=== PATIENT | male | born 1945 | race Caucasian/White ===

== ENCOUNTER 2016-12-23 10:55 | Emergency (ER) | payer MEDICARE ==
[2016-12-23 14:57] LABS: APPEARANCE,URINE CLEAR; BILIRUBIN,URINE NEGATIVE (NEGATIVE); GLUCOSE, URINE NEGATIVE (NEGATIVE); KETONES,URINE NEGATIVE (NEGATIVE); LEUKOCYTE ESTERASE,URINE TRACE (NEGATIVE); NITRITE,URINE NEGATIVE (NEGATIVE); PROTEIN,URINE NEGATIVE (NEGATIVE); URINE SPECIFIC GRAVITY 1.012; UROBILINOGEN,URINE NEGATIVE mg/dL (<2.0)
[2016-12-23 15:00] LABS: PARTIAL THROMBOPLASTIN TIME 29.7 SEC (23.5-35.8); PROTHROMBIN TIME 14.1 SEC (11.4-15.4)
--- NOTE | 2016-12-23 15:01 | ER Document Report ---
ED GI/ - General Time seen by provider: 14:55 Mode of Arrival: Medic Information source: Patient TRAVEL OUTSIDE OF THE [place] IN LAST 30 DAYS: No - HPI Patient complains to provider of: Abdominal pain, Diarrhea Onset: Other - see HPI Timing/Duration: Gradual Quality of pain: Burning, Cramping Location: Epigastric Associated symptoms: Diarrhea <DONA SUAREZ - Last Filed: 12/23/16 19:34> <EVANGELISTA ERICKSON - Last Filed: 12/23/16 22:31> - General Chief Complaint: Diarrhea Stated Complaint: ABDOMINAL PAIN Notes: Patient is a 71-year-old male presented to the emergency department with complaints of abdominal pain and diarrhea. Patient had diarrhea for the past 3 days but states he had a bowel movement today. Patient states his abdominal pain is in his upper epigastric region. Patient states that he is belching and burping a lot. Patient states that he was eating some Ramen noodles to try to settle his stomach. Patient also has erythematous lower extremities bilaterally with cellulitis. Patient states that he resides with his and other family members. Triage note states that the patient is noncompliant with his medications and has not taken any for the past month. Patient has a history of triple bypass surgery. Patient has no known allergies. (DONA SUAREZ) - Related Data Allergies/Adverse Reactions: No Known Allergies Allergy (Verified 05/02/13 14:18) Past Medical History - General Information source: Patient, [facility] Records - Social History Smoking Status: Unknown if Ever Smoked Family History: None - Past Medical History Cardiac Medical History: Reports: Hx Hypertension Pulmonary Medical History: Reports: Hx COPD GI Medical History: Reports: Hx Gastroesophageal Reflux Disease Past Surgical History: Reports: Hx Appendectomy, Hx Cardiac Surgery - triple bypass 2011, Hx Orthopedic Surgery - bilat leg surgery. - Immunizations Hx Diphtheria, Pertussis, Tetanus Vaccination: No <DONA SUAREZ - Last Filed: 12/23/16 19:34> Review of Systems - Review of Systems Constitutional: No symptoms reported EENT: No symptoms reported Cardiovascular: No symptoms reported Respiratory: No symptoms reported Gastrointestinal: See HPI, Abdominal pain, Diarrhea Genitourinary: No symptoms reported Male Genitourinary: No symptoms reported Musculoskeletal: No symptoms reported Skin: See HPI Hematologic/Lymphatic: No symptoms reported Neurological/Psychological: No symptoms reported -: Yes All other systems reviewed and negative <DONA SUAREZ - Last Filed: 12/23/16 19:34> Physical Exam - Vital signs Interpretation: Normal - General General appearance: Alert, Other - disheveled appearing In distress: Mild - HEENT Head: Normocephalic, Atraumatic Eyes: Normal Pupils: PERRL - Respiratory Respiratory status: No respiratory distress Chest status: Nontender, Other - scar on his chest consistent with CABG Breath sounds: Normal Chest palpation: Normal - Cardiovascular Rhythm: Regular Heart sounds: Normal auscultation Murmur: No - Abdominal Inspection: Normal Distension: No distension Bowel sounds: Normal Tenderness: Nontender Organomegaly: No organomegaly - Back Back: Normal, Nontender - Extremities General upper extremity: Normal inspection, Normal ROM, Normal strength General lower extremity: Normal ROM, Normal strength, Other - chronic venous stasis - Neurological Neuro grossly intact: Yes Cognition: Normal Orientation: AAOx4 Ayla Coma Scale Eye Opening: Spontaneous [place] Coma Scale Verbal: Oriented [place] Coma Scale Motor: Obeys Commands Ayla Coma Scale Total: 15 Speech: Normal - Psychological Associated symptoms: Normal affect, Normal mood - Skin Skin Temperature: Warm Skin Moisture: Dry <KARI SUAREZINE - Last Filed: 12/23/16 19:34> Course - Laboratory Result Diagrams: 12/23/16 12:20 12/23/16 12:20 <ERICKDONA - Last Filed: 12/23/16 19:34> - Laboratory Result Diagrams: 12/23/16 12:20 12/23/16 12:20 <EVANGELISTA ERICKSON - Last Filed: 12/23/16 22:31> - Re-evaluation Re-evalutation: 12/23/16 Patient is a 71-year-old male who came in for abdominal pain and diarrhea. Patient has had no further bowel movements in the emergency department. He has eaten a full meal and feels better. No abdominal pain. Blood work within normal limits. Vitals are stable. Patient lives with other family members. He 'll be discharged home and is to follow-up with his doctor. Agrees with this plan. (EVANGELISTA ERICKSON) - Vital Signs Vital signs: Temp Pulse Resp BP Pulse Ox 98.2 F 100 16 135/66 H 100 12/23/16 20:10 12/23/16 11:33 12/23/16 19:01 12/23/16 19:01 12/23/16 19:01 (DONA SUAREZ) (EVANGELISTA ERICKSON) - Laboratory Laboratory results interpreted by me: 12/23/16 12/23/16 12/23/16 12:20 12:20 12:20 MCHC 31.5 L RDW 18.6 H ALT 20 L Ur Leukocyte Esterase TRACE H (DONA SUAREZ) (EVANGELISTA ERICKSON) Discharge <DONA SUAREZ - Last Filed: 12/23/16 19:34> <EVANGELISTA ERICKSON - Last Filed: 12/23/16 22:31> - Discharge Clinical Impression: Diarrhea Qualifiers: Diarrhea type: unspecified type Qualified Code(s): R19.7 - Diarrhea, unspecified Condition: Stable Disposition: HOME, SELF-CARE Instructions: Diarrhea, Nonspecific ([facility]) Additional Instructions: Please follow-up with your doctor this week. Forms: Elevated Blood Pressure Scribe Attestation: 12/23/16 22:31 I personally performed the services described in the documentation, reviewed and edited the documentation which was dictated to the scribe in my presence, and it accurately records my words and actions. (EVANGELISTA ERICKSON) Scribe Documentation - Scribe Written by Scribe:: Dona Suarez 12/23/16 15:10 acting as scribe for :: Gamaliel <DONA SUAREZ - Last Filed: 12/23/16 19:34>
[2016-12-23 15:04] LABS: ABSOLUTE EOSINOPHILS # (AUTO) 0.3 10^3/uL (0.0-0.6); ABSOLUTE MONOCYTES (AUTO) 0.6 10^3/uL (0.1-1.4); BASOPHILS % (AUTO) 0.6 % (0-2); EOSINOPHILS % (AUTO) 4.3 % (0-6); HEMATOCRIT 45.1 % (37.9-51.0); HEMOGLOBIN 14.2 g/dL (13.5-17.0); HGB HCT DIFFERENCE -2.5; LYMPHOCYTES % (AUTO) 13.9 % (13-45); MEAN CORPUSCULAR HEMOGLOBIN 28.6 pg (27.0-33.4); MEAN CORPUSCULAR HGB CONC 31.5 g/dL (32.0-36.0); MEAN CORPUSCULAR VOLUME 91 fl (80-97); MONOCYTES % (AUTO) 9.3 % (3-13); RED BLOOD COUNT 4.98 10^6/uL (4.35-5.55); RED CELL DISTRIBUTION WIDTH 18.6 % (11.5-14.0); SEGMENTED NEUTROPHILS % (AUTO) 71.9 % (42-78); WHITE BLOOD COUNT 6.9 10^3/uL (4.0-10.5)
[2016-12-23 15:22] LABS: ALANINE AMINOTRANSFERASE 20 U/L (21-72); ALBUMIN 3.9 g/dL (3.5-5.0); ALKALINE PHOSPHATASE 72 U/L (38-126); ANION GAP 11 (5-19); ASPARTATE AMINO TRANSFERASE 21 U/L (17-59); BILIRUBIN,TOTAL 0.8 mg/dL (0.2-1.3); BLOOD UREA NITROGEN 14 mg/dL (7-20); CALCIUM 8.5 mg/dL (8.4-10.2); CARBON DIOXIDE 26 mmol/L (22-30); CHLORIDE 107 mmol/L (98-107); CREATININE RESULT 0.98 mg/dL (0.52-1.25); GLUCOSE 87 mg/dL (75-110); LIPASE 75.8 U/L (23-300); SODIUM 143.8 mmol/L (137-145)
[2016-12-23] MEDS ORDERED: SUCRALFATE 1 GM TABLET PO ONE (18:16)
[2016-12-23 20:10] VITALS: BP 135/66
== END 2016-12-23 20:11 | disposition home or self-care (01) ==
LOC: ER 10:55
DX: R19.7 Diarrhea, unspecified (principal); R10.13 Epigastric pain; R14.2 Eructation; L03.116 Cellulitis of left lower limb; L03.115 Cellulitis of right lower limb; I87.8 Other specified disorders of veins; I10 Essential (primary) hypertension; J44.9 Chronic obstructive pulmonary disease, unspecified; Z87.19 Personal history of other diseases of the digestive system; Z91.14 Patient's other noncompliance with medication regimen; Z90.49 Acquired absence of other specified parts of digestive tract; Z95.1 Presence of aortocoronary bypass graft
CPT/HCPCS: 99284; 36415; 87040; 87086; 83605; 83690; 85025; 85610; 85730; 82272; 80053; 81001; 84484; A9270

== ENCOUNTER 2017-03-05 14:40 | Emergency (ER) | payer MEDICARE ==
--- NOTE | 2017-03-05 15:46 | ER Document Report ---
ED Medical Screen (RME) - General Mode of Arrival: Ambulatory Information source: Patient TRAVEL OUTSIDE OF THE [place] IN LAST 30 DAYS: No - HPI Patient complains to provider of: Constipation with diarrhea Associated Symptoms: Other - see notes above - General Chief Complaint: Diarrhea Stated Complaint: DIARRHEA Notes: 71 year old male presents to the ED complaining of chronic constipation. Patient reports that he has difficulty having a bowel movement, and only is able to after he eats a meal. Patient explains that when he finally does have a bowel movement, it is loose. (JARAD WHEELER) - Related Data Allergies/Adverse Reactions: No Known Allergies Allergy (Verified 03/05/17 14:54) Past Medical History - General Information source: Patient - Past Medical History Cardiac Medical History: Reports: Hx Hypertension Pulmonary Medical History: Reports: Hx COPD Renal/ Medical History: Denies: Hx Peritoneal Dialysis GI Medical History: Reports: Hx Gastroesophageal Reflux Disease Past Surgical History: Reports: Hx Appendectomy, Hx Cardiac Surgery - triple bypass 2011, Hx Orthopedic Surgery - bilat leg surgery. - Immunizations Hx Diphtheria, Pertussis, Tetanus Vaccination: No Review of Systems - Review of Systems Constitutional: No symptoms reported EENT: No symptoms reported Cardiovascular: No symptoms reported Respiratory: No symptoms reported Gastrointestinal: See HPI, Diarrhea, Constipation Genitourinary: No symptoms reported Male Genitourinary: No symptoms reported Musculoskeletal: No symptoms reported Skin: No symptoms reported Hematologic/Lymphatic: No symptoms reported Neurological/Psychological: No symptoms reported -: Yes All other systems reviewed and negative Physical Exam - Vital signs Interpretation: Normal - General General appearance: Alert, Other - disheveled appearing In distress: None - Abdominal Inspection: Normal Distension: No distension Tenderness: Nontender - Vital signs Vitals: Temp Pulse Resp BP Pulse Ox 97.9 F 94 20 172/83 H 98 03/05/17 14:55 03/05/17 14:55 03/05/17 14:55 03/05/17 14:55 03/05/17 14:55 Course - Re-evaluation Re-evalutation: 03/05/17 Patient with nonsurgical abdomen. Patient is complaining of both diarrhea and chronic constipation. Patient is apparently also out of some of his home medications and recently moved to the area. Social work has been consult. 03/05/17 16:03 I personally performed the services described in the documentation, reviewed and edited the documentation which was dictated to the scribe in my presence, and it accurately records my words and actions. (EVANGELISTA ERICKSON) - Vital Signs Vital signs: Temp Pulse Resp BP Pulse Ox 97.9 F 94 20 172/83 H 98 03/05/17 14:55 03/05/17 14:55 03/05/17 14:55 03/05/17 14:55 03/05/17 14:55 Scribe Documentation - Scribe Written by Krystale:: Maycol Huertas, 03/05/2017 1553 acting as scribe for :: Gamaliel
[2017-03-05 16:17] LABS: ABSOLUTE BASOPHILS # (AUTO) 0.1 10^3/uL (0.0-0.2); ABSOLUTE EOSINOPHILS # (AUTO) 0.4 10^3/uL (0.0-0.6); ABSOLUTE LYMPHOCYTES (AUTO) 1.1 10^3/uL (0.5-4.7); ABSOLUTE MONOCYTES (AUTO) 0.7 10^3/uL (0.1-1.4); ABSOLUTE NEUT (AUTO) 5.7 10^3/uL (1.7-8.2); BASOPHILS % (AUTO) 0.8 % (0-2); EOSINOPHILS % (AUTO) 5.4 % (0-6); HEMATOCRIT 43.3 % (37.9-51.0); HEMOGLOBIN 14.5 g/dL (13.5-17.0); HGB HCT DIFFERENCE 0.2; LYMPHOCYTES % (AUTO) 13.6 % (13-45); MEAN CORPUSCULAR HEMOGLOBIN 29.5 pg (27.0-33.4); MEAN CORPUSCULAR HGB CONC 33.5 g/dL (32.0-36.0); MEAN CORPUSCULAR VOLUME 88 fl (80-97); MONOCYTES % (AUTO) 9.1 % (3-13); RED BLOOD COUNT 4.91 10^6/uL (4.35-5.55); SEGMENTED NEUTROPHILS % (AUTO) 71.1 % (42-78)
[2017-03-05 16:19] LABS: PROTHROMBIN TIME 13.5 SEC (11.4-15.4)
[2017-03-05 16:30] LABS: ALANINE AMINOTRANSFERASE 22 U/L (21-72); ALBUMIN 4.2 g/dL (3.5-5.0); ALKALINE PHOSPHATASE 88 U/L (38-126); ANION GAP 13 (5-19); ASPARTATE AMINO TRANSFERASE 19 U/L (17-59); BILIRUBIN,DIRECT 0.2 mg/dL (0.0-0.4); BILIRUBIN,TOTAL 0.6 mg/dL (0.2-1.3); BLOOD UREA NITROGEN 13 mg/dL (7-20); CALCIUM 9.5 mg/dL (8.4-10.2); CARBON DIOXIDE 27 mmol/L (22-30); CHLORIDE 104 mmol/L (98-107); CREATININE RESULT 0.95 mg/dL (0.52-1.25); GLUCOSE 94 mg/dL (75-110); POTASSIUM 4.5 mmol/L (3.6-5.0); SODIUM 143.7 mmol/L (137-145); TOTAL PROTEIN 7.3 g/dL (6.3-8.2)
--- NOTE | 2017-03-05 17:47 | ER Document Report ---
ED General - General Chief Complaint: Diarrhea Stated Complaint: DIARRHEA Mode of Arrival: Ambulatory Information source: Patient Notes: This is a 71-year-old male with multiple medical problems who presents with multiple vague complaints today. He states that the main reason for his presentation is abdominal cramping and diarrhea. He has a long history of intermittent constipation and diarrhea. He states that he has not seen a primary care physician in several years and is out of many of his medicines. He denies any current abdominal pain. He is tolerating food by mouth. No fevers or chills. No cough or congestion. No chest pain or shortness of breath. No dysuria. No blood in the stool. TRAVEL OUTSIDE OF THE [place] IN LAST 30 DAYS: No - Related Data Allergies/Adverse Reactions: No Known Allergies Allergy (Verified 03/05/17 14:54) Past Medical History - General Information source: Patient, [facility] Records - Social History Smoking Status: Former Smoker Frequency of alcohol use: None Drug Abuse: None Lives with: Family Family History: None Patient has suicidal ideation: No Patient has homicidal ideation: No - Past Medical History Cardiac Medical History: Reports: Hx Hypertension Pulmonary Medical History: Reports: Hx COPD Renal/ Medical History: Denies: Hx Peritoneal Dialysis GI Medical History: Reports: Hx Gastroesophageal Reflux Disease Past Surgical History: Reports: Hx Appendectomy, Hx Cardiac Surgery - triple bypass 2011, Hx Orthopedic Surgery - bilat leg surgery. - Immunizations Hx Diphtheria, Pertussis, Tetanus Vaccination: No Review of Systems - Review of Systems Notes: REVIEW OF SYSTEMS: CONSTITUTIONAL : Denies fever, chills, or sweats. Denies recent illness. EENT: Denies eye, ear, throat, or mouth pain or symptoms. Denies nasal or sinus congestion. CARDIOVASCULAR: Denies chest pain. RESPIRATORY: Denies shortness of breath, difficulty breathing, or wheezing. Chronic cough. GASTROINTESTINAL: As per history of present illness: GENITOURINARY: Denies difficulty urinating, painful urination, burning, frequency, or blood in urine. MUSCULOSKELETAL: Denies neck or back pain or joint pain or swelling. SKIN: Denies rash or skin lesions. HEMATOLOGIC : Denies easy bruising or bleeding. LYMPHATIC: Denies swollen, enlarged glands. NEUROLOGICAL: Denies altered mental status or loss of consciousness. Denies headache. PSYCHIATRIC: Denies anxiety or stress or depression. ALL OTHER SYSTEMS REVIEWED AND NEGATIVE. Physical Exam - Vital signs Vitals: Temp Pulse Resp BP Pulse Ox 97.9 F 94 20 172/83 H 98 03/05/17 14:55 03/05/17 14:55 03/05/17 14:55 03/05/17 14:55 03/05/17 14:55 - Notes Notes: PHYSICAL EXAMINATION: GENERAL: disheveled elderly male, poor hygiene, well-nourished, pleasant and conversant and in no acute distress. HEAD: Atraumatic, normocephalic. EYES: Pupils equal round and reactive to light, extraocular movements intact, sclera anicteric, conjunctiva are normal. ENT: nares patent, oropharynx clear without exudates. Moist mucous membranes. NECK: Normal range of motion, supple without lymphadenopathy LUNGS: Breath sounds clear to auscultation bilaterally and equal. No wheezes rales or rhonchi. HEART: Regular rate and rhythm without murmurs ABDOMEN: Soft, nontender, normoactive bowel sounds. No guarding, no rebound. No masses appreciated. EXTREMITIES: Normal range of motion, no pitting or edema. NEUROLOGICAL: Cranial nerves grossly intact. Normal speech, normal gait. Normal sensory, motor, and reflex exams. PSYCH: Normal mood, normal affect. SKIN: Warm, Dry, normal turgor, no rashes or lesions noted. Course - Re-evaluation Re-evalutation: 03/05/17 20:25 Patient reexamined and we discussed the results of his lab work and acute abdominal series. He is noted to be sitting up in bed and has just completed eating a meal he is smiling and conversant and watching TV and states he feels just fine. He will be discharged tonight. He has been given the number for the social science manager to call tomorrow for assistance with arranging primary medical care and to resume his daily medications. Should return precautions were discussed. He is very comfortable with this plan. - Vital Signs Vital signs: Temp Pulse Resp BP Pulse Ox 97.9 F 94 20 172/83 H 98 03/05/17 14:55 03/05/17 14:55 03/05/17 14:55 03/05/17 14:55 03/05/17 14:55 - Laboratory Result Diagrams: 03/05/17 15:55 03/05/17 15:55 Laboratory results interpreted by me: 03/05/17 03/05/17 15:55 18:30 RDW 18.0 H Ur Leukocyte Esterase TRACE H - Diagnostic Test Radiology reviewed: Reports reviewed - AAS: no acute process, non obstructive bowel gas pattern - EKG Interpretation by Me Additional EKG results interpreted by me: 03/05/17 17:47 EKG at 1548 demonstrates normal sinus rhythm with a rate of 79. There is an incomplete left bundle-branch block. Nonspecific T-wave changes. No ST segment elevation or depression. Discharge - Discharge Clinical Impression: Diarrhea Qualifiers: Diarrhea type: unspecified type Qualified Code(s): R19.7 - Diarrhea, unspecified Condition: Stable Disposition: HOME, SELF-CARE Additional Instructions: Call Data Analysis Intern as instructed tomorrow for assistance with finding PCP and resuming daily medications. Return to the ER for fever, increased pain, any worsening symptoms or concerns. Forms: Elevated Blood Pressure
[2017-03-05 20:06] LABS: APPEARANCE,URINE CLEAR; BILIRUBIN,URINE NEGATIVE (NEGATIVE); GLUCOSE, URINE NEGATIVE (NEGATIVE); KETONES,URINE NEGATIVE (NEGATIVE); LEUKOCYTE ESTERASE,URINE TRACE (NEGATIVE); NITRITE,URINE NEGATIVE (NEGATIVE); PROTEIN,URINE NEGATIVE (NEGATIVE); URINE SPECIFIC GRAVITY 1.013; UROBILINOGEN,URINE NEGATIVE mg/dL (<2.0)
[2017-03-05 20:55] VITALS: BP 160/89
--- NOTE | 2017-03-07 15:44 | EKG REPORT ---
SEVERITY:- ABNORMAL ECG - SINUS RHYTHM INCOMPLETE LEFT BUNDLE BRANCH BLOCK LEFT VENTRICULAR HYPERTROPHY : Confirmed by: Alia Leonard MD 07-Mar-2017 15:42:29
== END 2017-03-05 20:55 | disposition home or self-care (01) ==
LOC: ER 14:40
DX: R19.7 Diarrhea, unspecified (principal); R10.9 Unspecified abdominal pain; K59.00 Constipation, unspecified; Z87.891 Personal history of nicotine dependence
CPT/HCPCS: 36415; 74022; 80053; 81001; 85025; 85610; 87040; 87086; 93005; 93010; 99284

== ENCOUNTER 2018-06-17 00:18 | Emergency (ER) | payer MEDICARE, MEDICAID ==
[2018-06-17] MEDS ORDERED: IPRATROPIUM/ALBUTEROL 0.5-2.5 MG/3 ML AMPUL NEB ONE (01:23)
[2018-06-17] MEDS ORDERED: CEPHALEXIN 500 MG CAPSULE PO ONE (01:23)
[2018-06-17] MEDS ORDERED: ALBUTEROL SULFATE HFA (90 MCG/PUFF) 200 PUFF/8.5 GM MDI IH ONE (01:36)
--- NOTE | 2018-06-17 01:38 | ER Document Report ---
ED General - General Chief Complaint: Leg Pain Stated Complaint: LEG PAIN Time Seen by Provider: 06/17/18 01:00 Notes: Patient is a 73-year-old male with a past medical history of hypertension, COPD , chronic venous stasis, history of noncompliance with medication regimens who presents with 3-4 days of progressively worsening pain to the right lower extremity. Patient reports that initially there was too serous fluid sacs on the anterior surface of the distal right lower extremity just above the level of the ankle. He notes that these opened and drained since that time the area has become increasingly red and painful. He notes a dull, constant, burning pain to the affected area. Touching the area worsens the pain. Nothing improves the pain. He denies a history of similar symptoms in the past. He has not seen his general doctor regarding today's concerns. He denies any associated fever or constitutional. TRAVEL OUTSIDE OF THE [place] IN LAST 30 DAYS: No - Related Data Allergies/Adverse Reactions: No Known Allergies Allergy (Verified 03/05/17 14:54) Past Medical History - General Information source: Patient - Social History Smoking Status: Former Smoker Frequency of alcohol use: None Drug Abuse: None Lives with: Family Family History: Reviewed & Not Pertinent Patient has suicidal ideation: No Patient has homicidal ideation: No - Past Medical History Cardiac Medical History: Reports: Hx Hypertension Pulmonary Medical History: Reports: Hx COPD Renal/ Medical History: Denies: Hx Peritoneal Dialysis GI Medical History: Reports: Hx Gastroesophageal Reflux Disease Past Surgical History: Reports: Hx Appendectomy, Hx Cardiac Surgery - triple bypass 2011, Hx Orthopedic Surgery - bilat leg surgery. - Immunizations Hx Diphtheria, Pertussis, Tetanus Vaccination: No Review of Systems - Review of Systems Notes: Constitutional: Negative for fever. HENT: Negative for sore throat. Eyes: Negative for visual changes. Cardiovascular: Negative for chest pain. Respiratory: Negative for shortness of breath. Gastrointestinal: Negative for abdominal pain, vomiting or diarrhea. Genitourinary: Negative for dysuria. Musculoskeletal: Negative for back pain. Skin: Positive for cellulitis of the right lower extremity Neurological: Negative for headaches, weakness or numbness. 10 point ROS negative except as marked above and in HPI. Physical Exam - Vital signs Vitals: Temp Pulse Resp BP Pulse Ox 98.8 F 94 17 152/81 H 97 06/17/18 00:26 06/17/18 00:26 06/17/18 00:26 06/17/18 00:26 06/17/18 00:26 Interpretation: Hypertensive Notes: PHYSICAL EXAMINATION: GENERAL: Well-appearing, well-nourished and in no acute distress. HEAD: Atraumatic, normocephalic. EYES: Pupils equal round and reactive to light, extraocular movements intact, sclera anicteric, conjunctiva are normal. ENT: nares patent, oropharynx clear without exudates. Moist mucous membranes. NECK: Normal range of motion, supple without lymphadenopathy LUNGS: Breath sounds clear to auscultation bilaterally and equal. Scattered expiratory wheezing in all lung ibrahim HEART: Regular rate and rhythm without murmurs ABDOMEN: Soft, nontender, normoactive bowel sounds. No guarding, no rebound. No masses appreciated. EXTREMITIES: Normal range of motion, no pitting or edema. No cyanosis. NEUROLOGICAL: No focal neurological deficits. Moves all extremities spontaneously and on command. PSYCH: Normal mood, normal affect. SKIN: Warm, Dry, normal turgor, findings consistent with chronic venous stasis in the bilateral lower extremities, there are 2 1 cm x 1 cm open areas on the mid, distal surface of the right lower extremity just above the level of the ankle that appear erythematous and are quite tender to palpation. No induration , fluctuance or purulent expression. Course - Re-evaluation Re-evalutation: 06/17/18 01:35 Patient presents with 2 open wounds to his right lower extremity and has chronic venous stasis to the bilateral lower extremities. No fever or constitutional symptoms. He has had some redness and increased pain to the affected area consistent with a probable superimposed cellulitis. Vitals within normal limits. Patient does not meet sepsis criteria is overall very well in appearance. Exam and history are not consistent with DVT. Patient has been started on cephalexin and the wounds have been dressed. At this time will discharge with return precautions and follow-up recommendations. Verbal discharge instructions given a the bedside and opportunity for questions given. Medication warnings reviewed. Patient is in agreement with this plan and has verbalized understanding of return precautions and the need for primary care follow-up in the next 24-72 hours. - Vital Signs Vital signs: Temp Pulse Resp BP Pulse Ox 98.8 F 88 20 142/87 H 96 06/17/18 00:26 06/17/18 01:36 06/17/18 01:36 06/17/18 01:36 06/17/18 01:36 Discharge - Discharge Clinical Impression: Cellulitis of right lower extremity Stasis dermatitis Qualifiers: Laterality: bilateral Qualified Code(s): I87.2 - Venous insufficiency (chronic ) (peripheral) Condition: Good Disposition: HOME, SELF-CARE Additional Instructions: The rash is likely due to infection of your skin. You need to take the antibiotics as prescribed. Do not stop even if the rash goes away until you have completed all the antibiotics. You should also return if you develop fevers with temperature greater than 101, persistent vomiting, worsening pain, or have any other symptoms that are concerning to you. Prescriptions: Cephalexin Monohydrate [Keflex 500 mg Capsule] 500 mg PO Q6H 7 Days capsule Referrals: JENISE PRIEC DO [Primary Care Provider] - Follow up as needed
[2018-06-17 02:06] VITALS: BP 142/87
== END 2018-06-17 01:55 | disposition home or self-care (01) ==
LOC: ER 00:18
DX: L03.115 Cellulitis of right lower limb (principal); I87.2 Venous insufficiency (chronic) (peripheral); M79.604 Pain in right leg; I10 Essential (primary) hypertension; J44.9 Chronic obstructive pulmonary disease, unspecified; Z87.891 Personal history of nicotine dependence
CPT/HCPCS: 94640; 99283; A9270 ×2; J7620

== ENCOUNTER 2018-08-16 16:09 | Inpatient (IN) | payer MEDICARE, MEDICAID ==
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
[2018-08-16] MEDS ORDERED: NITROGLYCERIN 0.4 MG/TAB 25 TAB/BOTTLE SL ONE (16:52)
[2018-08-16] MEDS ORDERED: AMLODIPINE BESYLATE 5 MG TABLET PO ONE (16:53)
[2018-08-16 17:23] LABS: ABSOLUTE BASOPHILS # (AUTO) 0.1 10^3/uL (0.0-0.2); ABSOLUTE EOSINOPHILS # (AUTO) 0.4 10^3/uL (0.0-0.6); ABSOLUTE LYMPHOCYTES (AUTO) 1.2 10^3/uL (0.5-4.7); ABSOLUTE MONOCYTES (AUTO) 0.9 10^3/uL (0.1-1.4); ABSOLUTE NEUT (AUTO) 8.1 10^3/uL (1.7-8.2); BASOPHILS % (AUTO) 0.8 % (0-2); EOSINOPHILS % (AUTO) 3.6 % (0-6); HEMATOCRIT 43.2 % (37.9-51.0); HEMOGLOBIN 14.2 g/dL (13.5-17.0); LYMPHOCYTES % (AUTO) 10.9 % (13-45); MEAN CORPUSCULAR HGB CONC 32.8 g/dL (32.0-36.0); MEAN CORPUSCULAR VOLUME 85 fl (80-97); MONOCYTES % (AUTO) 8.3 % (3-13); PLATELET COUNT 360 10^3/uL (150-450); RED BLOOD COUNT 5.06 10^6/uL (4.35-5.55); RED CELL DISTRIBUTION WIDTH 18.8 % (11.5-14.0); SEGMENTED NEUTROPHILS % (AUTO) 76.4 % (42-78); TOTAL CELLS COUNTED % (AUTO) 100 %; WHITE BLOOD COUNT 10.6 10^3/uL (4.0-10.5)
[2018-08-16 17:39] LABS: ALANINE AMINOTRANSFERASE 25 U/L (21-72); ALBUMIN 4.3 g/dL (3.5-5.0); ALKALINE PHOSPHATASE 84 U/L (38-126); ANION GAP 8 (5-19); ASPARTATE AMINO TRANSFERASE 23 U/L (17-59); BILIRUBIN,DIRECT 0.6 mg/dL (0.0-0.4); BILIRUBIN,TOTAL 0.8 mg/dL (0.2-1.3); BLOOD UREA NITROGEN 21 mg/dL (7-20); CALCIUM 9.5 mg/dL (8.4-10.2); CARBON DIOXIDE 28 mmol/L (22-30); CHLORIDE 103 mmol/L (98-107); CREATINE KINASE 57 U/L (55-170); GLUCOSE 99 mg/dL (75-110); POTASSIUM 4.5 mmol/L (3.6-5.0); SODIUM 139.2 mmol/L (137-145); TOTAL PROTEIN 8.7 g/dL (6.3-8.2)
[2018-08-16 17:41] LABS: INTERNATIONAL RATION (INR) 1.05; PROTHROMBIN TIME 14.2 SEC (11.4-15.4)
[2018-08-16 17:51] LABS: CREATINE KINASE MB 1.8 ng/mL (<4.55); TROPONIN I 0.029 ng/mL
--- NOTE | 2018-08-16 18:01 | RADIOLOGY REPORT (SQ) ---
EXAM DESCRIPTION: CHEST SINGLE VIEW COMPLETED DATE/TIME: 08/16/2018 5:39 pm REASON FOR STUDY: chest pain COMPARISON: Chest x-ray 02/09/2011. Abdominal series 03/05/2017. EXAM PARAMETERS: NUMBER OF VIEWS: One view. TECHNIQUE: Single frontal radiographic view of the chest acquired. RADIATION DOSE: NA LIMITATIONS: None. FINDINGS: LUNGS AND PLEURA: Mild atelectasis at the bilateral lung bases. No pleural effusion or pn eumothorax. MEDIASTINUM AND HILAR STRUCTURES: No masses. Contour normal. HEART AND VASCULAR STRUCTURES: Heart normal in size. Normal vasculature. BONES: No acute findings. HARDWARE: Sternotomy wires are present. IMPRESSION: Mild bibasilar atelectasis. TECHNICAL DOCUMENTATION: JOB ID: [id number] 2010 [employer]- All Rights Reserved Reading location - IP/workstation name: [email or web address]
[2018-08-16] MEDS ORDERED: FUROSEMIDE INJ/PF 20 MG/2 ML SDV IV ONE (19:44)
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
--- NOTE | 2018-08-16 21:37 | EKG REPORT ---
SEVERITY:- ABNORMAL ECG - SINUS RHYTHM INCOMPLETE LEFT BUNDLE BRANCH BLOCK : Confirmed by: Jim Mayes 16-Aug-2018 21:36:30
[2018-08-18] MEDS ORDERED: IPRATROPIUM/ALBUTEROL 0.5-2.5 MG/3 ML AMPUL NEB PRN ×2 (00:02→11:25)
[2018-08-18] MEDS ORDERED: HYDRALAZINE HCL INJ/PF 20 MG/1 ML SDV IV PRN (00:02)
[2018-08-18] MEDS ORDERED: MAG HYDROX/AL HYDROX/SIMETH SUSP 30 ML UDCUP PO PRN (00:02)
[2018-08-18] MEDS ORDERED: ACETAMINOPHEN 325 MG TABLET PO PRN (00:02)
[2018-08-18] MEDS ORDERED: METOPROLOL TARTRATE 25 MG TABLET PO ONE (00:30)
[2018-08-18] MEDS ORDERED: HYDRALAZINE HCL 10 MG TABLET PO ONE (00:30)
[2018-08-18] MEDS ORDERED: ATORVASTATIN CALCIUM 20 MG TABLET PO ONE (00:30)
[2018-08-18] MEDS ORDERED: DOXYCYCLINE HYCLATE 100 MG TABLET PO ONE (01:00)
[2018-08-18 01:24] LABS: CREATINE KINASE MB 2.7 ng/mL (<4.55); TROPONIN I 0.034 ng/mL
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
[2018-08-18] MEDS: HEPARIN SOD (PORCINE) 5,000 UNIT/ML 1 ML SYRINGE SUBCUT SCH ×3 (06:49→22:46)
[2018-08-18 06:53] LABS: ABSOLUTE BASOPHILS # (AUTO) 0.1 10^3/uL (0.0-0.2); ABSOLUTE EOSINOPHILS # (AUTO) 0.5 10^3/uL (0.0-0.6); ABSOLUTE LYMPHOCYTES (AUTO) 1.3 10^3/uL (0.5-4.7); ABSOLUTE MONOCYTES (AUTO) 0.7 10^3/uL (0.1-1.4); ABSOLUTE NEUT (AUTO) 5.5 10^3/uL (1.7-8.2); BASOPHILS % (AUTO) 0.8 % (0-2); EOSINOPHILS % (AUTO) 6.7 % (0-6); HEMATOCRIT 35.5 % (37.9-51.0); MEAN CORPUSCULAR HEMOGLOBIN 28.2 pg (27.0-33.4); MEAN CORPUSCULAR HGB CONC 33.7 g/dL (32.0-36.0); MEAN CORPUSCULAR VOLUME 84 fl (80-97); MONOCYTES % (AUTO) 9.1 % (3-13); PLATELET COUNT 268 10^3/uL (150-450); RED BLOOD COUNT 4.25 10^6/uL (4.35-5.55); RED CELL DISTRIBUTION WIDTH 18.6 % (11.5-14.0); SEGMENTED NEUTROPHILS % (AUTO) 67.4 % (42-78); TOTAL CELLS COUNTED % (AUTO) 100 %; WHITE BLOOD COUNT 8.2 10^3/uL (4.0-10.5)
[2018-08-18 07:10] LABS: ANION GAP 6 (5-19); BLOOD UREA NITROGEN 23 mg/dL (7-20); CALCIUM 8.3 mg/dL (8.4-10.2); CARBON DIOXIDE 27 mmol/L (22-30); CHLORIDE 105 mmol/L (98-107); CREATINE KINASE 156 U/L (55-170); GLUCOSE 100 mg/dL (75-110); POTASSIUM 3.8 mmol/L (3.6-5.0); SODIUM 138.1 mmol/L (137-145)
[2018-08-18 07:23] LABS: CREATINE KINASE MB 2.46 ng/mL (<4.55); TROPONIN I 0.033 ng/mL
[2018-08-18] MEDS ORDERED: IPRATROPIUM/ALBUTEROL 0.5-2.5 MG/3 ML AMPUL NEB SCH (08:00)
[2018-08-18] MEDS: ASPIRIN 325 MG TABLET PO SCH (09:19)
[2018-08-18] MEDS: DOCUSATE SODIUM 100 MG CAPSULE PO SCH ×2 (09:19→17:24)
[2018-08-18] MEDS: METOPROLOL TARTRATE 25 MG TABLET PO SCH (09:19)
[2018-08-18] MEDS: DOXYCYCLINE HYCLATE 100 MG TABLET PO SCH ×2 (09:20→22:46)
[2018-08-18] MEDS: FLUTICASONE NASAL SPRAY 50 MCG/SPRY 120 SPRAY/16 GM NASL SCH ×2 (09:21→23:19)
[2018-08-18] MEDS ORDERED: BUDESONIDE/FORMOTEROL 80-4.5 MCG 60 PUFF/6.9 GM MDI IH SCH (11:30)
[2018-08-18 13:02] LABS: CREATINE KINASE MB 2.36 ng/mL (<4.55); TROPONIN I 0.026 ng/mL
[2018-08-18] MEDS: GUAIFENESIN 600 MG TABLET.SA PO SCH ×2 (13:21→22:46)
[2018-08-18] MEDS: MINERAL OIL/PETROLATUM,WHITE CREAM 114 GM TP SCH ×2 (13:24→17:23)
[2018-08-18] MEDS: TIOTROPIUM BROMIDE DPI 5 CAP/KIT (18 MCG/CAP) IH SCH ×2 (13:42→17:24)
[2018-08-18] MEDS ORDERED: HYDRALAZINE HCL 10 MG TABLET PO SCH (14:00)
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
[2018-08-18] MEDS: TAMSULOSIN HCL 0.4 MG CAP.SR.24H PO SCH (17:23)
[2018-08-18] MEDS: ATORVASTATIN CALCIUM 20 MG TABLET PO SCH (22:46)
[2018-08-18] MEDS: BUDESONIDE/FORMOTEROL 160-4.5 MCG 60 PUFF/6 GM MDI IH SCH (22:46)
[2018-08-19 04:38] LABS: ABSOLUTE BASOPHILS # (AUTO) 0.1 10^3/uL (0.0-0.2); ABSOLUTE EOSINOPHILS # (AUTO) 0.7 10^3/uL (0.0-0.6); ABSOLUTE LYMPHOCYTES (AUTO) 1.3 10^3/uL (0.5-4.7); ABSOLUTE MONOCYTES (AUTO) 0.8 10^3/uL (0.1-1.4); ABSOLUTE NEUT (AUTO) 4.7 10^3/uL (1.7-8.2); BASOPHILS % (AUTO) 0.9 % (0-2); EOSINOPHILS % (AUTO) 9.2 % (0-6); HEMATOCRIT 35.6 % (37.9-51.0); HEMOGLOBIN 11.6 g/dL (13.5-17.0); LYMPHOCYTES % (AUTO) 17.2 % (13-45); MEAN CORPUSCULAR HEMOGLOBIN 27.6 pg (27.0-33.4); MEAN CORPUSCULAR HGB CONC 32.7 g/dL (32.0-36.0); MEAN CORPUSCULAR VOLUME 84 fl (80-97); MONOCYTES % (AUTO) 10.3 % (3-13); PLATELET COUNT 273 10^3/uL (150-450); RED BLOOD COUNT 4.22 10^6/uL (4.35-5.55); RED CELL DISTRIBUTION WIDTH 18.3 % (11.5-14.0); SEGMENTED NEUTROPHILS % (AUTO) 62.4 % (42-78); TOTAL CELLS COUNTED % (AUTO) 100 %; WHITE BLOOD COUNT 7.5 10^3/uL (4.0-10.5)
[2018-08-19 04:59] LABS: ANION GAP 7 (5-19); BLOOD UREA NITROGEN 28 mg/dL (7-20); CALCIUM 8.2 mg/dL (8.4-10.2); CARBON DIOXIDE 24 mmol/L (22-30); CHLORIDE 107 mmol/L (98-107); GLUCOSE 99 mg/dL (75-110); POTASSIUM 3.9 mmol/L (3.6-5.0); SODIUM 138.3 mmol/L (137-145)
[2018-08-19] MEDS: HEPARIN SOD (PORCINE) 5,000 UNIT/ML 1 ML SYRINGE SUBCUT SCH ×3 (06:34→21:10)
[2018-08-19] MEDS: DOCUSATE SODIUM 100 MG CAPSULE PO SCH ×2 (09:58→18:45)
[2018-08-19] MEDS: GUAIFENESIN 600 MG TABLET.SA PO SCH ×2 (09:58→21:12)
[2018-08-19] MEDS: METOPROLOL TARTRATE 25 MG TABLET PO SCH (09:58)
[2018-08-19] MEDS: ASPIRIN 325 MG TABLET PO SCH (09:58)
[2018-08-19] MEDS: FLUTICASONE NASAL SPRAY 50 MCG/SPRY 120 SPRAY/16 GM NASL SCH ×2 (09:59→21:12)
[2018-08-19] MEDS: TIOTROPIUM BROMIDE DPI 5 CAP/KIT (18 MCG/CAP) IH SCH ×2 (09:59→18:46)
[2018-08-19] MEDS: BUDESONIDE/FORMOTEROL 160-4.5 MCG 60 PUFF/6 GM MDI IH SCH ×2 (09:59→21:12)
[2018-08-19] MEDS: DOXYCYCLINE HYCLATE 100 MG TABLET PO SCH ×2 (10:00→21:11)
[2018-08-19] MEDS: MINERAL OIL/PETROLATUM,WHITE CREAM 114 GM TP SCH ×2 (10:01→18:46)
[2018-08-19] MEDS: SILVER SULFADIAZINE 1% CREAM 25 GM TP SCH (12:47)
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
[2018-08-19] MEDS: TAMSULOSIN HCL 0.4 MG CAP.SR.24H PO SCH (18:45)
[2018-08-19] MEDS: ATORVASTATIN CALCIUM 20 MG TABLET PO SCH (21:11)
[2018-08-20 04:46] LABS: ABSOLUTE BASOPHILS # (AUTO) 0.1 10^3/uL (0.0-0.2); ABSOLUTE EOSINOPHILS # (AUTO) 0.8 10^3/uL (0.0-0.6); ABSOLUTE LYMPHOCYTES (AUTO) 1.3 10^3/uL (0.5-4.7); ABSOLUTE MONOCYTES (AUTO) 0.7 10^3/uL (0.1-1.4); ABSOLUTE NEUT (AUTO) 4.7 10^3/uL (1.7-8.2); BASOPHILS % (AUTO) 0.9 % (0-2); LYMPHOCYTES % (AUTO) 17.1 % (13-45); MEAN CORPUSCULAR HEMOGLOBIN 27.9 pg (27.0-33.4); MEAN CORPUSCULAR HGB CONC 33.3 g/dL (32.0-36.0); MEAN CORPUSCULAR VOLUME 84 fl (80-97); MONOCYTES % (AUTO) 9.5 % (3-13); PLATELET COUNT 278 10^3/uL (150-450); RED BLOOD COUNT 4.28 10^6/uL (4.35-5.55); RED CELL DISTRIBUTION WIDTH 19.3 % (11.5-14.0); SEGMENTED NEUTROPHILS % (AUTO) 62.5 % (42-78); TOTAL CELLS COUNTED % (AUTO) 100 %; WHITE BLOOD COUNT 7.5 10^3/uL (4.0-10.5)
[2018-08-20 05:16] LABS: ALANINE AMINOTRANSFERASE 23 U/L (21-72); ALBUMIN 3.1 g/dL (3.5-5.0); ALKALINE PHOSPHATASE 64 U/L (38-126); ANION GAP 7 (5-19); ASPARTATE AMINO TRANSFERASE 16 U/L (17-59); BILIRUBIN,DIRECT 0.5 mg/dL (0.0-0.4); BILIRUBIN,TOTAL 0.5 mg/dL (0.2-1.3); BLOOD UREA NITROGEN 26 mg/dL (7-20); CALCIUM 8.7 mg/dL (8.4-10.2); CARBON DIOXIDE 23 mmol/L (22-30); CHLORIDE 108 mmol/L (98-107); GLUCOSE 101 mg/dL (75-110); POTASSIUM 3.8 mmol/L (3.6-5.0); SODIUM 138.1 mmol/L (137-145); TOTAL PROTEIN 6.6 g/dL (6.3-8.2)
[2018-08-20] MEDS: HEPARIN SOD (PORCINE) 5,000 UNIT/ML 1 ML SYRINGE SUBCUT SCH ×2 (05:26→15:12)
[2018-08-20] MEDS: ASPIRIN 325 MG TABLET PO SCH (10:31)
[2018-08-20] MEDS: METOPROLOL TARTRATE 25 MG TABLET PO SCH (10:31)
[2018-08-20] MEDS: GUAIFENESIN 600 MG TABLET.SA PO SCH (10:31)
[2018-08-20] MEDS: BUDESONIDE/FORMOTEROL 160-4.5 MCG 60 PUFF/6 GM MDI IH SCH (10:32)
[2018-08-20] MEDS: TIOTROPIUM BROMIDE DPI 5 CAP/KIT (18 MCG/CAP) IH SCH (10:32)
[2018-08-20] MEDS: DOCUSATE SODIUM 100 MG CAPSULE PO SCH (10:32)
[2018-08-20] MEDS: DOXYCYCLINE HYCLATE 100 MG TABLET PO SCH (10:32)
[2018-08-20] MEDS: MINERAL OIL/PETROLATUM,WHITE CREAM 114 GM TP SCH (10:32)
[2018-08-20] MEDS: SILVER SULFADIAZINE 1% CREAM 25 GM TP SCH (10:33)
[2018-08-20] MEDS: FLUTICASONE NASAL SPRAY 50 MCG/SPRY 120 SPRAY/16 GM NASL SCH (10:33)
[2018-08-20 14:36] VITALS: BP 110/52
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
== END 2018-08-20 16:28 | disposition home or self-care (01) | DRG 304 ==
LOC: ER 16:09 → OBSVTOIN 08-17 23:48 → 3N 08-17 23:48
PROVIDERS: ADMIT Internal Medicine; ATTEND Internal Medicine
DX: I16.0 Hypertensive urgency (principal); I50.33 Acute on chronic diastolic (congestive) heart failure; I47.1 Supraventricular tachycardia; J44.1 Chronic obstructive pulmonary disease with (acute) exacerbation; L97.911 Non-pressure chronic ulcer of unspecified part of right lower leg limited to breakdown of skin; I11.0 Hypertensive heart disease with heart failure; R07.9 Chest pain, unspecified; Z65.5 Exposure to disaster, war and other hostilities; I10 Essential (primary) hypertension; I25.10 Atherosclerotic heart disease of native coronary artery without angina pectoris; I73.9 Peripheral vascular disease, unspecified; E78.5 Hyperlipidemia, unspecified; K21.9 Gastro-esophageal reflux disease without esophagitis; Z79.82 Long term (current) use of aspirin; Z79.899 Other long term (current) drug therapy; Z91.14 Patient's other noncompliance with medication regimen; F17.200 Nicotine dependence, unspecified, uncomplicated
CPT/HCPCS: 36415; 71045; 80048; 80053; 82550; 82553; 83735; 83880; 84443; 84484; 85025; 85610; 93005; 93010; 94640; 94667; 94668; 94799; 96374; 99285; J1644; J1940; J3490; J7620

== ENCOUNTER 2018-09-12 14:59 | Inpatient (IN) | payer MEDICARE, MEDICAID ==
[2018-09-12] MEDS ORDERED: METHYLPREDNISOLONE INJ 125 MG/2 ML SDV IV ONE (15:17)
[2018-09-12] MEDS ORDERED: IPRATROPIUM/ALBUTEROL 0.5-2.5 MG/3 ML AMPUL NEB ONE (15:17)
--- NOTE | 2018-09-12 15:17 | ER Document Report ---
ED Respiratory Problem - General Chief Complaint: Breathing Difficulty Stated Complaint: DIFFICULTY BREATHING Time Seen by Provider: 09/12/18 15:04 Notes: 73-year-old male to the emergency department via EMS for evaluation of difficulty breathing. EMS arrived. Patient's blood pressure was 240/120. Nitro was given. Leg is swollen and painful but chronic. History of CHF. History of COPD. 2 duo nebs are given. IV established. Solu-Medrol given. Patient placed on CPAP. Feeling better by the time he gets to the emergency department. TRAVEL OUTSIDE OF THE [place] IN LAST 30 DAYS: No - Related Data Allergies/Adverse Reactions: No Known Allergies Allergy (Verified 08/16/18 16:10) Past Medical History - General Information source: Patient - Social History Smoking Status: Unknown if Ever Smoked Frequency of alcohol use: None Drug Abuse: None Lives with: Family Family History: CAD, COPD, Hypertension - Past Medical History Cardiac Medical History: Reports: Hx Congestive Heart Failure, Hx Coronary Artery Disease, Hx Hypercholesterolemia, Hx Hypertension, Hx Peripheral Vascular Disease Pulmonary Medical History: Reports: Hx Bronchitis, Hx COPD Renal/ Medical History: Denies: Hx Peritoneal Dialysis GI Medical History: Reports: Hx Gastroesophageal Reflux Disease Past Surgical History: Reports: Hx Appendectomy, Hx Cardiac Surgery - triple bypass 2011, Hx Orthopedic Surgery - bilat leg surgery. - Immunizations Hx Diphtheria, Pertussis, Tetanus Vaccination: No Review of Systems - Review of Systems Notes: Constitutional: denies: Chills, Diaphoresis, Fever, Malaise, Weakness EENT: denies: Eye discharge, Blurred vision, Tearing, Double vision, Nose congestion, Nose discharge, Throat swelling, Mouth pain Cardiovascular: denies: Palpitations, Heart racing, Orthopnea, Dyspnea, Chest pain Respiratory: Shortness of breath, cough, wheeze Gastrointestinal: denies: Abdominal pain, Diarrhea, Nausea, Vomiting, Black stools, bright red blood in stool Genitourinary: denies: Burning, Dysuria, Discharge, Frequency, Flank pain, Hematuria Musculoskeletal: Increased pain and swelling of the left lower extremity with chronic cellulitis of the bilateral lower extremities Hematologic/Lymphatic: denies: Anemia, Easy bleeding, Easy bruising, Blood clots Neurological/Psychological: denies: Confusion, Dementia, Depression, Loss of consciousness Skin: No lesions, no masses, no abscesses. Swelling of the bilateral lower extremities with chronic cellulitis and chronic wounds. Physical Exam - Vital signs Vitals: Resp 30 H 09/12/18 15:14 Interpretation: Normal - General General appearance: Appears well, Alert - HEENT Head: Normocephalic, Atraumatic Eyes: Normal Pupils: PERRL - Respiratory Respiratory status: Respiratory distress, Tachypnea Chest status: Nontender Breath sounds: Decreased air movement, Nonproductive cough, Wheezing Chest palpation: Normal - Cardiovascular Rhythm: Regular Heart sounds: Normal auscultation Murmur: No - Abdominal Inspection: Normal Distension: No distension Bowel sounds: Normal Tenderness: Nontender Organomegaly: No organomegaly - Back Back: Normal, Nontender - Extremities General upper extremity: Normal inspection, Nontender, Normal color, Normal ROM , Normal temperature General lower extremity: Other - The bilateral lower extremities demonstrate signs of chronic cellulitis. The left lower extremity is remarkably swollen as compared to the right. Right lower extremity is covered in compression dressing. There is an ulcer present on the top of the left foot. Very poor toenail care.. No: Jacquie's sign - Neurological Neuro grossly intact: Yes Cognition: Normal Orientation: AAOx4 Ayla Coma Scale Eye Opening: Spontaneous [place]ford Coma Scale Verbal: Oriented Ayla Coma Scale Motor: Obeys Commands Sanford Coma Scale Total: 15 Speech: Normal Sensory: Normal - Psychological Associated symptoms: Normal affect, Normal mood - Skin Skin Temperature: Warm Skin Moisture: Dry Skin Color: Normal Course - Re-evaluation Re-evalutation: 09/12/18 17:24 Patient with CHF and COPD. Mildly elevated troponin but however it looks as if he has had mildly elevated troponins on all of his previous blood draws. I am giving him some Lasix. Has had Solu-Medrol. Patient will need to be admitted for further evaluation and treatment. Will consult with hospitalist for admission at this time. - Vital Signs Vital signs: Temp Pulse Resp BP Pulse Ox 17 175/87 H 98 09/12/18 16:01 09/12/18 16:01 09/12/18 16:01 - Laboratory Result Diagrams: 09/12/18 15:24 09/12/18 15:24 Laboratory results interpreted by me: 09/12/18 09/12/18 09/12/18 15:24 15:24 15:24 RBC 4.32 L Hgb 12.2 L Hct 37.2 L RDW 19.5 H Est GFR (Non-Af Amer) 57 L NT-Pro-B Natriuret Pep 2380 H Discharge - Discharge Clinical Impression: COPD exacerbation CHF (congestive heart failure) Qualifiers: Heart failure type: unspecified Heart failure chronicity: unspecified Qualified Code(s): I50.9 - Heart failure, unspecified Condition: Good Disposition: ADMITTED INPATIENT Admitting Provider: Hospitalist - [facility] Admitted: Telemetry Referrals: JENISE PRICE DO [Primary Care Provider] - Follow up as needed
[2018-09-12 15:39] LABS: ABSOLUTE BASOPHILS # (AUTO) 0.1 10^3/uL (0.0-0.2); ABSOLUTE EOSINOPHILS # (AUTO) 0.6 10^3/uL (0.0-0.6); ABSOLUTE LYMPHOCYTES (AUTO) 2.2 10^3/uL (0.5-4.7); ABSOLUTE MONOCYTES (AUTO) 1.2 10^3/uL (0.1-1.4); ABSOLUTE NEUT (AUTO) 6.1 10^3/uL (1.7-8.2); BASOPHILS % (AUTO) 0.6 % (0-2); EOSINOPHILS % (AUTO) 5.5 % (0-6); HEMATOCRIT 37.2 % (37.9-51.0); HEMOGLOBIN 12.2 g/dL (13.5-17.0); LYMPHOCYTES % (AUTO) 21.9 % (13-45); MEAN CORPUSCULAR HEMOGLOBIN 28.3 pg (27.0-33.4); MEAN CORPUSCULAR HGB CONC 32.8 g/dL (32.0-36.0); MEAN CORPUSCULAR VOLUME 86 fl (80-97); MONOCYTES % (AUTO) 12.1 % (3-13); PLATELET COUNT 295 10^3/uL (150-450); RED BLOOD COUNT 4.32 10^6/uL (4.35-5.55); RED CELL DISTRIBUTION WIDTH 19.5 % (11.5-14.0); SEGMENTED NEUTROPHILS % (AUTO) 59.9 % (42-78); TOTAL CELLS COUNTED % (AUTO) 100 %; WHITE BLOOD COUNT 10.1 10^3/uL (4.0-10.5)
[2018-09-12] MEDS ORDERED: KETOROLAC TROMETHAMINE INJ/PF 30 MG/1 ML SDV IV ONE (15:49)
[2018-09-12] MEDS ORDERED: HYDROCODONE/ACETAMINOPHEN 5-325 MG TABLET PO ONE (15:49)
[2018-09-12 16:01] LABS: ALANINE AMINOTRANSFERASE 28 U/L (21-72); ALBUMIN 3.7 g/dL (3.5-5.0); ALKALINE PHOSPHATASE 77 U/L (38-126); ANION GAP 11 (5-19); ASPARTATE AMINO TRANSFERASE 25 U/L (17-59); BILIRUBIN,DIRECT 0.3 mg/dL (0.0-0.4); BILIRUBIN,TOTAL 0.7 mg/dL (0.2-1.3); BLOOD UREA NITROGEN 20 mg/dL (7-20); CALCIUM 8.8 mg/dL (8.4-10.2); CARBON DIOXIDE 26 mmol/L (22-30); CHLORIDE 104 mmol/L (98-107); CREATINE KINASE 78 U/L (55-170); GLUCOSE 110 mg/dL (75-110); POTASSIUM 4.3 mmol/L (3.6-5.0); SODIUM 140.6 mmol/L (137-145); TOTAL PROTEIN 7.2 g/dL (6.3-8.2)
--- NOTE | 2018-09-12 16:11 | RADIOLOGY REPORT (SQ) ---
EXAM DESCRIPTION: CHEST 2 VIEWS COMPLETED DATE/TIME: 09/12/2018 3:51 pm REASON FOR STUDY: difficulty breathing COMPARISON: Chest films 02/09/2011, 01/14/2011, 12/23/2009 CT angio chest 01/14/2011 EXAM PARAMETERS: NUMBER OF VIEWS: two views TECHNIQUE: Digital Frontal and Lateral radiographic views of the chest acquired. RADIATION DOSE: NA LIMITATIONS: none FINDINGS: LUNGS AND PLEURA: Minimal bandlike atelectasis at both bases. No fluffy alveolar infiltra meera worrisome for pulmonary edema or pneumonia. No pleural effusion MEDIASTINUM AND HILAR STRUCTURES: No masses or contour abnormalities. HEART AND VASCULAR STRUCTURES: No cardiomegaly BONES: Old sternotomy for CABG HARDWARE: None in the chest. OTHER: No other significant finding. IMPRESSION: Minimal bibasilar atelectasis TECHNICAL DOCUMENTATION: JOB ID: [id number] [employer]- All Rights Reserved Reading location - IP/workstation name: [facility]
[2018-09-12 16:12] LABS: CREATINE KINASE MB 2.08 ng/mL (<4.55)
[2018-09-12 16:17] LABS: TROPONIN I 0.048 ng/mL
[2018-09-12] MEDS ORDERED: FUROSEMIDE INJ/PF 40 MG/4 ML SDV IV ONE (17:14)
[2018-09-12] MEDS ORDERED: ASPIRIN 81 MG TABLET, CHEWABLE PO ONE (17:22)
[2018-09-12] MEDS ORDERED: AZITHROMYCIN 250 MG TABLET PO ONE (17:25)
[2018-09-12] MEDS ORDERED: CEFTRIAXONE INJ 1000 MG VIAL IV ONE (17:25)
[2018-09-12] MEDS ORDERED: ACETAMINOPHEN 325 MG TABLET PO PRN (18:02)
[2018-09-12] MEDS ORDERED: ONDANSETRON HCL INJ/PF 4 MG/2 ML SDV IV PRN (18:02)
[2018-09-12] MEDS ORDERED: METHYLPREDNISOLONE INJ 40 MG/1 ML SDV IV ONE (18:12)
[2018-09-12] MEDS ORDERED: HYDRALAZINE HCL INJ/PF 20 MG/1 ML SDV IV PRN (18:16)
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
[2018-09-12] MEDS ORDERED: ENOXAPARIN SODIUM INJ 40 MG/0.4 ML DISP.SYRIN SUBCUT ONE (19:00)
[2018-09-12] MEDS ORDERED: CEFTRIAXONE 1 GM/D5W RTU 1 GM/50 ML RTUPB IV ONE (19:00)
--- NOTE | 2018-09-12 20:19 | XCELERA REPORT ---
[address] [address] Lower Extremity Venous Evaluation Procedure: Color flow and duplex imaging bilaterally of the veins of the lower extremities as well as the Common Femoral veins. Right Sided Venous Evaluation Normal vessel filling wall to wall, compression and augmentation as well as Colour flow down to the infrageniculate veins. Left Sided Venous Evaluation Challenging study due to patient contractures, inability to cooperate with study. Normal vessel filling wall to wall, compression and augmentation as well as Colour flow down to the infrageniculate veins. Interpretation Summary No duplex evidence of DVT or obstruction in the bilateral lower extremities. Name: CONCHA GRISSOM Age: 73 yrs Gender: Male : 1945 Patient Status: Emergency Patient Location: ER Study Date: 09/12/2018 04:06 PM Reason For Study: pain and swelling Ordering Physician: WILL NEWMAN Performed By: Maggi Gooden : WILL NEWMAN > Antonino Still
[2018-09-12] MEDS: ATORVASTATIN CALCIUM 20 MG TABLET PO SCH (22:28)
--- NOTE | 2018-09-12 22:41 | EKG REPORT ---
SEVERITY:- ABNORMAL ECG - SINUS RHYTHM INCOMPLETE LEFT BUNDLE BRANCH BLOCK LEFT VENTRICULAR HYPERTROPHY ANTERIOR Q WAVES, POSSIBLY DUE TO LVH : Confirmed by: Alia Leonard MD 12-Sep-2018 22:40:03
[2018-09-12] MEDS: FUROSEMIDE INJ/PF 40 MG/4 ML SDV IV SCH (22:46)
[2018-09-12] MEDS ORDERED: GABAPENTIN 100 MG CAPSULE PO ONE (23:00)
[2018-09-12] MEDS: GUAIFENESIN SYRP 200 MG/10 ML UDC PO PRN (23:29)
[2018-09-13] MEDS: LANSOPRAZOLE 30 MG TAB.RAP.DR PO SCH (05:42)
[2018-09-13 08:11] LABS: HEMATOCRIT 34.5 % (37.9-51.0); HEMOGLOBIN 11.2 g/dL (13.5-17.0); MEAN CORPUSCULAR HEMOGLOBIN 27.9 pg (27.0-33.4); MEAN CORPUSCULAR HGB CONC 32.5 g/dL (32.0-36.0); MEAN CORPUSCULAR VOLUME 86 fl (80-97); PLATELET COUNT 280 10^3/uL (150-450); RED BLOOD COUNT 4.02 10^6/uL (4.35-5.55); RED CELL DISTRIBUTION WIDTH 20.1 % (11.5-14.0); WHITE BLOOD COUNT 14.8 10^3/uL (4.0-10.5)
[2018-09-13 08:31] LABS: ABSOLUTE MONOCYTES # (MANUAL) 0.7 10^3/uL (0.1-1.4); BASOPHILS % (MANUAL) 0 % (0-2); EOSINOPHILS % (MANUAL) 0 % (0-6); LYMPHOCYTES % (MANUAL) 7 % (13-45); MONOCYTES % (MANUAL) 5 % (3-13); SEGMENTED NEUTROPHILS % (MAN) 88 % (42-78); TOTAL CELLS COUNTED 100
[2018-09-13 08:32] LABS: ANISOCYTOSIS 2+; HYPOCHROMASIA SLIGHT; OVALOCYTES 1+; PLATELET COMMENT ADEQUATE; POIKILOCYTOSIS 1+
[2018-09-13 08:34] LABS: ANION GAP 9 (5-19); BLOOD UREA NITROGEN 26 mg/dL (7-20); CALCIUM 8.3 mg/dL (8.4-10.2); CARBON DIOXIDE 28 mmol/L (22-30); CHLORIDE 103 mmol/L (98-107); CHOLESTEROL 178.84 mg/dL (0-200); GLUCOSE 164 mg/dL (75-110); PHOSPHORUS 2.9 mg/dL (2.5-4.5); POTASSIUM 4.3 mmol/L (3.6-5.0); SODIUM 139.5 mmol/L (137-145); TRIGLYCERIDES 46 mg/dL (<150)
[2018-09-13 08:44] LABS: DIRECT LDL 123 mg/dL (<100)
[2018-09-13] MEDS ORDERED: AZITHROMYCIN 500 MG in DEXTROSE 5%-WATER 250 ML IV SCH (10:00)
[2018-09-13] MEDS ORDERED: AZITHROMYCIN INJ 500 MG VIAL IV SCH (10:00)
[2018-09-13] MEDS: GABAPENTIN 100 MG CAPSULE PO SCH ×2 (10:12→17:18)
[2018-09-13] MEDS: ASPIRIN 325 MG TABLET, ENT COATED PO SCH (10:12)
[2018-09-13] MEDS: METOPROLOL TARTRATE 25 MG TABLET PO SCH (10:12)
[2018-09-13] MEDS: ENOXAPARIN SODIUM INJ 40 MG/0.4 ML DISP.SYRIN SUBCUT SCH (10:13)
[2018-09-13] MEDS: FUROSEMIDE INJ/PF 40 MG/4 ML SDV IV SCH (10:13)
[2018-09-13] MEDS: GUAIFENESIN SYRP 200 MG/10 ML UDC PO PRN ×2 (10:13→17:19)
[2018-09-13] MEDS: POTASSIUM CHLORIDE 10 MEQ CAPSULE.ER PO SCH (10:16)
--- NOTE | 2018-09-13 13:33 | PDOC PROGRESS REPORT ---
Subjective Progress Note for:: 09/13/18 Subjective:: Patient is a 73-year-old white male admitted with hypertensive urgency exacerbation of COPD and diastolic congestive heart failure. Patient has numerous presentations with the same constellation raising the concern of compliance. He was given nebulizing treatments in the emergency room and quickly resolve his bronchospasm. He was placed on IV Lasix with improvement of his lower extremity edema. He currently is resting comfortably no specific complaints tolerating meals. Reason For Visit: CHF,HTN URGENCY Physical Exam Vital Signs: Temp Pulse Resp BP Pulse Ox 97.8 F 86 18 125/73 100 09/13/18 11:38 09/13/18 11:38 09/13/18 11:38 09/13/18 11:38 09/13/18 11:38 Intake & Output 09/12/18 09/13/18 09/14/18 06:59 06:59 06:59 Intake Total 1062 250 Output Total 1000 Balance 62 250 Weight 70.4 kg General appearance: PRESENT: no acute distress, well-developed, well-nourished Eye exam: PRESENT: conjunctiva pink, EOMI, PERRLA. ABSENT: scleral icterus Neck exam: ABSENT: carotid bruit, JVD, lymphadenopathy, thyromegaly Respiratory exam: PRESENT: clear to auscultation joyce, decreased breath sounds. ABSENT: rales, rhonchi, wheezes Cardiovascular exam: PRESENT: RRR. ABSENT: diastolic murmur, rubs, systolic murmur GI/Abdominal exam: PRESENT: normal bowel sounds, soft. ABSENT: distended, guarding, mass, organolmegaly, rebound, tenderness Extremities exam: PRESENT: +1 edema - Left lower extremity status post Unna boot which was removed on admission, +2 edema - Right lower extremity with chronic venous stasis dermatitis Neurological exam: PRESENT: alert, awake, oriented to person, oriented to place , oriented to time, oriented to situation, CN II-XII grossly intact. ABSENT: motor sensory deficit Psychiatric exam: PRESENT: appropriate affect, normal mood. ABSENT: homicidal ideation, suicidal ideation Skin exam: PRESENT: abrasion - Small superficial denuded skin on the dorsum of the right foot Results Laboratory Results: 09/13/18 07:59 09/13/18 07:59 09/13/18 09/13/18 07:59 07:59 WBC 14.8 H RBC 4.02 L Hgb 11.2 L Hct 34.5 L MCV 86 MCH 27.9 MCHC 32.5 RDW 20.1 H Plt Count 280 Seg Neutrophils % Not Reportable Lymphocytes % Not Reportable Monocytes % Not Reportable Eosinophils % Not Reportable Basophils % Not Reportable Absolute Neutrophils Not Reportable Absolute Lymphocytes Not Reportable Absolute Monocytes Not Reportable Absolute Eosinophils Not Reportable Absolute Basophils Not Reportable Sodium 139.5 Potassium 4.3 Chloride 103 Carbon Dioxide 28 Anion Gap 9 BUN 26 H Creatinine 1.40 H Est GFR ( Amer) > 60 Est GFR (Non-Af Amer) 50 L Glucose 164 H Calcium 8.3 L Phosphorus 2.9 Magnesium 2.1 Triglycerides 46 Cholesterol 178.84 LDL Cholesterol Direct 123 H VLDL Cholesterol 9.0 L HDL Cholesterol 44 09/12/18 09/13/18 09/13/18 19:42 01:16 07:59 Troponin I 0.052 0.042 0.044 Impressions: Chest X-Ray 09/12/18 00:00 IMPRESSION: Minimal bibasilar atelectasis Assessment & Plan - Diagnosis (1) Acute on chronic diastolic heart failure Is this a current diagnosis for this admission?: Yes (2) Coronary artery disease Is this a current diagnosis for this admission?: Yes (3) Peripheral vascular disease Is this a current diagnosis for this admission?: Yes (4) Ulcer of foot Is this a current diagnosis for this admission?: Yes (5) Venous stasis dermatitis Is this a current diagnosis for this admission?: Yes (7) Hypertensive urgency Is this a current diagnosis for this admission?: Yes (8) Acute hypoxemic respiratory failure Is this a current diagnosis for this admission?: Yes
--- NOTE | 2018-09-13 15:59 | XCELERA REPORT ---
[address] [address] Transthoracic Echocardiogram Report Name: CONCHA GRISSOM Age: 73 yrs Gender: Male : 1945 Patient Status: Inpatient Patient Location: [facility]^A Study Date: 09/13/2018 12:55 PM Height: 66 in Weight: 155 lb BSA: 1.8 m2 Procedure: A complete two-dimensional transthoracic echocardiogram was performed (2D, M-mode, spectral and color flow Doppler). The study was technically difficult with many images being suboptimal in quality. Reason For Study: chf Ordering Physician: SAUMYA SPENCER Performed By: Jewels Matthews Interpretation Summary Study was technically difficult therefore clinical correlation is requested. LVEF is noted to be mildly reduced with best estimate being at around 50%. May consider further evaluation with cardiac CTA, cardiac MRI or MUGA scan if clinically indicated. Grade 2 diastolic dysfunction noted. Valve structures were not well visualized but no significant stenosis or regurgitant lesions noted. Left atrium is mildly dilated other chambers are felt to be relatively within normal limits. No pericardial effusion noted. MMode/2D Measurements & Calculations RVDd: 2.5 cm LVIDd: 5.1 cm FS: 25.6 % LA dimension: 4.3 cm IVSd: 1.1 cm LVIDs: 3.8 cm EDV(Teich): 123.4 ml LVPWd: 1.0 cm ESV(Teich): 61.6 ml EF(Teich): 50.1 % Doppler Measurements & Calculations MV E max shamar: MV P1/2t max shamar: Ao V2 max: LV V1 max P.1 cm/sec 71.8 cm/sec 148.6 cm/sec 4.9 mmHg MV A max shamar: MV P1/2t: 61.9 msec Ao max P.8 mmHgLV V1 max: 132.8 cm/sec MVA(P1/2t): 3.6 cm2 110.6 cm/sec MV E/A: 0.64 MV dec slope: 339.8 cm/sec2 MV dec time: 0.18 sec TV V2 max: PA V2 max: MV P1/2t-pr_phl: 73.8 cm/sec 97.1 cm/sec 61.9 msec TV max P.2 mmHgPA max P.8 mmHg Left Ventricle The left ventricle is grossly normal size. There is mild concentric left ventricular hypertrophy. Left ventricular systolic function is borderline reduced. The Ejection Fraction estimate is 50-55%. Consider additional methods to assess LVEF such as MUGA scan, CTA heart, cardiac MRI, NELSY, etc. if clinically indicated. Doppler measurements suggest pseudonormalized left ventricular relaxation, which is associated with grade II/IV or mild to moderate diastolic dysfunction. Regional wall motion abnormalities cannot be excluded due to limited visualization. Right Ventricle The right ventricle is grossly normal size. There is normal right ventricular wall thickness. The right ventricular systolic function is normal. Atria The right atrium is normal in size. The left atrium is mildly dilated. Interarterial septum not well visualized and not well dopplered. Cannot comment on ASD/PFO presence. Mitral Valve The mitral valve leaflets are sclerotic, but show no functional abnormalities. There is no mitral valve stenosis. There is no mitral regurgitation noted. Aortic Valve The aortic valve is not well visualized secondary to technical limitations. There is no aortic valve stenosis. No aortic regurgitation is present. Tricuspid Valve The tricuspid valve is not well visualized secondary to technical limitations. There is no tricuspid stenosis. There is a trace amount of tricuspid regurgitation. Pulmonic Valve The pulmonic valve is not well visualized. Great Vessels The aortic root is not well visualized but is probably normal size. The inferior vena cava was not well visualized. Effusions There is no pericardial effusion. : SAUMYA SPENCER > Jim Mayes
[2018-09-13] MEDS: TAMSULOSIN HCL 0.4 MG CAP.SR.24H PO SCH (17:18)
[2018-09-13] MEDS: SULFAMETHOXAZOLE/TRIMETHOPRIM 800-160 MG TABLET PO SCH (17:18)
[2018-09-13] MEDS: PREDNISONE 20 MG TABLET PO SCH (17:18)
[2018-09-13] MEDS: ATORVASTATIN CALCIUM 20 MG TABLET PO SCH (21:58)
[2018-09-14] MEDS: GUAIFENESIN SYRP 200 MG/10 ML UDC PO PRN (00:29)
[2018-09-14 05:43] LABS: ABSOLUTE BASOPHILS # (AUTO) 0.1 10^3/uL (0.0-0.2); ABSOLUTE LYMPHOCYTES (AUTO) 1.4 10^3/uL (0.5-4.7); ABSOLUTE MONOCYTES (AUTO) 1.3 10^3/uL (0.1-1.4); BASOPHILS % (AUTO) 0.5 % (0-2); EOSINOPHILS % (AUTO) 0.1 % (0-6); HEMATOCRIT 34.9 % (37.9-51.0); HEMOGLOBIN 11.4 g/dL (13.5-17.0); LYMPHOCYTES % (AUTO) 8.2 % (13-45); MEAN CORPUSCULAR HGB CONC 32.6 g/dL (32.0-36.0); MEAN CORPUSCULAR VOLUME 86 fl (80-97); MONOCYTES % (AUTO) 7.8 % (3-13); PLATELET COUNT 275 10^3/uL (150-450); RED BLOOD COUNT 4.07 10^6/uL (4.35-5.55); RED CELL DISTRIBUTION WIDTH 19.7 % (11.5-14.0); SEGMENTED NEUTROPHILS % (AUTO) 83.4 % (42-78); TOTAL CELLS COUNTED % (AUTO) 100 %; WHITE BLOOD COUNT 16.7 10^3/uL (4.0-10.5)
[2018-09-14] MEDS: LANSOPRAZOLE 30 MG TAB.RAP.DR PO SCH (05:46)
[2018-09-14 06:06] LABS: ANION GAP 7 (5-19); BLOOD UREA NITROGEN 35 mg/dL (7-20); CALCIUM 8.2 mg/dL (8.4-10.2); CARBON DIOXIDE 26 mmol/L (22-30); CHLORIDE 104 mmol/L (98-107); GLUCOSE 111 mg/dL (75-110); POTASSIUM 5.2 mmol/L (3.6-5.0)
[2018-09-14] MEDS: POTASSIUM CHLORIDE 10 MEQ CAPSULE.ER PO SCH (09:05)
[2018-09-14] MEDS: ASPIRIN 325 MG TABLET, ENT COATED PO SCH (09:09)
[2018-09-14] MEDS: SULFAMETHOXAZOLE/TRIMETHOPRIM 800-160 MG TABLET PO SCH ×2 (09:09→17:05)
[2018-09-14] MEDS: FUROSEMIDE 20 MG TABLET PO SCH (09:09)
[2018-09-14] MEDS: GABAPENTIN 100 MG CAPSULE PO SCH ×2 (09:09→17:05)
[2018-09-14] MEDS: METOPROLOL TARTRATE 25 MG TABLET PO SCH (09:09)
[2018-09-14] MEDS: PREDNISONE 20 MG TABLET PO SCH ×2 (09:10→17:05)
[2018-09-14] MEDS: ENOXAPARIN SODIUM INJ 40 MG/0.4 ML DISP.SYRIN SUBCUT SCH (09:10)
--- NOTE | 2018-09-14 12:00 | PDOC PROGRESS REPORT ---
Subjective Progress Note for:: 09/14/18 Subjective:: Patient is a 73-year-old white male admitted with hypertensive urgency exacerbation of COPD and diastolic congestive heart failure. Patient has numerous presentations with the same constellation raising the concern of compliance. He was given nebulizing treatments in the emergency room and quickly resolve his bronchospasm. Edema has improved. Patient's BUN and creatinine starting to rise. He is now on p.o. Lasix potassium his saturations are 99% on room air. He is at his baseline. Reason For Visit: CHF,HTN URGENCY Physical Exam Vital Signs: Temp Pulse Resp BP Pulse Ox 97.2 F 78 18 167/90 H 100 09/14/18 11:05 09/14/18 11:05 09/14/18 11:05 09/14/18 11:05 09/14/18 11:05 Intake & Output 09/13/18 09/14/18 09/15/18 06:59 06:59 06:59 Intake Total 1062 1082 Output Total 1000 1150 Balance 62 -68 Weight 70.4 kg 70.4 kg General appearance: PRESENT: no acute distress, well-developed, well-nourished Neck exam: ABSENT: carotid bruit, JVD, lymphadenopathy, thyromegaly Respiratory exam: PRESENT: clear to auscultation joyce, decreased breath sounds. ABSENT: rales, rhonchi, wheezes Cardiovascular exam: PRESENT: RRR. ABSENT: diastolic murmur, rubs, systolic murmur GI/Abdominal exam: PRESENT: normal bowel sounds, soft. ABSENT: distended, guarding, mass, organolmegaly, rebound, tenderness Extremities exam: PRESENT: full ROM, pedal edema, +1 edema - Edema improved erythema improved. ABSENT: calf tenderness, clubbing Results Laboratory Results: 09/14/18 05:05 09/14/18 05:05 09/14/18 09/14/18 05:05 05:05 WBC 16.7 H RBC 4.07 L Hgb 11.4 L Hct 34.9 L MCV 86 MCH 28.0 MCHC 32.6 RDW 19.7 H Plt Count 275 Seg Neutrophils % 83.4 H Lymphocytes % 8.2 L Monocytes % 7.8 Eosinophils % 0.1 Basophils % 0.5 Absolute Neutrophils 14.0 H Absolute Lymphocytes 1.4 Absolute Monocytes 1.3 Absolute Eosinophils 0.0 Absolute Basophils 0.1 Sodium 137.0 Potassium 5.2 H Chloride 104 Carbon Dioxide 26 Anion Gap 7 BUN 35 H Creatinine 1.57 H Est GFR ( Amer) 53 L Est GFR (Non-Af Amer) 44 L Glucose 111 H Calcium 8.2 L 09/12/18 09/13/18 09/13/18 19:42 01:16 07:59 Troponin I 0.052 0.042 0.044 Impressions: Chest X-Ray 09/12/18 00:00 IMPRESSION: Minimal bibasilar atelectasis Assessment & Plan - Diagnosis (1) Acute on chronic diastolic heart failure Is this a current diagnosis for this admission?: Yes Plan: Patient approaching dry weight on p.o. Lasix. Check BMP in a.m. off oxygen. Obtain physical therapy assessment and plan discharge in 24 hours (2) Coronary artery disease Is this a current diagnosis for this admission?: Yes Plan: No anginal complaints. Continue present medications (3) Peripheral vascular disease Is this a current diagnosis for this admission?: Yes (4) Ulcer of foot Is this a current diagnosis for this admission?: Yes Plan: Superficial healing well no change in therapy (5) Venous stasis dermatitis Is this a current diagnosis for this admission?: Yes Plan: Legs improving continue Bactrim and wound care patient to have Unna boot applied by home health on discharge. (6) COPD exacerbation Is this a current diagnosis for this admission?: Yes Plan: No active bronchospasm pulmonary toilet on p.o. prednisone will taper quickly (7) Hypertensive urgency Is this a current diagnosis for this admission?: Yes Plan: Continue metoprolol add amlodipine. Monitor blood pressure discharge in 24 hours suspect patient is not taking his medications. Discharge planning involved (8) Acute hypoxemic respiratory failure Is this a current diagnosis for this admission?: Yes Plan: Patient's hypoxia is from his heart failure as well as his COPD. Currently no bronchospasm heart failure bonding well to diuresis. - Time Time Spent with patient: 15-24 minutes Anticipated discharge: Home Within: within 24 hours
[2018-09-14] MEDS: AMLODIPINE BESYLATE 5 MG TABLET PO SCH (12:08)
[2018-09-14] MEDS: TAMSULOSIN HCL 0.4 MG CAP.SR.24H PO SCH (17:05)
[2018-09-14] MEDS: ATORVASTATIN CALCIUM 20 MG TABLET PO SCH (21:46)
[2018-09-15 04:58] LABS: HEMOGLOBIN 11.5 g/dL (13.5-17.0); MEAN CORPUSCULAR HEMOGLOBIN 28.2 pg (27.0-33.4); MEAN CORPUSCULAR VOLUME 86 fl (80-97); PLATELET COUNT 291 10^3/uL (150-450); RED BLOOD COUNT 4.09 10^6/uL (4.35-5.55); WHITE BLOOD COUNT 13.9 10^3/uL (4.0-10.5)
[2018-09-15] MEDS: LANSOPRAZOLE 30 MG TAB.RAP.DR PO SCH (05:15)
[2018-09-15 05:23] LABS: ANION GAP 10 (5-19); BLOOD UREA NITROGEN 36 mg/dL (7-20); CALCIUM 8.6 mg/dL (8.4-10.2); CARBON DIOXIDE 24 mmol/L (22-30); CHLORIDE 103 mmol/L (98-107); GLUCOSE 130 mg/dL (75-110); POTASSIUM 4.9 mmol/L (3.6-5.0)
[2018-09-15 05:43] LABS: ABSOLUTE LYMPHOCYTES# (MANUAL) 1.9 10^3/uL (0.5-4.7); ABSOLUTE MONOCYTES # (MANUAL) 0.8 10^3/uL (0.1-1.4); ABSOLUTE NEUTROPHILS# (MANUAL) 11.1 10^3/uL (1.7-8.2); BASOPHILS % (MANUAL) 0 % (0-2); EOSINOPHILS % (MANUAL) 0 % (0-6); LYMPHOCYTES % (MANUAL) 14 % (13-45); MONOCYTES % (MANUAL) 6 % (3-13); SEGMENTED NEUTROPHILS % (MAN) 80 % (42-78); TOTAL CELLS COUNTED 100
[2018-09-15 05:44] LABS: ANISOCYTOSIS 2+; POLYCHROMASIA 1+
[2018-09-15 05:45] LABS: PLATELET COMMENT ADEQUATE
[2018-09-15] MEDS: ASPIRIN 325 MG TABLET, ENT COATED PO SCH (09:17)
[2018-09-15] MEDS: ENOXAPARIN SODIUM INJ 40 MG/0.4 ML DISP.SYRIN SUBCUT SCH (09:18)
[2018-09-15] MEDS: PREDNISONE 20 MG TABLET PO SCH (09:18)
[2018-09-15] MEDS: METOPROLOL TARTRATE 25 MG TABLET PO SCH (09:18)
[2018-09-15] MEDS: AMLODIPINE BESYLATE 5 MG TABLET PO SCH (09:18)
[2018-09-15] MEDS: GABAPENTIN 100 MG CAPSULE PO SCH (09:18)
[2018-09-15] MEDS: SULFAMETHOXAZOLE/TRIMETHOPRIM 800-160 MG TABLET PO SCH (09:18)
[2018-09-15] MEDS: FUROSEMIDE 20 MG TABLET PO SCH (09:18)
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
[2018-09-15 11:55] VITALS: BP 142/77
== END 2018-09-15 13:05 | disposition home health service (06) | DRG 682 ==
LOC: ER 14:59 → EH 17:24 → 4S 20:20
PROVIDERS: ADMIT Internal Medicine; ATTEND Internal Medicine
PROC: 5A09457 Assistance with Respiratory Ventilation, 24-96 Consecutive Hours, Continuous Positive Airway Pressure (ICD-10-PCS; principal; 2018-09-12)
DX: I12.9 Hypertensive chronic kidney disease with stage 1 through stage 4 chronic kidney disease, or unspecified chronic kidney disease (principal); I50.33 Acute on chronic diastolic (congestive) heart failure; J44.1 Chronic obstructive pulmonary disease with (acute) exacerbation; J44.0 Chronic obstructive pulmonary disease with (acute) lower respiratory infection; I16.0 Hypertensive urgency; I87.8 Other specified disorders of veins; L97.519 Non-pressure chronic ulcer of other part of right foot with unspecified severity; I25.10 Atherosclerotic heart disease of native coronary artery without angina pectoris; I73.9 Peripheral vascular disease, unspecified; N18.3 Chronic kidney disease, stage 3 (moderate); K21.9 Gastro-esophageal reflux disease without esophagitis; J20.9 Acute bronchitis, unspecified; R09.02 Hypoxemia; Z79.899 Other long term (current) drug therapy; Z79.82 Long term (current) use of aspirin; Z91.14 Patient's other noncompliance with medication regimen; Z82.49 Family history of ischemic heart disease and other diseases of the circulatory system; Z83.6 Family history of other diseases of the respiratory system
CPT/HCPCS: 36415; 71046; 80048; 80053; 80061; 82550; 82553; 83735; 83880; 84100; 84484; 85025; 85379; 87040; 87077; 93005; 93010; 93306; 93970; 94660; 96374; 99285; J0456; J0696; J1650; J1885; J1940; J2920; J7060; J7512

== ENCOUNTER 2018-10-05 18:12 | Emergency (ER) | payer MEDICARE, MEDICAID ==
--- NOTE | 2018-10-05 18:54 | RADIOLOGY REPORT (SQ) ---
EXAM DESCRIPTION: CHEST SINGLE VIEW COMPLETED DATE/TIME: 10/05/2018 6:44 pm REASON FOR STUDY: cp COMPARISON: 09/12/2018 TECHNIQUE: Single frontal radiographic view of the chest acquired. NUMBER OF VIEWS: One view. LIMITATIONS: None. FINDINGS: LUNGS AND PLEURA: No pneumothorax. Similar chronic interstitial changes -basilar scarring . No consolidation or pleural effusion. MEDIASTINUM AND HILAR STRUCTURES: Stable. HEART AND VASCULAR STRUCTURES: Stable. BONES: No acute findings. HARDWARE: CABG. OTHER: No other significant finding. IMPRESSION: NO ACUTE FINDINGS. TECHNICAL DOCUMENTATION: JOB ID: [id number] [place]-72 2010 [employer]- All Rights Reserved Reading location - IP/workstation name: [email or web address]
[2018-10-05 19:13] LABS: HEMATOCRIT 38.5 % (37.9-51.0); MEAN CORPUSCULAR HEMOGLOBIN 28.6 pg (27.0-33.4); MEAN CORPUSCULAR HGB CONC 33.7 g/dL (32.0-36.0); MEAN CORPUSCULAR VOLUME 85 fl (80-97); PLATELET COUNT 282 10^3/uL (150-450); RED BLOOD COUNT 4.54 10^6/uL (4.35-5.55); RED CELL DISTRIBUTION WIDTH 19.7 % (11.5-14.0); WHITE BLOOD COUNT 6.6 10^3/uL (4.0-10.5)
--- NOTE | 2018-10-05 19:28 | ER Document Report ---
ED General - General Chief Complaint: Chest Pain Stated Complaint: LEFT ARM PAIN Time Seen by Provider: 10/05/18 18:24 Notes: Patient is a 73-year-old male with a past medical history of COPD, hypertension , hyperlipidemia, active smoker, who presents with complaints of 1 week of left arm pain as well as intermittent chest discomfort. He states he also feels more short of breath than normal. Patient states the symptoms have been progressing since onset. Nothing improves or worsens his symptoms. No history of similar symptoms in the past. Denies any history of aortic pathology or pulmonary embolus. He has not seen his primary care doctor regarding today's concerns. Denies any syncope. No headache. No neck pain. No focal weakness or numbness. He does describe the pain in his chest as being a pressure, heavy- like sensation. He describes the pain in his left upper extremity as being a shooting, aching, constant pain. TRAVEL OUTSIDE OF THE [place] IN LAST 30 DAYS: No - Related Data Allergies/Adverse Reactions: No Known Allergies Allergy (Verified 08/16/18 16:10) Past Medical History - General Information source: Patient - Social History Smoking Status: Current Every Day Smoker Frequency of alcohol use: None Drug Abuse: None Lives with: Family Family History: CAD, COPD, Hypertension Patient has suicidal ideation: No Patient has homicidal ideation: No - Past Medical History Cardiac Medical History: Reports: Hx Congestive Heart Failure, Hx Coronary Artery Disease, Hx Hypercholesterolemia, Hx Hypertension, Hx Peripheral Vascular Disease Pulmonary Medical History: Reports: Hx Bronchitis, Hx COPD Renal/ Medical History: Denies: Hx Peritoneal Dialysis GI Medical History: Reports: Hx Gastroesophageal Reflux Disease Psychiatric Medical History: Denies: Hx Depression Past Surgical History: Reports: Hx Appendectomy, Hx Cardiac Catheterization, Hx Cardiac Surgery - triple bypass 2011, Hx Orthopedic Surgery - bilat leg surgery. - Immunizations Hx Diphtheria, Pertussis, Tetanus Vaccination: No Review of Systems - Review of Systems Notes: Constitutional: Negative for fever. HENT: Negative for sore throat. Eyes: Negative for visual changes. Cardiovascular: Positive for chest pain. Respiratory: Negative for shortness of breath. Gastrointestinal: Negative for abdominal pain, vomiting or diarrhea. Genitourinary: Negative for dysuria. Musculoskeletal: Positive for left arm pain. Skin: Negative for rash. Neurological: Negative for headaches, weakness or numbness. 10 point ROS negative except as marked above and in HPI. Physical Exam - Vital signs Vitals: Resp Pulse Ox 25 H 98 10/05/18 18:23 10/05/18 18:23 Interpretation: Normal Notes: PHYSICAL EXAMINATION: GENERAL: Appears moderately uncomfortable but in no acute distress HEAD: Atraumatic, normocephalic. EYES: Pupils equal round and reactive to light, extraocular movements intact, sclera anicteric, conjunctiva are normal. ENT: nares patent, oropharynx clear without exudates. Moist mucous membranes. NECK: Normal range of motion, supple without lymphadenopathy LUNGS: Breath sounds clear to auscultation bilaterally and equal. Faint wheezing in all lung ibrahim HEART: Regular tachycardia without murmurs ABDOMEN: Soft, nontender, normoactive bowel sounds. No guarding, no rebound. No masses appreciated. EXTREMITIES: Normal range of motion, no pitting or edema. No cyanosis. NEUROLOGICAL: Face symmetric. Tongue protrudes midline. Extraocular motions intact. Pupils are 2 mm and equally reactive. Normal speech, normal gait. 5 out of 5 strength in both the distal and proximal upper and lower extremities bilaterally. Sensation is grossly intact throughout. Finger to nose testing normal. Pronator drift normal. PSYCH: Normal mood, normal affect. SKIN: Warm, Dry, normal turgor, no rashes or lesions noted. Course - Re-evaluation Re-evalutation: 10/05/18 19:26 The patient presents with left arm pain that has been intermittent and ongoing for the past 1 week but also states he feels somewhat more short of breath than normal. Of note on initial examination the patient is noted to be tachycardic into the 115-120 range apparently not his baseline. There are no ST changes on his EKG. patient has also had chest pain. He is notably hypertensive on examination into the 170s systolic on 120s diastolic. Primary concern at this point would be for possible aortic dissection given his degree of hypertension, tachycardia, atypical nature of his symptoms and multiple risk factors. Pulmonary embolus seems unlikely given the absence of dyspnea although tachycardia certainly places this on the differential as well. ACS seems less likely given normal EKG, troponin assay testing pending. Will obtain CTA of the chest to further clarify the above diagnoses. Alternative consideration with the be that the patient could be having radicular symptoms to the left upper extremity from either an impingement of the cervical nerve root or the shoulder itself. This benign diagnosis however will be a diagnosis of exclusion. 10/05/18 21:33 CT of the chest does show a possible descending thoracic aorta penetrating ulcer. I am uncertain of the clinical significance of this diagnosis although patient does remain hypertensive and tachycardic. I have given him a dose of labetalol to reduce the tachycardia and hypertension in light of the finding. I did contact [facility] to discuss these findings with the vascular surgeon on-call have requested that the radiology department push the images so that they can be viewed at [facility]. 10/05/18 21:56 [facility] has contacted me and stated that her vascular surgeon will not be available for consultation for at least 2 hours. I have therefore contacted [facility]. The patient has also received 20 mg of IV labetalol and his heart rate has not improved to 101, blood pressure down to 173 and 80. 10/05/18 22:[address] Varela the vascular surgeon at [place] who is excepted the patient in transfer. The patient has been placed on a nicardipine infusion as his blood pressure does remain elevated although heart rate is now controlled. Will continue to monitor and reassess at regular intervals. The patient continues to be overall well in appearance. Agreeable to management plan. 10/06/18 01:14 Patient remains on nicardipine. Blood pressures have stabilized currently 5 mg/ h. Current blood pressure 148 on 72, heart rate 89. Patient states that his arm pain and chest discomfort have improved. Will continue to monitor closely. 10/06/18 02:49 Patient continues to feel improved. Vitals remain within acceptable limits. Awaiting transport. Dr. Monsalve will monitor the patient until transport. - Vital Signs Vital signs: Temp Pulse Resp BP Pulse Ox 98.3 F 113 H 21 H 144/79 H 96 10/06/18 00:06 10/05/18 18:40 10/06/18 02:16 10/06/18 02:16 10/06/18 02:16 - Laboratory Result Diagrams: 10/05/18 18:57 10/05/18 18:57 Laboratory results interpreted by me: 10/05/18 10/05/18 10/05/18 18:57 18:57 18:57 Hgb 13.0 L RDW 19.7 H Lymphocytes % (Manual) 7 L Monocytes % (Manual) 14 H Creatinine 1.50 H Est GFR ( Amer) 56 L Est GFR (Non-Af Amer) 46 L Glucose 112 H ALT 17 L NT-Pro-B Natriuret Pep 2530 H Urine Protein Urine Urobilinogen Urine Ascorbic Acid 10/05/18 19:43 Hgb RDW Lymphocytes % (Manual) Monocytes % (Manual) Creatinine Est GFR ( Amer) Est GFR (Non-Af Amer) Glucose ALT NT-Pro-B Natriuret Pep Urine Protein 30 H Urine Urobilinogen 2.0 H Urine Ascorbic Acid 40 H - Diagnostic Test Radiology reviewed: Reports reviewed Critical Care Note - Critical Care Note Total time excluding time spent on procedures (mins): 36 Comments: Critical care time spent obtaining history from patient or surrogate, discussions with consultants, development of treatment plan with patient or surrogate, evaluation of patient's response to treatment, examination of patient , ordering and performing treatments and interventions, ordering and review of laboratory studies, re-evaluation of patient's condition, ordering and review of radiographic studies and review of old charts Discharge - Discharge Clinical Impression: Hypertensive urgency, Chronic kidney disease, stage III (moderate), Left arm pain, Thoracic aortic ulcer Chest pain Qualifiers: Chest pain type: unspecified Qualified Code(s): R07.9 - Chest pain, unspecified Condition: Fair Disposition: [place] Referrals: JENISE PRICE DO [Primary Care Provider] - Follow up as needed
[2018-10-05 19:34] LABS: ALANINE AMINOTRANSFERASE 17 U/L (21-72); ALKALINE PHOSPHATASE 86 U/L (38-126); ANION GAP 11 (5-19); ASPARTATE AMINO TRANSFERASE 24 U/L (17-59); BILIRUBIN,DIRECT 0.3 mg/dL (0.0-0.4); BILIRUBIN,TOTAL 0.8 mg/dL (0.2-1.3); BLOOD UREA NITROGEN 15 mg/dL (7-20); CALCIUM 8.7 mg/dL (8.4-10.2); CARBON DIOXIDE 29 mmol/L (22-30); CHLORIDE 100 mmol/L (98-107); GLUCOSE 112 mg/dL (75-110); POTASSIUM 3.8 mmol/L (3.6-5.0); SODIUM 139.6 mmol/L (137-145); TOTAL PROTEIN 7.8 g/dL (6.3-8.2)
[2018-10-05 19:36] LABS: TROPONIN I 0.045 ng/mL
[2018-10-05 20:22] LABS: ABSOLUTE LYMPHOCYTES# (MANUAL) 0.5 10^3/uL (0.5-4.7); ABSOLUTE MONOCYTES # (MANUAL) 0.9 10^3/uL (0.1-1.4); ABSOLUTE NEUTROPHILS# (MANUAL) 5.1 10^3/uL (1.7-8.2); BASOPHILS % (MANUAL) 0 % (0-2); EOSINOPHILS % (MANUAL) 1 % (0-6); LYMPHOCYTES % (MANUAL) 7 % (13-45); MONOCYTES % (MANUAL) 14 % (3-13); SEGMENTED NEUTROPHILS % (MAN) 78 % (42-78); TOTAL CELLS COUNTED 100
[2018-10-05 20:24] LABS: POIKILOCYTOSIS 2+; TOXIC GRANULATION 1+; TOXIC VACUOLATION PRESENT
[2018-10-05 20:25] LABS: ANISOCYTOSIS 2+; OVALOCYTES 1+; PLATELET COMMENT ADEQUATE; TEAR DROP CELLS 1+
[2018-10-05 20:25] LABS: APPEARANCE,URINE CLOUDY; BILIRUBIN,URINE NEGATIVE (NEGATIVE); COLOR,URINE YELLOW; GLUCOSE, URINE NEGATIVE (NEGATIVE); KETONES,URINE NEGATIVE (NEGATIVE); LEUKOCYTE ESTERASE,URINE NEGATIVE (NEGATIVE); NITRITE,URINE NEGATIVE (NEGATIVE); PROTEIN,URINE 30 mg/dL (NEGATIVE); URINE SPECIFIC GRAVITY 1.016
--- NOTE | 2018-10-05 21:12 | RADIOLOGY REPORT (SQ) ---
EXAM DESCRIPTION: CT CHEST ANGIOGRAPHY WITHOUT THEN WITH IV CONTRAST COMPLETED DATE/TME: 10/05/2018 19:25 CLINICAL HISTORY: 73 years, Male, Chest Pain, Arm Pain, eval dissection COMPARISON: None. TECHNIQUE: 602 Images stored on PACS. All CT scanners at this facility use dose modulation, iterative reconstruction, and/or weight based dosing when appropriate to reduce radiation dose to as low as reasonably achievable (ALARA).. Axial images were obtained with coronal and sagittal MIPS reconstructions [facility]: Dose Right [facility]: CareDose [facility]: Dose Right [facility]: Teradose 4D [facility]: [employer] LIMITATIONS: None. FINDINGS: The mediastinal vasculature enhances normally. There is a moderate degree of artifact from a large portion of the contrast bolus within the superior vena cava. However, no intraluminal filling defect to suggest pulmonary embolus. Moderate atheromatous change and ectasia of the thoracic aorta without dissection. What is likely a focal area of penetrating ulcer formation with luminal irregularity involving the descending thoracic aorta, best seen on image #68 of 137. Limited evaluation of the upper abdomen is unremarkable. Severe emphysematous changes are present, particularly in the upper lobes and apices. No effusion. No pneumothorax. Scarring in the lung bases and lingula. The visualized airways are patent. No mediastinal or hilar adenopathy. Postsurgical changes of the mediastinum with median sternotomy wires. Osseous structures are otherwise grossly intact. Degenerative changes of the thoracic spine are noted.. IMPRESSION: Negative for pulmonary embolus. Atheromatous change with ectasia of the thoracic aorta. 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 Severe emphysematous changes. TECHNICAL DOCUMENTATION: Quality ID # [id number]: Final reports with documentation of one or more dose reduction techniques (e.g., Automated exposure control, adjustment of the mA and/or kV according to patient size, use of iterative reconstruction technique) 2010 [email or web address]- All Rights Reserved
--- NOTE | 2018-10-05 21:13 | RADIOLOGY REPORT (SQ) ---
EXAM DESCRIPTION: XR HUMERUS COMPLETED DATE/TME: 10/05/2018 19:25 CLINICAL HISTORY: 73 years, Male, pain Findings: Left humerus is intact. No evidence for acute fracture or dislocation. Soft tissues are unremarkable. IMPRESSION: No fracture.
--- NOTE | 2018-10-05 21:21 | RADIOLOGY REPORT (SQ) ---
EXAM DESCRIPTION: XR SHOULDER 2 OR MORE VIEWS COMPLETED DATE/TME: 10/05/2018 19:25 CLINICAL HISTORY: 73 years, Male, pain Findings: Mild acromioclavicular degenerative changes. No evidence for acute fracture. Soft tissues are unremarkable. IMPRESSION: No evidence for acute fracture.
[2018-10-05] MEDS ORDERED: LABETALOL HCL INJ 20 MG/4 ML DISP.SYRIN IV ONE (21:30)
--- NOTE | 2018-10-05 22:20 | EKG REPORT ---
SEVERITY:- ABNORMAL ECG - SINUS TACHYCARDIA INCOMPLETE LEFT BUNDLE BRANCH BLOCK LEFT VENTRICULAR HYPERTROPHY : Confirmed by: Alia Leonard MD 05-Oct-2018 22:20:01
[2018-10-05] MEDS ORDERED: NICARDIPINE HCL RTU, ISO-OS 20 MG/200 ML RTUINJ IV PRN (22:34)
[2018-10-06 03:29] VITALS: BP 140/79
--- NOTE | 2018-10-06 03:42 | ER Document Report ---
Doctor's Note Notes: 10/06/18 03:41 Patient reevaluated upon transfer team arrival. He is alert, awake and complaining of hip pain but declining pain medication. Vital signs reviewed and stable prior to discharge. Patient is stable for discharge.
== END 2018-10-06 03:37 | disposition short-term general hospital (02) ==
LOC: ER 18:12
DX: I16.0 Hypertensive urgency (principal); R07.9 Chest pain, unspecified; I71.2 Thoracic aortic aneurysm, without rupture; I13.0 Hypertensive heart and chronic kidney disease with heart failure and stage 1 through stage 4 chronic kidney disease, or unspecified chronic kidney disease; N18.3 Chronic kidney disease, stage 3 (moderate); I50.9 Heart failure, unspecified; J44.9 Chronic obstructive pulmonary disease, unspecified; F17.200 Nicotine dependence, unspecified, uncomplicated; E78.5 Hyperlipidemia, unspecified; Z95.1 Presence of aortocoronary bypass graft
CPT/HCPCS: 93005; 99291; 96365; 96366; 36415; 85025; 80053; 81001; 84484; 83880; 71045; 73060; 73030; 71275; 93010; J3490 ×2

== ENCOUNTER 2019-02-24 09:32 | Inpatient (IN) | payer MEDICARE, MEDICAID ==
[2019-02-24 10:00] LABS: ABSOLUTE BASOPHILS # (AUTO) 0.1 10^3/uL (0.0-0.2); ABSOLUTE EOSINOPHILS # (AUTO) 0.6 10^3/uL (0.0-0.6); ABSOLUTE LYMPHOCYTES (AUTO) 1.8 10^3/uL (0.5-4.7); ABSOLUTE MONOCYTES (AUTO) 1.3 10^3/uL (0.1-1.4); ABSOLUTE NEUT (AUTO) 7.7 10^3/uL (1.7-8.2); BASOPHILS % (AUTO) 1.1 % (0-2); HEMATOCRIT 34.5 % (37.9-51.0); LYMPHOCYTES % (AUTO) 15.8 % (13-45); MEAN CORPUSCULAR HEMOGLOBIN 25.2 pg (27.0-33.4); MEAN CORPUSCULAR HGB CONC 31.9 g/dL (32.0-36.0); MEAN CORPUSCULAR VOLUME 79 fl (80-97); MONOCYTES % (AUTO) 11.3 % (3-13); PLATELET COUNT 361 10^3/uL (150-450); RED BLOOD COUNT 4.37 10^6/uL (4.35-5.55); RED CELL DISTRIBUTION WIDTH 20.4 % (11.5-14.0); SEGMENTED NEUTROPHILS % (AUTO) 66.8 % (42-78); TOTAL CELLS COUNTED % (AUTO) 100 %; WHITE BLOOD COUNT 11.5 10^3/uL (4.0-10.5)
[2019-02-24] MEDS ORDERED: FUROSEMIDE INJ/PF 40 MG/4 ML SDV IV ONE (10:08)
[2019-02-24] MEDS ORDERED: MAGNESIUM SULFATE/D5W 1 GM/100 ML RTUPB IV ONE (10:09)
[2019-02-24] MEDS ORDERED: NITROGLYCERIN 2% OINTMENT 1 GM PACKET TP ONE (10:09)
[2019-02-24 10:23] LABS: ALANINE AMINOTRANSFERASE 23 U/L (21-72); ALBUMIN 3.5 g/dL (3.5-5.0); ALKALINE PHOSPHATASE 93 U/L (38-126); ANION GAP 12 (5-19); ASPARTATE AMINO TRANSFERASE 23 U/L (17-59); BILIRUBIN,DIRECT 0.4 mg/dL (0.0-0.4); BILIRUBIN,TOTAL 0.9 mg/dL (0.2-1.3); BLOOD UREA NITROGEN 30 mg/dL (7-20); CALCIUM 8.9 mg/dL (8.4-10.2); CARBON DIOXIDE 23 mmol/L (22-30); CHLORIDE 105 mmol/L (98-107); CREATINE KINASE 38 U/L (55-170); GLUCOSE 117 mg/dL (75-110); POTASSIUM 3.9 mmol/L (3.6-5.0); SODIUM 140.4 mmol/L (137-145); TOTAL PROTEIN 7.1 g/dL (6.3-8.2)
[2019-02-24 10:34] LABS: CREATINE KINASE MB 1.57 ng/mL (<4.55)
[2019-02-24 10:37] LABS: TROPONIN I 0.055 ng/mL
--- NOTE | 2019-02-24 10:37 | RADIOLOGY REPORT (SQ) ---
EXAM DESCRIPTION: CHEST SINGLE VIEW COMPLETED DATE/TIME: 02/24/2019 10:20 am REASON FOR STUDY: SOB COMPARISON: 10/05/2018 EXAM PARAMETERS: NUMBER OF VIEWS: One view. TECHNIQUE: Single frontal radiographic view of the chest acquired. RADIATION DOSE: NA LIMITATIONS: None. FINDINGS: LUNGS AND PLEURA: There is bibasilar infiltrate most consistent with pneumonia. Small eff usions. MEDIASTINUM AND HILAR STRUCTURES: No masses. Contour normal. HEART AND VASCULAR STRUCTURES: Heart size is stable. No overt failure. BONES: No acute findings. HARDWARE: Sternotomy wires are in place. OTHER: No other significant finding. IMPRESSION: Bibasilar infiltrates most consistent with pneumonia. TECHNICAL DOCUMENTATION: JOB ID: [id number] [employer]- All Rights Reserved Reading location - IP/workstation name: [email or web address]
[2019-02-24] MEDS ORDERED: LEVOFLOXACIN 500 MG/D5W RTU 500 MG/100 ML RTUPB IV ONE (11:28)
[2019-02-24 12:13] LABS: APPEARANCE,URINE CLEAR; BILIRUBIN,URINE NEGATIVE (NEGATIVE); COLOR,URINE LIGHT YELLOW; GLUCOSE, URINE NEGATIVE (NEGATIVE); KETONES,URINE NEGATIVE (NEGATIVE); URINE SPECIFIC GRAVITY 1.006
[2019-02-24 12:14] LABS: ADD MANUAL MICROSCOPIC YES; LEUKOCYTE ESTERASE,URINE LARGE (NEGATIVE); NITRITE,URINE NEGATIVE (NEGATIVE); PROTEIN,URINE NEGATIVE (NEGATIVE); UROBILINOGEN,URINE NEGATIVE mg/dL (<2.0); WBC,URINE 20-30 /HPF
[2019-02-24 12:15] LABS: BACTERIA,URINE 1+ /HPF
--- NOTE | 2019-02-24 13:36 | PDOC H&P ---
History of Present Illness Admission Date/PCP: JENISE PRICE DO History of Present Illness: CONCHA GRISSOM is a 73 year old male whose past medical history hypertension, hyperlipidemia, COPD, CHF, peripheral vascular disease, bilateral lymphedema and venous stasis, coronary artery disease status post triple bypass and history of cerebral palsy presents with chief complaint of shortness of breath and cough. Reports this is a he has been at his usual baseline state of health up until this morning when he woke up with shortness of present cough productive of whitish sputum. Patient denies chills, fever or chest pain. Patient brought in by EMS. When EMS arrived at his home patient was tachypneic and tachycardic he sought saturation was 89% on room air. He was given albuterol, Atrovent and a single dose of Solu-Medrol 125 mg. His chest x-ray reported as bibasilar infiltrates most consistent with pneumonia. His blood works unremarkable except for mild leukocytosis of 11,000 and BNP of 4700. His urinalysis reported as large leukocyte esterase and the WBC is 20-30. Past Medical History Cardiac Medical History: Reports: Congestive Heart Failure, Coronary Artery Disease, Hyperlipidema, Hypertension, Peripheral Vascular Disease Pulmonary Medical History: Reports: Bronchitis, Chronic Obstructive Pulmonary Disease (COPD) GI Medical History: Reports: Gastroesophageal Reflux Disease Psychiatric Medical History: Denies: Depression Past Surgical History Past Surgical History: Reports: Appendectomy, Cardiac Catheterization, Orthopedic Surgery - bilat leg surgery. Social History Smoking Status: Former Smoker Frequency of Alcohol Use: None Hx Recreational Drug Use: No Drugs: None Hx Prescription Drug Abuse: No - Advance Directive Resuscitation Status: Full Code Family History Family History: CAD, COPD, Hypertension Parental Family History Reviewed: Yes Children Family History Reviewed: Yes Sibling(s) Family History Reviewed.: Yes Medication/Allergy Allergies/Adverse Reactions: No Known Allergies Allergy (Verified 08/16/18 16:10) Review of Systems Constitutional: PRESENT: as per HPI Eyes: PRESENT: as per HPI Ears: PRESENT: as per HPI Nose, Mouth, and Throat: PRESENT: as per HPI Cardiovascular: PRESENT: as per HPI Gastrointestinal: PRESENT: as per HPI Neurological: PRESENT: as per HPI Psychiatric: PRESENT: as per HPI Physical Exam Vital Signs: Temp Pulse Resp BP Pulse Ox 98.0 F 108 H 25 H 187/109 H 93 02/24/19 09:42 02/24/19 09:42 02/24/19 10:01 02/24/19 10:01 02/24/19 10:01 Intake & Output 02/23/19 02/24/19 02/25/19 06:59 06:59 06:59 Intake Total 100 Balance 100 Weight 68.2 kg General appearance: PRESENT: mild distress Head exam: PRESENT: atraumatic, normocephalic Eye exam: PRESENT: conjunctiva pink Neck exam: ABSENT: carotid bruit, JVD, lymphadenopathy, thyromegaly Respiratory exam: PRESENT: crackles, decreased breath sounds, wheezes Cardiovascular exam: PRESENT: RRR. ABSENT: diastolic murmur, rubs, systolic murmur GI/Abdominal exam: PRESENT: normal bowel sounds, soft. ABSENT: distended, guarding, mass, organolmegaly, rebound, tenderness Extremities exam: PRESENT: other - Both legs has stigmata of chronic venous stasis and lymphedema. Neurological exam: PRESENT: alert, awake, oriented to time, oriented to situation Results Laboratory Results: 02/24/19 09:40 02/24/19 09:40 02/24/19 02/24/19 02/24/19 09:40 09:40 09:40 WBC 11.5 H RBC 4.37 Hgb 11.0 L Hct 34.5 L MCV 79 L MCH 25.2 L MCHC 31.9 L RDW 20.4 H Plt Count 361 Seg Neutrophils % 66.8 Lymphocytes % 15.8 Monocytes % 11.3 Eosinophils % 5.0 Basophils % 1.1 Absolute Neutrophils 7.7 Absolute Lymphocytes 1.8 Absolute Monocytes 1.3 Absolute Eosinophils 0.6 Absolute Basophils 0.1 Sodium 140.4 Potassium 3.9 Chloride 105 Carbon Dioxide 23 Anion Gap 12 BUN 30 H Creatinine 1.52 H Est GFR ( Amer) 55 L Est GFR (Non-Af Amer) 45 L Glucose 117 H Calcium 8.9 Total Bilirubin 0.9 AST 23 ALT 23 Alkaline Phosphatase 93 Total Protein 7.1 Albumin 3.5 Lipase 87.7 Urine Color Urine Appearance Urine pH Ur Specific [place] Urine Protein Urine Glucose (UA) Urine Ketones Urine Blood Urine Nitrite Ur Leukocyte Esterase 02/24/19 11:18 WBC RBC Hgb Hct MCV MCH MCHC RDW Plt Count Seg Neutrophils % Lymphocytes % Monocytes % Eosinophils % Basophils % Absolute Neutrophils Absolute Lymphocytes Absolute Monocytes Absolute Eosinophils Absolute Basophils Sodium Potassium Chloride Carbon Dioxide Anion Gap BUN Creatinine Est GFR ( Amer) Est GFR (Non-Af Amer) Glucose Calcium Total Bilirubin AST ALT Alkaline Phosphatase Total Protein Albumin Lipase Urine Color LIGHT YELLOW Urine Appearance CLEAR Urine pH 7.0 Ur Specific [place] 1.006 Urine Protein NEGATIVE Urine Glucose (UA) NEGATIVE Urine Ketones NEGATIVE Urine Blood SMALL H Urine Nitrite NEGATIVE Ur Leukocyte Esterase LARGE H 02/24/19 02/24/19 02/24/19 09:40 09:40 09:40 Creatine Kinase 38 L CK-MB (CK-2) 1.57 Troponin I 0.055 NT-Pro-B Natriuret Pep 4790 H Impressions: Chest X-Ray 02/24/19 09:47 IMPRESSION: Bibasilar infiltrates most consistent with pneumonia. Assessment and Plan - Diagnosis (1) Bilateral pneumonia Is this a current diagnosis for this admission?: Yes Plan: Patient has been started on Levaquin. The pneumonia is evidence advised bilateral basilar infiltrates and also has some tachypnea and mild leukocytosis. (2) UTI (urinary tract infection) Is this a current diagnosis for this admission?: Yes Plan: Patient has evidence of pyuria and large leukocyte esterase. The (3) Hypertension Qualifiers: Hypertension type: essential hypertension Qualified Code(s): I10 - Essential (primary) hypertension Is this a current diagnosis for this admission?: Yes Plan: Continue his home medication (4) Hyperlipidemia Qualifiers: Hyperlipidemia type: unspecified Qualified Code(s): E78.5 - Hyperlipidemia, unspecified Is this a current diagnosis for this admission?: Yes Plan: Continue his home medication (5) CAD SP coronary artery bypass graft Is this a current diagnosis for this admission?: Yes Plan: No anginal symptoms we will continue his home medication. (6) Diastolic congestive heart failure Is this a current diagnosis for this admission?: Yes Plan: His ejection fraction is 50%. His BNP is elevated slightly from his baseline value. We will start him on IV Lasix. Continue the rest of his home medication. (7) Bilateral lymphedema and venous stasis Is this a current diagnosis for this admission?: Yes Plan: Follow-up with his primary care physician. (8) COPD (chronic obstructive pulmonary disease) Qualifiers: Emphysema type: unspecified Is this a current diagnosis for this admission?: Yes Plan: Continue supplemental oxygen and as needed bronchodilator. - Inpatient Certification Medical Necessity: Need Close Monitoring Due to Risk of Patient Decompensation, Need for IV Antibiotics
--- NOTE | 2019-02-24 13:46 | ER Document Report ---
ED General - General Chief Complaint: Shortness Of Breath Stated Complaint: DIFFICULTY BREATHING Time Seen by Provider: 02/24/19 10:00 Primary Care Provider: JENISE PRICE DO [Primary Care Provider] - Follow up as needed TRAVEL OUTSIDE OF THE [place] IN LAST 30 DAYS: No - HPI Patient complains to provider of: Shortness of breath Notes: Patient coming in for evaluation of shortness of breath. Patient states ongoing for the last few days. Does have a history of COPD CHF hypertension was recently placed on antibiotics for bilateral cellulitis. Upon EMS arrival found the patient hypoxic and lower 80s patient was trying to use his 's oxygen. Patient states he does not have is on oxygen at home. Breathing treatments were given to the patient patient was transported for further evaluation. Patient states he has been compliant with his medications no weight gain no swelling. Patient denies any fevers chills states productive sputum. Other than Bactrim denies any other antibiotics or recent hospitalizations. Patient states minimal improvement with breathing treatments given here by EMS. Patient upon arrival had SPO2 in the lower mid 80s therefore was placed on nasal cannula oxygen. Denies chest pain denies abdominal pain nausea vomiting - Related Data Allergies/Adverse Reactions: No Known Allergies Allergy (Verified 08/16/18 16:10) Past Medical History - Social History Smoking Status: Former Smoker Frequency of alcohol use: None Drug Abuse: None Family History: CAD, COPD, Hypertension Patient has suicidal ideation: No Patient has homicidal ideation: No - Past Medical History Cardiac Medical History: Reports: Hx Congestive Heart Failure, Hx Coronary Artery Disease, Hx Hypercholesterolemia, Hx Hypertension, Hx Peripheral Vascular Disease Pulmonary Medical History: Reports: Hx Bronchitis, Hx COPD Renal/ Medical History: Denies: Hx Peritoneal Dialysis GI Medical History: Reports: Hx Gastroesophageal Reflux Disease Psychiatric Medical History: Denies: Hx Depression Past Surgical History: Reports: Hx Appendectomy, Hx Cardiac Catheterization, Hx Cardiac Surgery - triple bypass 2011, Hx Orthopedic Surgery - bilat leg surgery. - Immunizations Hx Diphtheria, Pertussis, Tetanus Vaccination: No Review of Systems - Review of Systems Constitutional: No symptoms reported EENT: No symptoms reported Cardiovascular: No symptoms reported Respiratory: Short of breath Gastrointestinal: No symptoms reported Genitourinary: No symptoms reported Male Genitourinary: No symptoms reported Musculoskeletal: No symptoms reported Skin: No symptoms reported Hematologic/Lymphatic: No symptoms reported Neurological/Psychological: No symptoms reported Physical Exam - Vital signs Vitals: Resp BP Pulse Ox 32 H 195/102 H 97 02/24/19 09:39 02/24/19 09:39 02/24/19 09:39 Interpretation: Hypoxic - General General appearance: Appears well, Alert - HEENT Head: Normocephalic, Atraumatic Eyes: Normal Pupils: PERRL - Respiratory Respiratory status: No respiratory distress, Tachypnea Chest status: Nontender Breath sounds: Rhonchi, Wheezing Chest palpation: Normal - Cardiovascular Rhythm: Regular Heart sounds: Normal auscultation Murmur: No - Abdominal Inspection: Normal Distension: No distension Bowel sounds: Normal Tenderness: Nontender Organomegaly: No organomegaly - Back Back: Normal, Nontender - Extremities General upper extremity: Normal inspection, Nontender, Normal color, Normal ROM, Normal temperature General lower extremity: Nontender, Normal color, Normal ROM, Normal temperature , Normal weight bearing. No: Normal inspection - Lower extremities show chronic venous stasis changes with edema patient does have some bilateral deformities of the toes more likely due to underlying arthritic, Jacquie's sign - Neurological Neuro grossly intact: Yes Cognition: Normal Orientation: AAOx4 Ayla Coma Scale Eye Opening: Spontaneous [place]yla Coma Scale Verbal: Oriented [place] Coma Scale Motor: Obeys Commands Ayla Coma Scale Total: 15 Speech: Normal Motor strength normal: LUE, RUE, LLE, RLE Sensory: Normal - Psychological Associated symptoms: Normal affect, Normal mood - Skin Skin Temperature: Warm Skin Moisture: Dry Skin Color: Normal Course - Re-evaluation Re-evalutation: 02/24/19 13:45 Chest x-ray shows possible bilateral lobe pneumonia. Patient's physical examination is more consistent with possible CHF. Patient was given Lasix initially once the x-ray was performed Levaquin was added. Will admit the patie nt because of his continue oxygen use - Vital Signs Vital signs: Temp Pulse Resp BP Pulse Ox 98.0 F 108 H 25 H 159/90 H 92 02/24/19 09:42 02/24/19 09:42 02/24/19 13:31 02/24/19 13:31 02/24/19 13:31 - Laboratory Result Diagrams: 02/24/19 09:40 02/24/19 09:40 Laboratory results interpreted by me: 02/24/19 02/24/19 02/24/19 09:40 09:40 09:40 WBC 11.5 H Hgb 11.0 L Hct 34.5 L MCV 79 L MCH 25.2 L MCHC 31.9 L RDW 20.4 H BUN 30 H Creatinine 1.52 H Est GFR ( Amer) 55 L Est GFR (Non-Af Amer) 45 L Glucose 117 H Creatine Kinase 38 L NT-Pro-B Natriuret Pep 4790 H Urine Blood Ur Leukocyte Esterase 02/24/19 11:18 WBC Hgb Hct MCV MCH MCHC RDW BUN Creatinine Est GFR ( Amer) Est GFR (Non-Af Amer) Glucose Creatine Kinase NT-Pro-B Natriuret Pep Urine Blood SMALL H Ur Leukocyte Esterase LARGE H Critical Care Note - Critical Care Note Total time excluding time spent on procedures (mins): 35 Comments: Multiple evaluations due to patient hypoxia requiring oxygen. Respiratory distress Discharge - Discharge Clinical Impression: COPD exacerbation, Ulcer of foot, Coronary artery disease, Acute hypoxemic respiratory failure CHF (congestive heart failure) Qualifiers: Heart failure type: unspecified Heart failure chronicity: unspecified Qualified Code(s): I50.9 - Heart failure, unspecified Condition: Good Disposition: ADMITTED INPATIENT Admitting Provider: Hospitalist - [facility] Unit Admitted: IMCU Referrals: JENISE PRICE DO [Primary Care Provider] - Follow up as needed
[2019-02-24] MEDS: IPRATROPIUM/ALBUTEROL 0.5-2.5 MG/3 ML AMPUL NEB SCH ×3 (14:21→20:13)
[2019-02-24] MEDS: ENOXAPARIN SODIUM INJ 40 MG/0.4 ML DISP.SYRIN SUBCUT SCH (14:22)
[2019-02-24] MEDS: KETOROLAC TROMETHAMINE INJ/PF 30 MG/1 ML SDV IV PRN (21:40)
[2019-02-24] MEDS: ATORVASTATIN CALCIUM 20 MG TABLET PO SCH (21:41)
[2019-02-24] MEDS: FUROSEMIDE INJ/PF 20 MG/2 ML SDV IV SCH (21:41)
[2019-02-24] MEDS: ACETAMINOPHEN 325 MG TABLET PO PRN (21:41)
--- NOTE | 2019-02-24 21:54 | EKG REPORT ---
SEVERITY:- ABNORMAL ECG - SINUS TACHYCARDIA LVH WITH IVCD, LAD AND SECONDARY REPOL ABNRM : Confirmed by: Alia Leonard MD 24-Feb-2019 21:52:42
[2019-02-25] MEDS: IPRATROPIUM/ALBUTEROL 0.5-2.5 MG/3 ML AMPUL NEB SCH ×7 (00:12→23:08)
[2019-02-25] MEDS ORDERED: METOPROLOL TARTRATE PF/INJ 5 MG/5 ML SDV IV ONE (03:00)
[2019-02-25] MEDS ORDERED: METOPROLOL TARTRATE 25 MG TABLET PO ONE (03:00)
[2019-02-25 05:34] LABS: ABSOLUTE BASOPHILS # (AUTO) 0.1 10^3/uL (0.0-0.2); ABSOLUTE LYMPHOCYTES (AUTO) 0.7 10^3/uL (0.5-4.7); ABSOLUTE MONOCYTES (AUTO) 1.3 10^3/uL (0.1-1.4); ABSOLUTE NEUT (AUTO) 8.3 10^3/uL (1.7-8.2); BASOPHILS % (AUTO) 0.5 % (0-2); HEMATOCRIT 28.5 % (37.9-51.0); HEMOGLOBIN 9.4 g/dL (13.5-17.0); LYMPHOCYTES % (AUTO) 6.9 % (13-45); MEAN CORPUSCULAR HEMOGLOBIN 25.7 pg (27.0-33.4); MEAN CORPUSCULAR VOLUME 78 fl (80-97); MONOCYTES % (AUTO) 12.2 % (3-13); PLATELET COUNT 289 10^3/uL (150-450); RED BLOOD COUNT 3.66 10^6/uL (4.35-5.55); RED CELL DISTRIBUTION WIDTH 20.9 % (11.5-14.0); SEGMENTED NEUTROPHILS % (AUTO) 80.4 % (42-78); TOTAL CELLS COUNTED % (AUTO) 100 %; WHITE BLOOD COUNT 10.4 10^3/uL (4.0-10.5)
[2019-02-25 06:07] LABS: ANION GAP 12 (5-19); BLOOD UREA NITROGEN 43 mg/dL (7-20); CALCIUM 8.7 mg/dL (8.4-10.2); CARBON DIOXIDE 24 mmol/L (22-30); CHLORIDE 100 mmol/L (98-107); GLUCOSE 117 mg/dL (75-110); POTASSIUM 4.6 mmol/L (3.6-5.0); SODIUM 136.1 mmol/L (137-145)
[2019-02-25] MEDS ORDERED: (PENDING PHARMACY ID) (Lisinopril [Zestril] 20 MG) PO SCH (10:00)
[2019-02-25] MEDS ORDERED: LEVOFLOXACIN 750 MG/D5W RTU 750 MG/150 ML RTUPB IV SCH (10:00)
[2019-02-25] MEDS: METOPROLOL TARTRATE 25 MG TABLET PO SCH ×2 (11:36→21:51)
[2019-02-25] MEDS: AMLODIPINE BESYLATE 5 MG TABLET PO SCH (11:36)
[2019-02-25] MEDS: LISINOPRIL 10 MG TABLET PO SCH (11:37)
[2019-02-25] MEDS: ENOXAPARIN SODIUM INJ 40 MG/0.4 ML DISP.SYRIN SUBCUT SCH (11:37)
[2019-02-25] MEDS: ASPIRIN 81 MG TABLET, ENT COATED PO SCH (11:37)
[2019-02-25] MEDS: FUROSEMIDE INJ/PF 20 MG/2 ML SDV IV SCH (11:43)
[2019-02-25] MEDS: NORMAL SALINE 1000 ML 1,000 ML IV PRN (13:45)
[2019-02-25] MEDS ORDERED: PREDNISONE 20 MG TABLET PO ONE (14:35)
[2019-02-25] MEDS ORDERED: PREDNISONE 20 MG TABLET ONE (17:14)
[2019-02-25] MEDS: TAMSULOSIN HCL 0.4 MG CAP.SR.24H PO SCH (17:16)
--- NOTE | 2019-02-25 18:11 | PDOC PROGRESS REPORT ---
Subjective Progress Note for:: 02/25/19 Subjective:: No adverse events overnight. His chief complaint is his cough, which he says has given him some muscle soreness because of all the coughing is done. No fevers. His oral intake has been fair. He says he does not have prescribed oxygen at home, but his has oxygen he uses it sometimes. Reason For Visit: BILATERAL PNEUMONIA Physical Exam Vital Signs: Temp Pulse Resp BP Pulse Ox 97.6 F 100 20 125/62 91 L 02/25/19 16:00 02/25/19 16:00 02/25/19 16:00 02/25/19 16:00 02/25/19 16:00 Pulse Oximeter Continuous Start: 02/24/19 13:37 Freq: RTQ4 Status: Hold Protocol: Document 02/25/19 00:14 CMI (Rec: 02/25/19 00:17 CMI [id number]) Pulse Oximetry Assessment Equipment Usage Equipment Standby Continuous SpO2 Machine # x Intake & Output 02/24/19 02/25/19 02/26/19 06:59 06:59 06:59 Intake Total 842 672 Output Total 970 320 Balance -128 352 Weight 64.5 kg General appearance: PRESENT: no acute distress, cooperative, disheveled Respiratory exam: PRESENT: rhonchi, symmetrical, unlabored, wheezes - Faint end expiratory wheezes in all ibrahim bilaterally. ABSENT: accessory muscle use, chest wall tenderness, crackles, prolonged expiratory phas, tachypnea Cardiovascular exam: PRESENT: RRR, +S1, +S2 Pulses: PRESENT: normal carotid pulses Vascular exam: PRESENT: normal capillary refill GI/Abdominal exam: PRESENT: normal bowel sounds, soft. ABSENT: distended, guarding, rebound, tenderness Extremities exam: ABSENT: clubbing, pedal edema Musculoskeletal exam: PRESENT: normal inspection. ABSENT: deformity Neurological exam: PRESENT: alert, awake, oriented to person, oriented to place, oriented to time, oriented to situation Psychiatric exam: PRESENT: appropriate affect, normal mood Skin exam: PRESENT: dry, warm, other - He had severe onychomycosis bilaterally, he had a hammertoe of the left foot, and he had cool erythema with elephantiasis of the skin consistent with long-standing chronic venous insufficiency of the lower extremities Results Laboratory Results: 02/25/19 04:50 02/25/19 04:50 02/25/19 02/25/19 04:50 04:50 WBC 10.4 RBC 3.66 L Hgb 9.4 L Hct 28.5 L MCV 78 L MCH 25.7 L MCHC 33.0 RDW 20.9 H Plt Count 289 Seg Neutrophils % 80.4 H Lymphocytes % 6.9 L Monocytes % 12.2 Eosinophils % 0.0 Basophils % 0.5 Absolute Neutrophils 8.3 H Absolute Lymphocytes 0.7 Absolute Monocytes 1.3 Absolute Eosinophils 0.0 Absolute Basophils 0.1 Sodium 136.1 L Potassium 4.6 Chloride 100 Carbon Dioxide 24 Anion Gap 12 BUN 43 H Creatinine 2.03 H Est GFR ( Amer) 39 L Est GFR (Non-Af Amer) 32 L Glucose 117 H Calcium 8.7 02/24/19 02/24/19 02/24/19 09:40 09:40 09:40 Creatine Kinase 38 L CK-MB (CK-2) 1.57 Troponin I 0.055 NT-Pro-B Natriuret Pep 4790 H Impressions: Chest X-Ray 02/24/19 09:47 IMPRESSION: Bibasilar infiltrates most consistent with pneumonia. Assessment and Plan - Diagnosis (1) Acute hypoxemic respiratory failure Is this a current diagnosis for this admission?: Yes Plan: Stable on the nasal cannula, will wean as tolerated. (2) Bilateral pneumonia Qualifiers: Pneumonia type: due to unspecified organism Lung location: lower lobe of lung Qualified Code(s): J18.1 - Lobar pneumonia, unspecified organism Is this a current diagnosis for this admission?: Yes Plan: Continue current antibiotic therapy, slowly improving, cultures are pending. (3) [id number] kidney injury Qualifiers: Acute renal failure type: unspecified Chronic kidney disease stage: stage 3 (moderate) Qualified Code(s): N17.9 - Acute kidney failure, unspecified; N18.3 - Chronic kidney disease, stage 3 (moderate) Is this a current diagnosis for this admission?: Yes Plan: Most likely prerenal azotemia from dehydration. He had been given some Lasix when he came in, and now he looks a little too dry. I have stopped his Lasix a nd have started him on some gentle IV fluids. (4) COPD exacerbation Is this a current diagnosis for this admission?: Yes Plan: He sounded like he was wheezing today, so I started some prednisone. We will continue nebulizer treatments and antibiotics as well. - Time Time Spent with patient: 25-34 minutes
[2019-02-25] MEDS: ATORVASTATIN CALCIUM 20 MG TABLET PO SCH (21:51)
[2019-02-25] MEDS: ACETAMINOPHEN 325 MG TABLET PO PRN (21:54)
[2019-02-26] MEDS: NORMAL SALINE 1000 ML 1,000 ML IV PRN ×3 (00:39→21:30)
[2019-02-26] MEDS: IPRATROPIUM/ALBUTEROL 0.5-2.5 MG/3 ML AMPUL NEB SCH ×5 (04:31→22:20)
[2019-02-26] MEDS: ASPIRIN 81 MG TABLET, ENT COATED PO SCH (10:36)
[2019-02-26] MEDS: AMLODIPINE BESYLATE 5 MG TABLET PO SCH (10:36)
[2019-02-26] MEDS: PREDNISONE 20 MG TABLET PO SCH (10:37)
[2019-02-26] MEDS: LISINOPRIL 10 MG TABLET PO SCH (10:37)
[2019-02-26] MEDS: ENOXAPARIN SODIUM INJ 40 MG/0.4 ML DISP.SYRIN SUBCUT SCH (10:37)
[2019-02-26] MEDS: METOPROLOL TARTRATE 25 MG TABLET PO SCH ×2 (10:37→21:30)
[2019-02-26] MEDS: ACETAMINOPHEN 325 MG TABLET PO PRN (10:42)
[2019-02-26] MEDS: KETOROLAC TROMETHAMINE INJ/PF 30 MG/1 ML SDV IV PRN (13:29)
[2019-02-26] MEDS: TAMSULOSIN HCL 0.4 MG CAP.SR.24H PO SCH (17:07)
--- NOTE | 2019-02-26 17:40 | PDOC PROGRESS REPORT ---
Subjective Progress Note for:: 02/26/19 Subjective:: No adverse events overnight. No new complaints. He was fast asleep whenever came into the room but when I woke him up he told me immediately that he was still coughing very hard. When I pointed out to him that he was able to take a pretty good nap, he told me that he coughed so hard that he passed out. His nurse said that she does not think that he coughed so hard that he passed out, but she has noted that he has had a pretty hard cough. Reason For Visit: BILATERAL PNEUMONIA Physical Exam Vital Signs: Temp Pulse Resp BP Pulse Ox 98.3 F 116 H 20 143/75 H 92 02/26/19 16:00 02/26/19 16:10 02/26/19 16:10 02/26/19 16:00 02/26/19 16:10 Pulse Oximeter Continuous Start: 02/24/19 13:37 Freq: RTQ4 Status: Hold Protocol: Document 02/25/19 00:14 CMI (Rec: 02/25/19 00:17 CMI [id number]) Pulse Oximetry Assessment Equipment Usage Equipment Standby Continuous SpO2 Machine # x Intake & Output 02/25/19 02/26/19 02/27/19 06:59 06:59 06:59 Intake Total 842 1822 1355 Output Total 970 320 725 Balance -128 1502 630 Weight 64.5 kg 64.2 kg General appearance: PRESENT: no acute distress, cooperative, disheveled Respiratory exam: PRESENT: rhonchi, symmetrical, unlabored. ABSENT: accessory muscle use, chest wall tenderness, crackles, prolonged expiratory phase, tachypnea, wheezes Cardiovascular exam: PRESENT: RRR, +S1, +S2 Pulses: PRESENT: normal carotid pulses Vascular exam: PRESENT: normal capillary refill GI/Abdominal exam: PRESENT: normal bowel sounds, soft. ABSENT: distended, guarding, rebound, tenderness Extremities exam: ABSENT: clubbing, pedal edema Musculoskeletal exam: PRESENT: normal inspection. ABSENT: deformity Neurological exam: PRESENT: alert, awake, oriented to person, oriented to place, oriented to time, oriented to situation Psychiatric exam: PRESENT: appropriate affect, normal mood Skin exam: PRESENT: dry, warm, other - He had severe onychomycosis bilaterally, he had a hammertoe of the left foot, and he had cool erythema with elephantiasis of the skin consistent with long-standing chronic venous insufficiency of the lower extremities Results Laboratory Results: 02/25/19 04:50 02/25/19 04:50 02/24/19 02/24/19 02/24/19 09:40 09:40 09:40 Creatine Kinase 38 L CK-MB (CK-2) 1.57 Troponin I 0.055 NT-Pro-B Natriuret Pep 4790 H Impressions: Chest X-Ray 02/24/19 09:47 IMPRESSION: Bibasilar infiltrates most consistent with pneumonia. Assessment and Plan - Diagnosis (1) Acute hypoxemic respiratory failure Is this a current diagnosis for this admission?: Yes Plan: Stable on the nasal cannula, will wean as tolerated. Says he does not have oxygen at home but he sometimes uses his 's oxygen. (2) Bilateral pneumonia Qualifiers: Pneumonia type: due to unspecified organism Lung location: lower lobe of lung Qualified Code(s): J18.1 - Lobar pneumonia, unspecified organism Is this a current diagnosis for this admission?: Yes Plan: Continue current antibiotic therapy, slowly improving, cultures are pending. (3) Ppbmf-ca-[id number] kidney injury Qualifiers: Acute renal failure type: unspecified Chronic kidney disease stage: stage 3 (moderate) Qualified Code(s): N17.9 - Acute kidney failure, unspecified; N18.3 - Chronic kidney disease, stage 3 (moderate) Is this a current diagnosis for this admission?: Yes Plan: Lasix was discontinued. Repeat metabolic panel is pending. (4) COPD exacerbation Is this a current diagnosis for this admission?: Yes Plan: He starting to improve on prednisone. He is not wheezing anymore. He still has a pretty hard cough so I ordered some cough syrup with codeine. - Time Time Spent with patient: 25-34 minutes - Inpatient Certification Medical Necessity: Significant Comorbidiites Make Outpatient Treatment Too Risky, Need Close Monitoring Due to Risk of Patient Decompensation, Need for Nebulizer Therapy and Monitoring of Response
[2019-02-26] MEDS: GUAIFENESIN/CODEINE PHOS 100-10 MG/ 5 ML UDC PO PRN (18:35)
[2019-02-26] MEDS: ATORVASTATIN CALCIUM 20 MG TABLET PO SCH (21:29)
[2019-02-27] MEDS: IPRATROPIUM/ALBUTEROL 0.5-2.5 MG/3 ML AMPUL NEB SCH ×7 (00:48→23:58)
[2019-02-27] MEDS: GUAIFENESIN/CODEINE PHOS 100-10 MG/ 5 ML UDC PO PRN (01:04)
[2019-02-27] MEDS: NORMAL SALINE 1000 ML 1,000 ML IV PRN (07:37)
[2019-02-27] MEDS: KETOROLAC TROMETHAMINE INJ/PF 30 MG/1 ML SDV IV PRN (08:50)
[2019-02-27] MEDS ORDERED: LEVOFLOXACIN 750 MG/D5W RTU 750 MG/150 ML RTUPB IV SCH (10:00)
[2019-02-27] MEDS: ENOXAPARIN SODIUM INJ 30 MG/0.3 ML DISP.SYRIN SUBCUT SCH (10:12)
[2019-02-27] MEDS: PREDNISONE 20 MG TABLET PO SCH (10:12)
[2019-02-27] MEDS: AMLODIPINE BESYLATE 5 MG TABLET PO SCH (10:12)
[2019-02-27] MEDS: METOPROLOL TARTRATE 25 MG TABLET PO SCH ×2 (10:13→22:53)
[2019-02-27] MEDS: ASPIRIN 81 MG TABLET, ENT COATED PO SCH (10:14)
[2019-02-27] MEDS: LISINOPRIL 10 MG TABLET PO SCH (10:14)
--- NOTE | 2019-02-27 12:42 | RADIOLOGY REPORT (SQ) ---
EXAM DESCRIPTION: CHEST SINGLE VIEW COMPLETED DATE/TIME: 02/27/2019 12:38 pm REASON FOR STUDY: Pneumonia, increased Shortness of Breath COMPARISON: 02/24/2019 NUMBER OF VIEWS: One view. TECHNIQUE: Single frontal radiographic image of the chest acquired. LIMITATIONS: None. FINDINGS: LUNGS AND PLEURA: Stable appearance. MEDIASTINUM AND HILAR STRUCTURES: Stable heart size and mediastinal structures. HEART AND VASCULAR STRUCTURES: Stable appearance. BONES: No acute findings. HARDWARE: None in the chest. OTHER: No other significant finding. IMPRESSION: STABLE APPEARANCE OF THE CHEST. TECHNICAL DOCUMENTATION: JOB ID: [id number] [employer]- All Rights Reserved Reading location - IP/workstation name: [email or web address]
[2019-02-27] MEDS: TAMSULOSIN HCL 0.4 MG CAP.SR.24H PO SCH (17:00)
--- NOTE | 2019-02-27 20:03 | PDOC PROGRESS REPORT ---
Subjective Progress Note for:: 02/27/19 Subjective:: CONCHA GRISSOM is a 73 year old male whose past medical history hypertension, hyperlipidemia, COPD, CHF, peripheral vascular disease, bilateral lymphedema and venous stasis, coronary artery disease status post triple bypass and history of cerebral palsy presents with chief complaint of shortness of breath and cough. Reports this is a he has been at his usual baseline state of health up until this morning when he woke up with shortness of present cough productive of whitish sputum. Patient denies chills, fever or chest pain. Patient brought in by EMS. When EMS arrived at his home patient was tachypneic and tachycardic he sought saturation was 89% on room air. He was given albuterol, Atrovent and a single dose of Solu-Medrol 125 mg. His chest x-ray reported as bibasilar infiltrates most consistent with pneumonia. His blood works unremarkable except for mild leukocytosis of 11,000 and BNP of 4700. His urinalysis reported as large leukocyte esterase and the WBC is 20-30. 02/27/2019. Mild improvement of his symptoms. Patient still feels congested and gets short of breath on exertion. Denies any fever, chest pain, nausea, vomiting, diarrhea, constipation or any urinary symptoms. Reason For Visit: BILAT PNA Physical Exam Vital Signs: Temp Pulse Resp BP Pulse Ox 97.3 F 98 22 H 149/75 H 90 L 02/27/19 15:10 02/27/19 19:23 02/27/19 19:23 02/27/19 15:10 02/27/19 19:23 Pulse Oximeter Continuous Start: 02/24/19 13:37 Freq: RTQ4 Status: Hold Protocol: Document 02/25/19 00:14 CMI (Rec: 02/25/19 00:17 CMI [email or web address]) Pulse Oximetry Assessment Equipment Usage Equipment Standby Continuous SpO2 Machine # x Intake & Output 02/26/19 02/27/19 02/28/19 06:59 06:59 06:59 Intake Total 1822 2355 1999 Output Total 320 1810 Balance 0118 237 3577 Weight 64.2 kg 67.4 kg General appearance: PRESENT: no acute distress Head exam: PRESENT: atraumatic, normocephalic Respiratory exam: PRESENT: clear to auscultation joyce, decreased breath sounds, prolonged expiratory phas. ABSENT: rales, rhonchi, wheezes GI/Abdominal exam: PRESENT: normal bowel sounds, soft. ABSENT: distended, guarding, mass, organolmegaly, rebound, tenderness Extremities exam: PRESENT: full ROM. ABSENT: calf tenderness, clubbing, pedal edema Neurological exam: PRESENT: alert, awake, oriented to person, oriented to place, oriented to time, oriented to situation, CN II-XII grossly intact. ABSENT: motor sensory deficit Results Laboratory Results: 02/25/19 04:50 02/25/19 04:50 02/24/19 02/24/19 02/24/19 09:40 09:40 09:40 Creatine Kinase 38 L CK-MB (CK-2) 1.57 Troponin I 0.055 NT-Pro-B Natriuret Pep 4790 H Impressions: Chest X-Ray 02/27/19 00:00 IMPRESSION: STABLE APPEARANCE OF THE CHEST. Assessment and Plan - Diagnosis (1) Acute hypoxemic respiratory failure Is this a current diagnosis for this admission?: Yes Plan: Likely due to acute CHF/COPD exacerbation Mild improvement. Does not use oxygen at home. Continue empiric antibiotics, follow-up sputum blood cultures. Continue nebs, supplemental oxygen, as needed BiPAP and IV steroids. (2) Rcizl-ed-nsfdpjk kidney injury Qualifiers: Acute renal failure type: unspecified Chronic kidney disease stage: stage 3 (moderate) Qualified Code(s): N17.9 - Acute kidney failure, unspecified; N18.3 - Chronic kidney disease, stage 3 (moderate) Is this a current diagnosis for this admission?: Yes Plan: Creatinine stable. Monitor electrolytes and volume status. Replace electrolytes as needed. Will order renal ultrasound. (3) Bilateral lymphedema and venous stasis Is this a current diagnosis for this admission?: Yes Plan: Chronic. Complicated by stasis dermatitis. Follow-up with his primary care physician. (4) Bilateral pneumonia Qualifiers: Pneumonia type: due to unspecified organism Lung location: unspecified part of lung Qualified Code(s): J18.9 - Pneumonia, unspecified organism Is this a current diagnosis for this admission?: Yes Plan: Likely community-acquired strep pneumo. 02/24/2019. Bibasilar infiltrates consistent with pneumonia. Day 5 of empiric IV antibiotics. Blood culture from admission negative. Repeat blood and sputum culture. (5) CAD SP coronary artery bypass graft Is this a current diagnosis for this admission?: Yes Plan: Denies any active chest pain. Resume home meds. Adjust meds as needed. (6) CHF (congestive heart failure) Qualifiers: Heart failure type: systolic Heart failure chronicity: unspecified Qualified Code(s): I50.20 - Unspecified systolic (congestive) heart failure Is this a current diagnosis for this admission?: No Plan: Systolic dysfunction. BNP 4790 on 02/24/2019 up from 2530 from 10/05/2018. 2D echo on 09/30/2018. Suboptimal. Ejection fraction 50%. Will repeat 2D echo. Continue cardiac diet volume restriction and diuretics guided by kidney function. (7) COPD (chronic obstructive pulmonary disease) Qualifiers: Emphysema type: unspecified Is this a current diagnosis for this admission?: Yes Plan: Continue nebs, supplemental oxygen, as needed BiPAP, IV steroids. Outpatient PCP pulmonary follow-up.
[2019-02-27] MEDS: ATORVASTATIN CALCIUM 20 MG TABLET PO SCH (22:53)
[2019-02-28] MEDS: NORMAL SALINE 1000 ML 1,000 ML IV PRN (02:28)
[2019-02-28] MEDS: IPRATROPIUM/ALBUTEROL 0.5-2.5 MG/3 ML AMPUL NEB SCH ×6 (04:15→23:51)
[2019-02-28] MEDS: LISINOPRIL 10 MG TABLET PO SCH (09:22)
[2019-02-28] MEDS: AMLODIPINE BESYLATE 5 MG TABLET PO SCH (09:22)
[2019-02-28] MEDS: ENOXAPARIN SODIUM INJ 30 MG/0.3 ML DISP.SYRIN SUBCUT SCH (09:23)
[2019-02-28] MEDS: ASPIRIN 81 MG TABLET, ENT COATED PO SCH (09:23)
[2019-02-28] MEDS: METOPROLOL TARTRATE 25 MG TABLET PO SCH ×2 (09:23→21:11)
[2019-02-28] MEDS ORDERED: CEFTRIAXONE 1 GM/D5W RTU 1 GM/50 ML RTUPB IV SCH (10:00)
[2019-02-28] MEDS: METHYLPREDNISOLONE INJ 125 MG/2 ML SDV IV SCH ×3 (10:45→19:00)
[2019-02-28 12:58] LABS: HEMATOCRIT 33.3 % (37.9-51.0); HEMOGLOBIN 10.7 g/dL (13.5-17.0); MEAN CORPUSCULAR HEMOGLOBIN 25.3 pg (27.0-33.4); MEAN CORPUSCULAR HGB CONC 32.2 g/dL (32.0-36.0); MEAN CORPUSCULAR VOLUME 78 fl (80-97); PLATELET COUNT 403 10^3/uL (150-450); RED BLOOD COUNT 4.25 10^6/uL (4.35-5.55); RED CELL DISTRIBUTION WIDTH 21.3 % (11.5-14.0)
[2019-02-28 13:09] LABS: ALANINE AMINOTRANSFERASE 23 U/L (21-72); ALBUMIN 2.9 g/dL (3.5-5.0); ALKALINE PHOSPHATASE 68 U/L (38-126); ANION GAP 8 (5-19); ASPARTATE AMINO TRANSFERASE 20 U/L (17-59); BILIRUBIN,DIRECT 0.2 mg/dL (0.0-0.4); BILIRUBIN,TOTAL 0.4 mg/dL (0.2-1.3); BLOOD UREA NITROGEN 35 mg/dL (7-20); CALCIUM 8.4 mg/dL (8.4-10.2); CARBON DIOXIDE 20 mmol/L (22-30); CHLORIDE 111 mmol/L (98-107); GLUCOSE 130 mg/dL (75-110); POTASSIUM 4.2 mmol/L (3.6-5.0); SODIUM 139.1 mmol/L (137-145); TOTAL PROTEIN 5.4 g/dL (6.3-8.2)
[2019-02-28 13:18] LABS: ARTERIAL BLOOD BASE EXCESS -0.5 mmol/L; ARTERIAL BLOOD H2CO3 0.91 mmol/L (1.05-1.35); ARTERIAL BLOOD HCO3 22.2 mmol/L (20-24); ARTERIAL BLOOD O2 SATURATION 90.2 % (94-98); ARTERIAL BLOOD PCO2 30.3 mmHg (35-45); ARTERIAL BLOOD PH 7.48 (7.35-7.45); ARTERIAL BLOOD PO2 52.8 mmHg (80-100); ARTERIAL BLOOD TOTAL CO2 23.1 mmol/L (23-27)
[2019-02-28 13:20] LABS: ABSOLUTE LYMPHOCYTES# (MANUAL) 0.1 10^3/uL (0.5-4.7); ABSOLUTE MONOCYTES # (MANUAL) 0.7 10^3/uL (0.1-1.4); ABSOLUTE NEUTROPHILS# (MANUAL) 11.2 10^3/uL (1.7-8.2); BASOPHILS % (MANUAL) 0 % (0-2); EOSINOPHILS % (MANUAL) 0 % (0-6); LYMPHOCYTES % (MANUAL) 1 % (13-45); MONOCYTES % (MANUAL) 6 % (3-13); SEGMENTED NEUTROPHILS % (MAN) 93 % (42-78); TOTAL CELLS COUNTED 100
[2019-02-28 13:21] LABS: ARTERIAL BLOOD FIO2 5L
[2019-02-28 13:21] LABS: ANISOCYTOSIS 3+; HYPOCHROMASIA SLIGHT; OVALOCYTES 1+; PLATELET COMMENT ADEQUATE; POIKILOCYTOSIS 1+
[2019-02-28 13:22] LABS: PLATELET CLUMPS PRESENT
--- NOTE | 2019-02-28 13:58 | PDOC PROGRESS REPORT ---
Subjective Progress Note for:: 02/28/19 Subjective:: CONCHA GRISSOM is a 73 year old male whose past medical history hypertension, hyperlipidemia, COPD, CHF, peripheral vascular disease, bilateral lymphedema and venous stasis, coronary artery disease status post triple bypass and history of cerebral palsy presents with chief complaint of shortness of breath and cough. Reports this is a he has been at his usual baseline state of health up until this morning when he woke up with shortness of present cough productive of whitish sputum. Patient denies chills, fever or chest pain. Patient brought in by EMS. When EMS arrived at his home patient was tachypneic and tachycardic he sought saturation was 89% on room air. He was given albuterol, Atrovent and a single dose of Solu-Medrol 125 mg. His chest x-ray reported as bibasilar infiltrates most consistent with pneumonia. His blood works unremarkable except for mild leukocytosis of 11,000 and BNP of 4700. His urinalysis reported as large leukocyte esterase and the WBC is 20-30. 02/27/2019. Mild improvement of his symptoms. Patient still feels congested and gets short of breath on exertion. Denies any fever, chest pain, nausea, vomiting, diarrhea, constipation or any urinary symptoms. 07/31/2019. No acute events overnight. Patient is stating that he is feeling better than yesterday chest congestion and shortness of breath has improved mildly. On my encounter patient is comfortably resting in bed with supplemental oxygen not in apparent respiratory distress cooperative with physical examination. He is denying any chest pain, fever, chills, nausea, vomiting, diarrhea, constipation or any urinary symptoms. ABG: PH 7.48, PCO2 30.3, PO2 52.8 on 5 L/min Reason For Visit: BILAT PNA Physical Exam Vital Signs: Temp Pulse Resp BP Pulse Ox 98.2 F 98 18 143/74 H 90 L 02/28/19 12:00 02/28/19 12:36 02/28/19 12:36 02/28/19 12:00 02/28/19 12:36 Pulse Oximeter Continuous Start: 02/24/19 13:37 Freq: RTQ4 Status: Hold Protocol: Document 02/25/19 00:14 CMI (Rec: 02/25/19 00:17 CMI [id number]) Pulse Oximetry Assessment Equipment Usage Equipment Standby Continuous SpO2 Machine # x Pulse Oximeter Continuous Start: 02/28/19 08:24 Freq: RTQ4 Status: Active Protocol: Document 02/28/19 12:36 [facility] (Rec: 02/28/19 12:45 [facility] [email or web address]) Pulse Oximetry Assessment Oxygen Saturation (92-100) 90 Oxygen Flow Rate (L/min) 5 Oxygen Delivery Method Nasal Cannula Equipment Usage Equipment in Use Continuous SpO2 Machine # N1 Intake & Output 02/27/19 02/28/19 03/01/19 06:59 06:59 06:59 Intake Total 2355 2876 630 Output Total 1810 950 650 Balance 545 1926 -20 Weight 67.4 kg 67.4 kg General appearance: PRESENT: no acute distress, well-developed, well-nourished Head exam: PRESENT: atraumatic, normocephalic Respiratory exam: PRESENT: clear to auscultation joyce, decreased breath sounds, prolonged expiratory phas. ABSENT: rales, rhonchi, wheezes Cardiovascular exam: PRESENT: RRR. ABSENT: diastolic murmur, rubs, systolic murmur GI/Abdominal exam: PRESENT: normal bowel sounds, soft. ABSENT: distended, guarding, mass, organolmegaly, rebound, tenderness Neurological exam: PRESENT: alert, awake, oriented to person, oriented to place, oriented to time, oriented to situation, CN II-XII grossly intact. ABSENT: mo tor sensory deficit Results Laboratory Results: 02/28/19 12:45 02/28/19 12:45 02/28/19 02/28/19 02/28/19 12:45 12:45 13:00 WBC 12.0 H RBC 4.25 L Hgb 10.7 L Hct 33.3 L MCV 78 L MCH 25.3 L MCHC 32.2 RDW 21.3 H Plt Count 403 Seg Neutrophils % Not Reportable Lymphocytes % Not Reportable Monocytes % Not Reportable Eosinophils % Not Reportable Basophils % Not Reportable Absolute Neutrophils Not Reportable Absolute Lymphocytes Not Reportable Absolute Monocytes Not Reportable Absolute Eosinophils Not Reportable Absolute Basophils Not Reportable Carbonic Acid 0.91 L HCO3/H2CO3 Ratio 24:1 ABG pH 7.48 H ABG pCO2 30.3 L ABG pO2 52.8 L ABG HCO3 22.2 ABG O2 Saturation 90.2 L ABG Base Excess -0.5 FiO2 5L Sodium 139.1 Potassium 4.2 Chloride 111 H Carbon Dioxide 20 L Anion Gap 8 BUN 35 H Creatinine 1.47 H Est GFR ( Amer) 57 L Est GFR (Non-Af Amer) 47 L Glucose 130 H Calcium 8.4 Total Bilirubin 0.4 AST 20 ALT 23 Alkaline Phosphatase 68 Total Protein 5.4 L Albumin 2.9 L 02/24/19 02/24/19 02/24/19 09:40 09:40 09:40 Creatine Kinase 38 L CK-MB (CK-2) 1.57 Troponin I 0.055 NT-Pro-B Natriuret Pep 4790 H Impressions: Chest X-Ray 02/27/19 00:00 IMPRESSION: STABLE APPEARANCE OF THE CHEST. Assessment and Plan - Diagnosis (1) Acute hypoxemic respiratory failure Is this a current diagnosis for this admission?: Yes Plan: Likely due to acute CHF/COPD exacerbation ABG: PH 7.48, PCO2 30.3, PO2 52.8 on 5 L/min Mild improvement. Does not use oxygen at home. Continue empiric antibiotics, follow-up sputum blood cultures. Continue nebs, supplemental oxygen, as needed BiPAP and IV steroids. (2) COPD (chronic obstructive pulmonary disease) Qualifiers: Emphysema type: unspecified Is this a current diagnosis for this admission?: Yes Plan: Continue nebs, supplemental oxygen, as needed BiPAP, IV steroids. Outpatient PCP pulmonary follow-up. (3) Bilateral pneumonia Qualifiers: Pneumonia type: due to unspecified organism Lung location: unspecified part of lung Qualified Code(s): J18.9 - Pneumonia, unspecified organism Is this a current diagnosis for this admission?: Yes Plan: Likely community-acquired strep pneumo. 02/24/2019. Bibasilar infiltrates consistent with pneumonia. Day 6 of empiric IV antibiotics. Blood culture from admission negative. Repeat blood and sputum culture. (4) CHF (congestive heart failure) Qualifiers: Heart failure type: systolic Heart failure chronicity: unspecified Qualified Code(s): I50.20 - Unspecified systolic (congestive) heart failure Is this a current diagnosis for this admission?: No Plan: Systolic dysfunction. BNP 4790 on 02/24/2019 up from 2530 from 10/05/2018. 2D echo on 09/30/2018. Suboptimal. Ejection fraction 50%. Will repeat 2D echo. Continue cardiac diet volume restriction and diuretics guided by kidney function. (5) Lurou-yc-hlzalxu kidney injury Qualifiers: Acute renal failure type: unspecified Chronic kidney disease stage: stage 3 (moderate) Qualified Code(s): N17.9 - Acute kidney failure, unspecified; N18.3 - Chronic kidney disease, stage 3 (moderate) Is this a current diagnosis for this admission?: Yes Plan: Creatinine stable. Monitor electrolytes and volume status. Replace electro lytes as needed. Will order renal ultrasound. (6) CAD SP coronary artery bypass graft Is this a current diagnosis for this admission?: Yes Plan: Denies any active chest pain. Resume home meds. Adjust meds as needed. (7) Bilateral lymphedema and venous stasis Is this a current diagnosis for this admission?: Yes Plan: Chronic. Complicated by stasis dermatitis. Follow-up with his primary care physician. (8) BPH (benign prostatic hyperplasia) Is this a current diagnosis for this admission?: Yes Plan: Continue tamsulosin. Patient neurology and PCP follow-up.
[2019-02-28] MEDS ORDERED: POTASSIUM CHLORIDE 10 MEQ CAPSULE.ER PO ONE (15:24)
[2019-02-28] MEDS: FUROSEMIDE INJ/PF 40 MG/4 ML SDV IV SCH ×2 (16:08→21:11)
--- NOTE | 2019-02-28 17:58 | RADIOLOGY REPORT (SQ) ---
EXAM DESCRIPTION: U/S RETROPERITON (RENAL/AORTA) COMPLETED DATE/TIME: 02/28/2019 5:05 pm REASON FOR STUDY: CKD COMPARISON: None. TECHNIQUE: Dynamic and static grayscale images acquired of the kidneys and bladder and recorded on P ACS. Additional selected color Doppler and spectral images recorded. LIMITATIONS: None. FINDINGS: RIGHT KIDNEY: 8.1 cm. Normal echogenicity. 2.4 cm cyst. No solid or suspicious masses. N o hydronephrosis. No calcifications. LEFT KIDNEY: 8.3 cm. Normal echogenicity. No solid or suspicious masses. No hydronephrosis. No calci fications. BLADDER: No masses. OTHER FINDINGS: No other significant finding. IMPRESSION: RELATIVELY SMALL KIDNEYS. CYST IN THE RIGHT KIDNEY. NO HYDRONEPHROSIS OR OTHER SIGNIFI CANT FINDINGS. TECHNICAL DOCUMENTATION: JOB ID: [id number] [email or web address]- All Rights Reserved Reading location - IP/workstation name: [email or web address]
[2019-02-28] MEDS: TAMSULOSIN HCL 0.4 MG CAP.SR.24H PO SCH (19:01)
[2019-02-28] MEDS: PIPERACILLIN SODIUM/TAZOBACTAM 3.375 GM in NORMAL SALINE 100 ML IV SCH ×2 (19:01→23:45)
[2019-02-28] MEDS: ATORVASTATIN CALCIUM 20 MG TABLET PO SCH (21:11)
[2019-03-01] MEDS: IPRATROPIUM/ALBUTEROL 0.5-2.5 MG/3 ML AMPUL NEB SCH ×5 (04:25→20:12)
[2019-03-01] MEDS: PIPERACILLIN SODIUM/TAZOBACTAM 3.375 GM in NORMAL SALINE 100 ML IV SCH ×3 (05:40→17:40)
[2019-03-01 06:27] LABS: ABSOLUTE LYMPHOCYTES (AUTO) 0.6 10^3/uL (0.5-4.7); ABSOLUTE MONOCYTES (AUTO) 0.4 10^3/uL (0.1-1.4); ABSOLUTE NEUT (AUTO) 6.9 10^3/uL (1.7-8.2); HEMATOCRIT 29.8 % (37.9-51.0); HEMOGLOBIN 9.9 g/dL (13.5-17.0); LYMPHOCYTES % (AUTO) 7.7 % (13-45); MEAN CORPUSCULAR HEMOGLOBIN 25.8 pg (27.0-33.4); MEAN CORPUSCULAR HGB CONC 33.1 g/dL (32.0-36.0); MEAN CORPUSCULAR VOLUME 78 fl (80-97); MONOCYTES % (AUTO) 4.8 % (3-13); PLATELET COUNT 354 10^3/uL (150-450); RED BLOOD COUNT 3.82 10^6/uL (4.35-5.55); RED CELL DISTRIBUTION WIDTH 21.4 % (11.5-14.0); SEGMENTED NEUTROPHILS % (AUTO) 87.5 % (42-78); TOTAL CELLS COUNTED % (AUTO) 100 %; WHITE BLOOD COUNT 7.9 10^3/uL (4.0-10.5)
[2019-03-01 06:43] LABS: ALANINE AMINOTRANSFERASE 27 U/L (21-72); ALBUMIN 2.7 g/dL (3.5-5.0); ALKALINE PHOSPHATASE 58 U/L (38-126); ANION GAP 8 (5-19); ASPARTATE AMINO TRANSFERASE 16 U/L (17-59); BILIRUBIN,DIRECT 0.2 mg/dL (0.0-0.4); BILIRUBIN,TOTAL 0.6 mg/dL (0.2-1.3); BLOOD UREA NITROGEN 42 mg/dL (7-20); CALCIUM 8.5 mg/dL (8.4-10.2); CARBON DIOXIDE 22 mmol/L (22-30); CHLORIDE 108 mmol/L (98-107); GLUCOSE 142 mg/dL (75-110); POTASSIUM 3.9 mmol/L (3.6-5.0); SODIUM 138.2 mmol/L (137-145); TOTAL PROTEIN 5.6 g/dL (6.3-8.2)
[2019-03-01 06:44] LABS: ARTERIAL BLOOD BASE EXCESS -1.1 mmol/L; ARTERIAL BLOOD FIO2 36%; ARTERIAL BLOOD H2CO3 0.98 mmol/L (1.05-1.35); ARTERIAL BLOOD HCO3 22.3 mmol/L (20-24); ARTERIAL BLOOD O2 SATURATION 92.2 % (94-98); ARTERIAL BLOOD PCO2 32.5 mmHg (35-45); ARTERIAL BLOOD PH 7.45 (7.35-7.45); ARTERIAL BLOOD PO2 59.4 mmHg (80-100); ARTERIAL BLOOD TOTAL CO2 23.3 mmol/L (23-27)
[2019-03-01] MEDS: LISINOPRIL 10 MG TABLET PO SCH (09:33)
[2019-03-01] MEDS: ASPIRIN 81 MG TABLET, ENT COATED PO SCH (09:33)
[2019-03-01] MEDS: AMLODIPINE BESYLATE 5 MG TABLET PO SCH (09:33)
[2019-03-01] MEDS: METOPROLOL TARTRATE 25 MG TABLET PO SCH ×2 (09:34→21:41)
[2019-03-01] MEDS: FUROSEMIDE INJ/PF 40 MG/4 ML SDV IV SCH ×2 (09:34→21:40)
[2019-03-01] MEDS: METHYLPREDNISOLONE INJ 125 MG/2 ML SDV IV SCH ×3 (09:35→17:40)
--- NOTE | 2019-03-01 16:11 | RADIOLOGY REPORT (SQ) ---
EXAM DESCRIPTION: CTA CHEST COMPLETED DATE/TIME: 03/01/2019 3:40 pm REASON FOR STUDY: r/o PE, hypoxia, sob COMPARISON: CT angio chest 10/05/2018 Chest films 02/27/2019, 02/24/2019, 10/05/2018, 08/16/2018 TECHNIQUE: CT scan of the chest performed using helical scanning technique with dynamic intravenous contrast injection. Images reviewed with lung, soft tissue and bone windows. Reconstructed coronal and sagittal MPR images reviewed. Additional 3 dimensional post-processing performed to develop Maximal Intensity Projection images (OK P). All images stored on PACS. All CT scanners at this facility use dose modulation, iterative reconstruction, and/or weight based d osing when appropriate to reduce radiation dose to as low as reasonably achievable (ALARA). [facility]: Dose Right [facility]: CareDose [facility]: Dose Right [facility]: Teradose 4D [facility]: Ziptr CONTRAST TYPE AND DOSE: contrast/concentration: Isovue 300.00 mg/ml; Total Contrast Delivered: 68.0 ml; Total Saline Delivered: 80.0 ml Contrast bolus optimized for the pulmonary arteries and aorta. RENAL FUNCTION: Creatinine 1.7 RADIATION DOSE: CT Rad equipment meets quality standard of care and radiation dose reduction techniq ues were employed. CTDIvol: 17.8 - 41.3 mGy. DLP: 645 mGy-cm. . LIMITATIONS: None. FINDINGS: LUNGS AND PLEURA: End-stage appearance of obstructive lung disease, with massively enlarge d airspaces over the bilateral upper lobes. In the mid and lower lungs, there is patchy bilateral airspace disease edema versus pneumonia. Patient has small bilateral pleural effusions. No pneumothorax. AORTA AND GREAT VESSELS: No thoracic aortic aneurysm or thoracic aortic dissection. Heavily calcifie d origin of the left subclavian artery without flow significant stenosis HEART: No pericardial effusion. Old sternotomy for CABG PULMONARY ARTERIES: No emboli visualized in the main pulmonary arteries or the segmental branches. HILAR AND MEDIASTINAL STRUCTURES: No identified masses or abnormal nodes. HARDWARE: None in the chest. UPPER ABDOMEN: Hiatal hernia. Radiology data through the listen THYROID AND OTHER SOFT TISSUES: No masses. No adenopathy. BONES: No acute or significant finding. 3D MIPS: Confirm above findings. OTHER: No other significant finding. IMPRESSION: Fluid overload superimposed on end-stage obstructive lung disease. Early or developing basilar pneumonia could not be excluded. No CT angio evidence of acute pulmonary emboli COMMENT: Quality ID # [id number]: Final reports with documentation of one or more dose reduction techniques (e.g., Automated exposure control, adjustment of the mA and/or kV according to patient size, use of iterative reconstruction technique) TECHNICAL DOCUMENTATION: JOB ID: [id number] [facility]- All Rights Reserved Reading location - IP/workstation name: [email or web address]
--- NOTE | 2019-03-01 16:46 | PDOC PROGRESS REPORT ---
Subjective Progress Note for:: 03/01/19 Subjective:: CONCHA GRISSOM is a 73 year old male whose past medical history hypertension, hyperlipidemia, COPD, CHF, peripheral vascular disease, bilateral lymphedema and venous stasis, coronary artery disease status post triple bypass and history of cerebral palsy presents with chief complaint of shortness of breath and cough. Reports this is a he has been at his usual baseline state of health up until this morning when he woke up with shortness of present cough productive of whitish sputum. Patient denies chills, fever or chest pain. Patient brought in by EMS. When EMS arrived at his home patient was tachypneic and tachycardic he sought saturation was 89% on room air. He was given albuterol, Atrovent and a single dose of Solu-Medrol 125 mg. His chest x-ray reported as bibasilar infiltrates most consistent with pneumonia. His blood works unremarkable except for mild leukocytosis of 11,000 and BNP of 4700. His urinalysis reported as large leukocyte esterase and the WBC is 20-30. 02/27/2019. Mild improvement of his symptoms. Patient still feels congested and gets short of breath on exertion. Denies any fever, chest pain, nausea, vomiting, diarrhea, constipation or any urinary symptoms. 02/28/2019. No acute events overnight. Patient is stating that he is feeling better than yesterday chest congestion and shortness of breath has improved mildly. On my encounter patient is comfortably resting in bed with supplemental oxygen not in apparent respiratory distress cooperative with physical examination. He is denying any chest pain, fever, chills, nausea, vomiting, diarrhea, constipation or any urinary symptoms. ABG: PH 7.48, PCO2 30.3, PO2 52.8 on 5 L/min Reason For Visit: BILAT PNA Physical Exam Vital Signs: Temp Pulse Resp BP Pulse Ox 97.4 F 98 26 H 150/78 H 95 03/01/19 12:10 03/01/19 14:00 03/01/19 13:23 03/01/19 12:10 03/01/19 13:23 Pulse Oximeter Continuous Start: 02/24/19 13:37 Freq: RTQ4 Status: Hold Protocol: Document 02/25/19 00:14 CMI (Rec: 02/25/19 00:17 CMI [id number]) Pulse Oximetry Assessment Equipment Usage Equipment Standby Continuous SpO2 Machine # x Pulse Oximeter Continuous Start: 02/28/19 08:24 Freq: RTQ4 Status: Active Protocol: Document 03/01/19 12:57 [facility] (Rec: 03/01/19 13:22 [facility] [id number]) Pulse Oximetry Assessment Oxygen Saturation (92-100) 89 Oxygen Flow Rate (L/min) 2.5 Oxygen Delivery Method Nasal Cannula Equipment Usage Equipment in Use Continuous SpO2 Machine # N1 Intake & Output 02/28/19 03/01/19 03/02/19 06:59 06:59 06:59 Intake Total 2876 2973 910 Output Total 950 3900 650 Balance 1926 -927 260 Weight 67.4 kg 67.8 kg Results Laboratory Results: 03/01/19 05:29 03/01/19 05:29 03/01/19 03/01/19 03/01/19 05:29 05:29 06:30 WBC 7.9 RBC 3.82 L Hgb 9.9 L Hct 29.8 L MCV 78 L MCH 25.8 L MCHC 33.1 RDW 21.4 H Plt Count 354 Seg Neutrophils % 87.5 H Lymphocytes % 7.7 L Monocytes % 4.8 Eosinophils % 0.0 Basophils % 0.0 Absolute Neutrophils 6.9 Absolute Lymphocytes 0.6 Absolute Monocytes 0.4 Absolute Eosinophils 0.0 Absolute Basophils 0.0 Carbonic Acid 0.98 L HCO3/H2CO3 Ratio 22:1 ABG pH 7.45 ABG pCO2 32.5 L ABG pO2 59.4 L ABG HCO3 22.3 ABG O2 Saturation 92.2 L ABG Base Excess -1.1 FiO2 36% Sodium 138.2 Potassium 3.9 Chloride 108 H Carbon Dioxide 22 Anion Gap 8 BUN 42 H Creatinine 1.67 H Est GFR ( Amer) 49 L Est GFR (Non-Af Amer) 41 L Glucose 142 H Calcium 8.5 Magnesium 2.2 Total Bilirubin 0.6 AST 16 L ALT 27 Alkaline Phosphatase 58 Total Protein 5.6 L Albumin 2.7 L 02/24/19 13:46 Blood Blood Culture - Final NO GROWTH IN 5 DAYS 02/24/19 09:40 Blood Blood Culture - Final NO GROWTH IN 5 DAYS 02/24/19 02/24/19 02/24/19 09:40 09:40 09:40 Creatine Kinase 38 L CK-MB (CK-2) 1.57 Troponin I 0.055 NT-Pro-B Natriuret Pep 4790 H 03/01/19 13:32 Creatine Kinase CK-MB (CK-2) Troponin I 0.090 NT-Pro-B Natriuret Pep Impressions: Chest X-Ray 02/27/19 00:00 IMPRESSION: STABLE APPEARANCE OF THE CHEST. Renal Ultrasound 02/28/19 00:00 IMPRESSION: RELATIVELY SMALL KIDNEYS. CYST IN THE RIGHT KIDNEY. NO HYDRONEPHROSIS OR OTHER SIGNIFICANT FINDINGS. Chest/Abdomen CTA 03/01/19 00:00 IMPRESSION: Fluid overload superimposed on end-stage obstructive lung disease. Early or developing basilar pneumonia could not be excluded. No CT angio evidence of acute pulmonary emboli Assessment and Plan - Diagnosis (1) Acute hypoxemic respiratory failure Is this a current diagnosis for this admission?: Yes (2) COPD (chronic obstructive pulmonary disease) Qualifiers: Emphysema type: unspecified Is this a current diagnosis for this admission?: Yes (3) Bilateral pneumonia Qualifiers: Pneumonia type: due to unspecified organism Lung location: unspecified part of lung Qualified Code(s): J18.9 - Pneumonia, unspecified organism Is this a current diagnosis for this admission?: Yes (4) CHF (congestive heart failure) Qualifiers: Heart failure type: systolic Heart failure chronicity: unspecified Qualified Code(s): I50.20 - Unspecified systolic (congestive) heart failure Is this a current diagnosis for this admission?: No (5) Dvvze-hk-nnqhyct kidney injury Qualifiers: Acute renal failure type: unspecified Chronic kidney disease stage: stage 3 (moderate) Qualified Code(s): N17.9 - Acute kidney failure, unspecified; N18.3 - Chronic kidney disease, stage 3 (moderate) Is this a current diagnosis for this admission?: Yes (6) CAD SP coronary artery bypass graft Is this a current diagnosis for this admission?: Yes (7) Bilateral lymphedema and venous stasis Is this a current diagnosis for this admission?: Yes (8) BPH (benign prostatic hyperplasia) Is this a current diagnosis for this admission?: Yes
--- NOTE | 2019-03-01 17:00 | PDOC PROGRESS REPORT ---
Subjective Progress Note for:: 03/01/19 Subjective:: CONCHA GRISSOM is a 73 year old male whose past medical history hypertension, hyperlipidemia, COPD, CHF, peripheral vascular disease, bilateral lymphedema and venous stasis, coronary artery disease status post triple bypass and history of cerebral palsy presents with chief complaint of shortness of breath and cough. Reports this is a he has been at his usual baseline state of health up until this morning when he woke up with shortness of present cough productive of whitish sputum. Patient denies chills, fever or chest pain. Patient brought in by EMS. When EMS arrived at his home patient was tachypneic and tachycardic he sought saturation was 89% on room air. He was given albuterol, Atrovent and a single dose of Solu-Medrol 125 mg. His chest x-ray reported as bibasilar infiltrates most consistent with pneumonia. His blood works unremarkable except for mild leukocytosis of 11,000 and BNP of 4700. His urinalysis reported as large leukocyte esterase and the WBC is 20-30. 02/27/2019. Mild improvement of his symptoms. Patient still feels congested and gets short of breath on exertion. Denies any fever, chest pain, nausea, vomiting, diarrhea, constipation or any urinary symptoms. 02/28/2019. No acute events overnight. Patient is stating that he is feeling better than yesterday chest congestion and shortness of breath has improved mildly. On my encounter patient is comfortably resting in bed with supplemental oxygen not in apparent respiratory distress cooperative with physical examination. He is denying any chest pain, fever, chills, nausea, vomiting, diarrhea, constipation or any urinary symptoms. ABG: PH 7.48, PCO2 30.3, PO2 52.8 on 5 L/min 03/01/2019. Patient was becoming hypoxic in the morning saturating in the 90s. Repeat ABG showed ABG: PH 7.45, PCO2 32.5, PO2 59.4 FiO2 of 36%. Troponin 0 0.090 from 0.055 on admission. Denies any active chest pain. He is also been complaining of productive cough with bloody sputum and he was transferred to IMCU for TB isolation. IMCU started on BiPAP improvement of his hypoxia and shortness of breath. CTA was done which was negative for PE positive for volume overload. Denies any active chest pain, nausea, vomiting, fever, chills, nausea, diarrhea, constipation or any urinary symptoms. Reason For Visit: BILAT PNA Physical Exam Vital Signs: Temp Pulse Resp BP Pulse Ox 97.7 F 100 22 H 152/67 H 93 03/01/19 15:39 03/01/19 15:39 03/01/19 15:39 03/01/19 15:39 03/01/19 15:39 Pulse Oximeter Continuous Start: 02/24/19 13:37 Freq: RTQ4 Status: Hold Protocol: Document 02/25/19 00:14 CMI (Rec: 02/25/19 00:17 CMI [id number]) Pulse Oximetry Assessment Equipment Usage Equipment Standby Continuous SpO2 Machine # x Pulse Oximeter Continuous Start: 02/28/19 08:24 Freq: RTQ4 Status: Active Protocol: Document 03/01/19 12:57 DSH (Rec: 03/01/19 13:22 DSH [email or web address]) Pulse Oximetry Assessment Oxygen Saturation (92-100) 89 Oxygen Flow Rate (L/min) 2.5 Oxygen Delivery Method Nasal Cannula Equipment Usage Equipment in Use Continuous SpO2 Machine # N1 Intake & Output 02/28/19 03/01/19 03/02/19 06:59 06:59 06:59 Intake Total 2876 2973 1147 Output Total 950 3900 900 Balance 1926 -927 247 Weight 67.4 kg 67.8 kg General appearance: PRESENT: mild distress, well-developed, well-nourished Head exam: PRESENT: atraumatic, normocephalic Respiratory exam: PRESENT: accessory muscle use, clear to auscultation joyce, decreased breath sounds. ABSENT: rales, rhonchi, wheezes Cardiovascular exam: PRESENT: RRR. ABSENT: diastolic murmur, rubs, systolic murmur GI/Abdominal exam: PRESENT: normal bowel sounds, soft. ABSENT: distended, guarding, mass, organolmegaly, rebound, tenderness Neurological exam: PRESENT: alert, awake, oriented to person, oriented to place, oriented to time, oriented to situation, CN II-XII grossly intact. ABSENT: motor sensory deficit Results Laboratory Results: 03/01/19 05:29 03/01/19 05:29 03/01/19 03/01/19 03/01/19 05:29 05:29 06:30 WBC 7.9 RBC 3.82 L Hgb 9.9 L Hct 29.8 L MCV 78 L MCH 25.8 L MCHC 33.1 RDW 21.4 H Plt Count 354 Seg Neutrophils % 87.5 H Lymphocytes % 7.7 L Monocytes % 4.8 Eosinophils % 0.0 Basophils % 0.0 Absolute Neutrophils 6.9 Absolute Lymphocytes 0.6 Absolute Monocytes 0.4 Absolute Eosinophils 0.0 Absolute Basophils 0.0 Carbonic Acid 0.98 L HCO3/H2CO3 Ratio 22:1 ABG pH 7.45 ABG pCO2 32.5 L ABG pO2 59.4 L ABG HCO3 22.3 ABG O2 Saturation 92.2 L ABG Base Excess -1.1 FiO2 36% Sodium 138.2 Potassium 3.9 Chloride 108 H Carbon Dioxide 22 Anion Gap 8 BUN 42 H Creatinine 1.67 H Est GFR ( Amer) 49 L Est GFR (Non-Af Amer) 41 L Glucose 142 H Calcium 8.5 Magnesium 2.2 Total Bilirubin 0.6 AST 16 L ALT 27 Alkaline Phosphatase 58 Total Protein 5.6 L Albumin 2.7 L 02/24/19 13:46 Blood Blood Culture - Final NO GROWTH IN 5 DAYS 02/24/19 09:40 Blood Blood Culture - Final NO GROWTH IN 5 DAYS 02/24/19 02/24/19 02/24/19 09:40 09:40 09:40 Creatine Kinase 38 L CK-MB (CK-2) 1.57 Troponin I 0.055 NT-Pro-B Natriuret Pep 4790 H 03/01/19 13:32 Creatine Kinase CK-MB (CK-2) Troponin I 0.090 NT-Pro-B Natriuret Pep Impressions: Chest X-Ray 02/27/19 00:00 IMPRESSION: STABLE APPEARANCE OF THE CHEST. Renal Ultrasound 02/28/19 00:00 IMPRESSION: RELATIVELY SMALL KIDNEYS. CYST IN THE RIGHT KIDNEY. NO HYDRONEPHROSIS OR OTHER SIGNIFICANT FINDINGS. Chest/Abdomen CTA 03/01/19 00:00 IMPRESSION: Fluid overload superimposed on end-stage obstructive lung disease. Early or developing basilar pneumonia could not be excluded. No CT angio evidence of acute pulmonary emboli Assessment and Plan - Diagnosis (1) Cough with hemoptysis Is this a current diagnosis for this admission?: Yes Plan: Likely due to excessive coughing. Need to rule out TB is high risk for TB due to underlying multiple comorbidities. Follow-up [facility]. Continue TB isolation. Hold Lovenox for now. Evaluate and resume once appropriate. Encourage ambulation. Continue SCD. CTA chest positive for volume overload on end-stage obstructive lung disease early developing pneumonia. No PE. (2) Acute hypoxemic respiratory failure Is this a current diagnosis for this admission?: Yes Plan: Likely due to acute CHF/COPD exacerbation and pneumonia. Repeat PH 7.45, PCO2 32.5, PO2 59.4 FiO2 of 36%. From ABG: PH 7.48, PCO2 30.3, PO2 52.8 on 5 L/min Transferred to [facility]. Started on BiPAP with significant improvement of his hypoxia. Day 6 of empiric antibiotics. Continue empiric antibiotics, follow-up sputum blood cultures. Continue nebs, supplemental oxygen, BiPAP and IV steroids. (3) Elevated troponin Is this a current diagnosis for this admission?: Yes Plan: Denies any active chest pain. Likely due to demand ischemia caused by hypoxia due to COPD and CHF patient in the setting of CKD. Repeat troponin 0 0.090 from 0.055. Continue aspirin, statins. Follow troponin level. Continue telemetry. (4) COPD (chronic obstructive pulmonary disease) Qualifiers: Emphysema type: unspecified Is this a current diagnosis for this admission?: Yes Plan: Continue nebs, supplemental oxygen, BiPAP, IV steroids. Outpatient PCP pulmonary follow-up. (5) Bilateral pneumonia Qualifiers: Pneumonia type: due to unspecified organism Lung location: unspecified part of lung Qualified Code(s): J18.9 - Pneumonia, unspecified organism Is this a current diagnosis for this admission?: Yes Plan: Likely community-acquired strep pneumo. 02/24/2019. Bibasilar infiltrates consistent with pneumonia. Day 6 of empiric IV antibiotics. Blood culture from admission negative. Repeat a sputum and blood culture no growth times 24 hours. (6) CHF (congestive heart failure) Qualifiers: Heart failure type: systolic Heart failure chronicity: unspecified Qualified Code(s): I50.20 - Unspecified systolic (congestive) heart failure Is this a current diagnosis for this admission?: No Plan: Systolic dysfunction. BNP 4790 on 02/24/2019 up from 2530 from 10/05/2018. 2D echo on 09/30/2018. Suboptimal. Ejection fraction 50%. Negative fluid balance. Continue Lasix guided by kidney function, volume restriction, cardiac diet. (7) Jeflt-yp-hsusjek kidney injury Qualifiers: Acute renal failure type: unspecified Chronic kidney disease stage: stage 3 (moderate) Qualified Code(s): N17.9 - Acute kidney failure, unspecified; N18.3 - Chronic kidney disease, stage 3 (moderate) Is this a current diagnosis for this admission?: Yes Plan: Creatinine stable. Monitor electrolytes and volume status. Replace electrolytes as needed. Renal ultrasound positive for bilateral small kidneys. No hydronephrosis. (8) CAD SP coronary artery bypass graft Is this a current diagnosis for this admission?: Yes Plan: Denies any active chest pain. Resume home meds. Adjust meds as needed. (9) Bilateral lymphedema and venous stasis Is this a current diagnosis for this admission?: Yes Plan: Chronic. Complicated by stasis dermatitis. Follow-up with his primary care physician. (10) BPH (benign prostatic hyperplasia) Is this a current diagnosis for this admission?: Yes Plan: Continue tamsulosin. Patient neurology and PCP follow-up.
[2019-03-01] MEDS: TAMSULOSIN HCL 0.4 MG CAP.SR.24H PO SCH (17:40)
--- NOTE | 2019-03-01 20:14 | EKG REPORT ---
SEVERITY:- ABNORMAL ECG - SINUS TACHYCARDIA VENTRICULAR PREMATURE COMPLEX NONSPECIFIC INTRAVENTRICULAR CONDUCTION DELAY MINIMAL ST DEPRESSION, INFERIOR LEADS : Confirmed by: Alia Leonard MD 01-Mar-2019 20:13:04
[2019-03-01] MEDS: ATORVASTATIN CALCIUM 20 MG TABLET PO SCH (21:41)
[2019-03-02] MEDS: IPRATROPIUM/ALBUTEROL 0.5-2.5 MG/3 ML AMPUL NEB SCH ×6 (00:09→20:01)
[2019-03-02] MEDS: PIPERACILLIN SODIUM/TAZOBACTAM 3.375 GM in NORMAL SALINE 100 ML IV SCH ×4 (00:37→17:39)
[2019-03-02] MEDS: FUROSEMIDE INJ/PF 40 MG/4 ML SDV IV SCH (09:31)
[2019-03-02] MEDS: LISINOPRIL 10 MG TABLET PO SCH (09:31)
[2019-03-02] MEDS: AMLODIPINE BESYLATE 5 MG TABLET PO SCH (09:32)
[2019-03-02] MEDS: METHYLPREDNISOLONE INJ 125 MG/2 ML SDV IV SCH (09:32)
[2019-03-02] MEDS: ASPIRIN 81 MG TABLET, ENT COATED PO SCH (09:32)
[2019-03-02] MEDS: METOPROLOL TARTRATE 25 MG TABLET PO SCH (09:32)
--- NOTE | 2019-03-02 11:25 | PDOC CONSULTATION ---
Consultation Consult Date: 03/02/19 Attending physician:: GARY CLINTON Consult reason:: pna/hemoptysis History of Present Illness Admission Date/PCP: 02/24/19 14:23 JENISE PRICE DO History of Present Illness: CONCHA GRISSOM is a 73 year old male complains of increasing shortness of breath history of COPD [id number] history radiographically he had pneumonia at the time of admission he denies nausea vomiting diarrhea fevers chills rhinorrhea sore throat chest pain is chronic lymphedema hypertension and congestive heart failure. He was noted to be hypoxic at the time of admission and was subsequently started on O2 therapy Past Medical History Cardiac Medical History: Reports: Congestive Heart Failure, Coronary Artery Disease, Hyperlipidema, Hypertension, Peripheral Vascular Disease Pulmonary Medical History: Reports: Bronchitis, Chronic Obstructive Pulmonary Disease (COPD) GI Medical History: Reports: Gastroesophageal Reflux Disease Psychiatric Medical History: Denies: Depression Traumatic Medical History: Denies: Traumatic Brain Injury Hematology: Denies: Sickle Cell Disease Infectious Medical History: Denies: Vancomycin-Resistant Enterococci Past Surgical History Past Surgical History: Reports: Appendectomy, Cardiac Catheterization, Orthopedic Surgery - bilat leg surgery. Social History Smoking Status: Former Smoker Passive smoke exposure as: Both Frequency of Alcohol Use: None Hx Recreational Drug Use: No Drugs: None Hx Prescription Drug Abuse: No Do you have pets?: No Have you had any respiratory illnesses as a child?: No Have you been exposed to any sick contacts recently?: No Have you had any recent respiratory illnesses?: No Have you travelled outside of [place] in the past 12 months?: No - Advance Directive Resuscitation Status: Full Code Family History Family History: CAD, COPD, Hypertension Parental Family History Reviewed: Yes Children Family History Reviewed: Yes Sibling(s) Family History Reviewed.: Yes Medication/Allergy Home Medications: Acetaminophen [Tylenol 325 mg Tablet] 650 mg PO Q6HP PRN 02/24/19 Amlodipine Besylate [Norvasc 5 mg Tablet] 5 mg PO DAILY 02/24/19 Aspirin [Ecotrin 81 mg EC Tablet] 81 mg PO DAILY 02/24/19 Atorvastatin Calcium [Lipitor 20 mg Tablet] 20 mg PO QHS 02/24/19 Lisinopril [Zestril] 20 mg PO DAILY 02/24/19 Metoprolol Tartrate [Lopressor 25 mg Tablet] 25 mg PO DAILY 02/24/19 Tamsulosin HCl [Flomax 0.4 mg Cap.sr] 0.4 mg PO PCSUPPER 02/24/19 Allergies/Adverse Reactions: No Known Allergies Allergy (Verified 08/16/18 16:10) Review of Systems Constitutional: PRESENT: anorexia, fatigue. ABSENT: night sweats Eyes: ABSENT: visual disturbances Ears: ABSENT: hearing changes Nose, Mouth, and Throat: ABSENT: sore throat Cardiovascular: PRESENT: dyspnea on exertion, orthropnea. ABSENT: palpitations Respiratory: PRESENT: cough, dyspnea, sputum. ABSENT: hemoptysis Gastrointestinal: ABSENT: abdominal pain, bloating, coffee ground emesis, hematemesis, hematochezia, nausea Genitourinary: ABSENT: dysuria, hematuria Musculoskeletal: ABSENT: deformity, joint swelling Integumentary: ABSENT: pruritus, rash Neurological: ABSENT: abnormal gait, abnormal movements, abnormal speech, frequent falls, lack of coordination, memory loss Psychiatric: ABSENT: hallucinations, homidical ideation, suicidal ideation Endocrine: ABSENT: cold intolerance, heat intolerance, polydipsia, polyuria Hematologic/Lymphatic: ABSENT: easy bruising, lymphadenopathy Allergic/Immunologic: ABSENT: seasonal rhinorrhea Physical Exam Vital Signs: Temp Pulse Resp BP Pulse Ox 97.6 F 101 H 21 H 122/52 L 93 03/02/19 09:28 03/02/19 09:28 03/02/19 09:28 03/02/19 09:28 03/02/19 09:28 Pulse Oximeter Continuous Start: 02/24/19 13:37 Freq: RTQ4 Status: Hold Protocol: Document 03/02/19 07:53 CW (Rec: 03/02/19 09:32 CW [email or web address]) Pulse Oximetry Assessment Oxygen Saturation (92-100) 96 Oxygen Flow Rate (L/min) 3 Oxygen Delivery Method Nasal Cannula Fraction of Inspired Oxygen (FIO2) 32 Equipment Usage Equipment in Use Continuous SpO2 Machine # 1 Pulse Oximeter Continuous Start: 02/28/19 08:24 Freq: RTQ4 Status: Complete Protocol: Document 03/02/19 04:05 LRO (Rec: 03/02/19 04:45 LRO [id number]) Pulse Oximetry Assessment Oxygen Saturation (92-100) 98 Oxygen Flow Rate (L/min) 4 Oxygen Delivery Method Nasal Cannula Equipment Usage Equipment in Use Continuous SpO2 Machine # 1 Intake & Output 03/01/19 03/02/19 03/03/19 06:59 06:59 06:59 Intake Total 2973 1467 100 Output Total 3900 1950 Balance -927 -960 100 Weight 67.8 kg 66.7 kg General appearance: PRESENT: no acute distress, cooperative, disheveled, thin Head exam: PRESENT: atraumatic, normocephalic Eye exam: PRESENT: conjunctiva pale, EOMI. ABSENT: nystagmus, periorbital swelling, scleral icterus Mouth exam: PRESENT: dry mucosa, neck supple, tongue midline Respiratory exam: PRESENT: crackles, rhonchi, symmetrical, wheezes. ABSENT: decreased breath sounds, prolonged expiratory phas, stridor, unlabored Cardiovascular exam: PRESENT: RRR, +S1, +S2 Pulses: PRESENT: normal radial pulses GI/Abdominal exam: PRESENT: soft. ABSENT: tenderness Extremities exam: ABSENT: calf tenderness, clubbing, joint swelling Musculoskeletal exam: ABSENT: deformity, dislocation Neurological exam: PRESENT: alert, awake Psychiatric exam: PRESENT: appropriate affect Skin exam: PRESENT: dry, warm Results Laboratory Results: 03/01/19 05:29 03/01/19 05:29 02/24/19 13:46 Blood Blood Culture - Final NO GROWTH IN 5 DAYS 02/24/19 09:40 Blood Blood Culture - Final NO GROWTH IN 5 DAYS 02/24/19 02/24/19 02/24/19 09:40 09:40 09:40 Creatine Kinase 38 L CK-MB (CK-2) 1.57 Troponin I 0.055 NT-Pro-B Natriuret Pep 4790 H 03/01/19 03/01/19 03/02/19 13:32 20:10 01:57 Creatine Kinase CK-MB (CK-2) Troponin I 0.090 0.078 0.086 NT-Pro-B Natriuret Pep Impressions: Chest X-Ray 02/27/19 00:00 IMPRESSION: STABLE APPEARANCE OF THE CHEST. Renal Ultrasound 02/28/19 00:00 IMPRESSION: RELATIVELY SMALL KIDNEYS. CYST IN THE RIGHT KIDNEY. NO HYDRONEPHROSIS OR OTHER SIGNIFICANT FINDINGS. Chest/Abdomen CTA 03/01/19 00:00 IMPRESSION: Fluid overload superimposed on end-stage obstructive lung disease. Early or developing basilar pneumonia could not be excluded. No CT angio evidence of acute pulmonary emboli Assessment & Plan - Diagnosis (1) Acute hypoxemic respiratory failure Is this a current diagnosis for this admission?: Yes (2) COPD (chronic obstructive pulmonary disease) Qualifiers: Emphysema type: panlobular Is this a current diagnosis for this admission?: Yes Plan: Diffuse bilateral bullous lung disease apical to basal continue current antibiotic therapy he would not be a Candidate for lung volume reduction or lung transplant
--- NOTE | 2019-03-02 14:53 | PDOC PROGRESS REPORT ---
Subjective Progress Note for:: 03/02/19 Subjective:: No adverse events overnight. No new complaints. He was put in isolation because he had a little bit of blood-tinged sputum and the provider wanted to rule him out for TB. He has had a hard cough for the past few weeks, but he says is actually gotten better. No fevers. No night sweats. He says overall he actually feels a lot better. Reason For Visit: BILAT PNA Physical Exam Vital Signs: Temp Pulse Resp BP Pulse Ox 98.0 F 78 19 138/67 H 94 03/02/19 11:47 03/02/19 11:47 03/02/19 11:47 03/02/19 11:47 03/02/19 11:47 Pulse Oximeter Continuous Start: 02/24/19 13:37 Freq: RTQ4 Status: Hold Protocol: Document 03/02/19 07:53 CWH (Rec: 03/02/19 09:32 CWH [email or web address]) Pulse Oximetry Assessment Oxygen Saturation (92-100) 96 Oxygen Flow Rate (L/min) 3 Oxygen Delivery Method Nasal Cannula Fraction of Inspired Oxygen (FIO2) 32 Equipment Usage Equipment in Use Continuous SpO2 Machine # 1 Pulse Oximeter Continuous Start: 02/28/19 08:24 Freq: RTQ4 Status: Complete Protocol: Document 03/02/19 04:05 LRO (Rec: 03/02/19 04:45 LRO [id number]) Pulse Oximetry Assessment Oxygen Saturation (92-100) 98 Oxygen Flow Rate (L/min) 4 Oxygen Delivery Method Nasal Cannula Equipment Usage Equipment in Use Continuous SpO2 Machine # 1 Intake & Output 03/01/19 03/02/19 03/03/19 06:59 06:59 06:59 Intake Total 2973 1467 200 Output Total 3900 1950 Balance -927 -483 200 Weight 67.8 kg 66.7 kg General appearance: PRESENT: no acute distress, cooperative, disheveled Respiratory exam: PRESENT: rhonchi, symmetrical, unlabored. ABSENT: accessory muscle use, chest wall tenderness, crackles, prolonged expiratory phase, tachypnea, wheezes Cardiovascular exam: PRESENT: RRR, +S1, +S2 Pulses: PRESENT: normal carotid pulses Vascular exam: PRESENT: normal capillary refill GI/Abdominal exam: PRESENT: normal bowel sounds, soft. ABSENT: distended, guarding, rebound, tenderness Extremities exam: ABSENT: clubbing, pedal edema Musculoskeletal exam: PRESENT: normal inspection. ABSENT: deformity Neurological exam: PRESENT: alert, awake, oriented to person, oriented to place, oriented to time, oriented to situation Psychiatric exam: PRESENT: appropriate affect, normal mood Skin exam: PRESENT: dry, warm, other - He had severe onychomycosis bilaterally, he had a hammertoe of the left foot, and he had cool erythema with elephantiasis of the skin consistent with long-standing chronic venous insufficiency of the lower extremities Results Laboratory Results: 03/01/19 05:29 03/01/19 05:29 02/24/19 13:46 Blood Blood Culture - Final NO GROWTH IN 5 DAYS 02/24/19 09:40 Blood Blood Culture - Final NO GROWTH IN 5 DAYS 02/24/19 02/24/19 02/24/19 09:40 09:40 09:40 Creatine Kinase 38 L CK-MB (CK-2) 1.57 Troponin I 0.055 NT-Pro-B Natriuret Pep 4790 H 03/01/19 03/01/19 03/02/19 13:32 20:10 01:57 Creatine Kinase CK-MB (CK-2) Troponin I 0.090 0.078 0.086 NT-Pro-B Natriuret Pep Impressions: Chest X-Ray 02/27/19 00:00 IMPRESSION: STABLE APPEARANCE OF THE CHEST. Renal Ultrasound 02/28/19 00:00 IMPRESSION: RELATIVELY SMALL KIDNEYS. CYST IN THE RIGHT KIDNEY. NO HYDRONEPHROSIS OR OTHER SIGNIFICANT FINDINGS. Chest/Abdomen CTA 03/01/19 00:00 IMPRESSION: Fluid overload superimposed on end-stage obstructive lung disease. Early or developing basilar pneumonia could not be excluded. No CT angio evidence of acute pulmonary emboli Assessment and Plan - Diagnosis (1) Acute hypoxemic respiratory failure Is this a current diagnosis for this admission?: Yes Plan: This is actually probably chronic. He has panlobular bullous emphysema. He is no doubt going to need oxygen whenever he goes home. (2) Bilateral pneumonia Qualifiers: Pneumonia type: due to unspecified organism Lung location: unspecified part of lung Qualified Code(s): J18.9 - Pneumonia, unspecified organism Is this a current diagnosis for this admission?: Yes Plan: We will treat him with a 10-day course of antibiotics total. Today is day 7 of 10. (3) [id number]-[id number] kidney injury Qualifiers: Acute renal failure type: unspecified Chronic kidney disease stage: stage 3 (moderate) Qualified Code(s): N17.9 - Acute kidney failure, unspecified; N18.3 - Chronic kidney disease, stage 3 (moderate) Is this a current diagnosis for this admission?: Yes Plan: Resolved. (4) COPD exacerbation Is this a current diagnosis for this admission?: Yes Plan: Resolving. I am going to de-escalate his steroids today. He is had about 5 days so far. He is been seen by pulmonology. - Time Time Spent with patient: 25-34 minutes
[2019-03-02] MEDS: METHYLPREDNISOLONE INJ 40 MG/1 ML SDV IV SCH (17:39)
[2019-03-02] MEDS: TAMSULOSIN HCL 0.4 MG CAP.SR.24H PO SCH (17:39)
[2019-03-02] MEDS: METOPROLOL TARTRATE 50 MG TABLET PO SCH (21:30)
[2019-03-02] MEDS: ATORVASTATIN CALCIUM 20 MG TABLET PO SCH (21:30)
[2019-03-03] MEDS: IPRATROPIUM/ALBUTEROL 0.5-2.5 MG/3 ML AMPUL NEB SCH ×7 (00:13→23:46)
[2019-03-03] MEDS: PIPERACILLIN SODIUM/TAZOBACTAM 3.375 GM in NORMAL SALINE 100 ML IV SCH ×4 (00:55→17:55)
[2019-03-03] MEDS: METHYLPREDNISOLONE INJ 40 MG/1 ML SDV IV SCH ×3 (02:31→17:55)
[2019-03-03] MEDS: AMLODIPINE BESYLATE 5 MG TABLET PO SCH (10:16)
[2019-03-03] MEDS: METOPROLOL TARTRATE 50 MG TABLET PO SCH ×2 (10:16→22:09)
[2019-03-03] MEDS: ASPIRIN 81 MG TABLET, ENT COATED PO SCH (10:16)
[2019-03-03] MEDS: ONDANSETRON HCL INJ/PF 4 MG/2 ML SDV IV PRN (10:17)
[2019-03-03] MEDS: FUROSEMIDE 20 MG TABLET PO SCH (10:17)
[2019-03-03] MEDS: LISINOPRIL 10 MG TABLET PO SCH (10:17)
[2019-03-03] MEDS: TAMSULOSIN HCL 0.4 MG CAP.SR.24H PO SCH (17:55)
--- NOTE | 2019-03-03 19:48 | PDOC PROGRESS REPORT ---
Subjective Progress Note for:: 03/03/19 Subjective:: CONCHA GRISSOM is a 73 year old male whose past medical history hypertension, hyperlipidemia, COPD, CHF, peripheral vascular disease, bilateral lymphedema and venous stasis, coronary artery disease status post triple bypass and history of cerebral palsy presents with chief complaint of shortness of breath and cough. The patient is currently being treated for bilateral PNA. Due to a persistent dry cough with mild hemoptasis, the patient is currently being tested for TB. He remains on airborne precautions awaiting completion of his 2nd AFB smear. The patient was seen this morning on rounds. He is resting in bed on nasal cannula. The patient reports feeling nauseated this morning. Nursing staff states he had an episode of diarrhea last night and again this morning. Plan to send stool culture and c.diff PCR. Add PRN zofran to medication regimen. Reason For Visit: BILAT PNA Physical Exam Vital Signs: Temp Pulse Resp BP Pulse Ox 98.0 F 89 20 122/67 95 03/03/19 16:20 03/03/19 16:20 03/03/19 16:20 03/03/19 16:20 03/03/19 16:20 Pulse Oximeter Continuous Start: 02/24/19 13:37 Freq: RTQ4 Status: Hold Protocol: Document 03/03/19 15:57 [facility] (Rec: 03/03/19 17:08 [facility] [email or web address]) Pulse Oximetry Assessment Oxygen Saturation (92-100) 95 Oxygen Flow Rate (L/min) 4 Oxygen Delivery Method Nasal Cannula Equipment Usage Equipment in Use Continuous SpO2 Machine # 1 Pulse Oximeter Continuous Start: 02/28/19 08:24 Freq: RTQ4 Status: Complete Protocol: Document 03/02/19 04:05 [facility] (Rec: 03/02/19 04:45 [facility] [id number]) Pulse Oximetry Assessment Oxygen Saturation (92-100) 98 Oxygen Flow Rate (L/min) 4 Oxygen Delivery Method Nasal Cannula Equipment Usage Equipment in Use Continuous SpO2 Machine # 1 Intake & Output 03/02/19 03/03/19 03/04/19 06:59 06:59 06:59 Intake Total 1467 986 792 Output Total 2295 6893 1700 Wtponbf -545 -363 -890 Weight 66.7 kg General appearance: PRESENT: well-developed, well-nourished Head exam: PRESENT: atraumatic Eye exam: PRESENT: conjunctiva pink, PERRLA Mouth exam: PRESENT: moist, tongue midline Respiratory exam: PRESENT: decreased breath sounds - B/L BASES, symmetrical, unlabored, other - REQUIRES SUPPLEMENTAL O2 Cardiovascular exam: PRESENT: RRR Pulses: PRESENT: normal radial pulses Vascular exam: PRESENT: normal capillary refill GI/Abdominal exam: PRESENT: soft. ABSENT: distended, tenderness Rectal exam: PRESENT: deferred Neurological exam: PRESENT: alert, awake, oriented to person, oriented to place, oriented to time, oriented to situation Skin exam: PRESENT: dry, intact, normal color Results Laboratory Results: 03/01/19 05:29 03/01/19 05:29 03/02/19 00:41 Sputum AFB Smear Concentration - Final 03/02/19 00:41 Sputum Acid Fast Bacilli Smear - Final 02/28/19 23:00 Sputum Gram Stain - Final 02/28/19 23:00 Sputum Sputum Culture - Final C.albicans/C.dubliniensis Greatly Reduced Normal Bella 02/24/19 02/24/19 02/24/19 09:40 09:40 09:40 Creatine Kinase 38 L CK-MB (CK-2) 1.57 Troponin I 0.055 NT-Pro-B Natriuret Pep 4790 H 03/01/19 03/01/19 03/02/19 13:32 20:10 01:57 Creatine Kinase CK-MB (CK-2) Troponin I 0.090 0.078 0.086 NT-Pro-B Natriuret Pep Impressions: Chest X-Ray 02/27/19 00:00 IMPRESSION: STABLE APPEARANCE OF THE CHEST. Renal Ultrasound 02/28/19 00:00 IMPRESSION: RELATIVELY SMALL KIDNEYS. CYST IN THE RIGHT KIDNEY. NO HYDRONEPHROSIS OR OTHER SIGNIFICANT FINDINGS. Chest/Abdomen CTA 03/01/19 00:00 IMPRESSION: Fluid overload superimposed on end-stage obstructive lung disease. Early or developing basilar pneumonia could not be excluded. No CT angio evidence of acute pulmonary emboli Status: Imported from PACS Assessment and Plan - Diagnosis (1) Acute hypoxemic respiratory failure Is this a current diagnosis for this admission?: Yes Plan: Secondary to COPD exacerbation stemming from PNA Supplemental O2 for SPO2>88% IV Zosyn to treat PNA Scheduled nebulizer treatments Scheduled IV steroids, patient is no longer wheezing can transition to PO and taper Guaifenesin and antitussive PRN (2) Bilateral pneumonia Qualifiers: Pneumonia type: due to unspecified organism Lung location: unspecified part of lung Qualified Code(s): J18.9 - Pneumonia, unspecified organism Is this a current diagnosis for this admission?: Yes Plan: 10 day course of IV Zosyn Last day 03/07/19 (3) Eorpf-jw-[id number] kidney injury Qualifiers: Acute renal failure type: unspecified Chronic kidney disease stage: stage 3 (moderate) Qualified Code(s): N17.9 - Acute kidney failure, unspecified; N18.3 - Chronic kidney disease, stage 3 (moderate) Is this a current diagnosis for this admission?: Yes Plan: Improving Peak creatinine 2.0 now down to 1.67 Renal ultrasound positive for bilateral small kidneys. No hydronephrosis. (4) COPD (chronic obstructive pulmonary disease) Qualifiers: Emphysema type: panlobular Is this a current diagnosis for this admission?: Yes - Time Time Spent with patient: 15-24 minutes Medications reviewed and adjusted accordingly: Yes Anticipated discharge: Home - Inpatient Certification Based on my medical assessment, after consideration of the patient's comorbidities, presenting symptoms, or acuity I expect that the services needed warrant INPATIENT care.: Yes I certify that my determination is in accordance with my understanding of Medicare's requirements for reasonable and necessary INPATIENT services [42 CFR 412.3e].: Yes Medical Necessity: Need for IV Antibiotics
[2019-03-03] MEDS: ATORVASTATIN CALCIUM 20 MG TABLET PO SCH (22:09)
[2019-03-04] MEDS: PIPERACILLIN SODIUM/TAZOBACTAM 3.375 GM in NORMAL SALINE 100 ML IV SCH ×4 (00:28→17:11)
[2019-03-04] MEDS: METHYLPREDNISOLONE INJ 40 MG/1 ML SDV IV SCH ×3 (01:29→22:14)
[2019-03-04] MEDS: IPRATROPIUM/ALBUTEROL 0.5-2.5 MG/3 ML AMPUL NEB SCH ×5 (03:57→20:29)
[2019-03-04] MEDS: FUROSEMIDE 20 MG TABLET PO SCH (09:46)
[2019-03-04] MEDS: AMLODIPINE BESYLATE 5 MG TABLET PO SCH (09:46)
[2019-03-04] MEDS: ASPIRIN 81 MG TABLET, ENT COATED PO SCH (09:46)
[2019-03-04] MEDS: METOPROLOL TARTRATE 50 MG TABLET PO SCH ×2 (09:47→22:14)
[2019-03-04] MEDS: LISINOPRIL 10 MG TABLET PO SCH (09:47)
[2019-03-04] MEDS ORDERED: LEVALBUTEROL HCL NEB 1.25 MG/3 ML AMPUL NEB PRN (14:44)
--- NOTE | 2019-03-04 14:53 | PDOC PROGRESS REPORT ---
Subjective Progress Note for:: 03/04/19 Subjective:: CONCHA GRISSOM is a 73 year old male whose past medical history hypertension, hyperlipidemia, COPD, CHF, peripheral vascular disease, bilateral lymphedema and venous stasis, coronary artery disease status post triple bypass and history of cerebral palsy presents with chief complaint of shortness of breath and cough. The patient is currently being treated for bilateral PNA. Due to a persistent dry cough with mild hemoptasis, the patient is currently being tested for TB. He remains on airborne precautions awaiting completion of his 3nd AFB smear. If third AFB smear is negative, can rule out TB. The patient was seen this morning on rounds. He is resting in bed on nasal cannula. Lengthy discussion this morning with patient about his home life. Patient reports he lives with his son and son's girlfriend. Patient states that his recently (December 2018) and he is still grappling with the loss of his for 40 years. The patient is very tearful. He states "if I lose anybody else or if anything else happens to me I am going to kill myself." The patient stated that he was not actively suicidal, but that he is struggling with grief and sadness and loneliness. The patient reports he attempted suicide when he was a teenager because he felt lonely. Plan to consult PSYCH regarding patient's emotional state, suicidality and possible medication recommendations. Reason For Visit: BILAT PNA Physical Exam Vital Signs: Temp Pulse Resp BP Pulse Ox 97.6 F 75 16 139/85 H 98 03/04/19 11:42 03/04/19 14:00 03/04/19 12:32 03/04/19 11:42 03/04/19 11:42 Pulse Oximeter Continuous Start: 02/24/19 13:37 Freq: RTQ4 Status: Hold Protocol: Document 03/04/19 07:37 [facility] (Rec: 03/04/19 07:46 [facility] [id number]) Pulse Oximetry Assessment Oxygen Saturation (92-100) 97 Oxygen Flow Rate (L/min) 5 Oxygen Delivery Method Nasal Cannula Equipment Usage Equipment in Use Continuous SpO2 Machine # 1 Pulse Oximeter Continuous Start: 02/28/19 08:24 Freq: RTQ4 Status: Complete Protocol: Document 03/02/19 04:05 [facility] (Rec: 03/02/19 04:45 [facility] [id number]) Pulse Oximetry Assessment Oxygen Saturation (92-100) 98 Oxygen Flow Rate (L/min) 4 Oxygen Delivery Method Nasal Cannula Equipment Usage Equipment in Use Continuous SpO2 Machine # 1 Intake & Output 03/03/19 03/04/19 03/05/19 06:59 06:59 06:59 Intake Total 986 992 100 Output Total 1200 2400 Balance -214 -1408 100 Weight 66.1 kg General appearance: PRESENT: well-developed, well-nourished Head exam: PRESENT: atraumatic Eye exam: PRESENT: PERRLA Mouth exam: PRESENT: moist, tongue midline Neck exam: PRESENT: full ROM Respiratory exam: PRESENT: clear to auscultation joyce, decreased breath sounds, symmetrical Cardiovascular exam: PRESENT: RRR Pulses: PRESENT: normal radial pulses, normal dorsalis pedis pul Vascular exam: PRESENT: normal capillary refill GI/Abdominal exam: PRESENT: soft. ABSENT: distended, tenderness Rectal exam: PRESENT: deferred Extremities exam: PRESENT: full ROM - UPPER EXTREMITIES. ABSENT: pedal edema Musculoskeletal exam: ABSENT: ambulatory - WITH ASSISTANCE Neurological exam: PRESENT: alert, awake, oriented to person, oriented to place, oriented to time, oriented to situation Psychiatric exam: PRESENT: other - DEPRESSED. TEARFUL Skin exam: PRESENT: dry, intact, normal color Results Laboratory Results: 03/01/19 05:29 03/01/19 05:29 03/03/19 06:30 Sputum AFB Smear Concentration - Final 03/03/19 06:30 Sputum Acid Fast Bacilli Smear - Final 03/02/19 00:41 Sputum AFB Smear Concentration - Final 03/02/19 00:41 Sputum Acid Fast Bacilli Smear - Final 02/24/19 02/24/19 02/24/19 09:40 09:40 09:40 Creatine Kinase 38 L CK-MB (CK-2) 1.57 Troponin I 0.055 NT-Pro-B Natriuret Pep 4790 H 03/01/19 03/01/19 03/02/19 13:32 20:10 01:57 Creatine Kinase CK-MB (CK-2) Troponin I 0.090 0.078 0.086 NT-Pro-B Natriuret Pep Impressions: Chest X-Ray 02/27/19 00:00 IMPRESSION: STABLE APPEARANCE OF THE CHEST. Renal Ultrasound 02/28/19 00:00 IMPRESSION: RELATIVELY SMALL KIDNEYS. CYST IN THE RIGHT KIDNEY. NO HYDRONEPHROSIS OR OTHER SIGNIFICANT FINDINGS. Chest/Abdomen CTA 03/01/19 00:00 IMPRESSION: Fluid overload superimposed on end-stage obstructive lung disease. Early or developing basilar pneumonia could not be excluded. No CT angio evidence of acute pulmonary emboli Status: Imported from PACS Assessment and Plan - Diagnosis (1) Acute hypoxemic respiratory failure Is this a current diagnosis for this admission?: Yes Plan: Secondary to COPD exacerbation stemming from PNA Supplemental O2 for SPO2>88% IV Zosyn to treat PNA Scheduled and PRN nebulizer treatments Scheduled IV steroids, patient is no longer wheezing can transition to PO and taper Guaifenesin and antitussive PRN (2) Bilateral pneumonia Qualifiers: Pneumonia type: due to unspecified organism Lung location: unspecified part of lung Qualified Code(s): J18.9 - Pneumonia, unspecified organism Is this a current diagnosis for this admission?: Yes Plan: 10 day course of IV Zosyn Last day 03/07/19 (3) Ddgoz-[id number] kidney injury Qualifiers: Acute renal failure type: unspecified Chronic kidney disease stage: stage 3 (moderate) Qualified Code(s): N17.9 - Acute kidney failure, unspecified; N18.3 - Chronic kidney disease, stage 3 (moderate) Is this a current diagnosis for this admission?: Yes Plan: Improving Peak creatinine 2.0 now down to 1.67 Patient able to urinate without difficulty Renal ultrasound positive for bilateral small kidneys. No hydronephrosis. (4) COPD (chronic obstructive pulmonary disease) Qualifiers: Emphysema type: panlobular Is this a current diagnosis for this admission?: Yes Plan: Continue scheduled and PRN nebs, mucinex, supplemental oxygen & BiPAP Will need outpatient pulmonary follow-up. Likely need home O2, discharge planning aware (5) Depression Qualifiers: Depression Type: unspecified Qualified Code(s): F32.9 - Major depressive disorder, single episode, unspecified Is this a current diagnosis for this admission?: Yes Plan: Episodic, stemming from recent of patient's (December 2018) Patient is very tearful, states that he now has no one to keep him company during the day "If I lose anyone else close to me or if anything else happens to me, I will kill myself" Patient denies suicidal ideation, does not appear to be a harm to himself at this time Consulted psych regarding the patient's current emotional state, appreciate their recommendations - Time Time Spent with patient: 15-24 minutes Medications reviewed and adjusted accordingly: Yes Anticipated discharge: Home - Inpatient Certification Based on my medical assessment, after consideration of the patient's comorbidities, presenting symptoms, or acuity I expect that the services needed warrant INPATIENT care.: Yes I certify that my determination is in accordance with my understanding of Medicare's requirements for reasonable and necessary INPATIENT services [42 CFR 412.3e].: Yes Medical Necessity: Need for IV Antibiotics, Risk of Complication if Not Cared For in Hospital
[2019-03-04] MEDS: TAMSULOSIN HCL 0.4 MG CAP.SR.24H PO SCH (17:11)
[2019-03-04] MEDS: ATORVASTATIN CALCIUM 20 MG TABLET PO SCH (22:14)
[2019-03-05] MEDS: IPRATROPIUM/ALBUTEROL 0.5-2.5 MG/3 ML AMPUL NEB SCH ×7 (00:01→23:58)
[2019-03-05] MEDS: PIPERACILLIN SODIUM/TAZOBACTAM 3.375 GM in NORMAL SALINE 100 ML IV SCH ×4 (00:42→17:23)
[2019-03-05 05:18] LABS: HEMATOCRIT 33.3 % (37.9-51.0); HEMOGLOBIN 10.7 g/dL (13.5-17.0); MEAN CORPUSCULAR HEMOGLOBIN 25.3 pg (27.0-33.4); MEAN CORPUSCULAR HGB CONC 32.2 g/dL (32.0-36.0); MEAN CORPUSCULAR VOLUME 78 fl (80-97); PLATELET COUNT 355 10^3/uL (150-450); RED BLOOD COUNT 4.25 10^6/uL (4.35-5.55); RED CELL DISTRIBUTION WIDTH 21.1 % (11.5-14.0); WHITE BLOOD COUNT 14.9 10^3/uL (4.0-10.5)
[2019-03-05 05:44] LABS: ANION GAP 6 (5-19); BLOOD UREA NITROGEN 50 mg/dL (7-20); CALCIUM 8.2 mg/dL (8.4-10.2); CARBON DIOXIDE 26 mmol/L (22-30); CHLORIDE 104 mmol/L (98-107); GLUCOSE 122 mg/dL (75-110); POTASSIUM 4.5 mmol/L (3.6-5.0); SODIUM 136.2 mmol/L (137-145)
[2019-03-05] MEDS: AMLODIPINE BESYLATE 5 MG TABLET PO SCH (09:35)
[2019-03-05] MEDS: LISINOPRIL 10 MG TABLET PO SCH (09:35)
[2019-03-05] MEDS: METOPROLOL TARTRATE 50 MG TABLET PO SCH ×2 (09:35→21:27)
[2019-03-05] MEDS: ASPIRIN 81 MG TABLET, ENT COATED PO SCH (09:35)
[2019-03-05] MEDS: FUROSEMIDE 20 MG TABLET PO SCH (09:35)
[2019-03-05] MEDS: METHYLPREDNISOLONE INJ 40 MG/1 ML SDV IV SCH ×2 (09:36→21:27)
--- NOTE | 2019-03-05 16:01 | PSYCHOLOGICAL NOTE ---
Psych Note - Psych Note Date seen by psych provider: 03/04/19 Time seen by psych provider: 10:30 Psych Note: Reason for Consult: Suicidal ideation CONCHA GRISSOM is a 73 year old male whose past medical history hypertension, hyperlipidemia, COPD, CHF, peripheral vascular disease, bilateral lymphedema and venous stasis, coronary artery disease status post triple bypass and history of cerebral palsy presents with chief complaint of shortness of breath and cough. Patient is very pleasant gentleman that discloses that he lives in his home with his son, his son's girl friend, 4 dogs and his cat. He reports he is originally from [place] and came to [place] many years ago. He disclosed increase in depression since losing his in December. He states that prior to her his sister, who lives in [place], had tried to convince them to move down there because there is more to do for senior citizens; however, his did not want to move down there. He is currently unsure if he wants to move to [place] to be with his sister. He reports that he does want more mobility and disclosed that they are currently working on trying to get him a smaller portable oxygen so he can have maneuverability. He reports that he does take his dogs and walks with his motorized wheelchair. He discloses an increase in depression because he spends so much time alone. While his son does live in the home with his girlfriend they are rarely home. 'If I could have someone that just comes to the home for a little bit each day to at least check on me, I would feel better." He reports he enjoys being with people and talking with griffin ham, identifying a significant trigger for depression when he is alone. He continued to report that he misses driving and feeling independent, stating that he "used to be able to go fishing and do things when I want to do them and how I want to do them...now I have to wait on my son when he wants to do things." He reports he does not want to move into a long-term and states that he would "k ill myself" if put in one; "I seen to many of my relatives put into nursing homes...it ends up killing them..I am not going to do it." Patient is alert and orientated to person, place, time and circumstance. Mood is overall euthymic with congruent affect. Patient reports passive suicidal ideation i.e. no plans means or intent. Denies homicidal ideation. Delusions are absent behaviors congruent with an intact reality based presentation i.e. organized and linear thought process. Eye contact was well-maintained. Conversational speech is within normal rate, tone and prosody. Intellectual a bilities appear to be within the average range. Attention and concentration are fair. Insight, judgment, impulse control are fair. Medication recommendations per [facility]'s contracted psychiatrist Dr. Lai PINA are as follows Because of medical complexity; medication recommendations are currently pending Diagnosis Bereavement; uncomplicated Phase of life Impression\\plan: Patient is cleared from acute psychiatric services. Patient discloses passive suicidal ideation i.e. no plans means or intent. Patient is demonstrating difficulty of adjusting to phase of life and is suffering from bereavement from the loss of his . Patient openly discusses his depression and surrounding his lack of mobility and freedom to get out to do the things he wants to do "when I want to do them." He discloses missing fishing and driving himself and feeling independent. He identifies his significant stressor is that he spends so much time alone. While he does live with his son he reports his son is rarely home. He discloses he enjoys being around people and tends to feel an increase in depression when alone. Patient reports he does not want to go into a long-term. Dr. Boyce was consulted to care management of this patient; attending physicians in agreement with recommendations and disposition. If patient is interested in going to the [facility] for day time activities, he call [facility] or [facility] to set up transportation through the transit (it is free). The number is [phone]
[2019-03-05] MEDS: TAMSULOSIN HCL 0.4 MG CAP.SR.24H PO SCH (17:23)
--- NOTE | 2019-03-05 19:54 | PDOC PROGRESS REPORT ---
Subjective Progress Note for:: 03/05/19 Subjective:: CONCHA GRISSOM is a 73 year old male whose past medical history hypertension, hyperlipidemia, COPD, CHF, peripheral vascular disease, bilateral lymphedema and venous stasis, coronary artery disease status post triple bypass and history of cerebral palsy presents with chief complaint of shortness of breath and cough. The patient is currently being treated for bilateral PNA. Due to a persistent dry cough with mild hemoptasis, the patient is currently being tested for TB. He remains on airborne precautions awaiting completion of his 3nd AFB smear. If third AFB smear is negative, can rule out TB. The patient was seen this morning on rounds. He is resting in bed on nasal cannula. The patient has no complaints today. Nursing staff has no concerns. Patient's leukocytosis is worse today 7.9-->14.9. He remains afebrile and nontoxic. Reason For Visit: BILAT PNA Physical Exam Vital Signs: Temp Pulse Resp BP Pulse Ox 97.2 F 87 18 125/57 L 98 03/05/19 14:55 03/05/19 16:29 03/05/19 16:29 03/05/19 14:55 03/05/19 16:29 Pulse Oximeter Continuous Start: 02/24/19 13:37 Freq: RTQ4 Status: Hold Protocol: Document 03/05/19 16:29 [facility] (Rec: 03/05/19 16:40 [facility] [id number]) Pulse Oximetry Assessment Oxygen Saturation (92-100) 98 Oxygen Flow Rate (L/min) 4 Oxygen Delivery Method Nasal Cannula Fraction of Inspired Oxygen (FIO2) 36 Equipment Usage Equipment in Use Continuous SpO2 Machine # 1 Pulse Oximeter Continuous Start: 02/28/19 08:24 Freq: RTQ4 Status: Complete Protocol: Document 03/02/19 04:05 [facility] (Rec: 03/02/19 04:45 [facility] [id number]) Pulse Oximetry Assessment Oxygen Saturation (92-100) 98 Oxygen Flow Rate (L/min) 4 Oxygen Delivery Method Nasal Cannula Equipment Usage Equipment in Use Continuous SpO2 Machine # 1 Intake & Output 03/04/19 03/05/19 03/06/19 06:59 06:59 06:59 Intake Total 992 1310 1299 Output Total 2400 1150 700 Balance -1408 160 599 Weight 66.1 kg General appearance: PRESENT: well-developed, well-nourished Head exam: PRESENT: atraumatic Eye exam: PRESENT: conjunctiva pink, PERRLA Teeth exam: PRESENT: poor dentation Neck exam: PRESENT: full ROM Respiratory exam: PRESENT: clear to auscultation joyce, decreased breath sounds, symmetrical, unlabored - uses supplemental o2 Cardiovascular exam: PRESENT: RRR Pulses: PRESENT: normal radial pulses Vascular exam: PRESENT: normal capillary refill GI/Abdominal exam: PRESENT: normal bowel sounds, soft. ABSENT: distended, tenderness Rectal exam: PRESENT: deferred Extremities exam: ABSENT: full ROM Musculoskeletal exam: ABSENT: ambulatory - with assistance Neurological exam: PRESENT: alert, awake, oriented to person, oriented to place, oriented to time, oriented to situation Psychiatric exam: PRESENT: depressed - admits to depression. dec 2018 Skin exam: PRESENT: dry, intact, normal color Results Laboratory Results: 03/05/19 04:17 03/05/19 04:17 03/05/19 03/05/19 04:17 04:17 WBC 14.9 H RBC 4.25 L Hgb 10.7 L Hct 33.3 L MCV 78 L MCH 25.3 L MCHC 32.2 RDW 21.1 H Plt Count 355 Sodium 136.2 L Potassium 4.5 Chloride 104 Carbon Dioxide 26 Anion Gap 6 BUN 50 H Creatinine 1.51 H Est GFR ( Amer) 55 L Est GFR (Non-Af Amer) 46 L Glucose 122 H Calcium 8.2 L Magnesium 2.3 02/24/19 02/24/19 02/24/19 09:40 09:40 09:40 Creatine Kinase 38 L CK-MB (CK-2) 1.57 Troponin I 0.055 NT-Pro-B Natriuret Pep 4790 H 03/01/19 03/01/19 03/02/19 13:32 20:10 01:57 Creatine Kinase CK-MB (CK-2) Troponin I 0.090 0.078 0.086 NT-Pro-B Natriuret Pep Impressions: Chest X-Ray 02/27/19 00:00 IMPRESSION: STABLE APPEARANCE OF THE CHEST. Renal Ultrasound 02/28/19 00:00 IMPRESSION: RELATIVELY SMALL KIDNEYS. CYST IN THE RIGHT KIDNEY. NO HYDRONEPHR OSIS OR OTHER SIGNIFICANT FINDINGS. Chest/Abdomen CTA 03/01/19 00:00 IMPRESSION: Fluid overload superimposed on end-stage obstructive lung disease. Early or developing basilar pneumonia could not be excluded. No CT angio evidence of acute pulmonary emboli Status: Imported from PACS Assessment and Plan - Diagnosis (1) Acute hypoxemic respiratory failure Is this a current diagnosis for this admission?: Yes Plan: Secondary to COPD exacerbation stemming from PNA Supplemental O2 for SPO2>88% IV Zosyn to treat PNA Scheduled and PRN nebulizer treatments Scheduled IV steroids, patient is no longer wheezing can transition to PO and taper Guaifenesin and antitussive PRN (2) Bilateral pneumonia Qualifiers: Pneumonia type: due to unspecified organism Lung location: unspecified part of lung Qualified Code(s): J18.9 - Pneumonia, unspecified organism Is this a current diagnosis for this admission?: Yes Plan: 10 day course of IV Zosyn Last day 03/07/19 (3) Llgvm-vh-zzwaste kidney injury Qualifiers: Acute renal failure type: unspecified Chronic kidney disease stage: stage 3 (moderate) Qualified Code(s): N17.9 - Acute kidney failure, unspecified; N18.3 - Chronic kidney disease, stage 3 (moderate) Is this a current diagnosis for this admission?: Yes Plan: Improving Peak creatinine 2.0 now down to 1.51 Patient able to urinate without difficulty Renal ultrasound positive for bilateral small kidneys. No hydronephrosis. (4) COPD (chronic obstructive pulmonary disease) Qualifiers: Emphysema type: panlobular Is this a current diagnosis for this admission?: Yes Plan: Continue scheduled and PRN nebs, mucinex, supplemental oxygen & BiPAP Will need outpatient pulmonary follow-up. Likely need home O2, discharge planning aware (5) Depression Qualifiers: Depression Type: unspecified Qualified Code(s): F32.9 - Major depressive disorder, single episode, unspecified Is this a current diagnosis for this admission?: Yes Plan: Episodic, stemming from recent of patient's (December 2018) Patient is very tearful, states that he now has no one to keep him company during the day "If I lose anyone else close to me or if anything else happens to me, I will kill myself" Patient denies suicidal ideation, does not appear to be a harm to himself at this time Consulted psych regarding the patient's current emotional state, awaiting medication recommendations Will provide information to patient regarding local senior centers (for social support/interaction) - Time Time Spent with patient: 15-24 minutes Medications reviewed and adjusted accordingly: Yes Anticipated discharge: Home Within: within 48 hours - Inpatient Certification Based on my medical assessment, after consideration of the patient's comorbidities, presenting symptoms, or acuity I expect that the services needed warrant INPATIENT care.: Yes I certify that my determination is in accordance with my understanding of Medicare's requirements for reasonable and necessary INPATIENT services [42 CFR 412.3e].: Yes Medical Necessity: Need For Continuous Telemetry Monitoring, Need for Nebulizer Therapy and Monitoring of Response
[2019-03-05] MEDS: FAMOTIDINE 20 MG TABLET PO SCH (20:08)
[2019-03-05] MEDS: ATORVASTATIN CALCIUM 20 MG TABLET PO SCH (21:27)
[2019-03-05] MEDS: ONDANSETRON HCL INJ/PF 4 MG/2 ML SDV IV PRN (21:27)
[2019-03-06] MEDS: PIPERACILLIN SODIUM/TAZOBACTAM 3.375 GM in NORMAL SALINE 100 ML IV SCH ×3 (00:36→14:26)
[2019-03-06] MEDS: IPRATROPIUM/ALBUTEROL 0.5-2.5 MG/3 ML AMPUL NEB SCH ×5 (04:07→20:02)
[2019-03-06] MEDS: FAMOTIDINE 20 MG TABLET PO SCH ×2 (05:11→17:25)
[2019-03-06] MEDS: AMLODIPINE BESYLATE 5 MG TABLET PO SCH (10:06)
[2019-03-06] MEDS: ASPIRIN 81 MG TABLET, ENT COATED PO SCH (10:06)
[2019-03-06] MEDS: METHYLPREDNISOLONE INJ 40 MG/1 ML SDV IV SCH ×3 (10:06→21:33)
[2019-03-06] MEDS: LISINOPRIL 10 MG TABLET PO SCH (10:06)
[2019-03-06] MEDS: FUROSEMIDE 20 MG TABLET PO SCH (10:07)
[2019-03-06] MEDS: METOPROLOL TARTRATE 50 MG TABLET PO SCH ×2 (10:07→21:33)
[2019-03-06] MEDS ORDERED: BENZONATATE 100 MG CAPSULE PO PRN (10:47)
--- NOTE | 2019-03-06 11:20 | RADIOLOGY REPORT (SQ) ---
EXAM DESCRIPTION: CHEST SINGLE VIEW COMPLETED DATE/TIME: 03/06/2019 11:05 am REASON FOR STUDY: Hypoxia. Dyspnea COMPARISON: Chest films 02/27/2019, 02/24/2019, 10/05/2018 CT chest 03/01/2019, 10/05/2018 EXAM PARAMETERS: NUMBER OF VIEWS: One view. TECHNIQUE: Single frontal radiographic view of the chest acquired. RADIATION DOSE: NA LIMITATIONS: None. FINDINGS: LUNGS AND PLEURA: This persistent consolidation in the periphery of the right and left kennedy g bases, partially cleared compared to 02/27/2019 and 02/24/2019 compatible with improving pneumonia. Upper lobes are hyperlucent from obstructive disease. No pneumothorax. No pleural effusions. MEDIASTINUM AND HILAR STRUCTURES: No masses. Contour normal. HEART AND VASCULAR STRUCTURES: Old sternotomy for CABG without cardiomegaly. BONES: No acute findings. HARDWARE: None in the chest. OTHER: No other significant finding. IMPRESSION: Partial clearing of bilateral lower lobe pneumonia compared to prior films TECHNICAL DOCUMENTATION: JOB ID: [id number] [employer]- All Rights Reserved Reading location - IP/workstation name: [email or web address]
[2019-03-06] MEDS ORDERED: METHYLPREDNISOLONE INJ 125 MG/2 ML SDV IV ONE (14:20)
[2019-03-06] MEDS: SALMETEROL XINAFOATE DISKUS 50 MCG/1 DOSE 28 DOSE IH SCH ×2 (14:39→21:36)
[2019-03-06] MEDS: TIOTROPIUM BROMIDE DPI 5 CAP/KIT (18 MCG/CAP) IH SCH (14:40)
[2019-03-06] MEDS: TAMSULOSIN HCL 0.4 MG CAP.SR.24H PO SCH (17:25)
[2019-03-06] MEDS: ATORVASTATIN CALCIUM 20 MG TABLET PO SCH (21:33)
--- NOTE | 2019-03-06 21:50 | PDOC PROGRESS REPORT ---
Subjective Progress Note for:: 03/06/19 Subjective:: CONCHA GRISSOM is a 73 year old male whose past medical history hypertension, hyperlipidemia, COPD, CHF, peripheral vascular disease, bilateral lymphedema and venous stasis, coronary artery disease status post triple bypass and history of cerebral palsy presents with chief complaint of shortness of breath and cough. The patient is currently being treated for bilateral PNA. Due to a persistent dry cough with mild hemoptasis, the patient was being tested for possible TB. Today airborne precautions are d/c'd. The patient was seen this morning on rounds. He had a brief episode of coughing and his SPO2 dropped to 75% but it eventually came back to 99%. CXR relatively unchanged. Initiated long acting inhalers for his emphysema, Spiriva and Sereve nt. Plan for d/c home tomorrow with home O2 & home health. Reason For Visit: BILAT PNA Physical Exam Vital Signs: Temp Pulse Resp BP Pulse Ox 97.9 F 97 22 H 130/67 H 93 03/06/19 19:52 03/06/19 20:02 03/06/19 20:02 03/06/19 19:52 03/06/19 20:02 Pulse Oximeter Continuous Start: 02/24/19 13:37 Freq: RTQ4 Status: Hold Protocol: Document 03/06/19 20:02 DW (Rec: 03/06/19 20:07 [facility] [email or web address]) Pulse Oximetry Assessment Oxygen Saturation (92-100) 93 Oxygen Flow Rate (L/min) 4 Oxygen Delivery Method Nasal Cannula Fraction of Inspired Oxygen (FIO2) 36 Equipment Usage Equipment in Use Continuous SpO2 Machine # 1 Pulse Oximeter Continuous Start: 02/28/19 08:24 Freq: RTQ4 Status: Complete Protocol: Document 03/02/19 04:05 LRO (Rec: 03/02/19 04:45 [facility] [id number]) Pulse Oximetry Assessment Oxygen Saturation (92-100) 98 Oxygen Flow Rate (L/min) 4 Oxygen Delivery Method Nasal Cannula Equipment Usage Equipment in Use Continuous SpO2 Machine # 1 Intake & Output 03/05/19 03/06/19 03/07/19 06:59 06:59 06:59 Intake Total 1310 1699 1375 Output Total 1150 1000 2225 Balance 160 699 -850 General appearance: PRESENT: well-developed, well-nourished Eye exam: PRESENT: conjunctiva pink, PERRLA Mouth exam: PRESENT: moist Teeth exam: PRESENT: poor dentation Neck exam: PRESENT: full ROM Respiratory exam: PRESENT: clear to auscultation joyce, decreased breath sounds - b/l lower lobes, symmetrical, unlabored Cardiovascular exam: PRESENT: RRR Pulses: PRESENT: normal radial pulses, normal dorsalis pedis pul Vascular exam: PRESENT: normal capillary refill GI/Abdominal exam: PRESENT: soft. ABSENT: distended, tenderness Rectal exam: PRESENT: deferred Extremities exam: ABSENT: full ROM - lower extremities limited ROM Musculoskeletal exam: PRESENT: ambulatory - with 2 person assistance. Normally uses motorized wheelchair Neurological exam: PRESENT: alert, awake, oriented to person, oriented to place, oriented to time, oriented to situation Psychiatric exam: PRESENT: appropriate affect, depressed - gets very tearful talking about his who recently () Skin exam: PRESENT: dry, intact, normal color Results Laboratory Results: 03/05/19 04:17 03/05/19 04:17 02/24/19 02/24/19 02/24/19 09:40 09:40 09:40 Creatine Kinase 38 L CK-MB (CK-2) 1.57 Troponin I 0.055 NT-Pro-B Natriuret Pep 4790 H 03/01/19 03/01/19 03/02/19 13:32 20:10 01:57 Creatine Kinase CK-MB (CK-2) Troponin I 0.090 0.078 0.086 NT-Pro-B Natriuret Pep Impressions: Renal Ultrasound 02/28/19 00:00 IMPRESSION: RELATIVELY SMALL KIDNEYS. CYST IN THE RIGHT KIDNEY. NO HYDRONEPHROSIS OR OTHER SIGNIFICANT FINDINGS. Chest/Abdomen CTA 03/01/19 00:00 IMPRESSION: Fluid overload superimposed on end-stage obstructive lung disease. Early or developing basilar pneumonia could not be excluded. No CT angio evidence of acute pulmonary emboli Chest X-Ray 03/06/19 00:00 IMPRESSION: Partial clearing of bilateral lower lobe pneumonia compared to prior films Status: Imported from PACS Assessment and Plan - Diagnosis (1) Acute hypoxemic respiratory failure Is this a current diagnosis for this admission?: Yes Plan: Secondary to COPD exacerbation stemming from PNA Supplemental O2 for SPO2>88% Completed 10 day course of IV Zosyn to treat PNA Scheduled and PRN nebulizer treatments Scheduled IV steroids, patient is no longer wheezing can transition to PO and taper Long acting inhalers - Spiriva and Serevent. Will transition to Advair and Spiriva once steroids are tapered Guaifenesin and antitussive PRN (2) Bilateral pneumonia Qualifiers: Pneumonia type: due to unspecified organism Lung location: unspecified part of lung Qualified Code(s): J18.9 - Pneumonia, unspecified organism Is this a current diagnosis for this admission?: Yes Plan: Completed 10 day course of IV Zosyn Last day 03/07/19 (3) Fykad-wf-nhmacfj kidney injury Qualifiers: Acute renal failure type: unspecified Chronic kidney disease stage: stage 3 (moderate) Qualified Code(s): N17.9 - Acute kidney failure, unspecified; N18.3 - Chronic kidney disease, stage 3 (moderate) Is this a current diagnosis for this admission?: Yes Plan: Improving Peak creatinine 2.0 now down to 1.51 Patient able to urinate without difficulty Renal ultrasound positive for bilateral small kidneys. No hydronephrosis. (4) COPD (chronic obstructive pulmonary disease) Qualifiers: Emphysema type: panlobular Is this a current diagnosis for this admission?: Yes Plan: Continue scheduled and PRN nebs, mucinex, supplemental oxygen & BiPAP Will need outpatient pulmonary follow-up. Will need home O2. Patient is refusing the portable tank because he has a $90 copay. States he can use his 's O2 concentrator that he still has at home. (5) Depression Qualifiers: Depression Type: unspecified Qualified Code(s): F32.9 - Major depressive disorder, single episode, unspecified Is this a current diagnosis for this admission?: Yes Plan: Episodic, stemming from recent of patient's (December 2018) Patient denies suicidal ideation, does not appear to be a harm to himself at this time Consulted psych regarding the patient's current emotional state, no medication recommendations at this time Will provide information to patient regarding local senior centers (for social support/interaction) at discharge - Time Time Spent with patient: 15-24 minutes Medications reviewed and adjusted accordingly: Yes Anticipated discharge: Home with Homehealth Within: within 24 hours - Inpatient Certification Based on my medical assessment, after consideration of the patient's comorbidities, presenting symptoms, or acuity I expect that the services needed warrant INPATIENT care.: Yes I certify that my determination is in accordance with my understanding of Medicare's requirements for reasonable and necessary INPATIENT services [42 CFR 412.3e].: Yes Medical Necessity: Need for Nebulizer Therapy and Monitoring of Response, Risk of Complication if Not Cared For in Hospital - Plan Summary Plan Summary: plan for d/c home tomorrow
[2019-03-07] MEDS: IPRATROPIUM/ALBUTEROL 0.5-2.5 MG/3 ML AMPUL NEB SCH ×4 (00:01→12:08)
[2019-03-07] MEDS: FAMOTIDINE 20 MG TABLET PO SCH (05:42)
[2019-03-07 06:04] LABS: HEMATOCRIT 33.4 % (37.9-51.0); HEMOGLOBIN 10.7 g/dL (13.5-17.0); MEAN CORPUSCULAR HGB CONC 32.2 g/dL (32.0-36.0); MEAN CORPUSCULAR VOLUME 78 fl (80-97); PLATELET COUNT 327 10^3/uL (150-450); RED BLOOD COUNT 4.29 10^6/uL (4.35-5.55); RED CELL DISTRIBUTION WIDTH 20.8 % (11.5-14.0); WHITE BLOOD COUNT 18.2 10^3/uL (4.0-10.5)
[2019-03-07 06:23] LABS: ALANINE AMINOTRANSFERASE 28 U/L (21-72); ALBUMIN 2.8 g/dL (3.5-5.0); ALKALINE PHOSPHATASE 51 U/L (38-126); ANION GAP 6 (5-19); ASPARTATE AMINO TRANSFERASE 15 U/L (17-59); BILIRUBIN,DIRECT 0.2 mg/dL (0.0-0.4); BILIRUBIN,TOTAL 0.4 mg/dL (0.2-1.3); BLOOD UREA NITROGEN 46 mg/dL (7-20); CALCIUM 8.4 mg/dL (8.4-10.2); CARBON DIOXIDE 26 mmol/L (22-30); CHLORIDE 104 mmol/L (98-107); GLUCOSE 130 mg/dL (75-110); POTASSIUM 4.4 mmol/L (3.6-5.0); SODIUM 135.5 mmol/L (137-145); TOTAL PROTEIN 5.6 g/dL (6.3-8.2)
[2019-03-07 06:24] LABS: ABSOLUTE LYMPHOCYTES# (MANUAL) 0.5 10^3/uL (0.5-4.7); ABSOLUTE MONOCYTES # (MANUAL) 0.7 10^3/uL (0.1-1.4); ABSOLUTE NEUTROPHILS# (MANUAL) 16.9 10^3/uL (1.7-8.2); BASOPHILS % (MANUAL) 0 % (0-2); EOSINOPHILS % (MANUAL) 0 % (0-6); LYMPHOCYTES % (MANUAL) 3 % (13-45); MONOCYTES % (MANUAL) 4 % (3-13); SEGMENTED NEUTROPHILS % (MAN) 93 % (42-78); TOTAL CELLS COUNTED 100
[2019-03-07 06:25] LABS: ANISOCYTOSIS 2+; HYPOCHROMASIA 1+; POLYCHROMASIA 2+
[2019-03-07 06:26] LABS: PLATELET COMMENT ADEQUATE
[2019-03-07] MEDS: METOPROLOL TARTRATE 50 MG TABLET PO SCH (09:07)
[2019-03-07] MEDS: ASPIRIN 81 MG TABLET, ENT COATED PO SCH (09:07)
[2019-03-07] MEDS: FUROSEMIDE 20 MG TABLET PO SCH (09:07)
[2019-03-07] MEDS: AMLODIPINE BESYLATE 5 MG TABLET PO SCH (09:07)
[2019-03-07] MEDS: TIOTROPIUM BROMIDE DPI 5 CAP/KIT (18 MCG/CAP) IH SCH (09:08)
[2019-03-07] MEDS: LISINOPRIL 10 MG TABLET PO SCH (09:08)
[2019-03-07] MEDS: SALMETEROL XINAFOATE DISKUS 50 MCG/1 DOSE 28 DOSE IH SCH (09:08)
[2019-03-07] MEDS ORDERED: METHYLPREDNISOLONE INJ 40 MG/1 ML SDV IV SCH (10:00)
[2019-03-07 13:23] VITALS: BP 125/65
--- NOTE | 2019-03-07 14:55 | PSYCHOLOGICAL NOTE ---
Psych Note - Psych Note Date seen by psych provider: 03/07/19 Time seen by psych provider: 12:45 Psych Note: Medication recommendations as per psychiatric provider, Dr. Hoyt are as follows: Start Zoloft 25mg daily for two weeks and increase to 50mg daily Geriatric placement recommended if patient lives alone.
--- NOTE | 2019-03-12 14:40 | PDOC DISCHARGE SUMMARY ---
General - Admit/Disc Date/PCP Admission Date/Primary Care Provider: 02/24/19 14:23 JENISE PRICE, DO Discharge Date: 03/07/19 - Discharge Diagnosis (1) Acute hypoxemic respiratory failure Is this a current diagnosis for this admission?: Yes Summary: Secondary to COPD exacerbation stemming from PNA, seen on CT End stage obstructive lung disease seen on CT chest Completed 10 day course of IV Zosyn to treat PNA Unfortunately, unable to wean from supplemental O2 to maintain SPO2>88%, patient was discharged home with O2 (portable tank and home concentrator) While inpatient, the patient received scheduled and PRN nebulizer treatments, Guaifenesin and antitussive PRN, scheduled IV steroids Once the patient was no longer wheezing, IV steroids were weaned. Sent home with prescription for PO prednisone taper Despite end stage COPD, the patient was not taking long acting inhalers at home. Started on Spiriva and Serevent while inpatient. Transitioned to Advair and Spiriva for home use once steroids were tapered. (2) Bilateral pneumonia Is this a current diagnosis for this admission?: Yes Summary: Seen on CT chest Completed 10 day course of IV Zosyn Last day 03/07/19 (3) Hlpjt-aw-bapdlie kidney injury Is this a current diagnosis for this admission?: Yes Summary: Based on previous records, cratinine has been slowly increasing since 2018 Peak creatinine this hospitalization was 2.0, down to 1.51 prior to discharge Patient able to urinate without difficulty Renal ultrasound positive for bilateral small kidneys. No hydronephrosis. Instructed to follow up with PCP for monitoring (4) COPD (chronic obstructive pulmonary disease) Is this a current diagnosis for this admission?: Yes Summary: End stage obstructive lung disease seen on CT Initially required BIPAP, able to wean to nasal cannula. Received scheduled and PRN nebs, mucinex, antibiotics Unable to wean from O2 due to progression of COPD. Patient states he does not smoke but he lives with son who does smoke in the home. Patient was discharged home with portable O2 tank and home concentrator (5) Depression Is this a current diagnosis for this admission?: Yes Summary: Episodic, stemming from recent of patient's (December 2018) Made statements during hospitalization that "if anything else bad happens to me I will kill myself." Patient denies active suicidal ideation, does not appear to be a harm to himself at this time Consulted psych regarding the patient's current emotional state, recommended PO Zoloft. No need for IVC. Patient was sent home with a prescription for this medication. Additionally, provided information to patient regarding local senior centers (for social support/interaction) and who to call for transportation to/from senior centers (6) CHF (congestive heart failure) Is this a current diagnosis for this admission?: Yes Summary: Diastolic failure seen on ECHOcardiogram from SEP 2018, also revealed LVEF 50% Lisinopril dose was decreased in light of poor renal function Metoprolol was increased for better BP control Amlodipine was continued Lasix was added to the patient's regimen for evidence of volume overload - peripheral edema and small n/l effusions seen on CT - Additional Information Resuscitation Status: Full Code Discharge Diet: Cardiac Discharge Activity: Activity As Tolerated, Balance Activity w/Rest, Energy Conservation, Weigh Daily Prescriptions: Fluticasone/Salmeterol [Advair 250-50 Diskus 14 Dose/Diskus] 1 inh IH Q12H #1 inhaler Furosemide [Lasix 20 mg Tablet] 20 mg PO DAILY #30 tablet Lisinopril [Prinivil 10 mg Tablet] 10 mg PO DAILY #30 tablet Metoprolol Tartrate [Lopressor 50 mg Tablet] 50 mg PO Q12 #60 tablet Tiotropium Concord [Spiriva Handihaler 5 Cap/Kit (18 Mcg/Cap)] 1 cap IH DAILY #1 kit Home Medications: Acetaminophen [Tylenol 325 mg Tablet] 650 mg PO Q6HP PRN 02/24/19 Amlodipine Besylate [Norvasc 5 mg Tablet] 5 mg PO DAILY 02/24/19 Aspirin [Ecotrin 81 mg EC Tablet] 81 mg PO DAILY 02/24/19 Atorvastatin Calcium [Lipitor 20 mg Tablet] 20 mg PO QHS 02/24/19 Tamsulosin HCl [Flomax 0.4 mg Cap.sr] 0.4 mg PO PCSUPPER 02/24/19 Fluticasone/Salmeterol [Advair 250-50 Diskus 14 Dose/Diskus] 1 inh IH Q12H #1 inhaler 03/07/19 Furosemide [Lasix 20 mg Tablet] 20 mg PO DAILY #30 tablet 03/07/19 Lisinopril [Prinivil 10 mg Tablet] 10 mg PO DAILY #30 tablet 03/07/19 Metoprolol Tartrate [Lopressor 50 mg Tablet] 50 mg PO Q12 #60 tablet 03/07/19 Tiotropium Concord [Spiriva Handihaler 5 Cap/Kit (18 Mcg/Cap)] 1 cap IH DAILY #1 kit 03/07/19 History of Present Illness History of Present Illness: CONCHA GRISSOM is a 73 year old male whose past medical history hypertension, hyperlipidemia, COPD, CHF, peripheral vascular disease, bilateral lymphedema and venous stasis, coronary artery disease status post triple bypass and history of cerebral palsy presents with chief complaint of shortness of breath and cough. Reports this is a he has been at his usual baseline state of health up until this morning when he woke up with shortness of present cough productive of whitish sputum. Patient denies chills, fever or chest pain. Patient brought in by EMS. When EMS arrived at his home patient was tachypneic and tachycardic he sought saturation was 89% on room air. He was given albuterol, Atrovent and a single dose of Solu-Medrol 125 mg. His chest x-ray reported as bibasilar infiltrates most consistent with pneumonia. His blood works unremarkable except for mild leukocytosis of 11,000 and BNP of 4700. His urinalysis reported as large leukocyte esterase and the WBC is 20-30. Hospital Course Hospital Course: CONCHA GRISSOM is a 73 year old male whose past medical history hypertension, hyperlipidemia, COPD, CHF, peripheral vascular disease, bilateral lymphedema and venous stasis, coronary artery disease status post triple bypass and history of cerebral palsy presents with chief complaint of shortness of br eath and cough. Remaining hospital course detailed above. Physical Exam Vital Signs: Temp Pulse Resp BP Pulse Ox 97.3 F 104 H 16 125/65 92 03/07/19 13:22 03/07/19 13:22 03/07/19 13:22 03/07/19 13:22 03/07/19 13:22 Pulse Oximeter Continuous Start: 02/24/19 13:37 Freq: RTQ4 Status: Discharge Protocol: Document 03/07/19 12:08 [facility] (Rec: 03/07/19 12:29 [facility] [email or web address]) Pulse Oximetry Assessment Oxygen Saturation (92-100) 92 Oxygen Flow Rate (L/min) 4 Oxygen Delivery Method Nasal Cannula Fraction of Inspired Oxygen (FIO2) 36 Equipment Usage Equipment in Use Continuous SpO2 Machine # 1 Pulse Oximeter Continuous Start: 02/28/19 08:24 Freq: RTQ4 Status: Complete Protocol: Document 03/02/19 04:05 [facility] (Rec: 03/02/19 04:45 [facility] [id number]) Pulse Oximetry Assessment Oxygen Saturation (92-100) 98 Oxygen Flow Rate (L/min) 4 Oxygen Delivery Method Nasal Cannula Equipment Usage Equipment in Use Continuous SpO2 Machine # 1 General appearance: PRESENT: thin Eye exam: PRESENT: conjunctiva pink, PERRLA Mouth exam: PRESENT: moist Teeth exam: PRESENT: poor dentation Neck exam: PRESENT: full ROM Respiratory exam: PRESENT: clear to auscultation joyce, decreased breath sounds - b/l lower lobes, symmetrical, other - requiring supplemental O2. ABSENT: unlabored - mildly labored with exertion Cardiovascular exam: PRESENT: RRR Pulses: PRESENT: normal radial pulses, +1 pedal pulses bilateral Vascular exam: PRESENT: normal capillary refill GI/Abdominal exam: PRESENT: soft. ABSENT: distended, tenderness Rectal exam: PRESENT: deferred Extremities exam: ABSENT: full ROM - history of musculoskeletal disease, patient uses motorized wheelchair for mobility Musculoskeletal exam: ABSENT: ambulatory - history of musculoskeletal disease, patient uses motorized wheelchair for mobility, full ROM - history of musculoskeletal disease, patient uses motorized wheelchair for mobility Neurological exam: PRESENT: alert, awake, oriented to person, oriented to place, oriented to time, oriented to situation Psychiatric exam: PRESENT: depressed - tearful Skin exam: PRESENT: dry, intact, normal color Results Laboratory Results: 03/07/19 05:50 03/07/19 05:50 02/24/19 02/24/19 02/24/19 09:40 09:40 09:40 Creatine Kinase 38 L CK-MB (CK-2) 1.57 Troponin I 0.055 NT-Pro-B Natriuret Pep 4790 H 03/01/19 03/01/19 03/02/19 13:32 20:10 01:57 Creatine Kinase CK-MB (CK-2) Troponin I 0.090 0.078 0.086 NT-Pro-B Natriuret Pep Impressions: Renal Ultrasound 02/28/19 00:00 IMPRESSION: RELATIVELY SMALL KIDNEYS. CYST IN THE RIGHT KIDNEY. NO HYDRONEPHROSIS OR OTHER SIGNIFICANT FINDINGS. Chest/Abdomen CTA 03/01/19 00:00 IMPRESSION: Fluid overload superimposed on end-stage obstructive lung disease. Early or developing basilar pneumonia could not be excluded. No CT angio evidence of acute pulmonary emboli Chest X-Ray 03/06/19 00:00 IMPRESSION: Partial clearing of bilateral lower lobe pneumonia compared to prior films Status: Imported from PACS Qualifiers - * PATIENT BEING DISCHARGED WITH ANY OF THE FOLLOWING DIAGNOSIS: No
== END 2019-03-07 14:30 | disposition home health service (06) | DRG 193 ==
LOC: ER 09:32 → INTOOBSV 14:23 → OBSVTOIN 14:23 → EH 14:23 → 4W 19:38 → 4N 02-27 18:00 → 3N 03-01 11:28
PROVIDERS: ADMIT Internal Medicine; ATTEND Internal Medicine
PROC: 3E0F73Z Introduction of Anti-inflammatory into Respiratory Tract, Via Natural or Artificial Opening (ICD-10-PCS; 2019-02-24)
PROC: 5A09457 Assistance with Respiratory Ventilation, 24-96 Consecutive Hours, Continuous Positive Airway Pressure (ICD-10-PCS; principal; 2019-03-01)
DX: J18.9 Pneumonia, unspecified organism (principal); J96.21 Acute and chronic respiratory failure with hypoxia; J44.1 Chronic obstructive pulmonary disease with (acute) exacerbation; I13.0 Hypertensive heart and chronic kidney disease with heart failure and stage 1 through stage 4 chronic kidney disease, or unspecified chronic kidney disease; N17.9 Acute kidney failure, unspecified; I50.22 Chronic systolic (congestive) heart failure; R04.2 Hemoptysis; J44.0 Chronic obstructive pulmonary disease with (acute) lower respiratory infection; E78.5 Hyperlipidemia, unspecified; I25.10 Atherosclerotic heart disease of native coronary artery without angina pectoris; N18.3 Chronic kidney disease, stage 3 (moderate); I89.0 Lymphedema, not elsewhere classified; K21.9 Gastro-esophageal reflux disease without esophagitis; I87.8 Other specified disorders of veins; I73.9 Peripheral vascular disease, unspecified; G80.9 Cerebral palsy, unspecified; N40.0 Benign prostatic hyperplasia without lower urinary tract symptoms; F32.9 Major depressive disorder, single episode, unspecified; Z95.1 Presence of aortocoronary bypass graft; Z90.49 Acquired absence of other specified parts of digestive tract; Z99.81 Dependence on supplemental oxygen
CPT/HCPCS: 36415; 36600; 71045; 71275; 76770; 80048; 80053; 81001; 82550; 82553; 82803; 83690; 83735; 83880; 84484; 85025; 85027; 87015; 87040; 87070; 87116; 87205; 87206; 87493; 93005; 93010; 94660; 94667; 94668; 94762; 94799; 96361; 96365; 96366; 96375; 99291; J0696; J1650; J1885; J1940; J1956; J2405; J2543; J2920; J2930; J3475; J3490; J7030; J7512; J7620

== ENCOUNTER 2019-03-13 16:29 | Inpatient (IN) | payer MEDICARE, MEDICAID ==
--- NOTE | 2019-03-13 17:15 | ER Document Report ---
ED Cardiac - General Stated Complaint: CHEST PAIN Time Seen by Provider: 03/13/19 16:52 Primary Care Provider: JENISE PRICE DO [Primary Care Provider] - Follow up as needed Mode of Arrival: Medic Information source: Patient, Emergency Med Personnel Notes: Patient is a 74-year-old male presenting to the emergency department from home with complaints of chest pain. According to EMS, the Department of Anthropologist Physical was on scene for a home check when they called EMS stating that they did not feel the patient was doing well. Upon EMS arrival patient found to have an oxygen saturation of 83% and was complaining of chest pain or shortness of breath. Patient reports pain is located on the right side of his chest, states pain is worse with a deep breath. Patient denies any nausea, vomiting or diarrhea. EMS further reports that on their arrival the home was very dirty and not in satisfactory living conditions. The patient had insects (cockroaches) crawling on him. TRAVEL OUTSIDE OF THE [place] IN LAST 30 DAYS: No - Related Data Allergies/Adverse Reactions: No Known Allergies Allergy (Verified 08/16/18 16:10) Past Medical History - General Information source: [facility] Records - Social History Smoking Status: Former Smoker - Quit approximately 20 years ago Frequency of alcohol use: None Drug Abuse: None Family History: CAD, COPD, Hypertension - Past Medical History Cardiac Medical History: Reports: Hx Congestive Heart Failure, Hx Coronary Artery Disease, Hx Hypercholesterolemia, Hx Hypertension, Hx Peripheral Vascular Disease Pulmonary Medical History: Reports: Hx Bronchitis, Hx COPD Renal/ Medical History: Denies: Hx Peritoneal Dialysis GI Medical History: Reports: Hx Gastroesophageal Reflux Disease Psychiatric Medical History: Denies: Hx Depression Traumatic Medical History: Denies: Hx Traumatic Brain Injury Infectious Medical History: Denies: Hx VRE Past Surgical History: Reports: Hx Appendectomy, Hx Cardiac Catheterization, Hx Cardiac Surgery - triple bypass 2011, Hx Orthopedic Surgery - bilat leg surgery. - Immunizations Hx Diphtheria, Pertussis, Tetanus Vaccination: No Review of Systems - Review of Systems Constitutional: Malaise, Weakness. denies: Chills, Fever EENT: No symptoms reported Cardiovascular: Chest pain, Dyspnea Respiratory: Cough, Hurts to breathe, Short of breath, Sputum Gastrointestinal: No symptoms reported. denies: Abdomen distended, Abdominal pain, Diarrhea, Nausea, Vomiting Genitourinary: No symptoms reported Male Genitourinary: Other - Excoriation and pain in scrotum Musculoskeletal: Other - Bilateral lower extremity pain Skin: Other - Bilateral lower extremity rash Hematologic/Lymphatic: No symptoms reported Neurological/Psychological: No symptoms reported Physical Exam - Vital signs Vitals: Resp 22 H 03/13/19 17:46 - Notes Notes: PHYSICAL EXAMINATION: GENERAL: Ill appearing, disheveled. HEAD: Atraumatic, normocephalic. EYES: Pupils equal round and reactive to light, extraocular movements intact, sclera anicteric, conjunctiva are normal. ENT: Nares patent, oropharynx clear without exudates. Moist mucous membranes. NECK: Normal range of motion, supple without lymphadenopathy LUNGS: Breath sounds clear to auscultation bilaterally and equal. No wheezes rales or rhonchi. HEART: Regular rate and rhythm without murmurs ABDOMEN: Soft, nontender, nondistended abdomen. No guarding, no rebound. No masses appreciated. Musculoskeletal: Normal range of motion, no pitting or edema. No cyanosis. NEUROLOGICAL: Cranial nerves grossly intact. Normal speech, normal gait. Normal sensory, motor exams PSYCH: Normal mood, normal affect. SKIN: Excoriation noted to scrotal sac, skin breakdown noted from coccyx to anus. Bilateral skin breakdown with venous stasis ulcers to bilateral lower extremities, large skin tear to left gonzáles. Course - Re-evaluation Re-evalutation: 03/13/19 18:[address] Whitley to discuss patient's 4 cm pneumothorax. He states he will come evaluate the patient. 03/13/19 18:57 volunteer services supervisor worker at bedside to evaluate patient. She states that they were at the house assessing the patient's living conditions and they are the ones that called EMS to transport the patient to the emergency department as they stated that he had medical needs and patient was reporting chest pain. Lactic acid is 1.7. Patient has a leukocytosis of 18,000. Patient has elevated liver enzymes that he has not had in the past. We will add on a right upper quadrant ultrasound. 03/13/19 19:55 Dr. Whitley is at bedside requesting set up for chest tube insertion. Christen cox is also at bedside for ultrasound of the gallbladder. Nursing staff will prepare for chest tube insertion. 03/13/19 20:01 Patient was accepted for admission by hospitalist, Dr. Courtney. Patient will be placed in IMCU. - Vital Signs Vital signs: Temp Pulse Resp BP Pulse Ox 20 91 L 03/13/19 18:00 03/13/19 18:55 - Laboratory Result Diagrams: 03/13/19 16:35 03/13/19 16:35 Laboratory results interpreted by me: 03/13/19 03/13/19 03/13/19 16:35 16:35 18:15 WBC 18.1 H Hgb 11.5 L Hct 35.5 L MCV 79 L MCH 25.4 L RDW 21.9 H Band Neutrophils % 2 L Lymphocytes % (Manual) 7 L Metamyelocytes % 3 H Abs Neuts (Manual) 14.5 H Absolute Eos (Manual) 0.9 H Sodium 136.8 L BUN 48 H Creatinine 1.40 H Est GFR (Non-Af Amer) 50 L AST 103 H ALT 180 H Alkaline Phosphatase 163 H Creatine Kinase 21 L Albumin 3.4 L Urine Blood MODERATE H Ur Leukocyte Esterase LARGE H Discharge - Discharge Clinical Impression: Pneumothorax on right, Elevated liver enzymes Urinary tract infection Qualifiers: Urinary tract infection type: site unspecified Hematuria presence: with hematuria Qualified Code(s): N39.0 - Urinary tract infection, site not specified Venous stasis ulcer Qualifiers: Venous stasis ulcer site: unspecified site Varicose vein presence: unspecified whether present Non-pressure ulcer stage: unspecified non-pressure ulcer stage Qualified Code(s): I83.009 - Varicose veins of unspecified lower extremity with ulcer of unspecified site Condition: Fair Disposition: ADMITTED INPATIENT Admitting Provider: Sherwin (Hospitalist) Unit Admitted: IMCU Referrals: JENISE PRICE DO [Primary Care Provider] - Follow up as needed
[2019-03-13 17:36] LABS: HEMATOCRIT 35.5 % (37.9-51.0); HEMOGLOBIN 11.5 g/dL (13.5-17.0); MEAN CORPUSCULAR HEMOGLOBIN 25.4 pg (27.0-33.4); MEAN CORPUSCULAR HGB CONC 32.3 g/dL (32.0-36.0); MEAN CORPUSCULAR VOLUME 79 fl (80-97); PLATELET COUNT 303 10^3/uL (150-450); RED BLOOD COUNT 4.52 10^6/uL (4.35-5.55); RED CELL DISTRIBUTION WIDTH 21.9 % (11.5-14.0); WHITE BLOOD COUNT 18.1 10^3/uL (4.0-10.5)
[2019-03-13 17:44] LABS: ALANINE AMINOTRANSFERASE 180 U/L (21-72); ALBUMIN 3.4 g/dL (3.5-5.0); ALKALINE PHOSPHATASE 163 U/L (38-126); ANION GAP 8 (5-19); ASPARTATE AMINO TRANSFERASE 103 U/L (17-59); BILIRUBIN,DIRECT 0.4 mg/dL (0.0-0.4); BILIRUBIN,TOTAL 0.8 mg/dL (0.2-1.3); BLOOD UREA NITROGEN 48 mg/dL (7-20); CALCIUM 9.1 mg/dL (8.4-10.2); CARBON DIOXIDE 27 mmol/L (22-30); CHLORIDE 102 mmol/L (98-107); CREATINE KINASE 21 U/L (55-170); GLUCOSE 100 mg/dL (75-110); POTASSIUM 4.1 mmol/L (3.6-5.0); SODIUM 136.8 mmol/L (137-145); TOTAL PROTEIN 7.2 g/dL (6.3-8.2)
[2019-03-13 17:56] LABS: CREATINE KINASE MB 1.53 ng/mL (<4.55)
--- NOTE | 2019-03-13 18:01 | RADIOLOGY REPORT (SQ) ---
EXAM DESCRIPTION: CHEST SINGLE VIEW COMPLETED DATE/TIME: 03/13/2019 5:50 pm REASON FOR STUDY: chest pain/shortness of breath COMPARISON: 03/06/2019 EXAM PARAMETERS: NUMBER OF VIEWS: One view. TECHNIQUE: Single frontal radiographic view of the chest acquired. RADIATION DOSE: NA LIMITATIONS: None. FINDINGS: LUNGS AND PLEURA: Right basilar and lateral pneumothorax measuring 4 cm. Atelectasis at t he lung bases. MEDIASTINUM AND HILAR STRUCTURES: No masses. Contour normal. HEART AND VASCULAR STRUCTURES: Heart normal in size. Normal vasculature. BONES: Sternal wires. HARDWARE: None in the chest. OTHER: No other significant finding. IMPRESSION: Interval development of right basilar pneumothorax. No midline shift. COMMENT: Pertinent findings on the imaging study reported as a CRITICAL RESULT to RADHA gastelum t17:54 on 03/13/2019. Category of Critical Result: Pneumothorax TECHNICAL DOCUMENTATION: JOB ID: [id number] [employer]- All Rights Reserved Reading location - IP/workstation name: [email or web address]
[2019-03-13 18:02] LABS: TROPONIN I 0.04 ng/mL
[2019-03-13 18:03] LABS: ABSOLUTE LYMPHOCYTES# (MANUAL) 1.3 10^3/uL (0.5-4.7); ABSOLUTE MONOCYTES # (MANUAL) 1.4 10^3/uL (0.1-1.4); ABSOLUTE NEUTROPHILS# (MANUAL) 14.5 10^3/uL (1.7-8.2); BAND NEUTROPHILS % (MANUAL) 2 % (3-5); BASOPHILS % (MANUAL) 0 % (0-2); EOSINOPHILS % (MANUAL) 5 % (0-6); LYMPHOCYTES % (MANUAL) 7 % (13-45); MONOCYTES % (MANUAL) 8 % (3-13); SEGMENTED NEUTROPHILS % (MAN) 75 % (42-78); TOTAL CELLS COUNTED 100
[2019-03-13 18:04] LABS: ANISOCYTOSIS 3+
[2019-03-13 18:08] LABS: HYPOCHROMASIA SLIGHT; OVALOCYTES 1+; PLATELET COMMENT ADEQUATE; POIKILOCYTOSIS SLIGHT
[2019-03-13 18:10] LABS: METAMYELOCYTES % (MANUAL) 3 % (0)
[2019-03-13 18:24] LABS: PARTIAL THROMBOPLASTIN TIME 32.1 SEC (23.5-35.8); PROTHROMBIN TIME 14.8 SEC (11.4-15.4)
[2019-03-13] MEDS ORDERED: MORPHINE SULFATE 10 MG/ML INJ IV ONE ×2 (19:12→21:19)
[2019-03-13 19:25] LABS: APPEARANCE,URINE SLIGHTLY-CLOUDY; BILIRUBIN,URINE NEGATIVE (NEGATIVE); COLOR,URINE YELLOW; GLUCOSE, URINE NEGATIVE (NEGATIVE); KETONES,URINE NEGATIVE (NEGATIVE); LEUKOCYTE ESTERASE,URINE LARGE (NEGATIVE); NITRITE,URINE NEGATIVE (NEGATIVE); PROTEIN,URINE NEGATIVE (NEGATIVE); URINE SPECIFIC GRAVITY 1.013; UROBILINOGEN,URINE NEGATIVE mg/dL (<2.0)
[2019-03-13] MEDS ORDERED: CEFTRIAXONE 1 GM/D5W RTU 1 GM/50 ML RTUPB IV ONE (19:31)
[2019-03-13 19:40] LABS: VENOUS BLOOD BASE EXCESS 0.3 mmol/L; VENOUS BLOOD HCO3 24.9 mmol/L (20-32); VENOUS BLOOD PH 7.41 (7.30-7.42)
[2019-03-13] MEDS ORDERED: LIDOCAINE 1% INJ-PF (10 MG/ML) 30 ML SDV INJ ONE (19:54)
[2019-03-13] MEDS ORDERED: NORMAL SALINE 1000 ML 1,000 ML IV ONE (19:56)
[2019-03-13] MEDS ORDERED: IPRATROPIUM/ALBUTEROL 0.5-2.5 MG/3 ML AMPUL NEB PRN (20:02)
[2019-03-13] MEDS ORDERED: GUAIFENESIN SYRP 200 MG/10 ML UDC PO PRN (20:02)
[2019-03-13] MEDS ORDERED: (PENDING PHARMACY ID) (Fluticasone/Salmeterol 1 INH) IH SCH (20:15)
[2019-03-13] MEDS ORDERED: NORMAL SALINE 1000 ML 1,000 ML IV SCH (20:15)
--- NOTE | 2019-03-13 20:37 | RADIOLOGY REPORT (SQ) ---
EXAM DESCRIPTION: [facility]: US ABDOMEN LIMITED CLINICAL HISTORY: 74 years Male; elevated liver enzymes, RUQ pain TECHNIQUE: Right upper quadrant ultrasound was performed. COMPARISON: None. FINDINGS: Pancreas: Not visualized Aorta and IVC are not well visualized Liver: 14.2 cm long Portal venous flow is hepatopedal, normal. Gallbladder: Somewhat contracted. No shadowing calculi or Portillo's sign. Common bile duct: 3 mm. Right kidney: 7.6 x 4.4 x 4.2 cm with 10 mm cortical thickness. No hydronephrosis. IMPRESSION: 1. No acute findings 2. Gallbladder is contracted, although patient ate prior to the exam. No gallstones 3. No ductal distention.
[2019-03-13] MEDS ORDERED: CHLORPHENIRAMINE MALEATE 4 MG TABLET PO SCH (21:00)
--- NOTE | 2019-03-13 21:38 | RADIOLOGY REPORT (SQ) ---
EXAM DESCRIPTION: XR CHEST 1 VIEW COMPLETED DATE/TME: 03/13/2019 00:00 CLINICAL HISTORY: 74 years, Male, CHEST TUBE PLACEMENT COMPARISON: Multiple priors, most recent from earlier the same day NUMBER OF VIEWS: One TECHNIQUE: Single frontal view of the chest was obtained portably LIMITATIONS: None. FINDINGS: Interval placement of right-sided chest tube with its tip located about the lateral aspect of the right hemithorax. Pre-existing right-sided pneumothorax has diminished in size in the antrum with reexpansion of the right lung. Patchy opacity is evident about the periphery of the right lung base. Similar patchy left basilar opacity is noted, somewhat increased from the prior. There may be a small right pleural effusion. There is gaseous distention of the stomach within the left upper quadrant. A mild amount of subcutaneous emphysema is noted about the inferolateral right chest wall. IMPRESSION: Interval decrease in right-sided pneumothorax, status post chest tube placement. Bibasilar airspace disease with suspected small right pleural effusion. Consider atelectasis or pneumonia to include aspiration. Nonspecific gaseous distention of the stomach. copyright 2010 [employer]- All Rights Reserved
--- NOTE | 2019-03-13 23:09 | OPERATIVE REPORT E ---
Operative Report NAME: CONCHA GRISSOM : 1945 AGE: 74Y DATE OF SURGERY: 03/13/2019 ROOM: 303 PREOPERATIVE DIAGNOSIS: SPONTANEOUS PNEUMOTHORAX RIGHT SIDE. POSTOPERATIVE DIAGNOSIS: SPONTANEOUS PNEUMOTHORAX RIGHT SIDE. PROCEDURE: Placement of right chest tube. SURGEON: GLADYS PERDOMO M.D. ANESTHESIA: Local INDICATION: This is a 74-year-old male complaining of right chest pains and he went to the ED and chest x-ray showed a pneumothorax on the right side. DESCRIPTION OF PROCEDURE: The patient was placed in the slight erect sitting position and the right lower chest was then prepped and draped in the usual sterile fashion. Local anesthesia was then infiltrated around the fifth intercostal space anterior axillary line. About a 2 cm incision was then made. Further local anesthesia infiltrated towards the area of the pleura. With blunt dissection the pleura was then entered and a 28 Sudanese chest tube was then inserted into the chest cavity, inserting the chest tube up to the 11 cm level. The chest tube was then anchored to the skin with 0 Silk. The chest tube that has a clamp distally was then unclamped and connected to a pleurovac. The insertion site was then covered with Vaseline gauze, 4 x 4, adhesive tape. The connection between chest tube and pleurovac connector was then taped well to prevent separation. A chest x-ray was then obtained and noted the chest tube was in good position with the pneumothorax appears to be somewhat resolved. The chest tube was then functioning well with minimal air leak. The patient tolerated the procedure well. DICTATING PHYSICIAN: GLADYS PERDOMO M.D. [id number] PHY#: [id number] ID: [id number] JOB#: [id number] ACCT: [id number] cc:GLADYS PERDOMO M.D. >
[2019-03-13] MEDS: ACETAMINOPHEN 325 MG TABLET PO PRN (23:12)
[2019-03-13] MEDS: AZITHROMYCIN 500 MG in DEXTROSE 5%-WATER 250 ML IV SCH (23:12)
[2019-03-13] MEDS: ATORVASTATIN CALCIUM 20 MG TABLET PO SCH (23:13)
[2019-03-13] MEDS: FLUTICASONE NASAL SPRAY 50 MCG/SPRY 120 SPRAY/16 GM NASL SCH (23:14)
[2019-03-13] MEDS: METOPROLOL TARTRATE 50 MG TABLET PO SCH (23:14)
[2019-03-13] MEDS: FLUTICASONE/VILANTEROL 200-25 MCG/DOSE IH SCH (23:15)
[2019-03-13] MEDS: HEPARIN SOD (PORCINE) 5,000 UNIT/ML 1 ML SYRINGE SUBCUT SCH (23:23)
[2019-03-13] MEDS: IPRATROPIUM/ALBUTEROL 0.5-2.5 MG/3 ML AMPUL NEB SCH (23:59)
[2019-03-14] MEDS ORDERED: LISINOPRIL 10 MG TABLET PO ONE (00:30)
[2019-03-14] MEDS ORDERED: AMLODIPINE BESYLATE 5 MG TABLET PO ONE (00:30)
[2019-03-14] MEDS ORDERED: TAMSULOSIN HCL 0.4 MG CAP.SR.24H PO ONE (01:00)
[2019-03-14] MEDS ORDERED: CHLORPHENIRAMINE MALEATE 4 MG TABLET ONE ×2 (01:02→01:09)
[2019-03-14] MEDS: CHLORPHENIRAMINE MALEATE 4 MG TABLET PO SCH ×4 (01:11→17:07)
[2019-03-14] MEDS: LISINOPRIL 10 MG TABLET PO SCH ×2 (01:22→09:25)
[2019-03-14] MEDS: AMLODIPINE BESYLATE 5 MG TABLET PO SCH ×2 (01:22→09:25)
[2019-03-14] MEDS: TAMSULOSIN HCL 0.4 MG CAP.SR.24H PO SCH ×2 (01:22→17:07)
--- NOTE | 2019-03-14 03:43 | PDOC H&P ---
History of Present Illness Admission Date/PCP: 03/13/19 20:22 JENISE PRICE DO Patient complains of: Chest pain History of Present Illness: CONCHA GRISSOM is a 74 year old male with a past medical history of coronary artery disease status post coronary artery bypass graft, COPD, chronic bronchitis and tobacco Dependence. Discharged from [facility] for COPD exacerbation secondary to pneumonia 7 days ago. He presents following a [employer] evaluation at home when he reveals 3 days of chest pain. EMS finds him with persistent right-sided chest pain, tachycardia, hypoxia and respiratory distress. He is brought to the emergency room for evaluation where he is found to have a moderate right-sided pneumothorax and leukocytosis in addition to the above. Surgery is consulted for chest tube placement and is referred to the hospitalist for admission. Patient admits to previous spontaneous pneumothorax, denies fall or trauma. Past Medical History Cardiac Medical History: Reports: Congestive Heart Failure, Coronary Artery Disease, Hyperlipidema, Hypertension, Peripheral Vascular Disease Pulmonary Medical History: Reports: Bronchitis, Chronic Obstructive Pulmonary Disease (COPD) GI Medical History: Reports: Gastroesophageal Reflux Disease Psychiatric Medical History: Denies: Depression Traumatic Medical History: Denies: Traumatic Brain Injury Hematology: Denies: Sickle Cell Disease Infectious Medical History: Denies: Vancomycin-Resistant Enterococci Past Surgical History Past Surgical History: Reports: Appendectomy, Cardiac Catheterization, Coronary Artery Bypass Graft, Orthopedic Surgery - bilat leg surgery. Social History Information Source: Patient Lives with: Family Smoking Status: Current Every Day Smoker Number of Years Smokin Frequency of Alcohol Use: None Hx Recreational Drug Use: No Drugs: None Hx Prescription Drug Abuse: No - Advance Directive Resuscitation Status: Full Code Family History Family History: CAD, COPD, Hypertension Parental Family History Reviewed: Yes Children Family History Reviewed: Yes Sibling(s) Family History Reviewed.: Yes Medication/Allergy Allergies/Adverse Reactions: No Known Allergies Allergy (Verified 08/16/18 16:10) Review of Systems Constitutional: PRESENT: as per HPI, fatigue. ABSENT: chills, fever(s), headache(s), weight gain, weight loss Eyes: ABSENT: visual disturbances Ears: ABSENT: hearing changes Cardiovascular: PRESENT: as per HPI, dyspnea on exertion. ABSENT: chest pain, edema, orthropnea, palpitations Respiratory: PRESENT: as per HPI, cough, dyspnea. ABSENT: hemoptysis, sputum Gastrointestinal: ABSENT: abdominal pain, constipation, diarrhea, hematemesis, hematochezia, nausea, vomiting Genitourinary: ABSENT: dysuria, hematuria Musculoskeletal: ABSENT: joint swelling Integumentary: ABSENT: rash, wounds Neurological: ABSENT: abnormal gait, abnormal speech, confusion, dizziness, focal weakness, syncope Psychiatric: ABSENT: anxiety, depression, homidical ideation, suicidal ideation Endocrine: ABSENT: cold intolerance, heat intolerance, polydipsia, polyuria Hematologic/Lymphatic: ABSENT: easy bleeding, easy bruising Physical Exam Vital Signs: Temp Pulse Resp BP Pulse Ox 97.4 F 99 16 134/71 H 100 03/13/19 22:26 03/14/19 00:15 03/14/19 00:15 03/13/19 22:26 03/14/19 00:15 Intake & Output 03/12/19 03/13/19 03/14/19 11:59 11:59 11:59 Intake Total 250 Balance 250 Weight 64.1 kg General appearance: PRESENT: cooperative, disheveled, mild distress, thin Head exam: PRESENT: atraumatic, normocephalic Eye exam: PRESENT: conjunctiva pink, EOMI, PERRLA. ABSENT: scleral icterus Ear exam: PRESENT: normal external ear exam Mouth exam: PRESENT: moist, tongue midline Teeth exam: PRESENT: dental caries, poor dentation Neck exam: ABSENT: carotid bruit, JVD, lymphadenopathy, thyromegaly Respiratory exam: PRESENT: accessory muscle use, crackles, decreased breath sounds, prolonged expiratory phas, tachypnea. ABSENT: rhonchi, stridor, symmetrical Cardiovascular exam: PRESENT: RRR. ABSENT: diastolic murmur, rubs, systolic murmur Pulses: PRESENT: normal dorsalis pedis pul Vascular exam: PRESENT: normal capillary refill GI/Abdominal exam: PRESENT: normal bowel sounds, soft. ABSENT: distended, guarding, mass, organolmegaly, rebound, tenderness Rectal exam: PRESENT: deferred Extremities exam: PRESENT: full ROM. ABSENT: calf tenderness, clubbing, pedal edema Neurological exam: PRESENT: alert, awake, oriented to person, oriented to place, oriented to time, oriented to situation, CN II-XII grossly intact. ABSENT: motor sensory deficit Psychiatric exam: PRESENT: appropriate affect, normal mood. ABSENT: homicidal ideation, suicidal ideation Skin exam: PRESENT: dry, intact, warm. ABSENT: cyanosis, rash Results Laboratory Results: 03/13/19 16:35 03/13/19 16:35 03/13/19 03/13/19 03/13/19 16:35 16:35 18:15 WBC 18.1 H RBC 4.52 Hgb 11.5 L Hct 35.5 L MCV 79 L MCH 25.4 L MCHC 32.3 RDW 21.9 H Plt Count 303 Seg Neutrophils % Not Reportable Lymphocytes % Not Reportable Monocytes % Not Reportable Eosinophils % Not Reportable Basophils % Not Reportable Absolute Neutrophils Not Reportable Absolute Lymphocytes Not Reportable Absolute Monocytes Not Reportable Absolute Eosinophils Not Reportable Absolute Basophils Not Reportable VBG pH VBG pCO2 VBG HCO3 VBG Base Excess Sodium 136.8 L Potassium 4.1 Chloride 102 Carbon Dioxide 27 Anion Gap 8 BUN 48 H Creatinine 1.40 H Est GFR ( Amer) > 60 Est GFR (Non-Af Amer) 50 L Glucose 100 Lactic Acid Calcium 9.1 Total Bilirubin 0.8 AST 103 H ALT 180 H Alkaline Phosphatase 163 H Total Protein 7.2 Albumin 3.4 L Urine Color YELLOW Urine Appearance SLIGHTLY-CLOUDY Urine pH 6.0 Ur Specific [place] 1.013 Urine Protein NEGATIVE Urine Glucose (UA) NEGATIVE Urine Ketones NEGATIVE Urine Blood MODERATE H Urine Nitrite NEGATIVE Ur Leukocyte Esterase LARGE H Urine WBC (Auto) 47 Urine RBC (Auto) 03/13/19 03/13/19 19:25 19:25 WBC RBC Hgb Hct MCV MCH MCHC RDW Plt Count Seg Neutrophils % Lymphocytes % Monocytes % Eosinophils % Basophils % Absolute Neutrophils Absolute Lymphocytes Absolute Monocytes Absolute Eosinophils Absolute Basophils VBG pH 7.41 VBG pCO2 40.0 VBG HCO3 24.9 VBG Base Excess 0.3 Sodium Potassium Chloride Carbon Dioxide Anion Gap BUN Creatinine Est GFR ( Amer) Est GFR (Non-Af Amer) Glucose Lactic Acid 1.7 Calcium Total Bilirubin AST ALT Alkaline Phosphatase Total Protein Albumin Urine Color Urine Appearance Urine pH Ur Specific [place] Urine Protein Urine Glucose (UA) Urine Ketones Urine Blood Urine Nitrite Ur Leukocyte Esterase Urine WBC (Auto) Urine RBC (Auto) 03/13/19 03/13/19 03/13/19 16:35 16:35 21:22 Creatine Kinase 21 L CK-MB (CK-2) 1.53 Troponin I 0.040 0.037 Impressions: Chest X-Ray 03/13/19 17:09 IMPRESSION: Interval development of right basilar pneumothorax. No midline shift. Abdomen Ultrasound 03/13/19 19:08 IMPRESSION: 1. No acute findings 2. Gallbladder is contracted, although patient ate prior to the exam. No gallstones 3. No ductal distention. Assessment and Plan - Diagnosis (1) Pneumothorax on right Is this a current diagnosis for this admission?: Yes Plan: Chest tube placed, bilateral breath sounds, supplemental oxygen, pulse oximetry, follow-up chest x-ray. (2) Acute hypoxemic respiratory failure Is this a current diagnosis for this admission?: Yes Plan: Secondary to #1, COPD exacerbation, albuterol, Atrovent, flutter valve, incentive spirometry ordered. (3) Elevated liver enzymes Is this a current diagnosis for this admission?: Yes Plan: Ultrasound unremarkable, follow-up LFTs - Time Time Spent with patient: 35 or more minutes - Inpatient Certification Medical Necessity: Need Close Monitoring Due to Risk of Patient Decompensation
[2019-03-14] MEDS: HEPARIN SOD (PORCINE) 5,000 UNIT/ML 1 ML SYRINGE SUBCUT SCH ×3 (06:03→21:51)
[2019-03-14 06:37] LABS: HEMATOCRIT 29.4 % (37.9-51.0); MEAN CORPUSCULAR HEMOGLOBIN 25.1 pg (27.0-33.4); MEAN CORPUSCULAR HGB CONC 31.8 g/dL (32.0-36.0); MEAN CORPUSCULAR VOLUME 79 fl (80-97); PLATELET COUNT 216 10^3/uL (150-450); RED BLOOD COUNT 3.73 10^6/uL (4.35-5.55); RED CELL DISTRIBUTION WIDTH 21.4 % (11.5-14.0); WHITE BLOOD COUNT 12.3 10^3/uL (4.0-10.5)
[2019-03-14 06:48] LABS: HEMOGLOBIN 9.4 g/dL (13.5-17.0)
[2019-03-14 07:01] LABS: BLOOD UREA NITROGEN 40 mg/dL (7-20); CALCIUM 7.8 mg/dL (8.4-10.2); CREATINE KINASE 34 U/L (55-170); GLUCOSE 84 mg/dL (75-110); POTASSIUM 4.5 mmol/L (3.6-5.0)
[2019-03-14 07:07] LABS: CREATINE KINASE MB 2.12 ng/mL (<4.55); TROPONIN I 0.039 ng/mL
[2019-03-14 07:11] LABS: ANION GAP 6 (5-19); CARBON DIOXIDE 26 mmol/L (22-30); CHLORIDE 104 mmol/L (98-107); SODIUM 135.6 mmol/L (137-145)
[2019-03-14 07:39] LABS: ABSOLUTE LYMPHOCYTES# (MANUAL) 1.1 10^3/uL (0.5-4.7); ABSOLUTE MONOCYTES # (MANUAL) 0.4 10^3/uL (0.1-1.4); ABSOLUTE NEUTROPHILS# (MANUAL) 9.8 10^3/uL (1.7-8.2); BAND NEUTROPHILS % (MANUAL) 3 % (3-5); BASOPHILS % (MANUAL) 0 % (0-2); EOSINOPHILS % (MANUAL) 8 % (0-6); LYMPHOCYTES % (MANUAL) 9 % (13-45); METAMYELOCYTES % (MANUAL) 1 % (0); MONOCYTES % (MANUAL) 3 % (3-13); SEGMENTED NEUTROPHILS % (MAN) 76 % (42-78); TOTAL CELLS COUNTED 100
[2019-03-14 07:42] LABS: ANISOCYTOSIS 3+; HYPOCHROMASIA SLIGHT; OVALOCYTES 1+; PLATELET COMMENT ADEQUATE; POIKILOCYTOSIS 1+
[2019-03-14] MEDS: IPRATROPIUM/ALBUTEROL 0.5-2.5 MG/3 ML AMPUL NEB SCH ×2 (08:09→16:19)
--- NOTE | 2019-03-14 08:14 | RADIOLOGY REPORT (SQ) ---
EXAM DESCRIPTION: CHEST SINGLE VIEW COMPLETED DATE/TIME: 03/14/2019 7:57 am REASON FOR STUDY: pneumothorax follow up COMPARISON: 03/13/2019. FINDINGS: Single-view chest AP portable upright. Low lung volumes. Right chest tube remains in place. No pneumothorax appreciated on today's radiograph. Persistent patchy bibasilar subsegmental volume loss, as before. TECHNICAL DOCUMENTATION: JOB ID: [id number] Reading location - IP/workstation name: [email or web address]
--- NOTE | 2019-03-14 08:16 | PDOC PROGRESS REPORT ---
Subjective Progress Note for:: 03/14/19 Subjective:: no c/o pain Reason For Visit: PNEUMOTHORAX PNEUMONIA Physical Exam Vital Signs: Temp Pulse Resp BP Pulse Ox 97.3 F 91 15 108/70 93 03/14/19 03:44 03/14/19 03:44 03/14/19 03:44 03/14/19 03:44 03/14/19 03:44 Intake & Output 03/13/19 03/14/19 03/15/19 06:59 06:59 06:59 Intake Total 250 1050 Balance 250 1050 Weight 64.1 kg General appearance: PRESENT: disheveled Head exam: PRESENT: normocephalic Eye exam: PRESENT: EOMI Mouth exam: PRESENT: dry mucosa Neck exam: PRESENT: full ROM Respiratory exam: PRESENT: accessory muscle use, decreased breath sounds, other - chest tube with 200cc serous op since 7am (2hrs) non bloody Cardiovascular exam: PRESENT: RRR GI/Abdominal exam: PRESENT: soft Rectal exam: PRESENT: deferred Extremities exam: PRESENT: pedal edema, +2 edema Psychiatric exam: PRESENT: appropriate affect Skin exam: PRESENT: dry Results Laboratory Results: 03/14/19 05:27 03/14/19 05:27 03/13/19 03/13/19 03/13/19 16:35 16:35 18:15 WBC 18.1 H RBC 4.52 Hgb 11.5 L Hct 35.5 L MCV 79 L MCH 25.4 L MCHC 32.3 RDW 21.9 H Plt Count 303 Seg Neutrophils % Not Reportable Lymphocytes % Not Reportable Monocytes % Not Reportable Eosinophils % Not Reportable Basophils % Not Reportable Absolute Neutrophils Not Reportable Absolute Lymphocytes Not Reportable Absolute Monocytes Not Reportable Absolute Eosinophils Not Reportable Absolute Basophils Not Reportable VBG pH VBG pCO2 VBG HCO3 VBG Base Excess Sodium 136.8 L Potassium 4.1 Chloride 102 Carbon Dioxide 27 Anion Gap 8 BUN 48 H Creatinine 1.40 H Est GFR ( Amer) > 60 Est GFR (Non-Af Amer) 50 L Glucose 100 Lactic Acid Calcium 9.1 Total Bilirubin 0.8 AST 103 H ALT 180 H Alkaline Phosphatase 163 H Total Protein 7.2 Albumin 3.4 L Urine Color YELLOW Urine Appearance SLIGHTLY-CLOUDY Urine pH 6.0 Ur Specific [place] 1.013 Urine Protein NEGATIVE Urine Glucose (UA) NEGATIVE Urine Ketones NEGATIVE Urine Blood MODERATE H Urine Nitrite NEGATIVE Ur Leukocyte Esterase LARGE H Urine WBC (Auto) 47 Urine RBC (Auto) 19 03/13/19 03/13/19 03/14/19 19:25 19:25 05:27 WBC 12.3 H RBC 3.73 L Hgb 9.4 L D Hct 29.4 L MCV 79 L MCH 25.1 L MCHC 31.8 L RDW 21.4 H Plt Count 216 Seg Neutrophils % Not Reportable Lymphocytes % Not Reportable Monocytes % Not Reportable Eosinophils % Not Reportable Basophils % Not Reportable Absolute Neutrophils Not Reportable Absolute Lymphocytes Not Reportable Absolute Monocytes Not Reportable Absolute Eosinophils Not Reportable Absolute Basophils Not Reportable VBG pH 7.41 VBG pCO2 40.0 VBG HCO3 24.9 VBG Base Excess 0.3 Sodium Potassium Chloride Carbon Dioxide Anion Gap BUN Creatinine Est GFR ( Amer) Est GFR (Non-Af Amer) Glucose Lactic Acid 1.7 Calcium Total Bilirubin AST ALT Alkaline Phosphatase Total Protein Albumin Urine Color Urine Appearance Urine pH Ur Specific [place] Urine Protein Urine Glucose (UA) Urine Ketones Urine Blood Urine Nitrite Ur Leukocyte Esterase Urine WBC (Auto) Urine RBC (Auto) 03/14/19 05:27 WBC RBC Hgb Hct MCV MCH MCHC RDW Plt Count Seg Neutrophils % Lymphocytes % Monocytes % Eosinophils % Basophils % Absolute Neutrophils Absolute Lymphocytes Absolute Monocytes Absolute Eosinophils Absolute Basophils VBG pH VBG pCO2 VBG HCO3 VBG Base Excess Sodium 135.6 L Potassium 4.5 Chloride 104 Carbon Dioxide 26 Anion Gap 6 BUN 40 H Creatinine 1.36 H Est GFR ( Amer) > 60 Est GFR (Non-Af Amer) 51 L Glucose 84 Lactic Acid Calcium 7.8 L Total Bilirubin AST ALT Alkaline Phosphatase Total Protein Albumin Urine Color Urine Appearance Urine pH Ur Specific [place] Urine Protein Urine Glucose (UA) Urine Ketones Urine Blood Urine Nitrite Ur Leukocyte Esterase Urine WBC (Auto) Urine RBC (Auto) 03/13/19 03/13/19 03/13/19 16:35 16:35 21:22 Creatine Kinase 21 L CK-MB (CK-2) 1.53 Troponin I 0.040 0.037 03/14/19 03/14/19 05:27 05:27 Creatine Kinase 34 L CK-MB (CK-2) 2.12 Troponin I 0.039 Impressions: Abdomen Ultrasound 03/13/19 19:08 IMPRESSION: 1. No acute findings 2. Gallbladder is contracted, although patient ate prior to the exam. No gallstones 3. No ductal distention. Assessment & Plan - Plan Summary Plan Summary: s/p rt chest tube for ptx this am cxr show resolution however 200cc serous op since 7am no evidence of leak will leave on suction today recheck cxr in am.
[2019-03-14] MEDS: METOPROLOL TARTRATE 50 MG TABLET PO SCH ×2 (09:24→21:52)
[2019-03-14] MEDS: FLUTICASONE/VILANTEROL 200-25 MCG/DOSE IH SCH (09:25)
[2019-03-14] MEDS: ASPIRIN 81 MG TABLET, ENT COATED PO SCH (09:25)
[2019-03-14] MEDS: FLUTICASONE NASAL SPRAY 50 MCG/SPRY 120 SPRAY/16 GM NASL SCH ×2 (09:25→21:51)
[2019-03-14] MEDS ORDERED: CEFTRIAXONE 1 GM/D5W RTU 50 ML IV SCH (10:00)
[2019-03-14] MEDS: ACETAMINOPHEN 325 MG TABLET PO PRN (10:58)
[2019-03-14] MEDS ORDERED: ISOSORBIDE DINITRATE 20 MG TABLET PO ONE (13:00)
--- NOTE | 2019-03-14 13:14 | EKG REPORT ---
SEVERITY:- ABNORMAL ECG - SINUS TACHYCARDIA LVH WITH IVCD, LAD AND SECONDARY REPOL ABNRM : Confirmed by: Jim Mayse 14-Mar-2019 13:13:36
[2019-03-14] MEDS ORDERED: KETOROLAC TROMETHAMINE INJ/PF 30 MG/1 ML SDV IV PRN (13:27)
[2019-03-14] MEDS: OXYCODONE HCL IR 5 MG TABLET PO PRN ×2 (14:01→21:53)
--- NOTE | 2019-03-14 16:29 | PDOC PROGRESS REPORT ---
Subjective Progress Note for:: 03/14/19 Subjective:: CONCHA GRISSOM is a 74 year old male with a past medical history of coronary artery disease status post coronary artery bypass graft, COPD, chronic bronchitis and tobacco Dependence who was admitted 03/13/19 for acute hypoxemic respiratory failure and right-sided pneumothorax. The patient was seen on morning rounds. He is found resting in bed on supplemental oxygen via nasal cannula at 3 L/min. Patient's primary complaint is right-sided chest wall pain associated with cough, sneeze, movements, and deep breathing. He reports continued shortness of breath, though improved from the time of his admission. He is noted to be somewhat tearful this morning. He denies any other further complaints; no fever, chills, palpitations, orthopnea, abdominal pain, nausea vomiting or diarrhea. He requests increased pain medication and antitussive; he has no other questions or concerns at this time. No concerns per nursing. Reason For Visit: PNEUMOTHORAX PNEUMONIA Physical Exam Vital Signs: Temp Pulse Resp BP Pulse Ox 97.7 F 88 16 110/44 L 96 03/14/19 11:40 03/14/19 14:00 03/14/19 11:40 03/14/19 11:42 03/14/19 11:40 Intake & Output 03/13/19 03/14/19 03/15/19 06:59 06:59 06:59 Intake Total 250 1168 Output Total 600 300 Balance -350 868 Weight 64.1 kg General appearance: PRESENT: no acute distress, cooperative, thin, well- developed, other - Chronically ill-appearing Head exam: PRESENT: atraumatic, normocephalic Eye exam: PRESENT: conjunctiva pink, EOMI, PERRLA. ABSENT: scleral icterus Mouth exam: PRESENT: moist, tongue midline Respiratory exam: PRESENT: crackles, decreased breath sounds - Bibasilar, prolonged expiratory phas, rhonchi, symmetrical, unlabored, other - Supplemental oxygen via nasal cannula; chest tube right chest wall. ABSENT: rales, wheezes Cardiovascular exam: PRESENT: RRR. ABSENT: diastolic murmur, rubs, systolic murmur Pulses: PRESENT: +1 pedal pulses bilateral Vascular exam: PRESENT: normal capillary refill GI/Abdominal exam: PRESENT: normal bowel sounds, soft. ABSENT: distended, guarding, mass, organolmegaly, rebound, tenderness Rectal exam: PRESENT: deferred Extremities exam: PRESENT: full ROM, +1 edema - BLE. ABSENT: calf tenderness, clubbing, pedal edema Neurological exam: PRESENT: alert, awake, oriented to person, oriented to place, oriented to time, oriented to situation, CN II-XII grossly intact. ABSENT: motor sensory deficit Psychiatric exam: PRESENT: appropriate affect, normal mood. ABSENT: homicidal ideation, suicidal ideation Skin exam: PRESENT: dry, intact, warm, other - Chronic venous stasis changes BLE. ABSENT: cyanosis, rash Results Laboratory Results: 03/14/19 05:27 03/14/19 05:27 03/13/19 03/13/19 03/13/19 16:35 16:35 18:15 WBC 18.1 H RBC 4.52 Hgb 11.5 L Hct 35.5 L MCV 79 L MCH 25.4 L MCHC 32.3 RDW 21.9 H Plt Count 303 Seg Neutrophils % Not Reportable Lymphocytes % Not Reportable Monocytes % Not Reportable Eosinophils % Not Reportable Basophils % Not Reportable Absolute Neutrophils Not Reportable Absolute Lymphocytes Not Reportable Absolute Monocytes Not Reportable Absolute Eosinophils Not Reportable Absolute Basophils Not Reportable VBG pH VBG pCO2 VBG HCO3 VBG Base Excess Sodium 136.8 L Potassium 4.1 Chloride 102 Carbon Dioxide 27 Anion Gap 8 BUN 48 H Creatinine 1.40 H Est GFR ( Amer) > 60 Est GFR (Non-Af Amer) 50 L Glucose 100 Lactic Acid Calcium 9.1 Total Bilirubin 0.8 AST 103 H ALT 180 H Alkaline Phosphatase 163 H Total Protein 7.2 Albumin 3.4 L Urine Color YELLOW Urine Appearance SLIGHTLY-CLOUDY Urine pH 6.0 Ur Specific [place] 1.013 Urine Protein NEGATIVE Urine Glucose (UA) NEGATIVE Urine Ketones NEGATIVE Urine Blood MODERATE H Urine Nitrite NEGATIVE Ur Leukocyte Esterase LARGE H Urine WBC (Auto) 47 Urine RBC (Auto) 19 03/13/19 03/13/19 03/14/19 19:25 19:25 05:27 WBC 12.3 H RBC 3.73 L Hgb 9.4 L D Hct 29.4 L MCV 79 L MCH 25.1 L MCHC 31.8 L RDW 21.4 H Plt Count 216 Seg Neutrophils % Not Reportable Lymphocytes % Not Reportable Monocytes % Not Reportable Eosinophils % Not Reportable Basophils % Not Reportable Absolute Neutrophils Not Reportable Absolute Lymphocytes Not Reportable Absolute Monocytes Not Reportable Absolute Eosinophils Not Reportable Absolute Basophils Not Reportable VBG pH 7.41 VBG pCO2 40.0 VBG HCO3 24.9 VBG Base Excess 0.3 Sodium Potassium Chloride Carbon Dioxide Anion Gap BUN Creatinine Est GFR ( Amer) Est GFR (Non-Af Amer) Glucose Lactic Acid 1.7 Calcium Total Bilirubin AST ALT Alkaline Phosphatase Total Protein Albumin Urine Color Urine Appearance Urine pH Ur Specific [place] Urine Protein Urine Glucose (UA) Urine Ketones Urine Blood Urine Nitrite Ur Leukocyte Esterase Urine WBC (Auto) Urine RBC (Auto) 03/14/19 05:27 WBC RBC Hgb Hct MCV MCH MCHC RDW Plt Count Seg Neutrophils % Lymphocytes % Monocytes % Eosinophils % Basophils % Absolute Neutrophils Absolute Lymphocytes Absolute Monocytes Absolute Eosinophils Absolute Basophils VBG pH VBG pCO2 VBG HCO3 VBG Base Excess Sodium 135.6 L Potassium 4.5 Chloride 104 Carbon Dioxide 26 Anion Gap 6 BUN 40 H Creatinine 1.36 H Est GFR ( Amer) > 60 Est GFR (Non-Af Amer) 51 L Glucose 84 Lactic Acid Calcium 7.8 L Total Bilirubin AST ALT Alkaline Phosphatase Total Protein Albumin Urine Color Urine Appearance Urine pH Ur Specific [place] Urine Protein Urine Glucose (UA) Urine Ketones Urine Blood Urine Nitrite Ur Leukocyte Esterase Urine WBC (Auto) Urine RBC (Auto) 03/13/19 03/13/19 03/13/19 16:35 16:35 21:22 Creatine Kinase 21 L CK-MB (CK-2) 1.53 Troponin I 0.040 0.037 03/14/19 03/14/19 05:27 05:27 Creatine Kinase 34 L CK-MB (CK-2) 2.12 Troponin I 0.039 Impressions: Abdomen Ultrasound 03/13/19 19:08 IMPRESSION: 1. No acute findings 2. Gallbladder is contracted, although patient ate prior to the exam. No gallstones 3. No ductal distention. Assessment and Plan - Diagnosis (1) Pneumothorax on right Is this a current diagnosis for this admission?: Yes Plan: Likely secondary to COPD/bleb; hx of Spontaneous pnx in the past. Chest tube placed; management per surgery's expertise. Repeat CXR in am. Continue supplemental oxygen as needed to maintain saturations >89% Analgesics as needed. Incentive spirometer (2) Acute hypoxemic respiratory failure Is this a current diagnosis for this admission?: Yes Plan: Secondary to COPD exacerbation and Rt side pneumothorax. Now s/p chest tube placement. Continue supportive care with supplemental oxygen, scheduled and as needed nebulizer treatments, flutter valve, and incentive spirometry. (3) COPD (chronic obstructive pulmonary disease) Qualifiers: Emphysema type: panlobular Is this a current diagnosis for this admission?: Yes Plan: COPD exacerbation. Patient is placed on supplemental oxygen to maintain sats >89% He is provided scheduled and as needed nebulizer treatments. Prednisone 60 mg daily. Robitussin as needed. Continue home dose Brio. Flonase and chlorpheniramine. Incentive spirometer and flutter valve to bedside. (4) Chest wall pain Is this a current diagnosis for this admission?: Yes Plan: Right-sided chest wall pain secondary to right pneumothorax and chest tube placement. Trial Lidoderm patches with as needed Tylenol, Toradol, oxycodone. (5) Hypertension Qualifiers: Hypertension type: essential hypertension Qualified Code(s): I10 - Essential (primary) hypertension Is this a current diagnosis for this admission?: Yes Plan: Blood pressures are acceptable for age. Continue home dose amlodipine. (6) Venous stasis dermatitis Qualifiers: Laterality: bilateral Qualified Code(s): I87.2 - Venous insufficiency (chronic) (peripheral) Is this a current diagnosis for this admission?: Yes Plan: IAN hose, elevation, and Eucerin cream daily. (7) Elevated liver enzymes Is this a current diagnosis for this admission?: Yes Plan: Ultrasound unremarkable, follow-up LFTs - Time Time Spent with patient: 15-24 minutes Medications reviewed and adjusted accordingly: Yes
[2019-03-14] MEDS: PREDNISONE 20 MG TABLET PO SCH (16:44)
[2019-03-14] MEDS: LIDOCAINE 5% (700 MG) TRANSDERMAL ADH..PATCH TP SCH (16:45)
[2019-03-14] MEDS: CEFTRIAXONE SODIUM 1,000 MG in DEXTROSE 5%-WATER 50 ML IV SCH (17:07)
[2019-03-14] MEDS: ISOSORBIDE DINITRATE 20 MG TABLET PO SCH (21:52)
[2019-03-14] MEDS: ATORVASTATIN CALCIUM 20 MG TABLET PO SCH (21:52)
[2019-03-14] MEDS: AZITHROMYCIN 500 MG in DEXTROSE 5%-WATER 250 ML IV SCH (21:52)
[2019-03-15] MEDS: IPRATROPIUM/ALBUTEROL 0.5-2.5 MG/3 ML AMPUL NEB SCH ×3 (00:33→15:47)
[2019-03-15] MEDS: OXYCODONE HCL IR 5 MG TABLET PO PRN ×2 (05:47→23:48)
[2019-03-15] MEDS: HEPARIN SOD (PORCINE) 5,000 UNIT/ML 1 ML SYRINGE SUBCUT SCH ×3 (05:52→21:17)
--- NOTE | 2019-03-15 08:29 | RADIOLOGY REPORT (SQ) ---
EXAM DESCRIPTION: CHEST SINGLE VIEW COMPLETED DATE/TIME: 03/15/2019 7:43 am REASON FOR STUDY: check pneumothorax COMPARISON: 03/14/2019. FINDINGS: Single-view chest AP portable upright. Stable examination without significant change. Chest tube remains in place on the right. No pneumothorax. Bibasilar patchy airspace disease and volume loss in the setting of generally low lung volumes. TECHNICAL DOCUMENTATION: JOB ID: [id number] Reading location - IP/workstation name: [email or web address]
[2019-03-15 08:32] LABS: HEMATOCRIT 29.5 % (37.9-51.0); HEMOGLOBIN 9.4 g/dL (13.5-17.0); MEAN CORPUSCULAR HEMOGLOBIN 25.4 pg (27.0-33.4); MEAN CORPUSCULAR HGB CONC 32.1 g/dL (32.0-36.0); MEAN CORPUSCULAR VOLUME 79 fl (80-97); PLATELET COUNT 245 10^3/uL (150-450); RED BLOOD COUNT 3.72 10^6/uL (4.35-5.55); RED CELL DISTRIBUTION WIDTH 21.3 % (11.5-14.0); WHITE BLOOD COUNT 15.3 10^3/uL (4.0-10.5)
[2019-03-15 08:36] LABS: ALANINE AMINOTRANSFERASE 101 U/L (21-72); ALBUMIN 2.4 g/dL (3.5-5.0); ALKALINE PHOSPHATASE 108 U/L (38-126); ASPARTATE AMINO TRANSFERASE 40 U/L (17-59); BILIRUBIN,DIRECT 0.3 mg/dL (0.0-0.4); BILIRUBIN,TOTAL 0.3 mg/dL (0.2-1.3); BLOOD UREA NITROGEN 32 mg/dL (7-20); CALCIUM 8.4 mg/dL (8.4-10.2); CARBON DIOXIDE 26 mmol/L (22-30); GLUCOSE 144 mg/dL (75-110); POTASSIUM 5.1 mmol/L (3.6-5.0); SODIUM 134.7 mmol/L (137-145); TOTAL PROTEIN 5.3 g/dL (6.3-8.2)
[2019-03-15 08:37] LABS: ANION GAP 7 (5-19); CHLORIDE 102 mmol/L (98-107)
[2019-03-15] MEDS: LIDOCAINE 5% (700 MG) TRANSDERMAL ADH..PATCH TP SCH (09:18)
[2019-03-15] MEDS: METOPROLOL TARTRATE 50 MG TABLET PO SCH ×2 (09:18→21:21)
[2019-03-15] MEDS: LISINOPRIL 10 MG TABLET PO SCH (09:18)
[2019-03-15] MEDS: PREDNISONE 20 MG TABLET PO SCH (09:18)
[2019-03-15] MEDS: FLUTICASONE/VILANTEROL 200-25 MCG/DOSE IH SCH (09:19)
[2019-03-15] MEDS: ASPIRIN 81 MG TABLET, ENT COATED PO SCH (09:19)
[2019-03-15] MEDS: AMLODIPINE BESYLATE 5 MG TABLET PO SCH (09:19)
[2019-03-15] MEDS: FLUTICASONE NASAL SPRAY 50 MCG/SPRY 120 SPRAY/16 GM NASL SCH ×2 (09:19→21:17)
[2019-03-15] MEDS: ISOSORBIDE DINITRATE 20 MG TABLET PO SCH ×2 (09:19→21:20)
[2019-03-15] MEDS ORDERED: AMLODIPINE BESYLATE 5 MG TABLET PO SCH (10:00)
[2019-03-15] MEDS: MINERAL OIL/PETROLATUM,WHITE CREAM 114 GM TP SCH (10:02)
--- NOTE | 2019-03-15 12:29 | PDOC PROGRESS REPORT ---
Subjective Progress Note for:: 03/15/19 Subjective:: CONCHA GRISSOM is a 74 year old male with a past medical history of coronary artery disease status post coronary artery bypass graft, COPD, chronic bronchitis and tobacco Dependence who was admitted 03/13/19 for acute hypoxemic respiratory failure and right-sided pneumothorax. The patient was seen on morning rounds. He is found resting in bed on supplemental oxygen via nasal cannula at 4 L/min. Patient reports that he is feeling much better today. Pain is significantly reduced and frequency/severity of cough is improved. He states that otherwise he is feeling well. He denies fever, chills, chest pain, palpitations, orthopnea, abdominal pain, nausea vomiting or diarrhea. He has no other questions or concerns at this time. No concerns per nursing. Reason For Visit: PNEUMOTHORAX PNEUMONIA Physical Exam Vital Signs: Temp Pulse Resp BP Pulse Ox 97.4 F 71 18 102/50 L 97 03/15/19 11:38 03/15/19 11:38 03/15/19 11:38 03/15/19 11:38 03/15/19 11:38 Intake & Output 03/14/19 03/15/19 03/16/19 06:59 06:59 06:59 Intake Total 250 1468 Output Total 600 2082 Balance -350 -614 Weight 64.1 kg 64.5 kg General appearance: PRESENT: no acute distress, cooperative, thin, well- developed, other - chronically ill appearing Head exam: PRESENT: atraumatic, normocephalic Eye exam: PRESENT: conjunctiva pink, EOMI, PERRLA. ABSENT: scleral icterus Mouth exam: PRESENT: moist, tongue midline Respiratory exam: PRESENT: decreased breath sounds - Improved, prolonged expiratory phas, rhonchi, symmetrical, unlabored, other - supplemental oxygen via NC (uses 3 lpm at baseline). ABSENT: rales, wheezes Cardiovascular exam: PRESENT: RRR. ABSENT: diastolic murmur, rubs, systolic murmur Pulses: PRESENT: +1 pedal pulses bilateral Vascular exam: PRESENT: normal capillary refill GI/Abdominal exam: PRESENT: normal bowel sounds, soft. ABSENT: distended, guarding, mass, organolmegaly, rebound, tenderness Rectal exam: PRESENT: deferred Extremities exam: PRESENT: full ROM, +1 edema - BLE. ABSENT: calf tenderness, clubbing Neurological exam: PRESENT: alert, awake, oriented to person, oriented to place, oriented to time, oriented to situation, CN II-XII grossly intact. ABSENT: motor sensory deficit Psychiatric exam: PRESENT: appropriate affect, normal mood. ABSENT: homicidal ideation, suicidal ideation Skin exam: PRESENT: dry, warm, other - Chronic venous stasis changes BLE. A BSENT: cyanosis, rash Results Laboratory Results: 03/15/19 07:38 03/15/19 07:38 03/15/19 03/15/19 07:38 07:38 WBC 15.3 H RBC 3.72 L Hgb 9.4 L Hct 29.5 L MCV 79 L MCH 25.4 L MCHC 32.1 RDW 21.3 H Plt Count 245 Sodium 134.7 L Potassium 5.1 H Chloride 102 Carbon Dioxide 26 Anion Gap 7 BUN 32 H Creatinine 1.27 H Est GFR ( Amer) > 60 Est GFR (Non-Af Amer) 55 L Glucose 144 H Calcium 8.4 Total Bilirubin 0.3 AST 40 ALT 101 H Alkaline Phosphatase 108 Total Protein 5.3 L Albumin 2.4 L 03/13/19 03/13/19 03/13/19 16:35 16:35 21:22 Creatine Kinase 21 L CK-MB (CK-2) 1.53 Troponin I 0.040 0.037 03/14/19 03/14/19 05:27 05:27 Creatine Kinase 34 L CK-MB (CK-2) 2.12 Troponin I 0.039 Impressions: Abdomen Ultrasound 03/13/19 19:08 IMPRESSION: 1. No acute findings 2. Gallbladder is contracted, although patient ate prior to the exam. No gallstones 3. No ductal distention. Assessment and Plan - Diagnosis (1) Pneumothorax on right Is this a current diagnosis for this admission?: Yes Plan: Likely secondary to COPD/bleb; hx of Spontaneous pnx in the past. Chest tube placed; management per surgery's expertise. Repeat CXR is improved. Now on water seal only. Continue supplemental oxygen as needed to maintain saturations >89% Analgesics as needed. Incentive spirometer (2) Acute hypoxemic respiratory failure Is this a current diagnosis for this admission?: Yes Plan: Secondary to COPD exacerbation and Rt side pneumothorax. Now s/p chest tube placement. Continue supportive care with supplemental oxygen, scheduled and as needed nebulizer treatments, flutter valve, and incentive spirometry. (3) COPD (chronic obstructive pulmonary disease) Qualifiers: Emphysema type: panlobular Is this a current diagnosis for this admission?: Yes Plan: Improved; COPD exacerbation. Patient is placed on supplemental oxygen to maintain sats >89% (uses 3 lpm at baseline) He is provided scheduled and as needed nebulizer treatments. Prednisone 60 mg daily. Robitussin as needed. Continue home dose Brio. Flonase and chlorpheniramine. Incentive spirometer and flutter valve to bedside. (4) Chest wall pain Is this a current diagnosis for this admission?: Yes Plan: Improved. Right-sided chest wall pain secondary to right pneumothorax and chest tube placement. Trial Lidoderm patches with as needed Tylenol, Toradol, oxycodone. (5) Hypertension Qualifiers: Hypertension type: essential hypertension Qualified Code(s): I10 - Essential (primary) hypertension Is this a current diagnosis for this admission?: Yes Plan: Blood pressures are acceptable for age. Continue home dose amlodipine. (6) Venous stasis dermatitis Qualifiers: Laterality: bilateral Qualified Code(s): I87.2 - Venous insufficiency (chronic) (peripheral) Is this a current diagnosis for this admission?: Yes Plan: IAN hose, elevation, and Eucerin cream daily. (7) Elevated liver enzymes Is this a current diagnosis for this admission?: Yes Plan: Ultrasound unremarkable LFTs today are improved - Time Time Spent with patient: 15-24 minutes Medications reviewed and adjusted accordingly: Yes Anticipated discharge: SNF - Home with HH vs LTC; APS and discharge planning invovled.
[2019-03-15] MEDS: CEFTRIAXONE SODIUM 1,000 MG in DEXTROSE 5%-WATER 50 ML IV SCH (17:10)
[2019-03-15] MEDS: TAMSULOSIN HCL 0.4 MG CAP.SR.24H PO SCH (17:10)
--- NOTE | 2019-03-15 20:08 | PDOC PROGRESS REPORT ---
Subjective Progress Note for:: 03/15/19 Subjective:: some pains at chest tube site Reason For Visit: PNEUMOTHORAX PNEUMONIA Physical Exam Vital Signs: Temp Pulse Resp BP Pulse Ox 97.2 F 82 20 93/42 L 97 03/15/19 15:55 03/15/19 15:55 03/15/19 15:55 03/15/19 15:55 03/15/19 15:55 Intake & Output 03/14/19 03/15/19 03/16/19 06:59 06:59 06:59 Intake Total 250 1468 744 Output Total 600 2082 540 Balance -350 -614 204 Weight 64.1 kg 64.5 kg Exam: Chest tube no air leak CXR today showed no air leak. Results Laboratory Results: 03/15/19 07:38 03/15/19 07:38 03/15/19 03/15/19 07:38 07:38 WBC 15.3 H RBC 3.72 L Hgb 9.4 L Hct 29.5 L MCV 79 L MCH 25.4 L MCHC 32.1 RDW 21.3 H Plt Count 245 Sodium 134.7 L Potassium 5.1 H Chloride 102 Carbon Dioxide 26 Anion Gap 7 BUN 32 H Creatinine 1.27 H Est GFR ( Amer) > 60 Est GFR (Non-Af Amer) 55 L Glucose 144 H Calcium 8.4 Total Bilirubin 0.3 AST 40 ALT 101 H Alkaline Phosphatase 108 Total Protein 5.3 L Albumin 2.4 L 03/13/19 18:15 Dooley Catheter Urine Culture - Final Yeast, Not Christianne Albicans 03/13/19 03/13/19 03/13/19 16:35 16:35 21:22 Creatine Kinase 21 L CK-MB (CK-2) 1.53 Troponin I 0.040 0.037 03/14/19 03/14/19 05:27 05:27 Creatine Kinase 34 L CK-MB (CK-2) 2.12 Troponin I 0.039 Impressions: Abdomen Ultrasound 03/13/19 19:08 IMPRESSION: 1. No acute findings 2. Gallbladder is contracted, although patient ate prior to the exam. No gallstones 3. No ductal distention. Assessment & Plan - Time Time Spent with patient: 15-24 minutes - Plan Summary Plan Summary: Chest tube to water seal. Possible removal of chest tube if cxr in am still shows no pneumothorax.
[2019-03-15] MEDS: ATORVASTATIN CALCIUM 20 MG TABLET PO SCH (21:21)
[2019-03-15] MEDS: AZITHROMYCIN 500 MG in DEXTROSE 5%-WATER 250 ML IV SCH (21:21)
[2019-03-16] MEDS: IPRATROPIUM/ALBUTEROL 0.5-2.5 MG/3 ML AMPUL NEB SCH ×3 (00:46→15:40)
[2019-03-16 05:02] LABS: HEMATOCRIT 26.5 % (37.9-51.0); HEMOGLOBIN 8.4 g/dL (13.5-17.0); MEAN CORPUSCULAR HEMOGLOBIN 25.2 pg (27.0-33.4); MEAN CORPUSCULAR HGB CONC 31.7 g/dL (32.0-36.0); MEAN CORPUSCULAR VOLUME 80 fl (80-97); PLATELET COUNT 191 10^3/uL (150-450); RED BLOOD COUNT 3.32 10^6/uL (4.35-5.55); RED CELL DISTRIBUTION WIDTH 21.4 % (11.5-14.0); WHITE BLOOD COUNT 15.8 10^3/uL (4.0-10.5)
[2019-03-16 05:30] LABS: ANION GAP 6 (5-19); BLOOD UREA NITROGEN 35 mg/dL (7-20); CALCIUM 8.1 mg/dL (8.4-10.2); CARBON DIOXIDE 24 mmol/L (22-30); CHLORIDE 106 mmol/L (98-107); GLUCOSE 141 mg/dL (75-110); POTASSIUM 4.4 mmol/L (3.6-5.0); SODIUM 135.8 mmol/L (137-145)
[2019-03-16] MEDS: HEPARIN SOD (PORCINE) 5,000 UNIT/ML 1 ML SYRINGE SUBCUT SCH ×3 (05:48→21:13)
[2019-03-16] MEDS: OXYCODONE HCL IR 5 MG TABLET PO PRN ×2 (05:48→12:11)
--- NOTE | 2019-03-16 08:27 | RADIOLOGY REPORT (SQ) ---
EXAM DESCRIPTION: CHEST SINGLE VIEW COMPLETED DATE/TIME: 03/16/2019 7:55 am REASON FOR STUDY: follow-up chest tube COMPARISON: 03/15/2019 EXAM PARAMETERS: NUMBER OF VIEWS: One view. TECHNIQUE: Single frontal radiographic view of the chest acquired. RADIATION DOSE: NA LIMITATIONS: None. FINDINGS: LUNGS AND PLEURA: Low lung volumes. Bilateral mid-lower lung airspace disease, unchanged finding since examination performed earlier on the same date. No pneumothorax. MEDIASTINUM AND HILAR STRUCTURES: No masses. Contour normal. HEART AND VASCULAR STRUCTURES: Heart normal in size. Normal vasculature. BONES: No acute findings. HARDWARE: Right sided chest tube, unchanged finding. Prior anterior median sternotomy. OTHER: No other significant finding. IMPRESSION: . 1. No significant interval changes since the examination performed earlier on the same date, 03/15/20 19. Right sided chest tube is again noted. No pneumothorax. 2. Low lung volumes and bilateral mid-lower lung airspace disease. TECHNICAL DOCUMENTATION: JOB ID: [id number] [employer]- All Rights Reserved Reading location - IP/workstation name: [email or web address]
--- NOTE | 2019-03-16 08:46 | PDOC PROGRESS REPORT ---
Subjective Progress Note for:: 03/16/19 Subjective:: some pains at right chest tube site Reason For Visit: PNEUMOTHORAX PNEUMONIA Physical Exam Vital Signs: Temp Pulse Resp BP Pulse Ox 97.6 F 86 20 127/66 H 96 03/16/19 07:24 03/16/19 07:24 03/16/19 08:06 03/16/19 07:24 03/16/19 08:06 Intake & Output 03/15/19 03/16/19 03/17/19 06:59 06:59 06:59 Intake Total 1468 1074 Output Total 2089 1240 Balance -614 -166 Weight 64.5 kg 64.2 kg Exam: Chest tube with no air leak CXR this am showed no pneumothorax Results Laboratory Results: 03/16/19 03:55 03/16/19 03:55 03/16/19 03/16/19 03:55 03:55 WBC 15.8 H RBC 3.32 L Hgb 8.4 L Hct 26.5 L MCV 80 MCH 25.2 L MCHC 31.7 L RDW 21.4 H Plt Count 191 Sodium 135.8 L Potassium 4.4 Chloride 106 Carbon Dioxide 24 Anion Gap 6 BUN 35 H Creatinine 1.28 H Est GFR ( Amer) > 60 Est GFR (Non-Af Amer) 55 L Glucose 141 H Calcium 8.1 L 03/13/19 18:15 Dooley Catheter Urine Culture - Final Yeast, Not Christianne Albicans 03/13/19 03/13/19 03/13/19 16:35 16:35 21:22 Creatine Kinase 21 L CK-MB (CK-2) 1.53 Troponin I 0.040 0.037 03/14/19 03/14/19 05:27 05:27 Creatine Kinase 34 L CK-MB (CK-2) 2.12 Troponin I 0.039 Impressions: Abdomen Ultrasound 03/13/19 19:08 IMPRESSION: 1. No acute findings 2. Gallbladder is contracted, although patient ate prior to the exam. No gallstones 3. No ductal distention. Chest X-Ray 03/16/19 06:00 IMPRESSION: . 1. No significant interval changes since the examination performed earlier on the same date, 03/15/2019. Right sided chest tube is again noted. No pneumothorax. 2. Low lung volumes and bilateral mid-lower lung airspace disease. Assessment & Plan - Time Time Spent with patient: 15-24 minutes - Plan Summary Plan Summary: Right chest tube pulled out Repeat CXR post chest tube removal
[2019-03-16] MEDS: LIDOCAINE 5% (700 MG) TRANSDERMAL ADH..PATCH TP SCH (09:30)
[2019-03-16] MEDS: MINERAL OIL/PETROLATUM,WHITE CREAM 114 GM TP SCH (09:30)
[2019-03-16] MEDS: AMLODIPINE BESYLATE 5 MG TABLET PO SCH (09:31)
[2019-03-16] MEDS: LISINOPRIL 10 MG TABLET PO SCH (09:31)
[2019-03-16] MEDS: METOPROLOL TARTRATE 50 MG TABLET PO SCH ×2 (09:31→21:12)
[2019-03-16] MEDS: ASPIRIN 81 MG TABLET, ENT COATED PO SCH (09:31)
[2019-03-16] MEDS: PREDNISONE 20 MG TABLET PO SCH (09:31)
[2019-03-16] MEDS: FLUTICASONE/VILANTEROL 200-25 MCG/DOSE IH SCH (09:32)
[2019-03-16] MEDS: FLUTICASONE NASAL SPRAY 50 MCG/SPRY 120 SPRAY/16 GM NASL SCH ×2 (09:32→21:12)
[2019-03-16] MEDS: ISOSORBIDE DINITRATE 20 MG TABLET PO SCH ×2 (09:33→21:12)
--- NOTE | 2019-03-16 10:06 | RADIOLOGY REPORT (SQ) ---
EXAM DESCRIPTION: CHEST SINGLE VIEW COMPLETED DATE/TIME: 03/16/2019 9:54 am REASON FOR STUDY: chest tube removal COMPARISON: 03/16/2019 EXAM PARAMETERS: NUMBER OF VIEWS: One view. TECHNIQUE: Single frontal radiographic view of the chest acquired. RADIATION DOSE: NA LIMITATIONS: None. FINDINGS: LUNGS AND PLEURA: Low lung volumes. Stable atelectasis/infiltrates in the mid-lower lung zones. Findings of emphysematous changes in the lungs suggested. Small bilateral pleural effusions . MEDIASTINUM AND HILAR STRUCTURES: No masses. Contour normal. HEART AND VASCULAR STRUCTURES: Heart normal in size. Normal vasculature. BONES: No acute findings. HARDWARE: Interval removal of right chest tube since the previous examination performed earlier on t he same date. Prior anterior median sternotomy. OTHER: No other significant finding. IMPRESSION: 1. Interval removal of right chest tube since examination performed earlier on the same date, 03/16/2019. 2. No other significant interval changes. TECHNICAL DOCUMENTATION: JOB ID: [id number] [employer]- All Rights Reserved Reading location - IP/workstation name: [email or web address]
--- NOTE | 2019-03-16 10:18 | PDOC PROGRESS REPORT ---
Subjective Progress Note for:: 03/16/19 Subjective:: Patient no acute distress. Had chest x-ray approximately an hour ago which shows the chest tube removed, and bilateral airspace disease but no evidence of pneumothorax. Reason For Visit: PNEUMOTHORAX PNEUMONIA Physical Exam Vital Signs: Temp Pulse Resp BP Pulse Ox 97.6 F 86 20 127/66 H 96 03/16/19 07:24 03/16/19 07:24 03/16/19 08:06 03/16/19 07:24 03/16/19 08:06 Intake & Output 03/15/19 03/16/19 03/17/19 06:59 06:59 06:59 Intake Total 1468 1074 Output Total 2082 1240 Balance -614 -166 Weight 64.5 kg 64.2 kg Results Laboratory Results: 03/16/19 03:55 03/16/19 03:55 03/16/19 03/16/19 03:55 03:55 WBC 15.8 H RBC 3.32 L Hgb 8.4 L Hct 26.5 L MCV 80 MCH 25.2 L MCHC 31.7 L RDW 21.4 H Plt Count 191 Sodium 135.8 L Potassium 4.4 Chloride 106 Carbon Dioxide 24 Anion Gap 6 BUN 35 H Creatinine 1.28 H Est GFR ( Amer) > 60 Est GFR (Non-Af Amer) 55 L Glucose 141 H Calcium 8.1 L 03/13/19 18:15 Dooley Catheter Urine Culture - Final Yeast, Not Christianne Albicans 03/13/19 03/13/19 03/13/19 16:35 16:35 21:22 Creatine Kinase 21 L CK-MB (CK-2) 1.53 Troponin I 0.040 0.037 03/14/19 03/14/19 05:27 05:27 Creatine Kinase 34 L CK-MB (CK-2) 2.12 Troponin I 0.039 Impressions: Abdomen Ultrasound 03/13/19 19:08 IMPRESSION: 1. No acute findings 2. Gallbladder is contracted, although patient ate prior to the exam. No gallstones 3. No ductal distention. Chest X-Ray 03/16/19 06:00 IMPRESSION: . 1. No significant interval changes since the examination performed earlier on the same date, 03/15/2019. Right sided chest tube is again noted. No pneumothorax. 2. Low lung volumes and bilateral mid-lower lung airspace disease. Assessment & Plan - Diagnosis (1) Pneumothorax on right Is this a current diagnosis for this admission?: Yes Plan: Impression: Status post right thoracostomy tube removal with maintain expansion of right lung Recommendations: 1. Patient may follow-up with PA at [facility] in approximately 1 week for suture removal 2. Please recontact surgery if needed.
[2019-03-16 14:26] LABS: PATH REVIEW PATHOLOGIST REVIEWED
--- NOTE | 2019-03-16 15:48 | PDOC PROGRESS REPORT ---
Subjective Progress Note for:: 03/16/19 Subjective:: CONCHA GRISSOM is a 74 year old male with a past medical history of coronary artery disease status post coronary artery bypass graft, COPD, chronic bronchitis and tobacco Dependence who was admitted 03/13/19 for acute hypoxemic respiratory failure and right-sided pneumothorax. The patient was seen on morning rounds. He is found resting in bed on supplemental oxygen via nasal cannula at 4 L/min. Patient reports frequent nonproductive cough with associated right chest wall pain; cough is worse but pain improved since removal of chest tube this morning. Overall, he is feeling improved and has no new complaints today. He asks for additional help at home; desires to d/c to home with nursing, PT/OT, and aide services. Agreeable to [facility] product demonstrator and [facility]'s transitions program. He denies fever, chills, chest pain, palpitations, orthopnea, abdominal pain, nausea vomiting or diarrhea. He has no other questions or concerns at this time. No concerns per nursing. Reason For Visit: PNEUMOTHORAX PNEUMONIA Physical Exam Vital Signs: Temp Pulse Resp BP Pulse Ox 97.2 F 94 18 98/47 L 100 03/16/19 11:17 03/16/19 14:00 03/16/19 11:17 03/16/19 11:19 03/16/19 11:19 Intake & Output 03/15/19 03/16/19 03/17/19 06:59 06:59 06:59 Intake Total 1468 1074 Output Total 2082 1240 625 Balance -118 -250 -492 Weight 64.5 kg 64.2 kg General appearance: PRESENT: no acute distress, cooperative, thin, well- developed, other - chronically ill appearing Head exam: PRESENT: atraumatic, normocephalic Eye exam: PRESENT: conjunctiva pink, EOMI, PERRLA. ABSENT: scleral icterus Mouth exam: PRESENT: moist, tongue midline Respiratory exam: PRESENT: decreased breath sounds - bibasilar, prolonged expiratory phas, rhonchi, symmetrical, wheezes, other - supplemental oxygen via NC. ABSENT: rales Cardiovascular exam: PRESENT: RRR. ABSENT: diastolic murmur, rubs, systolic murmur Pulses: PRESENT: normal dorsalis pedis pul Vascular exam: PRESENT: normal capillary refill GI/Abdominal exam: PRESENT: normal bowel sounds, soft. ABSENT: distended, guarding, mass, organolmegaly, rebound, tenderness Rectal exam: PRESENT: deferred Extremities exam: PRESENT: full ROM. ABSENT: calf tenderness, clubbing, pedal edema Neurological exam: PRESENT: alert, awake, oriented to person, oriented to place, oriented to time, oriented to situation, CN II-XII grossly intact. ABSENT: motor sensory deficit Psychiatric exam: PRESENT: appropriate affect, normal mood. ABSENT: homicidal ideation, suicidal ideation Skin exam: PRESENT: dry, warm, other - Chronic venous stasis changes BLE. ABSENT: cyanosis, rash Results Laboratory Results: 03/16/19 03:55 03/16/19 03:55 03/16/19 03/16/19 03:55 03:55 WBC 15.8 H RBC 3.32 L Hgb 8.4 L Hct 26.5 L MCV 80 MCH 25.2 L MCHC 31.7 L RDW 21.4 H Plt Count 191 Sodium 135.8 L Potassium 4.4 Chloride 106 Carbon Dioxide 24 Anion Gap 6 BUN 35 H Creatinine 1.28 H Est GFR ( Amer) > 60 Est GFR (Non-Af Amer) 55 L Glucose 141 H Calcium 8.1 L 03/13/19 18:15 Dooley Catheter Urine Culture - Final Yeast, Not Christianne Albicans 03/13/19 03/13/19 03/13/19 16:35 16:35 21:22 Creatine Kinase 21 L CK-MB (CK-2) 1.53 Troponin I 0.040 0.037 03/14/19 03/14/19 05:27 05:27 Creatine Kinase 34 L CK-MB (CK-2) 2.12 Troponin I 0.039 Impressions: Abdomen Ultrasound 03/13/19 19:08 IMPRESSION: 1. No acute findings 2. Gallbladder is contracted, although patient ate prior to the exam. No gallstones 3. No ductal distention. Chest X-Ray 03/16/19 06:00 IMPRESSION: . 1. No significant interval changes since the examination performed earlier on the same date, 03/15/2019. Right sided chest tube is again noted. No pneumothorax. 2. Low lung volumes and bilateral mid-lower lung airspace disease. Assessment and Plan - Diagnosis (1) Pneumothorax on right Is this a current diagnosis for this admission?: Yes Plan: Likely secondary to COPD/bleb; hx of Spontaneous pnx in the past. Chest tube placed; large amount of serosanguineous fluid was drained. Unfortunately if cell counts and cytology was not obtained prior to chest tube being discontinued and lower extreme being disposed of. If recurs; strongly recommend cytology to rule out malignancy and patient with prolonged tobacco use history. Will obtain contrasted CT of the chest today. Continue supplemental oxygen as needed to maintain saturations >89% Analgesics as needed. Incentive spirometer (2) Acute hypoxemic respiratory failure Is this a current diagnosis for this admission?: Yes Plan: Secondary to COPD exacerbation and Rt side pneumothorax. Now s/p chest tube placement and removal this morning. Continue supportive care with supplemental oxygen, scheduled and as needed nebulizer treatments, flutter valve, and incentive spirometry. (3) COPD (chronic obstructive pulmonary disease) Qualifiers: Emphysema type: panlobular Is this a current diagnosis for this admission?: Yes Plan: Improved; COPD exacerbation. Patient is placed on supplemental oxygen to maintain sats >89% (uses 3 lpm at baseline) He is provided scheduled and as needed nebulizer treatments. Prednisone 60 mg daily. Mucinex twice daily. Robitussin as needed. Continue home dose Brio. Flonase and chlorpheniramine. Incentive spirometer and flutter valve to bedside. (4) Chest wall pain Is this a current diagnosis for this admission?: Yes Plan: Improved. Right-sided chest wall pain secondary to right pneumothorax and chest tube placement. Trial Lidoderm patches with as needed Tylenol, Toradol, oxycodone. (5) Hypertension Qualifiers: Hypertension type: essential hypertension Qualified Code(s): I10 - Essential (primary) hypertension Is this a current diagnosis for this admission?: Yes Plan: Normotensive today. Continue home dose amlodipine. (6) Venous stasis dermatitis Qualifiers: Laterality: bilateral Qualified Code(s): I87.2 - Venous insufficiency (chronic) (peripheral) Is this a current diagnosis for this admission?: Yes Plan: IAN hose, elevation, and Eucerin cream daily. (7) Elevated liver enzymes Is this a current diagnosis for this admission?: Yes Plan: Ultrasound unremarkable LFTs today are improved - Time Time Spent with patient: 15-24 minutes Medications reviewed and adjusted accordingly: Yes Anticipated discharge: Home with Homehealth Within: within 48 hours - Plan Summary Plan Summary: Chest tube removed today; continue to monitor and manage COPD exacerbation. If pleural effusion reoccurs; recommend cell counts, C&S, and cytology. Anticipate d/c to home with home health services within 48-72 hours.
[2019-03-16] MEDS: TAMSULOSIN HCL 0.4 MG CAP.SR.24H PO SCH (17:28)
[2019-03-16] MEDS: CEFTRIAXONE SODIUM 1,000 MG in DEXTROSE 5%-WATER 50 ML IV SCH (17:28)
--- NOTE | 2019-03-16 17:38 | RADIOLOGY REPORT (SQ) ---
EXAM DESCRIPTION: CT CHEST WITH COMPLETED DATE/TIME: 03/16/2019 5:16 pm REASON FOR STUDY: pleural effusion, dyspnea, hypoxia COMPARISON: 03/01/2019 TECHNIQUE: CT scan of the chest performed using helical scanning technique with dynamic intravenous contrast injection. Images reviewed with lung, soft tissue and bone windows. Reconstructed coronal and sagittal MPR and MIP images reviewed. All images stored on PACS. All CT scanners at this facility use dose modulation, iterative reconstruction, and/or weight based d osing when appropriate to reduce radiation dose to as low as reasonably achievable (ALARA). [facility]: Dose Right [facility]: CareDose [facility]: Dose Right [facility]: Teradose 4D [facility]: [employer] CONTRAST TYPE AND DOSE: contrast/concentration: Isovue 350.00 mg/ml; Total Contrast Delivered: 80.0 ml; Total Saline Delivered: 55.0 ml RENAL FUNCTION: BUN 35 creatinine 1.28 RADIATION DOSE: CT Rad equipment meets quality standard of care and radiation dose reduction techniq ues were employed. CTDIvol: 11.0 mGy. DLP: 393 mGy-cm. . LIMITATIONS: None. FINDINGS: LUNGS AND PLEURA: Extensive paraseptal emphysematous changes. Peripheral pulmonary fibros is. Small pleural effusions are improved. There is minimal fluid on the left. There is considerabl e opacification in the lower lobes. This has increased on the right side. Air bronchograms are pres ent. HILAR AND MEDIASTINAL STRUCTURES: No identified masses or abnormal nodes. HEART AND VASCULAR STRUCTURES: No aneurysm or dissection. No central pulmonary emboli. No pericardi al effusion. HARDWARE: Sternotomy wires. UPPER ABDOMEN: No significant findings. Limited exam. THYROID AND OTHER SOFT TISSUES: No masses. No adenopathy. BONES: No significant finding. OTHER: No other significant finding. IMPRESSION: Extensive pulmonary emphysema and pulmonary fibrosis in a UIP pattern. Bilateral lower lobe pneumonias. Right more than left. Small residual left pleural effusion. TECHNICAL DOCUMENTATION: JOB ID: [id number] Quality ID # [id number]: Final reports with documentation of one or more dose reduction techniques (e.g., Au tomated exposure control, adjustment of the mA and/or kV according to patient size, use of iterative reconstruction technique) 2010 [employer]- All Rights Reserved Reading location - IP/workstation name: [email or web address]
[2019-03-16] MEDS: AZITHROMYCIN 500 MG in DEXTROSE 5%-WATER 250 ML IV SCH (21:11)
[2019-03-16] MEDS: GUAIFENESIN 600 MG TABLET.SA PO SCH (21:12)
[2019-03-16] MEDS: ATORVASTATIN CALCIUM 20 MG TABLET PO SCH (21:12)
[2019-03-17] MEDS: IPRATROPIUM/ALBUTEROL 0.5-2.5 MG/3 ML AMPUL NEB SCH ×3 (00:12→15:46)
[2019-03-17 03:21] LABS: HEMATOCRIT 25.1 % (37.9-51.0); HEMOGLOBIN 8.1 g/dL (13.5-17.0); MEAN CORPUSCULAR HEMOGLOBIN 25.2 pg (27.0-33.4); MEAN CORPUSCULAR HGB CONC 32.4 g/dL (32.0-36.0); MEAN CORPUSCULAR VOLUME 78 fl (80-97); PLATELET COUNT 215 10^3/uL (150-450); RED BLOOD COUNT 3.23 10^6/uL (4.35-5.55); RED CELL DISTRIBUTION WIDTH 21.7 % (11.5-14.0)
[2019-03-17 03:31] LABS: ALANINE AMINOTRANSFERASE 177 U/L (21-72); ALBUMIN 2.1 g/dL (3.5-5.0); ALKALINE PHOSPHATASE 84 U/L (38-126); ASPARTATE AMINO TRANSFERASE 102 U/L (17-59); BILIRUBIN,DIRECT 0.2 mg/dL (0.0-0.4); BILIRUBIN,TOTAL 0.2 mg/dL (0.2-1.3); BLOOD UREA NITROGEN 36 mg/dL (7-20); CALCIUM 8.2 mg/dL (8.4-10.2); GLUCOSE 76 mg/dL (75-110); POTASSIUM 4.5 mmol/L (3.6-5.0); TOTAL PROTEIN 4.6 g/dL (6.3-8.2)
[2019-03-17 03:56] LABS: ABSOLUTE LYMPHOCYTES# (MANUAL) 0.7 10^3/uL (0.5-4.7); ABSOLUTE MONOCYTES # (MANUAL) 0.3 10^3/uL (0.1-1.4); ABSOLUTE NEUTROPHILS# (MANUAL) 12.1 10^3/uL (1.7-8.2); BAND NEUTROPHILS % (MANUAL) 1 % (3-5); BASOPHILS % (MANUAL) 0 % (0-2); EOSINOPHILS % (MANUAL) 0 % (0-6); LYMPHOCYTES % (MANUAL) 5 % (13-45); METAMYELOCYTES % (MANUAL) 1 % (0); MONOCYTES % (MANUAL) 2 % (3-13); SEGMENTED NEUTROPHILS % (MAN) 91 % (42-78); TOTAL CELLS COUNTED 100
[2019-03-17 03:59] LABS: HYPOCHROMASIA SLIGHT; TOXIC GRANULATION 1+
[2019-03-17 04:00] LABS: ANISOCYTOSIS 3+; OVALOCYTES 2+; PLATELET COMMENT ADEQUATE; POIKILOCYTOSIS 2+; TEAR DROP CELLS SLIGHT
[2019-03-17 04:04] LABS: CARBON DIOXIDE 24 mmol/L (22-30); CHLORIDE 107 mmol/L (98-107); SODIUM 135.3 mmol/L (137-145)
[2019-03-17 04:05] LABS: ANION GAP 4 (5-19)
[2019-03-17] MEDS: HEPARIN SOD (PORCINE) 5,000 UNIT/ML 1 ML SYRINGE SUBCUT SCH ×3 (05:28→21:07)
[2019-03-17] MEDS: ISOSORBIDE DINITRATE 20 MG TABLET PO SCH ×2 (10:09→22:27)
[2019-03-17] MEDS: FLUTICASONE NASAL SPRAY 50 MCG/SPRY 120 SPRAY/16 GM NASL SCH ×2 (10:09→22:26)
[2019-03-17] MEDS: PREDNISONE 20 MG TABLET PO SCH (10:09)
[2019-03-17] MEDS: GUAIFENESIN 600 MG TABLET.SA PO SCH ×2 (10:09→22:27)
[2019-03-17] MEDS: METOPROLOL TARTRATE 50 MG TABLET PO SCH ×2 (10:09→22:27)
[2019-03-17] MEDS: FLUTICASONE/VILANTEROL 200-25 MCG/DOSE IH SCH (10:09)
[2019-03-17] MEDS: ASPIRIN 81 MG TABLET, ENT COATED PO SCH (10:10)
[2019-03-17] MEDS: MINERAL OIL/PETROLATUM,WHITE CREAM 114 GM TP SCH (10:10)
[2019-03-17] MEDS: LISINOPRIL 10 MG TABLET PO SCH (10:10)
[2019-03-17] MEDS: AMLODIPINE BESYLATE 5 MG TABLET PO SCH (10:10)
[2019-03-17] MEDS: LIDOCAINE 5% (700 MG) TRANSDERMAL ADH..PATCH TP SCH (10:11)
--- NOTE | 2019-03-17 15:09 | RADIOLOGY REPORT (SQ) ---
EXAM DESCRIPTION: CHEST SINGLE VIEW COMPLETED DATE/TIME: 03/17/2019 2:50 pm REASON FOR STUDY: PTX COMPARISON: 03/16/2019. EXAM PARAMETERS: NUMBER OF VIEWS: One view. TECHNIQUE: Single frontal radiographic view of the chest acquired. RADIATION DOSE: NA LIMITATIONS: None. FINDINGS: LUNGS AND PLEURA: Linear atelectasis/ scarring in the lung bases. Small right pleural eff usion. No pneumothorax. MEDIASTINUM AND HILAR STRUCTURES: No masses. Contour normal. HEART AND VASCULAR STRUCTURES: Heart normal in size. Normal vasculature. BONES: No acute findings. HARDWARE: Sternotomy wires. OTHER: No other significant finding. IMPRESSION: STABLE APPEARANCE OF THE CHEST. BASILAR ATELECTASIS/ SCARRING WITH SMALL RIGHT PLEURAL EFFUSION. NO PNEUMOTHORAX. TECHNICAL DOCUMENTATION: JOB ID: [id number] [employer]- All Rights Reserved Reading location - IP/workstation name: [email or web address]
--- NOTE | 2019-03-17 16:55 | PDOC PROGRESS REPORT ---
Subjective Progress Note for:: 03/17/19 Subjective:: COCNHA GRISSOM is a 74 year old male with a past medical history of coronary artery disease status post coronary artery bypass graft, COPD, chronic bronchitis and tobacco Dependence who was admitted 03/13/19 for acute hypoxemic respiratory failure and right-sided pneumothorax. Patient was seen this morning on rounds, he is resting in bed on supplemental O2 via nasal cannula. R sided chest tube removed yesterday by surgery. Patient denies shortness of breath, dyspnea this morning. Dressing over chest tube site is clean, dry and intact. Lung sounds are coarse to auscultation, but no evidence of rhonchi, crackles or wheezing. Medical staff has been recommending SNF but patient adamantly refuses. Patient states that he wants to go back home to his son and his pets. It was reported that the patient is living in deplorable conditions, minimal urine and feces within the home, cockroach infestation, family members smoking inside the home despite patient's advanced lung disease and requiring supplemental O2. Reason For Visit: PNEUMOTHORAX PNEUMONIA Physical Exam Vital Signs: Temp Pulse Resp BP Pulse Ox 97.4 F 77 22 H 101/42 L 100 03/17/19 11:54 03/17/19 11:54 03/17/19 11:54 03/17/19 11:54 03/17/19 11:54 Intake & Output 03/16/19 03/17/19 03/18/19 06:59 06:59 06:59 Intake Total 1074 300 436 Output Total 1240 1730 900 Balance -166 -6550 -464 Weight 64.2 kg 63.1 kg Results Laboratory Results: 03/17/19 02:38 03/17/19 02:38 03/17/19 03/17/19 02:38 02:38 WBC 13.0 H RBC 3.23 L Hgb 8.1 L Hct 25.1 L MCV 78 L MCH 25.2 L MCHC 32.4 RDW 21.7 H Plt Count 215 Seg Neutrophils % Not Reportable Lymphocytes % Not Reportable Monocytes % Not Reportable Eosinophils % Not Reportable Basophils % Not Reportable Absolute Neutrophils Not Reportable Absolute Lymphocytes Not Reportable Absolute Monocytes Not Reportable Absolute Eosinophils Not Reportable Absolute Basophils Not Reportable Sodium 135.3 L Potassium 4.5 Chloride 107 Carbon Dioxide 24 Anion Gap 4 L BUN 36 H Creatinine 1.27 H Est GFR ( Amer) > 60 Est GFR (Non-Af Amer) 55 L Glucose 76 Calcium 8.2 L Total Bilirubin 0.2 AST 102 H ALT 177 H Alkaline Phosphatase 84 Total Protein 4.6 L Albumin 2.1 L 03/13/19 03/13/19 03/13/19 16:35 16:35 21:22 Creatine Kinase 21 L CK-MB (CK-2) 1.53 Troponin I 0.040 0.037 03/14/19 03/14/19 05:27 05:27 Creatine Kinase 34 L CK-MB (CK-2) 2.12 Troponin I 0.039 Impressions: Abdomen Ultrasound 03/13/19 19:08 IMPRESSION: 1. No acute findings 2. Gallbladder is contracted, although patient ate prior to the exam. No gallstones 3. No ductal distention. Chest CT 03/16/19 00:00 IMPRESSION: Extensive pulmonary emphysema and pulmonary fibrosis in a UIP pattern. Bilateral lower lobe pneumonias. Right more than left. Small residual left pleural effusion. Assessment and Plan - Diagnosis (1) Pneumothorax on right Is this a current diagnosis for this admission?: Yes Plan: Chest tube removed yesterday Likely secondary to COPD/bleb; hx of Spontaneous pnx in the past. Chest tube placed; large amount of serosanguineous fluid was drained. Unfortunately if cell counts and cytology was not obtained prior to chest tube being discontinued If recurs; strongly recommend cytology to rule out malignancy and patient with prolonged tobacco use history. CTA done yesterday, shows bilateral lower lobe pneumonias, right more than left, small residual left pleural effusion. Continue supplemental oxygen as needed to maintain saturations >89% Analgesics as needed. Incentive spirometer (2) Acute hypoxemic respiratory failure Is this a current diagnosis for this admission?: Yes Plan: Secondary to COPD exacerbation and R side pneumothorax. Now s/p chest tube placement and removal. Continue supportive care with supplemental oxygen, scheduled and as needed nebulizer treatments, flutter valve, and incentive spirometry. (3) COPD (chronic obstructive pulmonary disease) Qualifiers: Emphysema type: panlobular Is this a current diagnosis for this admission?: Yes Plan: Improved; COPD exacerbation. Patient is placed on supplemental oxygen to maintain sats >89% (uses 3 lpm at baseline) He is provided scheduled and as needed nebulizer treatments. Prednisone 60 mg daily. Mucinex twice daily. Robitussin as needed. Continue home dose Brio. Flonase and chlorpheniramine. Incentive spirometer and flutter valve to bedside. (4) Chest wall pain Is this a current diagnosis for this admission?: Yes Plan: Improved. Right-sided chest wall pain secondary to right pneumothorax and chest tube placement. Lidoderm patches, Tylenol, Toradol, oxycodone. (5) Elevated liver enzymes Is this a current diagnosis for this admission?: Yes Plan: Ultrasound unremarkable LFTs slightly increased today (6) Hypertension Qualifiers: Hypertension type: essential hypertension Qualified Code(s): I10 - Essential (primary) hypertension Is this a current diagnosis for this admission?: Yes Plan: Normotensive today. Continue home dose amlodipine. (7) Venous stasis dermatitis Qualifiers: Laterality: bilateral Qualified Code(s): I87.2 - Venous insufficiency (chronic) (peripheral) Is this a current diagnosis for this admission?: Yes Plan: IAN hose, elevation, and Eucerin cream daily. - Time Time Spent with patient: 25-34 minutes Medications reviewed and adjusted accordingly: Yes Anticipated discharge: Home with Homehealth Within: within 48 hours - Inpatient Certification Based on my medical assessment, after consideration of the patient's comorbidities, presenting symptoms, or acuity I expect that the services needed warrant INPATIENT care.: Yes I certify that my determination is in accordance with my understanding of Medicare's requirements for reasonable and necessary INPATIENT services [42 CFR 412.3e].: Yes Medical Necessity: Significant Comorbidiites Make Outpatient Treatment Too Risky, Risk of Complication if Not Cared For in Hospital - Plan Summary Plan Summary: Patient is currently refusing assisted facility or acute rehab. Discussed at length with case management. Patient is of sound mind and if he chooses to return home, the medical staff has no choice but to oblige his wishes.
[2019-03-17] MEDS: TAMSULOSIN HCL 0.4 MG CAP.SR.24H PO SCH (17:55)
[2019-03-17] MEDS: CEFTRIAXONE SODIUM 1,000 MG in DEXTROSE 5%-WATER 50 ML IV SCH (17:55)
[2019-03-17] MEDS: AZITHROMYCIN 500 MG in DEXTROSE 5%-WATER 250 ML IV SCH (22:27)
[2019-03-17] MEDS: ATORVASTATIN CALCIUM 20 MG TABLET PO SCH (22:27)
[2019-03-18] MEDS: IPRATROPIUM/ALBUTEROL 0.5-2.5 MG/3 ML AMPUL NEB SCH ×3 (00:06→16:03)
[2019-03-18] MEDS: HEPARIN SOD (PORCINE) 5,000 UNIT/ML 1 ML SYRINGE SUBCUT SCH ×3 (06:23→21:21)
[2019-03-18] MEDS: FLUTICASONE/VILANTEROL 200-25 MCG/DOSE IH SCH (09:32)
[2019-03-18] MEDS: MINERAL OIL/PETROLATUM,WHITE CREAM 114 GM TP SCH (09:33)
[2019-03-18] MEDS: ISOSORBIDE DINITRATE 20 MG TABLET PO SCH ×2 (09:33→21:21)
[2019-03-18] MEDS: FLUTICASONE NASAL SPRAY 50 MCG/SPRY 120 SPRAY/16 GM NASL SCH ×2 (09:33→21:22)
[2019-03-18] MEDS: GUAIFENESIN 600 MG TABLET.SA PO SCH ×2 (09:34→21:21)
[2019-03-18] MEDS: PREDNISONE 20 MG TABLET PO SCH (09:34)
[2019-03-18] MEDS: METOPROLOL TARTRATE 50 MG TABLET PO SCH ×2 (09:34→21:21)
[2019-03-18] MEDS: AMLODIPINE BESYLATE 5 MG TABLET PO SCH (09:34)
[2019-03-18] MEDS: LISINOPRIL 10 MG TABLET PO SCH (09:34)
[2019-03-18] MEDS: ASPIRIN 81 MG TABLET, ENT COATED PO SCH (09:34)
[2019-03-18] MEDS: LIDOCAINE 5% (700 MG) TRANSDERMAL ADH..PATCH TP SCH (09:34)
[2019-03-18] MEDS: TAMSULOSIN HCL 0.4 MG CAP.SR.24H PO SCH (18:11)
[2019-03-18] MEDS: CEFTRIAXONE SODIUM 1,000 MG in DEXTROSE 5%-WATER 50 ML IV SCH (18:11)
[2019-03-18] MEDS: OXYCODONE HCL IR 5 MG TABLET PO PRN (20:50)
[2019-03-18] MEDS: ATORVASTATIN CALCIUM 20 MG TABLET PO SCH (21:21)
[2019-03-18] MEDS: AZITHROMYCIN 500 MG in DEXTROSE 5%-WATER 250 ML IV SCH (21:22)
--- NOTE | 2019-03-18 22:35 | PDOC PROGRESS REPORT ---
Subjective Progress Note for:: 03/18/19 Subjective:: CONCHA GRISSOM is a 74 year old male with a past medical history of coronary artery disease status post coronary artery bypass graft, COPD, chronic bronchitis and tobacco Dependence who was admitted 03/13/19 for acute hypoxemic respiratory failure and right-sided pneumothorax. Patient was seen this morning on rounds, he is resting in bed on supplemental O2 via nasal cannula. R sided chest tube removed 48hrs ago by surgery. Patient denies shortness of breath, dyspnea this morning. Dressing over chest tube site is clean, dry and intact. Lung sounds are coarse to auscultation, but no evidence of rhonchi, crackles or wheezing. Medical staff has been recommending SNF, patient is now agreeing to go to rehab knowing he only has to be there for 90 days. [facility] Will need to discuss chest tube follow up with surgeon prior to patient's discharge. Reason For Visit: PNEUMOTHORAX PNEUMONIA Physical Exam Vital Signs: Temp Pulse Resp BP Pulse Ox 97.2 F 98 20 119/103 H 96 03/18/19 19:20 03/18/19 19:20 03/18/19 19:20 03/18/19 19:20 03/18/19 19:20 Intake & Output 03/17/19 03/18/19 03/19/19 06:59 06:59 06:59 Intake Total 300 1445 1102 Output Total 1730 2140 1100 Balance -1430 -695 2 Weight 63.1 kg 62.7 kg General appearance: PRESENT: disheveled, thin Head exam: PRESENT: atraumatic Eye exam: PRESENT: PERRLA Mouth exam: PRESENT: moist Teeth exam: PRESENT: poor dentation Neck exam: PRESENT: full ROM Respiratory exam: PRESENT: clear to auscultation joyce, symmetrical, unlabored, other - requiring supplemental o2. ABSENT: rhonchi, wheezes Cardiovascular exam: PRESENT: RRR Pulses: PRESENT: normal radial pulses, normal dorsalis pedis pul Vascular exam: PRESENT: pallor GI/Abdominal exam: PRESENT: soft. ABSENT: distended, tenderness Rectal exam: PRESENT: deferred Extremities exam: ABSENT: full ROM Musculoskeletal exam: ABSENT: ambulatory, deformity, full ROM Neurological exam: PRESENT: alert, awake, oriented to person, oriented to place, oriented to time, oriented to situation Psychiatric exam: PRESENT: appropriate affect Skin exam: PRESENT: dry, intact, normal color Results Laboratory Results: 03/17/19 02:38 03/17/19 02:38 03/13/19 21:28 Blood Blood Culture - Final NO GROWTH IN 5 DAYS 03/13/19 19:25 Blood Blood Culture - Final NO GROWTH IN 5 DAYS 03/13/19 03/13/19 03/13/19 16:35 16:35 21:22 Creatine Kinase 21 L CK-MB (CK-2) 1.53 Troponin I 0.040 0.037 03/14/19 03/14/19 05:27 05:27 Creatine Kinase 34 L CK-MB (CK-2) 2.12 Troponin I 0.039 Impressions: Abdomen Ultrasound 03/13/19 19:08 IMPRESSION: 1. No acute findings 2. Gallbladder is contracted, although patient ate prior to the exam. No gallstones 3. No ductal distention. Chest CT 03/16/19 00:00 IMPRESSION: Extensive pulmonary emphysema and pulmonary fibrosis in a UIP pattern. Bilateral lower lobe pneumonias. Right more than left. Small residual left pleural effusion. Chest X-Ray 03/17/19 00:00 IMPRESSION: STABLE APPEARANCE OF THE CHEST. BASILAR ATELECTASIS/ SCARRING WITH SMALL RIGHT PLEURAL EFFUSION. NO PNEUMOTHORAX. Assessment and Plan - Diagnosis (1) Pneumothorax on right Is this a current diagnosis for this admission?: Yes Plan: Chest tube removed 48hrs ago Likely secondary to COPD/bleb; hx of Spontaneous pnx in the past. Chest tube placed; large amount of serosanguineous fluid was drained. Unfortunately if cell counts and cytology was not obtained prior to chest tube being discontinued If recurs; strongly recommend cytology to rule out malignancy and patient with prolonged tobacco use history. CTA shows bilateral lower lobe pneumonias, right more than left, small residual left pleural effusion. Continue supplemental oxygen as needed to maintain saturations >89% Analgesics as needed. Incentive spirometer Significant about of drainage from old chest tube insertion site. Will discuss with surgeon if patient is appropriate for discharge (2) Acute hypoxemic respiratory failure Is this a current diagnosis for this admission?: Yes Plan: Secondary to COPD exacerbation and R side pneumothorax. Now s/p chest tube placement and removal. Continue supportive care with supplemental oxygen, scheduled and as needed nebulizer treatments, flutter valve, and incentive spirometry. (3) COPD (chronic obstructive pulmonary disease) Qualifiers: Emphysema type: panlobular Is this a current diagnosis for this admission?: Yes Plan: Improved; COPD exacerbation. Patient is placed on supplemental oxygen to maintain sats >89% (uses 3 lpm at baseline) He is provided scheduled and as needed nebulizer treatments. Prednisone 60 mg daily. Mucinex twice daily. Robitussin as needed. Continue home dose Brio. Flonase and chlorpheniramine. Incentive spirometer and flutter valve to bedside. (4) Chest wall pain Is this a current diagnosis for this admission?: Yes Plan: Improved. Right-sided chest wall pain secondary to right pneumothorax and chest tube placement. Lidoderm patches, Tylenol, Toradol, oxycodone. (5) Elevated liver enzymes Is this a current diagnosis for this admission?: Yes Plan: Ultrasound unremarkable LFTs slightly increased today (6) Hypertension Qualifiers: Hypertension type: essential hypertension Qualified Code(s): I10 - Essential (primary) hypertension Is this a current diagnosis for this admission?: Yes Plan: Normotensive today. Continue home dose amlodipine. (7) Venous stasis dermatitis Qualifiers: Laterality: bilateral Qualified Code(s): I87.2 - Venous insufficiency (chronic) (peripheral) Is this a current diagnosis for this admission?: Yes Plan: IAN hose, elevation, and Eucerin cream daily. - Time Time Spent with patient: 15-24 minutes Medications reviewed and adjusted accordingly: Yes Anticipated discharge: Acute Rehab Within: within 24 hours - Inpatient Certification Based on my medical assessment, after consideration of the patient's comorbidities, presenting symptoms, or acuity I expect that the services needed warrant INPATIENT care.: Yes I certify that my determination is in accordance with my understanding of [facility]'s requirements for reasonable and necessary INPATIENT services [42 CFR 412.3e].: Yes
[2019-03-19] MEDS: ACETAMINOPHEN 325 MG TABLET PO PRN ×2 (00:07→05:47)
[2019-03-19] MEDS: IPRATROPIUM/ALBUTEROL 0.5-2.5 MG/3 ML AMPUL NEB SCH ×4 (00:27→23:53)
[2019-03-19] MEDS: HEPARIN SOD (PORCINE) 5,000 UNIT/ML 1 ML SYRINGE SUBCUT SCH ×3 (05:44→21:50)
[2019-03-19] MEDS: FLUTICASONE NASAL SPRAY 50 MCG/SPRY 120 SPRAY/16 GM NASL SCH ×2 (09:09→21:50)
[2019-03-19] MEDS: FLUTICASONE/VILANTEROL 200-25 MCG/DOSE IH SCH (09:10)
[2019-03-19] MEDS: MINERAL OIL/PETROLATUM,WHITE CREAM 114 GM TP SCH (09:11)
[2019-03-19] MEDS: LIDOCAINE 5% (700 MG) TRANSDERMAL ADH..PATCH TP SCH (09:11)
[2019-03-19] MEDS: LISINOPRIL 10 MG TABLET PO SCH (09:13)
[2019-03-19] MEDS: ASPIRIN 81 MG TABLET, ENT COATED PO SCH (09:13)
[2019-03-19] MEDS: METOPROLOL TARTRATE 50 MG TABLET PO SCH ×2 (09:13→21:49)
[2019-03-19] MEDS: GUAIFENESIN 600 MG TABLET.SA PO SCH (09:13)
[2019-03-19] MEDS: ISOSORBIDE DINITRATE 20 MG TABLET PO SCH ×2 (09:13→21:49)
[2019-03-19] MEDS: PREDNISONE 20 MG TABLET PO SCH (09:14)
[2019-03-19] MEDS: AMLODIPINE BESYLATE 5 MG TABLET PO SCH (09:14)
--- NOTE | 2019-03-19 12:01 | RADIOLOGY REPORT (SQ) ---
EXAM DESCRIPTION: CHEST 2 VIEWS COMPLETED DATE/TIME: 03/19/2019 11:39 am REASON FOR STUDY: eval for pleural effusion COMPARISON: 03/17/2019 NUMBER OF VIEWS: Two view TECHNIQUE: Frontal and lateral radiographic images of the chest acquired. LIMITATIONS: None. FINDINGS: LUNGS AND PLEURA: Stable appearance. MEDIASTINUM AND HILAR STRUCTURES: Stable heart size and mediastinal structures. HEART AND VASCULAR STRUCTURES: Stable appearance. BONES: No acute findings. HARDWARE: None in the chest. OTHER: No other significant finding. IMPRESSION: STABLE APPEARANCE OF THE CHEST. TECHNICAL DOCUMENTATION: JOB ID: [id number] [employer]- All Rights Reserved Reading location - IP/workstation name: [email or web address]
[2019-03-19] MEDS ORDERED: LIDOCAINE 1% INJ-PF (10 MG/ML) 30 ML SDV ONE (14:23)
--- NOTE | 2019-03-19 15:59 | OPERATIVE REPORT E ---
Operative Report NAME: CONCHA GRISSOM : 1945 AGE: 74Y DATE OF SURGERY: 03/19/2019 ROOM: 303 PREOPERATIVE DIAGNOSIS: LEAKING RIGHT CHEST TUBE SITE. POSTOPERATIVE DIAGNOSIS: LEAKING RIGHT CHEST TUBE SITE. PROCEDURE: Suture closure of old right chest tube site. SURGEON: GLADYS PERDOMO M.D. ANESTHESIA: Local. INDICATION: This 74-year-old male who had a chest tube inserted on 03/14/19, for spontaneous right pneumothorax. The pneumothorax resolved and the chest tube removed on 03/16/19. However, for the past few days the patient has been leaking a lot of fluid from the chest tube site. DESCRIPTION OF PROCEDURE: The patient was placed in the left lateral decubitus position with the right side up. The area around the chest tube site was then prepped and draped in the usual sterile fashion. There is a small amount of fluid whenever he coughs or takes a real deep breath along the old chest tube site. The area was subsequently anesthetized with 1% Xylocaine and 2 [id number] sutures using 2-0 Prolene were used to close the defect. A sterile dressing was placed over the operative site. The patient tolerated the procedure well. DICTATING PHYSICIAN: GLADYS PERDOMO M.D. [id number] PHY#: [id number] ID: [id number] JOB#: [id number] ACCT: [id number] cc:GLADYS PERDOMO M.D. >
--- NOTE | 2019-03-19 17:18 | PDOC PROGRESS REPORT ---
Subjective Progress Note for:: 03/19/19 Subjective:: CONCHA GRISSOM is a 74 year old male with a past medical history of coronary artery disease status post coronary artery bypass graft, COPD, chronic bronchitis and tobacco Dependence who was admitted 03/13/19 for acute hypoxemic respiratory failure and right-sided pneumothorax. Patient was seen this morning on rounds, he is resting in bed on supplemental O2 via nasal cannula. R sided chest tube removed 48hrs ago by surgery. Patient denies shortness of breath, dyspnea this morning. Dressing over chest tube site is clean, dry and intact but is needed to be changed by nursing staff twice per shift. Notified surgery who requested a CXR. Relatively unchanged from yesterday. Small RLL chronic pleural effusion. Dr. Skinner at bedside to suture close the chest tube incision. Plan to monitor patient for 24 hours. Will send to primary tomorrow barring any complications. Reason For Visit: PNEUMOTHORAX PNEUMONIA Physical Exam Vital Signs: Temp Pulse Resp BP Pulse Ox 97.3 F 88 16 116/60 100 03/19/19 14:29 03/19/19 16:27 03/19/19 16:27 03/19/19 14:29 03/19/19 16:27 Intake & Output 03/18/19 03/19/19 03/20/19 06:59 06:59 06:59 Intake Total 1445 1929 Output Total 2140 1800 Balance -695 129 Weight 62.7 kg 61.8 kg General appearance: PRESENT: thin Head exam: PRESENT: atraumatic Eye exam: PRESENT: conjunctiva pink, PERRLA Mouth exam: PRESENT: tongue midline Teeth exam: PRESENT: poor dentation Neck exam: PRESENT: full ROM Respiratory exam: PRESENT: clear to auscultation joyce, symmetrical. ABSENT: retraction, unlabored - requiring supplemental O2. sometimes pauses to catch breath mid-sentence Cardiovascular exam: PRESENT: RRR Pulses: PRESENT: normal radial pulses, normal dorsalis pedis pul Vascular exam: PRESENT: normal capillary refill GI/Abdominal exam: PRESENT: normal bowel sounds, soft. ABSENT: distended, tenderness Rectal exam: PRESENT: deferred Extremities exam: ABSENT: full ROM, pedal edema Musculoskeletal exam: PRESENT: deformity. ABSENT: ambulatory, full ROM, normal inspection Neurological exam: PRESENT: alert, awake, oriented to person, oriented to place, oriented to time, oriented to situation Psychiatric exam: PRESENT: appropriate affect Skin exam: PRESENT: dry, intact, normal color Results Laboratory Results: 03/17/19 02:38 03/17/19 02:38 03/13/19 21:28 Blood Blood Culture - Final NO GROWTH IN 5 DAYS 03/13/19 19:25 Blood Blood Culture - Final NO GROWTH IN 5 DAYS 03/13/19 03/13/19 03/13/19 16:35 16:35 21:22 Creatine Kinase 21 L CK-MB (CK-2) 1.53 Troponin I 0.040 0.037 03/14/19 03/14/19 05:27 05:27 Creatine Kinase 34 L CK-MB (CK-2) 2.12 Troponin I 0.039 Impressions: Abdomen Ultrasound 03/13/19 19:08 IMPRESSION: 1. No acute findings 2. Gallbladder is contracted, although patient ate prior to the exam. No gallstones 3. No ductal distention. Chest CT 03/16/19 00:00 IMPRESSION: Extensive pulmonary emphysema and pulmonary fibrosis in a UIP pattern. Bilateral lower lobe pneumonias. Right more than left. Small residual left pleural effusion. Chest X-Ray 03/19/19 00:00 IMPRESSION: STABLE APPEARANCE OF THE CHEST. Status: Imported from PACS Assessment and Plan - Diagnosis (1) Pneumothorax on right Is this a current diagnosis for this admission?: Yes Plan: Chest tube removed 3 DAYS ago Likely secondary to COPD/bleb; hx of Spontaneous pnx in the past. Chest tube placed; large amount of serosanguineous fluid was drained. Unfortunately if cell counts and cytology was not obtained prior to chest tube being discontinued If recurs; strongly recommend cytology to rule out malignancy and patient with prolonged tobacco use history. CTA shows bilateral lower lobe pneumonias, right more than left, small residual left pleural effusion. Continue supplemental oxygen as needed to maintain saturations >89% Analgesics as needed. Incentive spirometer Significant about of drainage from old chest tube insertion site. Dr. Whitley at bedside today to close the wound with sutures. Will monitor patient for 24 hours. If respiratory status remains stable, will send to [facility] tomorrow. (2) Acute hypoxemic respiratory failure Is this a current diagnosis for this admission?: Yes Plan: Secondary to COPD exacerbation and R side pneumothorax. Now s/p chest tube placement and removal. Continue supportive care with supplemental oxygen, scheduled and as needed nebulizer treatments, flutter valve, and incentive spirometry. (3) COPD (chronic obstructive pulmonary disease) Qualifiers: Emphysema type: panlobular Is this a current diagnosis for this admission?: Yes Plan: Improved; COPD exacerbation. Patient is placed on supplemental oxygen to maintain sats >89% (uses 3 lpm at baseline) He is provided scheduled and as needed nebulizer treatments. Prednisone 60 mg daily, will wean to 40 mg daily. Robitussin as needed. Continue home dose Brio. Flonase and chlorpheniramine. Incentive spirometer and flutter valve to bedside. (4) Chest wall pain Is this a current diagnosis for this admission?: Yes Plan: Improved. Right-sided chest wall pain secondary to right pneumothorax and chest tube placement. Lidoderm patches, Tylenol, Toradol, oxycodone. (5) Elevated liver enzymes Is this a current diagnosis for this admission?: Yes Plan: Ultrasound unremarkable LFTs slightly increased today (6) Hypertension Qualifiers: Hypertension type: essential hypertension Qualified Code(s): I10 - Essential (primary) hypertension Is this a current diagnosis for this admission?: Yes Plan: Normotensive today. Continue home dose amlodipine. (7) Venous stasis dermatitis Qualifiers: Laterality: bilateral Qualified Code(s): I87.2 - Venous insufficiency (chronic) (peripheral) Is this a current diagnosis for this admission?: Yes Plan: IAN hose, elevation, and Eucerin cream daily. - Time Time Spent with patient: 15-24 minutes Medications reviewed and adjusted accordingly: Yes Anticipated discharge: SNF Within: within 24 hours - Inpatient Certification Based on my medical assessment, after consideration of the patient's comorbidities, presenting symptoms, or acuity I expect that the services needed warrant INPATIENT care.: Yes I certify that my determination is in accordance with my understanding of Medicare's requirements for reasonable and necessary INPATIENT services [42 CFR 412.3e].: Yes Medical Necessity: Risk of Complication if Not Cared For in Hospital - Plan Summary Plan Summary: CXR IN AM. IF PATIENT DOES NOT HAVE INTERVAL DEVELOPMENT OF R PLEURAL EFFUSION, MAY GO TO [facility]
[2019-03-19] MEDS: TAMSULOSIN HCL 0.4 MG CAP.SR.24H PO SCH (17:43)
[2019-03-19] MEDS: CEFTRIAXONE SODIUM 1,000 MG in DEXTROSE 5%-WATER 50 ML IV SCH (17:43)
[2019-03-19] MEDS: ATORVASTATIN CALCIUM 20 MG TABLET PO SCH (21:49)
[2019-03-19] MEDS: AZITHROMYCIN 500 MG in DEXTROSE 5%-WATER 250 ML IV SCH (21:50)
[2019-03-20] MEDS: HEPARIN SOD (PORCINE) 5,000 UNIT/ML 1 ML SYRINGE SUBCUT SCH ×2 (06:06→13:39)
[2019-03-20] MEDS: IPRATROPIUM/ALBUTEROL 0.5-2.5 MG/3 ML AMPUL NEB SCH ×2 (08:04→15:52)
--- NOTE | 2019-03-20 08:34 | RADIOLOGY REPORT (SQ) ---
EXAM DESCRIPTION: CHEST SINGLE VIEW COMPLETED DATE/TIME: 03/20/2019 7:56 am REASON FOR STUDY: EVAL FOR R PLEURAL EFFUSION COMPARISON: CT chest 03/16/2019 Chest films 03/17/2019, 03/19/2019, 03/15/2010 EXAM PARAMETERS: NUMBER OF VIEWS: One view. TECHNIQUE: Single frontal radiographic view of the chest acquired. RADIATION DOSE: NA LIMITATIONS: None. FINDINGS: LUNGS AND PLEURA: There is bibasilar consolidation likely atelectasis. Pneumonia could no t be excluded. This is stable compared to the prior studies. No pleural effusion. No pneumothorax. Upper lobes are hyperlucent and hyperinflated from obstructive lung disease. MEDIASTINUM AND HILAR STRUCTURES: No masses. Contour normal. HEART AND VASCULAR STRUCTURES: Heart normal in size. Old CABG. BONES: No acute findings. HARDWARE: None in the chest. OTHER: No other significant finding. IMPRESSION: Obstructive lung disease with hyperinflated upper lobes. Bibasilar bandlike airspace disease atelectasis versus pneumonia, similar compared to the previous ex ams TECHNICAL DOCUMENTATION: JOB ID: [id number] [employer]- All Rights Reserved Reading location - IP/workstation name: [email or web address]
[2019-03-20] MEDS ORDERED: FUROSEMIDE INJ/PF 20 MG/2 ML SDV IV ONE (09:15)
[2019-03-20] MEDS: FLUTICASONE NASAL SPRAY 50 MCG/SPRY 120 SPRAY/16 GM NASL SCH (09:23)
[2019-03-20] MEDS: ASPIRIN 81 MG TABLET, ENT COATED PO SCH (09:23)
[2019-03-20] MEDS: METOPROLOL TARTRATE 50 MG TABLET PO SCH (09:23)
[2019-03-20] MEDS: AMLODIPINE BESYLATE 5 MG TABLET PO SCH (09:23)
[2019-03-20] MEDS: LISINOPRIL 10 MG TABLET PO SCH (09:23)
[2019-03-20] MEDS: LIDOCAINE 5% (700 MG) TRANSDERMAL ADH..PATCH TP SCH (09:24)
[2019-03-20] MEDS: FLUTICASONE/VILANTEROL 200-25 MCG/DOSE IH SCH (09:24)
[2019-03-20] MEDS: ISOSORBIDE DINITRATE 20 MG TABLET PO SCH (09:25)
[2019-03-20] MEDS: MINERAL OIL/PETROLATUM,WHITE CREAM 114 GM TP SCH (09:26)
[2019-03-20] MEDS ORDERED: PREDNISONE 20 MG TABLET PO SCH (10:00)
--- NOTE | 2019-03-20 15:10 | PDOC TRANSFER SUMMARY ---
General - Admit/Disc Date/PCP Admission Date/Primary Care Provider: 03/13/19 20:22 JENISE PRICE, Discharge Date: 03/20/19 - Discharge Diagnosis (1) Pneumothorax on right Is this a current diagnosis for this admission?: Yes (2) Acute hypoxemic respiratory failure Is this a current diagnosis for this admission?: Yes (3) COPD (chronic obstructive pulmonary disease) Is this a current diagnosis for this admission?: Yes (4) Chest wall pain Is this a current diagnosis for this admission?: Yes (5) Elevated liver enzymes Is this a current diagnosis for this admission?: Yes (6) Hypertension Is this a current diagnosis for this admission?: Yes (7) Venous stasis dermatitis Is this a current diagnosis for this admission?: Yes - Additional Information Resuscitation Status: Full Code Discharge Diet: As Tolerated Prescriptions: Transition To Wellness [Transition to Wellness Program] 1 each ASDIR PRN #1 each PRN Reason: Home Medications: Amlodipine Besylate [Norvasc 5 mg Tablet] 5 mg PO DAILY 03/14/19 Transition To Wellness [Transition to Wellness Program] 1 each ASDIR PRN #1 each 03/16/19 Acetaminophen [Tylenol 325 mg Tablet] 650 mg PO Q6HP PRN tablet 03/20/19 Amlodipine Besylate [Norvasc 5 mg Tablet] 5 mg PO DAILY tablet 03/20/19 Aspirin [Ecotrin 81 mg EC Tablet] 81 mg PO DAILY tabec 03/20/19 Atorvastatin Calcium [Lipitor 20 mg Tablet] 20 mg PO QHS tablet 03/20/19 Fluticasone Propionate [Flonase Nasal [place] 50 Mcg/[place] 16 gm] 2 spray NASL Q12 spray.pump 03/20/19 Fluticasone/Vilanterol [Breo 200-25 Mcg Ellipta 14 Dose/Dpi] 1 inh IH DAILY inhaler 03/20/19 Guaifenesin [Robitussin Syrup 200 mg/10 ml Ud Cup] 200 mg PO Q4HP PRN udc 03/20/19 Isosorbide Dinitrate [Isordil Titradose 20 mg Tablet] 20 mg PO Q12 tablet 03/20/19 Lisinopril [Prinivil 10 mg Tablet] 10 mg PO DAILY tablet 03/20/19 Metoprolol Tartrate [Lopressor 50 mg Tablet] 50 mg PO Q12 tablet 03/20/19 Mineral Oil/Petrolatum,White [Eucerin Cream 114 gm] 1 applic TP DAILY jar 03/20/19 History of Present Illness Admission Date/PCP: 03/13/19 20:22 JENISE PRICE DO Patient complains of: SOB History of Present Illness: CONCHA GRISSOM is a 74 year old male with a past medical history of coronary artery disease status post coronary artery bypass graft, COPD, chronic bronchitis and tobacco Dependence. Discharged from [facility] for COPD exacerbation secondary to pneumonia 7 days ago. He presents following a [employer] evaluation at home when he reveals 3 days of chest pain. EMS finds him with persistent right-sided chest pain, tachycardia, hypoxia and respiratory distress. He is brought to the emergency room for evaluation where he is found to have a moderate right-sided pneumothorax and leukocytosis in addition to the above. Surgery is consulted for chest tube placement and is referred to the hospitalist for admission. Patient admits to previous spontaneous pneumothorax, denies fall or trauma. Hospital Course Hospital Course: CONCHA GRISSOM is a 74 year old male with a past medical history of coronary artery disease status post coronary artery bypass graft, COPD, chronic bronchitis and tobacco Dependence who was admitted 03/13/19 for acute hypoxemic respiratory failure and right-sided pneumothorax. Surgery placed a R chest tube. There was successful resolution of the patient's pneumothorax. 3 days later, the chest tube was removed. The patient experienced a moderate amount of serosanguineous drainage over the course of the next 48 hours from the chest tube insertion site. Repeat chest x-ray showed small RLL pleural effusion. Patient was offered diuretics for the effusion. The chest tube insertion site was sutured closed by surgery. The patient is now back to his baseline state of health, which includes 2LNC supplemental oxygen via nasal cannula at all times, maximum assist to get out of bed, use of motorized wheelchair for mobility. Patient has undergone a number of recent hospitalizations for various pulmonary complaints. The patient states he lives in a mobile home with his family, who still smoke inside the home. Additionally, EMS reports deplorable living conditions (animal feces and urine, cockroaches) within the home. Patient could benefit from inpatient rehab services. Plan to send to [place]. The patient will require a follow up visit to the [facility] in 10 days for suture removal. Physical Exam Vital Signs: Temp Pulse Resp BP Pulse Ox 97.8 F 98 18 95/45 L 97 03/20/19 11:18 03/20/19 14:00 03/20/19 11:18 03/20/19 11:18 03/20/19 11:18 Intake & Output 03/19/19 03/20/19 03/21/19 06:59 06:59 06:59 Intake Total 1929 1009 Output Total 1800 1275 Balance 129 -266 Weight 61.8 kg 62.4 kg General appearance: PRESENT: disheveled, thin Eye exam: PRESENT: conjunctiva pink, PERRLA Mouth exam: PRESENT: moist, tongue midline Teeth exam: PRESENT: poor dentation Respiratory exam: PRESENT: clear to auscultation joyce, symmetrical, unlabored Cardiovascular exam: PRESENT: RRR Pulses: PRESENT: normal radial pulses, normal dorsalis pedis pul GI/Abdominal exam: PRESENT: soft. ABSENT: distended, tenderness Rectal exam: PRESENT: deferred Extremities exam: PRESENT: full ROM. ABSENT: pedal edema Musculoskeletal exam: PRESENT: deformity - FEET ARE DEFORMED. HX OF . ABSENT: ambulatory, full ROM, normal inspection Neurological exam: PRESENT: alert, awake, oriented to person, oriented to place, oriented to time, oriented to situation Psychiatric exam: PRESENT: appropriate affect Skin exam: PRESENT: dry, intact, normal color Results Laboratory Results: 03/17/19 02:38 03/17/19 02:38 03/13/19 03/13/19 03/13/19 16:35 16:35 21:22 Creatine Kinase 21 L CK-MB (CK-2) 1.53 Troponin I 0.040 0.037 03/14/19 03/14/19 05:27 05:27 Creatine Kinase 34 L CK-MB (CK-2) 2.12 Troponin I 0.039 Impressions: Abdomen Ultrasound 03/13/19 19:08 IMPRESSION: 1. No acute findings 2. Gallbladder is contracted, although patient ate prior to the exam. No gallstones 3. No ductal distention. Chest CT 03/16/19 00:00 IMPRESSION: Extensive pulmonary emphysema and pulmonary fibrosis in a UIP pattern. Bilateral lower lobe pneumonias. Right more than left. Small residu al left pleural effusion. Chest X-Ray 03/20/19 06:00 IMPRESSION: Obstructive lung disease with hyperinflated upper lobes. Bibasilar bandlike airspace disease atelectasis versus pneumonia, similar compared to the previous exams Status: Imported from PACS Transfer Plan - Disposition Transfer Plan: SEND TO [facility] Qualifiers - * PATIENT BEING DISCHARGED WITH ANY OF THE FOLLOWING DIAGNOSIS: No
[2019-03-20 17:54] VITALS: BP 113/48
== END 2019-03-20 17:57 | DRG 199 ==
LOC: ER 16:29 → EH 20:22 → 3N 22:10
PROVIDERS: ADMIT Internal Medicine; ATTEND Internal Medicine
PROC: 0W9930Z Drainage of Right Pleural Cavity with Drainage Device, Percutaneous Approach (ICD-10-PCS; principal; 2019-03-13)
PROC: 3E0F73Z Introduction of Anti-inflammatory into Respiratory Tract, Via Natural or Artificial Opening (ICD-10-PCS; 2019-03-13)
PROC: 0HQ5XZZ Repair Chest Skin, External Approach (ICD-10-PCS; 2019-03-19)
DX: J93.83 Other pneumothorax (principal); J96.01 Acute respiratory failure with hypoxia; J90 Pleural effusion, not elsewhere classified; J43.1 Panlobular emphysema; L76.82 Other postprocedural complications of skin and subcutaneous tissue; R74.8 Abnormal levels of other serum enzymes; I25.10 Atherosclerotic heart disease of native coronary artery without angina pectoris; Z95.1 Presence of aortocoronary bypass graft; I10 Essential (primary) hypertension; I87.2 Venous insufficiency (chronic) (peripheral); Z87.891 Personal history of nicotine dependence; Z90.49 Acquired absence of other specified parts of digestive tract; Z59.8 Other problems related to housing and economic circumstances
CPT/HCPCS: 36415; 71045; 71046; 71260; 76705; 80048; 80053; 81001; 82550; 82553; 82803; 83605; 84484; 85025; 85027; 85610; 85730; 87040; 87086; 93005; 93010; 94667; 94668; 94799; 96365; 96375; 99285; J0456; J0696; J1644; J1940; J2270; J3490; J7030; J7060; J7512; J7620

== ENCOUNTER 2019-09-30 08:14 | Day surgery (SDC) | payer MEDICARE, MEDICAID ==
[2019-09-30] MEDS ORDERED: PROPOFOL INJ 200 MG/20 ML VIAL IV ONE (08:59)
[2019-09-30] MEDS ORDERED: FENTANYL CITRATE INJ/PF 100 MCG/2 ML AMPUL IV PRN ×3 (10:51)
[2019-09-30] MEDS ORDERED: PROMETHAZINE HCL INJ 25 MG/1 ML VIAL IV PRN (10:51)
[2019-09-30] MEDS ORDERED: DIPHENHYDRAMINE HCL 50 MG/ML VIAL IV PRN (10:51)
--- NOTE | 2019-09-30 11:59 | Operative Report ---
Operative Report DATE OF SURGERY: 09/30/19 Operative Report: The risks, benefits and alternatives of the procedure including the risk of bleeding, perforation requiring surgery have been explained to the patient in detail and informed consent has been obtained. The patient was placed in the left, lateral decubital position. Timeout was called. Propofol medication is administered. Rectal examination is done which did not reveal any masses, tears or fissures. An Olympus videoscope was introduced into the patient's rectum. The scope was then carefully advanced all the way to the cecum. The cecum was identified by the usual anatomical landmarks including the ileocecal valve as well as the appendiceal office. Photodocumentation is obtained. Scope was then sequentially pulled back via the various segments of the colon including the ascending colon, hepatic flexure, transverse colon, splenic flexure, descending colon finding to the rectosigmoid portions of the colon. Retroflexion maneuver is performed. The risks benefits and alternatives of the procedure explained to the patient in detail and informed consent is obtained.A GIF Olympus video scope was inserted into the patient's mouth and hypopharynx, the esophagus is identified intubated and insufflated, the scope was then advanced through the esophagus stomach and duodenum ,retroflexion maneuver is done ,the esophagus stomach and first and second portions of the duodenum examined. PREOPERATIVE DIAGNOSIS: Iron deficiency anemia rule out GI bleeding POSTOPERATIVE DIAGNOSIS: Normal colonoscopy to the cecum. Intubation of the terminal ileum is normal. No bleeding noted in the colon. Diverticulosis. Internal hemorrhoids. Gastritis status post biopsy. Random biopsies taken in the colon rule out lymphocytic colitis. No upper GI bleeding OPERATION: Colonoscopy with biopsy. EGD with biopsy SURGEON: CHUY LUI ANESTHESIA: LMAC TISSUE REMOVED OR ALTERED: As noted above. COMPLICATIONS: None. ESTIMATED BLOOD LOSS: None. INTRAOPERATIVE FINDINGS: As noted above. PROCEDURE: Patient tolerated the procedure well. No immediate postprocedure complications are noted. Patient is discharged in good condition. Discharge date 09/30/2019. Discharge diet: Regular. Discharge activity: Regular. 2 to 3-week follow-up to discuss findings. Patient is instructed to call the office or proceed to the emergency room should there be any further problems or questions. Wait on the pathology.
[2019-09-30 14:15] VITALS: BP 130/75
== END 2019-09-30 13:00 ==
LOC: OROUT 08:14
PROVIDERS: ATTEND Internal Medicine Gastroenterology
DX: D50.0 Iron deficiency anemia secondary to blood loss (chronic) (principal); K29.50 Unspecified chronic gastritis without bleeding; I25.10 Atherosclerotic heart disease of native coronary artery without angina pectoris; K21.9 Gastro-esophageal reflux disease without esophagitis; J44.9 Chronic obstructive pulmonary disease, unspecified; G80.9 Cerebral palsy, unspecified; I11.0 Hypertensive heart disease with heart failure; I50.9 Heart failure, unspecified; Z87.891 Personal history of nicotine dependence; K57.30 Diverticulosis of large intestine without perforation or abscess without bleeding; K64.8 Other hemorrhoids; Z99.81 Dependence on supplemental oxygen
CPT/HCPCS: 43239; 45380; 36415; 84132; 88342 ×2; 88305 ×2; J2704; 813

== ENCOUNTER 2019-10-12 13:56 | Inpatient (IN) | payer MEDICAID, MEDICARE ==
[2019-10-12 15:01] LABS: HEMATOCRIT 18.8 % (37.9-51.0); MEAN CORPUSCULAR HEMOGLOBIN 22.7 pg (27.0-33.4); MEAN CORPUSCULAR HGB CONC 30.5 g/dL (32.0-36.0); MEAN CORPUSCULAR VOLUME 75 fl (80-97); PLATELET COUNT 309 10^3/uL (150-450); RED BLOOD COUNT 2.52 10^6/uL (4.35-5.55); RED CELL DISTRIBUTION WIDTH 19.9 % (11.5-14.0); WHITE BLOOD COUNT 9.5 10^3/uL (4.0-10.5)
[2019-10-12 15:04] LABS: ALBUMIN 3.8 g/dL (3.5-5.0); ALKALINE PHOSPHATASE 50 U/L (38-126); ANION GAP 13 (5-19); ASPARTATE AMINO TRANSFERASE 25 U/L (17-59); BILIRUBIN,DIRECT 0.3 mg/dL (0.0-0.4); BILIRUBIN,TOTAL 0.5 mg/dL (0.2-1.3); BLOOD UREA NITROGEN 81 mg/dL (7-20); CALCIUM 8.8 mg/dL (8.4-10.2); CARBON DIOXIDE 21 mmol/L (22-30); CHLORIDE 109 mmol/L (98-107); GLUCOSE 96 mg/dL (75-110); POTASSIUM 5.1 mmol/L (3.6-5.0)
[2019-10-12 15:10] LABS: INTERNATIONAL RATION (INR) 1.27
[2019-10-12 15:14] LABS: APPEARANCE,URINE SLIGHTLY-CLOUDY; BILIRUBIN,URINE NEGATIVE (NEGATIVE); COLOR,URINE YELLOW; GLUCOSE, URINE NEGATIVE (NEGATIVE); KETONES,URINE NEGATIVE (NEGATIVE); LEUKOCYTE ESTERASE,URINE LARGE (NEGATIVE); NITRITE,URINE NEGATIVE (NEGATIVE); PROTEIN,URINE NEGATIVE (NEGATIVE); UROBILINOGEN,URINE NEGATIVE mg/dL (<2.0)
[2019-10-12 15:16] LABS: HEMOGLOBIN 5.7 g/dL (13.5-17.0)
[2019-10-12 15:37] LABS: ABSOLUTE LYMPHOCYTES# (MANUAL) 1.8 10^3/uL (0.5-4.7); ABSOLUTE MONOCYTES # (MANUAL) 1.1 10^3/uL (0.1-1.4); ANISOCYTOSIS 2+; BAND NEUTROPHILS % (MANUAL) 1 % (3-5); BASOPHILS % (MANUAL) 0 % (0-2); EOSINOPHILS % (MANUAL) 6 % (0-6); HYPOCHROMASIA 2+; LYMPHOCYTES % (MANUAL) 19 % (13-45); MONOCYTES % (MANUAL) 12 % (3-13); POIKILOCYTOSIS 2+; SEGMENTED NEUTROPHILS % (MAN) 62 % (42-78); TOTAL CELLS COUNTED 100
[2019-10-12 15:38] LABS: OVALOCYTES 2+; PLATELET COMMENT ADEQUATE; TEAR DROP CELLS 1+
[2019-10-12] MEDS ORDERED: CEFTRIAXONE 1 GM/D5W RTU 1 GM/50 ML RTUPB IV ONE (15:40)
[2019-10-12] MEDS ORDERED: NORMAL SALINE 1000 ML 1,000 ML IV ONE (15:40)
[2019-10-12] MEDS ORDERED: NORMAL SALINE 250 ML IV PRN ×2 (15:40→17:55)
--- NOTE | 2019-10-12 15:59 | ER Document Report ---
ED Dizziness/Weakness - General Chief Complaint: General Weakness Stated Complaint: GENERAL WEAKNESS Time Seen by Provider: 10/12/19 14:15 Mode of Arrival: Medic Information source: Patient TRAVEL OUTSIDE OF THE [place] IN LAST 30 DAYS: No - HPI Notes: [facility]. He was sent because labs were drawn and it showed a low hemoglobin. Patient does have a previous history of anemia. Patient is a poor historian so some of the history was obtained from old records. It appears within the last month patient has had some anemia and rectal bleeding. He had an upper and lower endoscopy performed which showed gastritis but otherwise no obvious bleeding lesions. Biopsies were done which showed no cancerous lesions. Patient states that he believes he has not had any blood in his stool or dark or tarry stools for 2 to 3 days but prior to the 2 to 3 days he did have. He states he feels slightly weak and short of breath. No cough or congestion. He denies any pain. He states he has a history of COPD so is used to being short of breath. Patient's symptoms of weakness have been constant. They are worse with exertion and better with rest. There is no known radiation symptoms. - Related Data Allergies/Adverse Reactions: No Known Allergies Allergy (Verified 08/16/18 16:10) Past Medical History - General Information source: Patient - Social History Smoking Status: Former Smoker Frequency of alcohol use: None Drug Abuse: None Family History: CAD, COPD, Hypertension - Past Medical History Cardiac Medical History: Reports: Hx Congestive Heart Failure, Hx Coronary Artery Disease, Hx Hypercholesterolemia, Hx Hypertension, Hx Peripheral Vascular Disease Denies: Hx Heart Attack Pulmonary Medical History: Reports: Hx Bronchitis, Hx COPD Denies: Hx Asthma, Hx Pneumonia Neurological Medical History: Denies: Hx Cerebrovascular Accident, Hx Seizures Renal/ Medical History: Denies: Hx Peritoneal Dialysis GI Medical History: Reports: Hx Gastroesophageal Reflux Disease Musculoskeletal Medical History: Denies Hx Arthritis Psychiatric Medical History: Denies: Hx Depression Traumatic Medical History: Denies: Hx Traumatic Brain Injury Infectious Medical History: Denies: Hx VRE Past Surgical History: Reports: Hx Appendectomy, Hx Cardiac Catheterization, Hx Cardiac Surgery - triple bypass 2012, Hx Coronary Artery Bypass Graft, Hx Orthopedic Surgery - bilat leg surgery. - Immunizations Hx Diphtheria, Pertussis, Tetanus Vaccination: No Review of Systems - Review of Systems Constitutional: Malaise, Weakness. denies: Chills Cardiovascular: denies: Chest pain, Palpitations Respiratory: Short of breath. denies: Cough Gastrointestinal: denies: Abdominal pain -: Yes All other systems reviewed and negative Physical Exam - Vital signs Interpretation: Normal - General General appearance: Appears well, Alert In distress: None - HEENT Head: Normocephalic, Atraumatic Eyes: Normal Pupils: PERRL - Respiratory Respiratory status: No respiratory distress Chest status: Nontender Breath sounds: Decreased air movement - Bilateral Chest palpation: Normal - Cardiovascular Rhythm: Regular Heart sounds: Normal auscultation Murmur: No - Abdominal Inspection: Normal Distension: No distension Bowel sounds: Normal Tenderness: Nontender Organomegaly: No organomegaly - Rectal Stool: Heme positive Hemorrhoids: None - Back Back: Normal, Nontender - Extremities General upper extremity: Normal inspection, Nontender, Normal temperature General lower extremity: Normal inspection, Nontender, Normal temperature. No: Jacquie's sign - Neurological Cognition: Confused Orientation: Disoriented to time Ayla Coma Scale Eye Opening: Spontaneous Allyn Coma Scale Verbal: Confused Ayla Coma Scale Motor: Obeys Commands Allyn Coma Scale Total: 14 Speech: Normal Sensory: Normal - Psychological Associated symptoms: Normal affect, Normal mood - Skin Skin Temperature: Warm Skin Moisture: Dry Skin Color: Pale Course - Re-evaluation Re-evalutation: 10/12/19 15:57 Patient presents with a history of being anemic and having a low hemoglobin at his rehab facility. On recheck here patient has a hemoglobin of 5.7. He does have heme positive stool. Patient has had a recent upper and lower endoscopy which showed no obvious bleeding lesions. However patient appears to have an obvious source of occult bleeding in the GI tract as he has heme positive. He will be treated with a transfusion of 1 unit to start. He also denies any symptoms of urinary tract infection but has an obvious urinary tract infection by laboratories. He will be given Rocephin for this. He has an extremely mil dly elevated potassium for which I will treat with IV fluids and recommend to the hospitalist that this be rechecked. I do not want to give the patient any Kayexalate with his history of GI bleeding at this time. - Laboratory Result Diagrams: 10/12/19 14:15 10/12/19 14:15 Laboratory results interpreted by me: 1110/12/19 10/12/19 14:15 14:15 14:15 RBC 2.52 L Hgb 5.7 L Hct 18.8 L MCV 75 L MCH 22.7 L MCHC 30.5 L RDW 19.9 H Band Neutrophils % 1 L PT 16.0 H Potassium 5.1 H Chloride 109 H Carbon Dioxide 21 L BUN 81 H Creatinine 2.39 H Est GFR ( Amer) 32 L Est GFR (MDRD) Non-Af 27 L Urine Blood Ur Leukocyte Esterase Crossmatch 10/12/19 10/12/19 14:15 14:50 RBC Hgb Hct MCV MCH MCHC RDW Band Neutrophils % PT Potassium Chloride Carbon Dioxide BUN Creatinine Est GFR ( Amer) Est GFR (MDRD) Non-Af Urine Blood SMALL H Ur Leukocyte Esterase LARGE H Crossmatch See Detail Critical Care Note - Critical Care Note Total time excluding time spent on procedures (mins): 50 Comments: I spent approximately 50 minutes of critical care time on this patient managing the severe anemia, infection, and hyperkalemia.. This included multiple reexaminations. It included reviewing old records. It included reviewing imaging and laboratory values. Discharge - Discharge Clinical Impression: Renal insufficiency, Hyperkalemia, Lower GI bleed UTI (urinary tract infection) Qualifiers: Urinary tract infection type: acute cystitis Hematuria presence: with hematuria Qualified Code(s): N30.01 - Acute cystitis with hematuria COPD (chronic obstructive pulmonary disease) Qualifiers: COPD type: emphysema Emphysema type: unspecified Qualified Code(s): J43.9 - Emphysema, unspecified Anemia Qualifiers: Anemia type: iron deficiency Iron deficiency anemia type: chronic blood loss Qu alified Code(s): D50.0 - Iron deficiency anemia secondary to blood loss (chronic) Condition: Stable Disposition: ADMITTED INPATIENT Admitting Provider: onwe Unit Admitted: Telemetry
[2019-10-12] MEDS ORDERED: DEXTROSE 50%-WATER 25 GM/50 ML DISP.SYRIN IV PRN ×2 (17:10)
[2019-10-12] MEDS ORDERED: ALBUTEROL SULFATE 0.083% NEB 2.5 MG/3 ML AMPUL NEB PRN (17:10)
[2019-10-12] MEDS ORDERED: GLUCAGON,HUMAN RECOMB 1 MG INJ SUBCUT PRN (17:10)
[2019-10-12] MEDS ORDERED: DEXTROSE 40% GEL 15 GM TUBE PO PRN ×2 (17:10)
--- NOTE | 2019-10-12 17:55 | PDOC H&P ---
History of Present Illness Admission Date/PCP: 10/12/19 16:30 Patient complains of: Low hemoglobin on labs History of Present Illness: CONCHA GRISSOM is a 74 year old male with a history of iron deficiency anemia, Cerebral palsy, CAD status post CABG, COPD who was sent to the ER from [facility] after found to have low hemoglobin levels on lab work. Patient admits to having melena for the past several days. He currently denies any lightheadedness even though he does state that he felt a little bit earlier. Denies abdominal pain. He denies hematemesis, hematuria, hematochezia, shortness of breath or chest pain. Of note patient had a recent EGD and colonoscopy performed just last month. EGD showed no evidence of upper GI bleeding but revealed gastritis. Biopsies were done which were negative. The procedure was performed by Dr. Crane. Past Medical History Cardiac Medical History: Reports: Congestive Heart Failure, Coronary Artery Disease, Hyperlipidema, Hypertension, Peripheral Vascular Disease Denies: Myocardial Infarction Pulmonary Medical History: Reports: Bronchitis, Chronic Obstructive Pulmonary Disease (COPD) Denies: Asthma, Pneumonia Neurological Medical History: Denies: Seizures GI Medical History: Reports: Gastroesophageal Reflux Disease Musculoskeltal Medical History: Denies: Arthritis Psychiatric Medical History: Denies: Depression Traumatic Medical History: Denies: Traumatic Brain Injury Hematology: Reports: Anemia Denies: Sickle Cell Disease Infectious Medical History: Denies: Vancomycin-Resistant Enterococci Past Surgical History Past Surgical History: Reports: Appendectomy, Cardiac Catheterization, Coronary Artery Bypass Graft, Orthopedic Surgery - bilat leg surgery. Social History Smoking Status: Former Smoker Frequency of Alcohol Use: None Hx Recreational Drug Use: No Drugs: None Hx Prescription Drug Abuse: No - Advance Directive Resuscitation Status: Full Code Family History Family History: CAD, COPD, Hypertension Parental Family History Reviewed: Yes Children Family History Reviewed: Yes Sibling(s) Family History Reviewed.: Yes Medication/Allergy Allergies/Adverse Reactions: No Known Allergies Allergy (Verified 08/16/18 16:10) Review of Systems Constitutional: ABSENT: chills, fever(s) Ears: PRESENT: hearing changes - Chronic not acute Nose, Mouth, and Throat: ABSENT: headache(s) Cardiovascular: ABSENT: chest pain, dyspnea on exertion Respiratory: ABSENT: dyspnea Gastrointestinal: PRESENT: melena. ABSENT: abdominal pain, coffee ground emesis, hematemesis, hematochezia, nausea, vomiting Genitourinary: ABSENT: difficulty urinating, dysuria Integumentary: ABSENT: diaphoresis Neurological: ABSENT: confusion Psychiatric: ABSENT: anxiety Endocrine: ABSENT: cold intolerance Physical Exam Vital Signs: Temp Pulse Resp BP Pulse Ox 97.9 F 21 H 116/86 H 100 10/12/19 14:13 10/12/19 17:01 10/12/19 17:01 10/12/19 16:01 Intake & Output 10/11/19 10/12/19 10/13/19 06:59 06:59 06:59 Weight 65.317 kg General appearance: PRESENT: no acute distress, cooperative, thin Neck exam: ABSENT: JVD Cardiovascular exam: PRESENT: RRR, +S1, +S2. ABSENT: tachycardia GI/Abdominal exam: PRESENT: soft. ABSENT: firm, rebound, rigid, tenderness Neurological exam: PRESENT: alert, awake, oriented to person, oriented to place Results Laboratory Results: 10/12/19 14:15 10/12/19 14:15 10/12/19 10/12/19 10/12/19 14:15 14:15 14:15 WBC 9.5 RBC 2.52 L Hgb 5.7 L Hct 18.8 L MCV 75 L MCH 22.7 L MCHC 30.5 L RDW 19.9 H Plt Count 309 Seg Neutrophils % Not Reportable Sodium 142.5 Potassium 5.1 H Chloride 109 H Carbon Dioxide 21 L Anion Gap 13 BUN 81 H Creatinine 2.39 H Est GFR ( Amer) 32 L Glucose 96 Calcium 8.8 Total Bilirubin 0.5 AST 25 Alkaline Phosphatase 50 Total Protein 7.0 Albumin 3.8 Urine Color Urine Appearance Urine pH Ur Specific [place] Urine Protein Urine Glucose (UA) Urine Ketones Urine Blood Urine Nitrite Ur Leukocyte Esterase Urine WBC (Auto) Urine RBC (Auto) Blood Type A POSITIVE Antibody Screen NEGATIVE 10/12/19 14:50 WBC RBC Hgb Hct MCV MCH MCHC RDW Plt Count Seg Neutrophils % Sodium Potassium Chloride Carbon Dioxide Anion Gap BUN Creatinine Est GFR ( Amer) Glucose Calcium Total Bilirubin AST Alkaline Phosphatase Total Protein Albumin Urine Color YELLOW Urine Appearance SLIGHTLY-CLOUDY Urine pH 5.0 Ur Specific [place] 1.010 Urine Protein NEGATIVE Urine Glucose (UA) NEGATIVE Urine Ketones NEGATIVE Urine Blood SMALL H Urine Nitrite NEGATIVE Ur Leukocyte Esterase LARGE H Urine WBC (Auto) 144 Urine RBC (Auto) 2 Blood Type Antibody Screen Assessment and Plan - Diagnosis (1) Anemia Qualifiers: Iron deficiency anemia type: chronic blood loss Qualified Code(s): D50.0 - Iron deficiency anemia secondary to blood loss (chronic) Is this a current diagnosis for this admission?: Yes Plan: -Hemoglobin is 5.7 today. Known history of iron deficiency anemia. Will give 2 units of packed red blood cells now and recheck CBC with a.m. labs IV fluids Vitals signs are stable Monitor orthostatic vitals Of note, EGD and colonoscopy with on by Dr. Crane on 09/30/2019 which revealed gastritis, no upper GI bleeding, and no evidence of lower GI bleeding. He did show diverticulosis and internal hemorrhoids. Random colon biopsies and antral biopsy were negative for malignancy. Not able to perform CT with IV at this time given CKD If recurrence of active bleed will need tagged red blood cell scan I have placed a consult for Dr. Crane who will be in-house on Saturday (2) GI bleed Is this a current diagnosis for this admission?: Yes Plan: Plan as above (3) CAD SP coronary artery bypass graft Is this a current diagnosis for this admission?: Yes (4) Chronic kidney disease, stage 4, severely decreased GFR Is this a current diagnosis for this admission?: Yes Plan: Seems to be at baseline but we will check a response to IV fluids and blood transfusion (5) COPD exacerbation Is this a current diagnosis for this admission?: Yes - Time Time Spent with patient: 35 or more minutes
[2019-10-12] MEDS: PANTOPRAZOLE SODIUM 40 MG VIAL IV SCH (18:14)
[2019-10-12] MEDS: LIDOCAINE 5% (700 MG) TRANSDERMAL ADH..PATCH TP SCH (19:27)
[2019-10-12] MEDS: ACETAMINOPHEN 325 MG TABLET PO PRN (20:20)
[2019-10-12] MEDS: METOPROLOL TARTRATE 50 MG TABLET PO SCH (22:35)
[2019-10-12] MEDS: ATORVASTATIN CALCIUM 20 MG TABLET PO SCH (22:35)
[2019-10-13] MEDS: PANTOPRAZOLE SODIUM 40 MG VIAL IV SCH ×2 (05:30→17:24)
[2019-10-13] MEDS ORDERED: IPRATROPIUM/ALBUTEROL 0.5-2.5 MG/3 ML AMPUL NEB PRN (05:36)
[2019-10-13 05:58] LABS: HEMATOCRIT 28.9 % (37.9-51.0); MEAN CORPUSCULAR HEMOGLOBIN 25.4 pg (27.0-33.4); MEAN CORPUSCULAR HGB CONC 32.8 g/dL (32.0-36.0); MEAN CORPUSCULAR VOLUME 78 fl (80-97); PLATELET COUNT 289 10^3/uL (150-450); RED BLOOD COUNT 3.73 10^6/uL (4.35-5.55); RED CELL DISTRIBUTION WIDTH 20.9 % (11.5-14.0); RETICULOCYTE COUNT (AUTO) 2.14 % (0.66-2.85); WHITE BLOOD COUNT 11.4 10^3/uL (4.0-10.5)
[2019-10-13 06:00] LABS: INTERNATIONAL RATION (INR) 1.22; PROTHROMBIN TIME 15.5 SEC (11.4-15.4)
[2019-10-13 06:01] LABS: PARTIAL THROMBOPLASTIN TIME 34.5 SEC (23.5-35.8)
[2019-10-13 06:08] LABS: HEMOGLOBIN 9.5 g/dL (13.5-17.0)
[2019-10-13 06:36] LABS: ALBUMIN 3.7 g/dL (3.5-5.0); ALKALINE PHOSPHATASE 60 U/L (38-126); ANION GAP 12 (5-19); ASPARTATE AMINO TRANSFERASE 24 U/L (17-59); BILIRUBIN,DIRECT 0.1 mg/dL (0.0-0.4); BILIRUBIN,TOTAL 0.6 mg/dL (0.2-1.3); BLOOD UREA NITROGEN 64 mg/dL (7-20); CALCIUM 8.8 mg/dL (8.4-10.2); CARBON DIOXIDE 21 mmol/L (22-30); CHLORIDE 110 mmol/L (98-107); GLUCOSE 89 mg/dL (75-110); POTASSIUM 4.6 mmol/L (3.6-5.0); TOTAL PROTEIN 6.9 g/dL (6.3-8.2)
--- NOTE | 2019-10-13 08:00 | PDOC CONSULTATION ---
Consultation Consult Date: 10/13/19 Provider Consulted: CHUY LUI Consult reason:: Iron deficiency anemia History of Present Illness Admission Date/PCP: 10/12/19 16:30 History of Present Illness: CONCHA GRISSOM is a 74 year old male Asked to see this patient was referred about 2 weeks ago for low Hgb had EGD and colonoscopy , 2 weeks ago no bleeding noted some mild gastritis, biopsies are negative patient also had colonoscopy done, no site of bleeding was encountered now admitted and being transfused will need to monitor for any bleeding bleeding scan if needed will need hematology consult for other causes of anemia no urgent scope is needed as of now Past Medical History Cardiac Medical History: Reports: Congestive Heart Failure, Coronary Artery Disease, Hyperlipidema, Hypertension, Peripheral Vascular Disease Denies: Myocardial Infarction Pulmonary Medical History: Reports: Bronchitis, Chronic Obstructive Pulmonary Disease (COPD) Denies: Asthma, Pneumonia Neurological Medical History: Denies: Seizures GI Medical History: Reports: Gastroesophageal Reflux Disease Musculoskeltal Medical History: Denies: Arthritis Psychiatric Medical History: Denies: Depression Traumatic Medical History: Denies: Traumatic Brain Injury Hematology: Reports: Anemia Denies: Sickle Cell Disease Infectious Medical History: Denies: Vancomycin-Resistant Enterococci Past Surgical History Past Surgical History: Reports: Appendectomy, Cardiac Catheterization, Coronary Artery Bypass Graft, Orthopedic Surgery - bilat leg surgery. Social History Smoking Status: Former Smoker Frequency of Alcohol Use: None Hx Recreational Drug Use: No Drugs: None Hx Prescription Drug Abuse: No - Advance Directive Resuscitation Status: Full Code Family History Family History: CAD, COPD, Hypertension Parental Family History Reviewed: Yes Children Family History Reviewed: Unknown Sibling(s) Family History Reviewed.: Unknown Medication/Allergy Home Medications: Acetaminophen [Tylenol 325 mg Tablet] 650 mg PO Q6HP PRN 10/12/19 Amlodipine Besylate [Norvasc 5 mg Tablet] 5 mg PO DAILY 10/12/19 Aspirin [Aspirin 81 mg Chewable Tablet] 81 mg PO DAILY 10/12/19 Atorvastatin Calcium [Lipitor 20 mg Tablet] 20 mg PO QHS 10/12/19 Docusate Sodium [Colace 100 mg Capsule] 100 mg PO DAILY 10/12/19 Fluticasone Propionate [Flonase Nasal [place] 50 Mcg/[place] 16 gm] 2 spray NASL Q12 10/12/19 Fluticasone/Vilanterol [Breo 200-25 Mcg Ellipta 14 Dose/Dpi] 1 inh IH DAILY 10/12/19 Furosemide [Lasix 20 mg Tablet] 20 mg PO DAILY 10/12/19 Guaifenesin [Mucinex] 600 mg PO Q12 10/12/19 Guaifenesin [Robitussin Syrup 200 mg/10 ml Ud Cup] 200 mg PO Q4HP PRN 10/12/19 Hydrocortisone Acetate [Anusol Hc 25 mg Supp.rect] 1 supp.rect MI BID 10/12/19 Isosorbide Dinitrate [Isordil Titradose 20 Mg Tablet] 20 mg PO Q12 10/12/19 Lisinopril [Prinivil 10 mg Tablet] 10 mg PO DAILY 10/12/19 Metoprolol Tartrate [Lopressor 50 mg Tablet] 50 mg PO Q12 10/12/19 Mineral Oil/Petrolatum,White [Eucerin Cream 114 Gm/Jar] 1 applic TP DAILY 10/12/19 Multivit-Min/FA/Lycopen/Lutein [Certavite Sr-Antioxidant Tab] 1 each PO DAILY 10/12/19 Pantoprazole Sodium [Protonix [address] Tablet] 40 mg PO Q6AM 10/12/19 Sertraline HCl [Zoloft 50 mg Tablet] 50 mg PO DAILY 10/12/19 Tobramycin Sulfate/Dexameth [Tobradex Oph Drops 2.5 Ml Bottle] 1 drop OS Q6 10/12/19 Allergies/Adverse Reactions: No Known Allergies Allergy (Verified 08/16/18 16:10) Review of Systems Constitutional: PRESENT: weakness. ABSENT: fever(s), headache(s) Eyes: ABSENT: visual disturbances Ears: ABSENT: hearing changes Nose, Mouth, and Throat: ABSENT: mouth pain, sore throat Respiratory: ABSENT: dyspnea, hemoptysis Gastrointestinal: ABSENT: hematemesis, hematochezia, melena Genitourinary: ABSENT: dysuria, hematuria Integumentary: ABSENT: lesions, pruritus Neurological: ABSENT: syncope, tingling, tremor(s), vertigo Endocrine: ABSENT: polydipsia, polyphagia, polyuria Hematologic/Lymphatic: ABSENT: easy bruising Physical Exam Vital Signs: Temp Pulse Resp BP Pulse Ox 97.5 F 74 16 128/64 H 97 10/13/19 01:00 10/13/19 02:00 10/13/19 01:00 10/13/19 01:00 10/13/19 01:00 Intake & Output 10/12/19 10/13/19 10/14/19 06:59 06:59 06:59 Intake Total 1830 Balance 1830 Weight 67.6 kg General appearance: PRESENT: no acute distress, thin Head exam: PRESENT: atraumatic, normocephalic Eye exam: PRESENT: EOMI, PERRLA. ABSENT: nystagmus, periorbital swelling, scleral icterus Mouth exam: PRESENT: moist, neck supple Throat exam: ABSENT: tonsillogmegaly Neck exam: ABSENT: meningismus, tenderness Respiratory exam: PRESENT: symmetrical, unlabored. ABSENT: wheezes Cardiovascular exam: PRESENT: irregular rhythm GI/Abdominal exam: PRESENT: Portillo's sign, normal bowel sounds, soft. ABSENT: rebound, rigid, tenderness Extremities exam: ABSENT: joint swelling Musculoskeletal exam: PRESENT: full ROM Neurological exam: PRESENT: alert, awake, CN II-XII grossly intact Skin exam: PRESENT: normal color. ABSENT: mottled, pallor, urticaria, vesicles Results Laboratory Results: 10/13/19 04:54 10/13/19 04:54 10/12/19 10/12/19 10/12/19 14:15 14:15 14:15 WBC 9.5 RBC 2.52 L Hgb 5.7 L Hct 18.8 L MCV 75 L MCH 22.7 L MCHC 30.5 L RDW 19.9 H Plt Count 309 Seg Neutrophils % Not Reportable Retic Count (auto) Sodium 142.5 Potassium 5.1 H Chloride 109 H Carbon Dioxide 21 L Anion Gap 13 BUN 81 H Creatinine 2.39 H Est GFR ( Amer) 32 L Glucose 96 Calcium 8.8 Magnesium Total Bilirubin 0.5 AST 25 Alkaline Phosphatase 50 Total Protein 7.0 Albumin 3.8 Urine Color Urine Appearance Urine pH Ur Specific [place] Urine Protein Urine Glucose (UA) Urine Ketones Urine Blood Urine Nitrite Ur Leukocyte Esterase Urine WBC (Auto) Urine RBC (Auto) Blood Type A POSITIVE Antibody Screen NEGATIVE 10/12/19 10/13/19 10/13/19 14:50 04:54 04:54 WBC 11.4 H RBC 3.73 L Hgb 9.5 L D Hct 28.9 L MCV 78 L MCH 25.4 L MCHC 32.8 RDW 20.9 H Plt Count 289 Seg Neutrophils % Retic Count (auto) 2.14 Sodium 142.8 Potassium 4.6 Chloride 110 H Carbon Dioxide 21 L Anion Gap 12 BUN 64 H Creatinine 2.15 H Est GFR ( Amer) 37 L Glucose 89 Calcium 8.8 Magnesium 2.2 Total Bilirubin 0.6 AST 24 Alkaline Phosphatase 60 Total Protein 6.9 Albumin 3.7 Urine Color YELLOW Urine Appearance SLIGHTLY-CLOUDY Urine pH 5.0 Ur Specific [place] 1.010 Urine Protein NEGATIVE Urine Glucose (UA) NEGATIVE Urine Ketones NEGATIVE Urine Blood SMALL H Urine Nitrite NEGATIVE Ur Leukocyte Esterase LARGE H Urine WBC (Auto) 144 Urine RBC (Auto) 2 Blood Type Antibody Screen Assessment & Plan - Diagnosis (1) Anemia Qualifiers: Iron deficiency anemia type: chronic blood loss Qualified Code(s): D50.0 - Iron deficiency anemia secondary to blood loss (chronic) Is this a current diagnosis for this admission?: Yes Plan: no evidence of ongoing GI losses and work up has been done EGD and colonoscopy < 2 weeks ago will need to monitor transfusion planned would consider bleeding scan if has evidence of GI bleeding may need outpatient capsule study consider Hematology consult - Time Time Spent: 50 to 70 Minutes
[2019-10-13] MEDS: IPRATROPIUM/ALBUTEROL 0.5-2.5 MG/3 ML AMPUL NEB SCH ×2 (08:10→19:49)
[2019-10-13] MEDS: METOPROLOL TARTRATE 50 MG TABLET PO SCH ×2 (09:07→21:02)
[2019-10-13] MEDS: AMLODIPINE BESYLATE 5 MG TABLET PO SCH (09:07)
[2019-10-13] MEDS: ASPIRIN 81 MG TABLET, ENT COATED PO SCH (09:07)
[2019-10-13] MEDS: FERROUS SULFATE 325 MG TABLET PO SCH (09:07)
[2019-10-13] MEDS: FLUTICASONE/UMECLIDIN/VILANTER 100-62.5-25 MCG/DOSE IH SCH (09:08)
--- NOTE | 2019-10-13 10:48 | PDOC PROGRESS REPORT ---
Subjective Progress Note for:: 10/13/19 Subjective:: Patient is resting in bed. He is on nasal cannula. He has no new complaints. Reason For Visit: ANEMIA DUE TO UPPER GI BLEED Physical Exam Vital Signs: Temp Pulse Resp BP Pulse Ox 97.5 F 75 18 128/64 H 94 10/13/19 01:00 10/13/19 08:10 10/13/19 08:10 10/13/19 01:00 10/13/19 08:10 Intake & Output 10/12/19 10/13/19 10/14/19 06:59 06:59 06:59 Intake Total 1830 Balance 1830 Weight 67.6 kg General appearance: PRESENT: no acute distress, cooperative, well-developed. ABSENT: disheveled Head exam: PRESENT: atraumatic, normocephalic Eye exam: PRESENT: conjunctiva pale, EOMI. ABSENT: scleral icterus Ear exam: PRESENT: normal external ear exam. ABSENT: bleeding, drainage Mouth exam: PRESENT: moist, tongue midline Respiratory exam: PRESENT: symmetrical, unlabored. ABSENT: accessory muscle use, rales, rhonchi, tachypnea, wheezes Cardiovascular exam: PRESENT: RRR, +S1, +S2, systolic murmur - 2/6 GI/Abdominal exam: PRESENT: normal bowel sounds, soft. ABSENT: distended, tenderness Rectal exam: PRESENT: deferred Extremities exam: ABSENT: pedal edema Musculoskeletal exam: PRESENT: normal inspection Neurological exam: PRESENT: alert, awake, oriented to person, oriented to place Psychiatric exam: PRESENT: flat affect. ABSENT: agitated, anxious Focused psych exam: ABSENT: delusional, restlessness Skin exam: PRESENT: dry, warm. ABSENT: rash Results Laboratory Results: 10/13/19 04:54 10/13/19 04:54 10/12/19 10/12/19 10/12/19 14:15 14:15 14:15 WBC 9.5 RBC 2.52 L Hgb 5.7 L Hct 18.8 L MCV 75 L MCH 22.7 L MCHC 30.5 L RDW 19.9 H Plt Count 309 Seg Neutrophils % Not Reportable Retic Count (auto) Sodium 142.5 Potassium 5.1 H Chloride 109 H Carbon Dioxide 21 L Anion Gap 13 BUN 81 H Creatinine 2.39 H Est GFR ( Amer) 32 L Glucose 96 Calcium 8.8 Magnesium Total Bilirubin 0.5 AST 25 Alkaline Phosphatase 50 Total Protein 7.0 Albumin 3.8 Urine Color Urine Appearance Urine pH Ur Specific [place] Urine Protein Urine Glucose (UA) Urine Ketones Urine Blood Urine Nitrite Ur Leukocyte Esterase Urine WBC (Auto) Urine RBC (Auto) Blood Type A POSITIVE Antibody Screen NEGATIVE 10/12/19 10/13/19 10/13/19 14:50 04:54 04:54 WBC 11.4 H RBC 3.73 L Hgb 9.5 L D Hct 28.9 L MCV 78 L MCH 25.4 L MCHC 32.8 RDW 20.9 H Plt Count 289 Seg Neutrophils % Retic Count (auto) 2.14 Sodium 142.8 Potassium 4.6 Chloride 110 H Carbon Dioxide 21 L Anion Gap 12 BUN 64 H Creatinine 2.15 H Est GFR ( Amer) 37 L Glucose 89 Calcium 8.8 Magnesium 2.2 Total Bilirubin 0.6 AST 24 Alkaline Phosphatase 60 Total Protein 6.9 Albumin 3.7 Urine Color YELLOW Urine Appearance SLIGHTLY-CLOUDY Urine pH 5.0 Ur Specific [place] 1.010 Urine Protein NEGATIVE Urine Glucose (UA) NEGATIVE Urine Ketones NEGATIVE Urine Blood SMALL H Urine Nitrite NEGATIVE Ur Leukocyte Esterase LARGE H Urine WBC (Auto) 144 Urine RBC (Auto) 2 Blood Type Antibody Screen Assessment and Plan - Diagnosis (1) Anemia Qualifiers: Iron deficiency anemia type: chronic blood loss Qualified Code(s): D50.0 - Iron deficiency anemia secondary to blood loss (chronic) Is this a current diagnosis for this admission?: Yes Plan: -Hemoglobin is 5.7 today. Known history of iron deficiency anemia. Will give 2 units of packed red blood cells now and recheck CBC with a.m. labs IV fluids Vitals signs are stable Monitor orthostatic vitals Of note, EGD and colonoscopy with on by Dr. Crane on 09/30/2019 which revealed gastritis, no upper GI bleeding, and no evidence of lower GI bleeding. He did show diverticulosis and internal hemorrhoids. Random colon biopsies and antral biopsy were negative for malignancy. Not able to perform CT with IV at this time given CKD If recurrence of active bleed will need tagged red blood cell scan I have placed a consult for Dr. Crane who will be in-house on Saturday10/13/2019-patient is stable. Hemoglobin is 9.5 after transfusion. We will rec heck hemoglobin. If stable will return [facility]. (2) GI bleed Is this a current diagnosis for this admission?: Yes Plan: Plan as above 10/13/2019-the patient has a history of gastritis. We will continue the twice daily Protonix and oral form and add Carafate. (3) Chronic kidney disease, stage 4, severely decreased GFR Is this a current diagnosis for this admission?: Yes Plan: Seems to be at baseline but we will check a response to IV fluids and blood transfusion 10/13/2019-BUN and creatinine are slightly improved. Patient is at or around his baseline. (4) CAD SP coronary artery bypass graft Is this a current diagnosis for this admission?: Yes Plan: 10/13/2019-continue outpatient medication regimen (5) COPD exacerbation Is this a current diagnosis for this admission?: Yes Plan: 10/13/2019-continue nebulizers and inhaler regimen. - Time Time Spent with patient: 15-24 minutes Medications reviewed and adjusted accordingly: Yes Anticipated discharge: SNF Within: within 48 hours
[2019-10-13] MEDS: LIDOCAINE 5% (700 MG) TRANSDERMAL ADH..PATCH TP SCH (14:16)
[2019-10-13] MEDS: ACETAMINOPHEN 325 MG TABLET PO PRN (21:02)
[2019-10-13] MEDS: ATORVASTATIN CALCIUM 20 MG TABLET PO SCH (21:02)
[2019-10-14] MEDS: PANTOPRAZOLE SODIUM 40 MG VIAL IV SCH (07:12)
[2019-10-14] MEDS: IPRATROPIUM/ALBUTEROL 0.5-2.5 MG/3 ML AMPUL NEB SCH (08:11)
[2019-10-14 08:28] LABS: HEMOGLOBIN 8.8 g/dL (13.5-17.0); MEAN CORPUSCULAR HEMOGLOBIN 25.8 pg (27.0-33.4); MEAN CORPUSCULAR HGB CONC 32.5 g/dL (32.0-36.0); MEAN CORPUSCULAR VOLUME 79 fl (80-97); PLATELET COUNT 244 10^3/uL (150-450); RED CELL DISTRIBUTION WIDTH 20.9 % (11.5-14.0); WHITE BLOOD COUNT 10.8 10^3/uL (4.0-10.5)
[2019-10-14] MEDS: METOPROLOL TARTRATE 50 MG TABLET PO SCH (09:09)
[2019-10-14] MEDS: FERROUS SULFATE 325 MG TABLET PO SCH (09:09)
[2019-10-14] MEDS: ASPIRIN 81 MG TABLET, ENT COATED PO SCH (09:10)
[2019-10-14] MEDS: AMLODIPINE BESYLATE 5 MG TABLET PO SCH (09:10)
[2019-10-14] MEDS: FLUTICASONE/UMECLIDIN/VILANTER 100-62.5-25 MCG/DOSE IH SCH (09:10)
[2019-10-14] MEDS: LIDOCAINE 5% (700 MG) TRANSDERMAL ADH..PATCH TP SCH (10:36)
[2019-10-14] MEDS: SUCRALFATE 1 GM TABLET PO SCH ×2 (10:37→16:09)
--- NOTE | 2019-10-14 13:46 | PDOC TRANSFER SUMMARY ---
Impression - Admit/DC Date/PCP Admission Date/Primary Care Provider: 10/12/19 16:30 Discharge Date: 10/14/19 - Discharge Diagnosis (1) Anemia Is this a current diagnosis for this admission?: Yes (2) GI bleed Is this a current diagnosis for this admission?: Yes (3) Chronic kidney disease, stage 4, severely decreased GFR Is this a current diagnosis for this admission?: Yes (4) CAD SP coronary artery bypass graft Is this a current diagnosis for this admission?: Yes (5) COPD exacerbation Is this a current diagnosis for this admission?: Yes (6) Chronic respiratory failure with hypoxia Is this a current diagnosis for this admission?: Yes - Additional Information Resuscitation Status: Full Code Discharge Diet: Cardiac Prescriptions: Tiotropium [place] [Spiriva Handihaler 5 Cap/Kit (18 Mcg/Cap)] 1 cap IH DAILY #5 capsule Home Medications: Acetaminophen [Tylenol 325 mg Tablet] 650 mg PO Q6HP PRN 10/12/19 Amlodipine Besylate [Norvasc 5 mg Tablet] 5 mg PO DAILY 10/12/19 Aspirin [Aspirin 81 mg Chewable Tablet] 81 mg PO DAILY 10/12/19 Atorvastatin Calcium [Lipitor 20 mg Tablet] 20 mg PO QHS 10/12/19 Docusate Sodium [Colace 100 mg Capsule] 100 mg PO DAILY 10/12/19 Fluticasone Propionate [Flonase Nasal [place] 50 Mcg/[place] 16 gm] 2 spray NASL Q12 10/12/19 Fluticasone/Vilanterol [Breo 200-25 Mcg Ellipta 14 Dose/Dpi] 1 inh IH DAILY 10/12/19 Furosemide [Lasix 20 mg Tablet] 20 mg PO DAILY 10/12/19 Guaifenesin [Mucinex] 600 mg PO Q12 10/12/19 Guaifenesin [Robitussin Syrup 200 mg/10 ml Ud Cup] 200 mg PO Q4HP PRN 10/12/19 Hydrocortisone Acetate [Anusol Hc 25 mg Supp.rect] 1 supp.rect MT BID 10/12/19 Isosorbide Dinitrate [Isordil Titradose 20 mg Tablet] 20 mg PO Q12 10/12/19 Lisinopril [Prinivil 10 mg Tablet] 10 mg PO DAILY 10/12/19 Metoprolol Tartrate [Lopressor 50 mg Tablet] 50 mg PO Q12 10/12/19 Mineral Oil/Petrolatum,White [Eucerin Cream 114 gm] 1 applic TP DAILY 10/12/19 Multivit-Min/FA/Lycopen/Lutein [Certavite Sr-Antioxidant Tab] 1 each PO DAILY 10/12/19 Sertraline HCl [Zoloft 50 mg Tablet] 50 mg PO DAILY 10/12/19 Tobramycin Sulfate/Dexameth [Tobradex Oph Drops 2.5 ml] 1 drop OS Q6 10/12/19 Ferrous Sulfate [Feosol 325 mg Tablet] 325 mg PO DAILY tablet 10/14/19 Lidocaine [Lidoderm 5% (700 mg) Transdermal Patch] 1 patch TP DAILY adh..patch 10/14/19 Pantoprazole Sodium [Protonix [address] Tablet] 40 mg PO BID@0600,1700 tablet.dr 10/14/19 Sucralfate [Carafate 1 gm Tablet] 1 gm PO ACHS #0 tablet 10/14/19 Tiotropium [place] [Spiriva Handihaler 5 Cap/Kit (18 Mcg/Cap)] 1 cap IH DAILY #5 capsule 10/14/19 History of Present Illiness History of Present Illness: CONCHA GRISSOM is a 74 year old male with a history of episodes of anemia from gastrointestinal bleeding. Endoscopy shows gastritis. The patient presented with a hemoglobin of 5.7. An evaluation by Dr. Crane. Hospital Course Hospital Course: The patient received 2 units of packed red blood cells. Started on ferrous sulfate. His hemoglobin was 9.5 posttransfusion and down to 8.8. This is actually slightly higher than expected with 2 units of packed red cells. He will return to [facility] facility. Dr. Langston will arrange for an outpatient endoscopy with the pediatric scope to try to evaluate the small bowel past the ligament of [place]. Physical Exam Vital Signs: Temp Pulse Resp BP Pulse Ox 98.4 F 78 22 H 135/46 H 95 10/14/19 07:31 10/14/19 08:11 10/14/19 08:11 10/14/19 07:31 10/14/19 08:11 Intake & Output 10/13/19 10/14/19 10/15/19 06:59 06:59 06:59 Intake Total 1830 720 300 Output Total 950 200 Balance 1830 -230 100 Weight 67.6 kg 67.4 kg General appearance: PRESENT: no acute distress, cooperative, well-developed Eye exam: PRESENT: conjunctiva pale. ABSENT: scleral icterus Ear exam: PRESENT: normal external ear exam. ABSENT: bleeding, drainage Mouth exam: PRESENT: moist, tongue midline Respiratory exam: PRESENT: clear to auscultation joyce, symmetrical, unlabored. ABSENT: rales, rhonchi, tachypnea, wheezes Cardiovascular exam: PRESENT: RRR, +S1, +S2 GI/Abdominal exam: PRESENT: normal bowel sounds, soft. ABSENT: distended, tenderness Rectal exam: PRESENT: deferred Extremities exam: ABSENT: joint swelling, pedal edema Musculoskeletal exam: PRESENT: ambulatory, normal inspection Neurological exam: PRESENT: alert, awake, oriented to person, oriented to place, oriented to time, oriented to situation, CN II-XII grossly intact Psychiatric exam: PRESENT: appropriate affect. ABSENT: agitated, anxious Focused psych exam: ABSENT: delusional, restlessness Results Laboratory Results: WBC 10.8 10^3/uL (4.0-10.5) H 10/14/19 08:09 RBC 3.40 10^6/uL (4.35-5.55) L 10/14/19 08:09 Hgb 8.8 g/dL (13.5-17.0) L 10/14/19 08:09 Hct 27.0 % (37.9-51.0) L 10/14/19 08:09 MCV 79 fl (80-97) L 10/14/19 08:09 MCH 25.8 pg (27.0-33.4) L 10/14/19 08:09 MCHC 32.5 g/dL (32.0-36.0) 10/14/19 08:09 RDW 20.9 % (11.5-14.0) H 10/14/19 08:09 Plt Count 244 10^3/uL (150-450) 10/14/19 08:09 Lymph % (Auto) Not Reportable 10/12/19 14:15 [place] % (Auto) Not Reportable 10/12/19 14:15 Eos % (Auto) Not Reportable 10/12/19 14:15 Baso % (Auto) Not Reportable 10/12/19 14:15 Reticulocyte # 0.080 10^6/uL (0.028-0.122) 10/13/19 04:54 Absolute Neuts (auto) Not Reportable 10/12/19 14:15 Absolute Lymphs (auto) Not Reportable 10/12/19 14:15 Absolute Monos (auto) Not Reportable 10/12/19 14:15 Absolute Eos (auto) Not Reportable 10/12/19 14:15 Absolute Basos (auto) Not Reportable 10/12/19 14:15 Total Counted 100 10/12/19 14:15 Seg Neutrophils % Not Reportable 10/12/19 14:15 Seg Neuts % (Manual) 62 % (42-78) 10/12/19 14:15 Band Neutrophils % 1 % (3-5) L 10/12/19 14:15 Lymphocytes % (Manual) 19 % (13-45) 10/12/19 14:15 Monocytes % (Manual) 12 % (3-13) 10/12/19 14:15 Eosinophils % (Manual) 6 % (0-6) 10/12/19 14:15 Basophils % (Manual) 0 % (0-2) 10/12/19 14:15 Abs Neuts (Manual) 6.0 10^3/uL (1.7-8.2) 10/12/19 14:15 Abs Lymphs (Manual) 1.8 10^3/uL (0.5-4.7) 10/12/19 14:15 Abs Monocytes (Manual) 1.1 10^3/uL (0.1-1.4) 10/12/19 14:15 Absolute Eos (Manual) 0.6 10^3/uL (0.0-0.6) 10/12/19 14:15 Abs Basophils (Manual) 0.0 10^3/uL (0.0-0.2) 10/12/19 14:15 Platelet Comment ADEQUATE 10/12/19 14:15 Hypochromasia 2+ 10/12/19 14:15 Poikilocytosis 2+ 10/12/19 14:15 Anisocytosis 2+ 10/12/19 14:15 Microcytosis 1+ 10/12/19 14:15 Tear Drop Cells 1+ 10/12/19 14:15 Ovalocytes 2+ 10/12/19 14:15 Retic Count (auto) 2.14 % (0.66-2.85) 10/13/19 04:54 PT 15.5 SEC (11.4-15.4) H 10/13/19 04:54 INR 1.22 10/13/19 04:54 APTT 34.5 SEC (23.5-35.8) 10/13/19 04:54 Sodium 142.8 mmol/L (137-145) 10/13/19 04:54 Potassium 4.6 mmol/L (3.6-5.0) 10/13/19 04:54 Chloride 110 mmol/L (98-107) H 10/13/19 04:54 Carbon Dioxide 21 mmol/L (22-30) L 10/13/19 04:54 Anion Gap 12 (5-19) 10/13/19 04:54 BUN 64 mg/dL (7-20) H 10/13/19 04:54 Creatinine 2.15 mg/dL (0.52-1.25) H 10/13/19 04:54 Est GFR ( Amer) 37 (>60) L 10/13/19 04:54 Est GFR (MDRD) Non-Af 30 (>60) L 10/13/19 04:54 Glucose 89 mg/dL (75-110) 10/13/19 04:54 Calcium 8.8 mg/dL (8.4-10.2) 10/13/19 04:54 Magnesium 2.2 mg/dL (1.6-2.3) 10/13/19 04:54 Total Bilirubin 0.6 mg/dL (0.2-1.3) 10/13/19 04:54 Direct Bilirubin 0.1 mg/dL (0.0-0.4) 10/13/19 04:54 Neonat Total Bilirubin Not Reportable 10/13/19 04:54 Neonat Direct Bilirubin Not Reportable 10/13/19 04:54 Neonat Indirect Bili Not Reportable 10/13/19 04:54 AST 24 U/L (17-59) 10/13/19 04:54 ALT 16 U/L (<50) 10/13/19 04:54 Alkaline Phosphatase 60 U/L (38-126) 10/13/19 04:54 Total Protein 6.9 g/dL (6.3-8.2) 10/13/19 04:54 Albumin 3.7 g/dL (3.5-5.0) 10/13/19 04:54 Urine Color YELLOW 10/12/19 14:50 Urine Appearance SLIGHTLY-CLOUDY 10/12/19 14:50 Urine pH 5.0 (5.0-9.0) 10/12/19 14:50 Ur Specific [place] 1.010 10/12/19 14:50 Urine Protein NEGATIVE mg/dL (NEGATIVE) 10/12/19 14:50 Urine Glucose (UA) NEGATIVE mg/dL (NEGATIVE) 10/12/19 14:50 Urine Ketones NEGATIVE mg/dL (NEGATIVE) 10/12/19 14:50 Urine Blood SMALL (NEGATIVE) H 10/12/19 14:50 Urine Nitrite NEGATIVE (NEGATIVE) 10/12/19 14:50 Urine Bilirubin NEGATIVE (NEGATIVE) 10/12/19 14:50 Urine Urobilinogen NEGATIVE mg/dL (<2.0) 10/12/19 14:50 Ur Leukocyte Esterase LARGE (NEGATIVE) H 10/12/19 14:50 Urine WBC (Auto) 144 /HPF 10/12/19 14:50 Urine RBC (Auto) 2 /HPF 10/12/19 14:50 U Hyaline Cast (Auto) 1 /LPF 10/12/19 14:50 Urine Bacteria (Auto) TRACE /HPF 10/12/19 14:50 Urine Mucus (Auto) RARE /LPF 10/12/19 14:50 Urine Ascorbic Acid NEGATIVE (NEGATIVE) 10/12/19 14:50 Blood Type A POSITIVE 10/12/19 14:15 Blood Type Confirm A POSITIVE 10/12/19 16:11 Antibody Screen NEGATIVE 10/12/19 14:15 Crossmatch See Detail 10/12/19 14:15 Plan Health Concerns: Recurrent bleeding. Further evaluation by Dr. Crane as an outpatient. I have recommended weekly CBCs to continue to monitor the patient's hemoglobin. Plan of Treatment: Continue evaluation by gastroenterology as an outpatient. Serial CBCs on a weekly basis to monitor hemoglobin. I have added Carafate and double the Protonix to twice daily. Goals: Identify and treat potential source of GI bleed Time Spent: Greater than 30 Minutes Stroke Is this a Stroke Patient?: No Acute Heart Failure - Is this a Heart Failure Patient?: No
--- NOTE | 2019-10-14 13:47 | PDOC PROGRESS REPORT ---
Subjective Progress Note for:: 10/14/19 Subjective:: Patient had blood transfusion and has had slight drop of his Hgb remains asymptomatic patient had recent EGD and colonoscopy however with drop of his Hgb, with his complaints of dark stools, can have EGD with pediatric colonoscope so that distal duodenum and be examined can schedule for tomorrow keep pt NPO Reason For Visit: ANEMIA DUE TO UPPER GI BLEED Physical Exam Vital Signs: Temp Pulse Resp BP Pulse Ox 98.4 F 78 22 H 135/46 H 95 10/14/19 07:31 10/14/19 08:11 10/14/19 08:11 10/14/19 07:31 10/14/19 08:11 Intake & Output 10/13/19 10/14/19 10/15/19 06:59 06:59 06:59 Intake Total 1830 720 300 Output Total 950 200 Balance 1830 -230 100 Weight 67.6 kg 67.4 kg General appearance: PRESENT: no acute distress, well-developed Head exam: PRESENT: atraumatic, normocephalic Eye exam: PRESENT: EOMI, PERRLA. ABSENT: nystagmus, periorbital swelling, scle ral icterus Mouth exam: PRESENT: moist, neck supple Neck exam: ABSENT: meningismus, tenderness, thyromegaly Respiratory exam: PRESENT: unlabored. ABSENT: wheezes Cardiovascular exam: PRESENT: +S1, +S2 GI/Abdominal exam: PRESENT: normal bowel sounds, soft. ABSENT: rebound, rigid Extremities exam: ABSENT: joint swelling Musculoskeletal exam: PRESENT: full ROM Neurological exam: PRESENT: alert, awake, CN II-XII grossly intact Skin exam: PRESENT: normal color. ABSENT: mottled, pallor, urticaria, vesicles Results Laboratory Results: 10/14/19 08:09 10/13/19 04:54 10/14/19 08:09 WBC 10.8 H RBC 3.40 L Hgb 8.8 L Hct 27.0 L MCV 79 L MCH 25.8 L MCHC 32.5 RDW 20.9 H Plt Count 244 Assessment & Plan - Diagnosis (1) Anemia Qualifiers: Iron deficiency anemia type: chronic blood loss Qualified Code(s): D50.0 - Iron deficiency anemia secondary to blood loss (chronic) Is this a current diagnosis for this admission?: Yes (2) GI bleed Is this a current diagnosis for this admission?: Yes Plan: will schedule EGD with pediatric colonoscope and try to evaluate small bowel beyond the ligament of [place] Risks, benefits and alternatives are discussed with the patient in detail further recommendations to follow - Time Time Spent with patient: 15-24 minutes
--- NOTE | 2019-10-14 13:49 | Progress Note ---
Provider Note Provider Note: if patient is being discharged to SNF, will arrange as outpatient thanks.
[2019-10-14 15:22] VITALS: BP 131/68
[2019-10-14] MEDS ORDERED: PANTOPRAZOLE SODIUM 40 MG TABLET.DR PO SCH (17:00)
== END 2019-10-14 17:06 | DRG 812 ==
LOC: ER 13:56 → EH 16:30 → UNDOADMIN 16:30 → 3W 20:57
PROVIDERS: ADMIT Internal Medicine; ATTEND Internal Medicine
PROC: 30233N1 Transfusion of Nonautologous Red Blood Cells into Peripheral Vein, Percutaneous Approach (ICD-10-PCS; principal; 2019-10-12)
DX: D50.0 Iron deficiency anemia secondary to blood loss (chronic) (principal); N39.0 Urinary tract infection, site not specified; J44.1 Chronic obstructive pulmonary disease with (acute) exacerbation; N18.4 Chronic kidney disease, stage 4 (severe); K92.2 Gastrointestinal hemorrhage, unspecified; J96.11 Chronic respiratory failure with hypoxia; R53.1 Weakness; E87.5 Hyperkalemia; G80.9 Cerebral palsy, unspecified; K21.9 Gastro-esophageal reflux disease without esophagitis; Z79.82 Long term (current) use of aspirin; Z79.899 Other long term (current) drug therapy
CPT/HCPCS: 36415; 36430; 80053; 81001; 82728; 83540; 83550; 83735; 85025; 85027; 85045; 85610; 85730; 86850; 86900; 86901; 86920; 94640; 94667; 94799; 99291; C9113; J0696; J3490; J7030; J7620; P9016